=== PATIENT | male | born 1955 | race Caucasian/White ===

== ENCOUNTER 2016-11-17 12:19 | Day surgery (SDC) | payer OTHER ==
[2016-10-27 10:20] LABS: BASO % 0.7 %; BASO ABS # 0.05 K/uL (0-0.2); COMPLETE YES; EOS % 5.4 %; HEMATOCRIT 34.9 % (42-52); IG% 0.1 %; LYMPH % 18.8 %; LYMPH ABS # 1.36 K/uL (1.2-3.4); MEAN CELL VOLUME 84.7 fL (80-100); MEAN CORPUSCULAR HEMOGLOBIN 28.2 pg (25-34); MEAN CORPUSCULAR HGB CONC 33.2 g/dl (32-36); MEAN PLATELET VOLUME 10.8 fL (7.4-10.4); MONO % 8.3 %; NEUT % 66.7 %; PLATELET COUNT 287 K/uL (130-400); RED BLOOD COUNT 4.12 M/uL (4.7-6.1); WHITE BLOOD COUNT 7.22 K/uL (4.8-10.8)
[2016-10-27 10:22] LABS: URINE APPEARANCE CLEAR (CLEAR); URINE BILIRUBIN NEG (NEG); URINE COLOR YELLOW; URINE NITRITE NEG (NEG); URINE SPECIFIC GRAVITY 1.033 (1.000-1.030); UROBILINOGEN NEG (NEG)
[2016-10-27 10:34] LABS: MANUAL MICROSCOPIC REQUIRED? NO; REVIEW REQ? NO
--- NOTE | 2016-11-16 21:17 | HISTORY & PHYSICAL EXAMINATION ---
DATE OF ADMISSION: 11/17/2016 SUBJECTIVE CHIEF COMPLAINT: Left foot osteomyelitis. HISTORY OF PRESENT ILLNESS: This is a patient who had been treated conservatively for a fracture of his left great toe and subsequent ulcer of the left great toe. He has a treatment of the ulceration progressed, the consistency of the toe changed, he started having x-ray changes noted with bony destruction; he is now being set up for a left great toe amputation. PAST MEDICAL HISTORY: History of AL in April of 2016, diabetes treated with insulin. FAMILY HISTORY: Noncontributory. SOCIAL HISTORY: The patient denies alcohol and tobacco. PAST SURGICAL HISTORY: Gastric bypass in 2001 and a right great toe amputation in 2012. ALLERGIES: No known drug allergies. CURRENT MEDICATIONS: Aspirin 81 mg p.o. daily, Coreg 6.25 mg p.o. b.i.d., vitamin D3 supplement 2000 units 1 p.o. daily, NovoLog no dose is given, Keflex 500 mg 1 p.o. q. 6 hours, Bactrim-DS 1 p.o. q. 12 hours. ALLERGIES: No known drug allergies. OBJECTIVE PHYSICAL EXAMINATION: GENERAL: The patient is alert and oriented x3. He is in no acute distress. He is a well-dressed, well-nourished 61-year-old male whose affect is appropriate. CARDIOVASCULAR: Heart has a regular rhythm and rate without murmurs. LUNGS: Clear to auscultation bilateral. EXTREMITIES: Dorsalis pedis, posterior tib pulses are +1/4. Capillary refill is slow. LYMPHATIC: No evidence of any swollen lymph nodes. MUSCULOSKELETAL: The patient has a compensated gait favoring the left lower extremity. On inspection of left lower extremity, he has ulcerations at the medial and lateral aspects of the great toe. With palpation of the great toe, the toe has a spongy feel throughout. He has limited range of motion and strength. NEUROLOGIC: Sensation is decreased in the stocking distribution bilateral lower extremities. X-RAY EXAM: Multiple views of the left foot demonstrate a healing fracture of the left great toe distal phalanx; however, there is bony destruction and erosion noted, compared to previous films consistent with osteomyelitis. ASSESSMENT AND DIAGNOSIS: 1. Left foot great toe osteomyelitis. PLAN: Above assessment was discussed with the patient. At this time, it was recommended the patient undergo a left great toe partial amputation of the proximal phalanx. All potential risks, benefits, complications, alternatives and rehab have been discussed with the patient. At this time, he wishes to proceed with the surgery as indicated and he will be scheduled for the surgery on 11/17/2016.
[~2016-11-17] VITALS: Ht 190.5 cm; Wt 117.0 kg
[~2016-11-17 12:19] MED LIST: ASPI81TA28 PO; CARV6.252 PO; CHOL100010 PO; DALB1SOL IV; INSPMPHMLG; LACTATED RINGER'S 1000ML 1,000 ML IV SCH; METH1CHW PO; NITR0.4S UT; [UNRECOGNIZED DRUG - CODE] PO
[2016-11-17 12:59] VITALS: BP 111/62; PULSE 61; TEMP 36.8; O2SAT 96; Ht 190.5 cm; Wt 117.0 kg
--- NOTE | 2016-11-17 13:14 | History & Physical Bridge Note ---
H&P Re-Evaluation Bridge Note: I have examined the patient, reviewed the History & Physical and in the interval since the performance of the History & Physical I have noted the following changes of clinical significance: No changes noted
[2016-11-17 13:29] LABS: BUN/CREATININE RATIO 11.8 (10-20); CALCIUM 8.7 mg/dl (8.5-10.1); CREATININE 0.99 mg/dl (0.60-1.40); POTASSIUM 4.9 mmol/L (3.5-5.1)
[2016-11-17] MEDS ORDERED: CEFAZOLIN 2000 MG/60 ML D5W IV SCH (13:30)
[2016-11-17] MEDS ORDERED: ONDANSETRON INJ 2 MG/ML 2 ML VIAL IV PRN (16:00)
[2016-11-17] MEDS ORDERED: HYDROmorphone INJ 1 MG/ML SYR IV PRN (16:00)
[2016-11-17] MEDS ORDERED: FENTANYL CITRATE INJ 50 MCG/1 ML 2 ML VIAL IV PRN (16:00)
[2016-11-17] MEDS ORDERED: ATROPINE SULFATE 0.1 MG/ML 5ML SYR IV PRN (16:00)
[2016-11-17] MEDS ORDERED: EpHEDrine SULFATE INJ 50 MG/ML AMP IV PRN (16:00)
[2016-11-17] MEDS ORDERED: MIDAZOLAM HCL 1 MG/ML 2ML VIAL ONE (16:12)
[2016-11-17] MEDS ORDERED: FENTANYL CITRATE INJ 50 MCG/1 ML 2 ML VIAL ONE (16:12)
[2016-11-17] MEDS ORDERED: PROPOFOL IV EMULSION 10 MG/ML 20 ML VIAL IV ONE (16:12)
[2016-11-17] MEDS ORDERED: ASPI81TA28 PO (16:31)
[2016-11-17] MEDS ORDERED: OXYC-57 PO (16:31)
--- NOTE | 2016-11-17 16:33 | Discharge Instructions ---
Discharge Instructions Admission Reason for Admission: Left Great Toe Osteomyelitis Discharge Discharge Diagnosis / Problem: left great toe osteomyelitis distal phalanx Discharge Goals Goal(s): Decrease discomfort Activity Recommendations Activity Limitations: as noted below Lifting Limitations: until after follow-up appointment Exercise/Sports Limitations: until after follow-up appointment May Resume Sexual Activity: when tolerated Shower/Bathe: keep incision dry (Keep dressing in place until follow up in 1 week.) Driving or Machine Use: resume 3 days after discharge Weightbearing Status: Left partial (Heel weightbear only in post op shoe) . Instructions / Follow-Up Instructions / Follow-Up ACTIVITY RECOMMENDATIONS: Limitations: Heel weight bearing only if able to tolerate. SPECIAL CARE INSTRUCTIONS: * Some drainage onto the dressing is normal and is no cause for alarm. * Some swelling is natural especially after walking. * When resting, keep your foot elevated above the level of your heart. * Call [facility] if you notice: -Increased drainage -Fever over 101 degrees F -Severe constant pain BANDAGE: * Leave bandage/cast in place unless otherwise directed. * Keep bandage/cast dry at all times. PIN CARE: * Leave pins alone. * If pins come loose or fall out, notify physician. FOLLOW UP VISIT WITH DR. DE PAZ If appointment is not already scheduled: Please call [facility] after you get home today to schedule a follow-up appointment for [address] De Paz at . Current Hospital Diet Patient's current hospital diet: Discharge Diet Recommended Diet: Diabetes Type 2 Diet Pending Studies Studies pending at discharge: no Laboratory Results Hemoglobin A1c Test 09/03/16 05:58 Range/Units Estimated Average Glucose 226 mg/dl Hemoglobin A1c 9.5 H 4.5-5.6 % Medical Emergencies . Who to Call and When: Medical Emergencies: If at any time you feel your situation is an emergency, please call 911 immediately. . Non-Emergent Contact Non-Emergency issues call your: Surgeon Call Non-Emergent contact if: temperature is above 101, your pain is not controlled, your pain is worsening, wound has increased drainage, wound has increased redness . "Provider Documentation" section prepared by Bassem Ibrahim. VTE Core Measure Inpt VTE Proph given/why not?: Other Anticoagulation (Aspirin 81 mg every 12 hours for 30 days then back to 81 mg daily.)
[2016-11-17 17:15] VITALS: BP 146/74; PULSE 60; TEMP 37; O2SAT 98
[2016-11-17] MEDS ORDERED: LIDOCAINE 2% INJ ONE (17:20)
[2016-11-17] MEDS ORDERED: BACITRACIN 50,000 UNITS IR ONE (17:21)
--- NOTE | 2016-11-17 17:29 | [facility] Post Operative Brief Note ---
Immediate Operative Summary Operative Date Nov 17, 2016. Pre-Operative Diagnosis Left foot osteomyelitis great toe, Diabetic Neuropathy Post-Operative Diagnosis Left foot osteomyelitis great toe, Diabetic Neuropathy Procedure(s) Performed Left Great Toe Partial Amputation to Mid Proximal Phalanx Surgeon Dr. Mata Scalloper Surgeon(s) None Estimated Blood Loss 2ml Findings See dict Specimens a. left great toe b. aerobic/anaerobic/gram stain Drains N Anesthesia Local w/ sedation Complication(s) None Disposition Recovery Room / PACU
[2016-11-17 17:45] VITALS: BP 117/62; PULSE 65; TEMP 36.7; O2SAT 98
--- NOTE | 2016-11-17 19:33 | OPERATIVE REPORT ---
DATE OF OPERATION: 11/17/2016 PREOPERATIVE DIAGNOSES: 1. Left great toe osteomyelitis. 2. Diabetic neuropathy. POSTOPERATIVE DIAGNOSIS: Same. PROCEDURE: 1. Left great toe partial amputation at the level of the proximal phalanx. SURGEON: Dr. Mata. SOCIAL MEDIA DIRECTOR: None. ANESTHESIA: Local with sedation. SPECIMENS: Residual great toe and aerobic, anaerobic, Gram stain. DRAINS: None. COMPLICATIONS: None. BLOOD LOSS: 2 mL. PERTINENT HISTORY: This is a 61-year-old gentleman who has severe diabetic neuropathy who had sustained two prior fractures of his left great toe, mid proximal phalanx. He had extensive soft tissue damage and wound necrosis with a nonunion which had become infected. He attended conservative management over several weeks; however, the necrosis expanded and worsened; therefore scheduled for a partial amputation of left great toe as indicated. All potential risks, benefits, complications, alternatives, rehab, potential for incomplete relief of symptoms, need for further surgery, DVT, PE, , persistent pain, swelling, scarring, weakness, neurovascular injury, wound complications, need for further amputation were discussed with the patient. The patient decided to proceed with the procedure as indicated. PROCEDURE: The patient was taken to the operative suite and placed supine on the operating room table. I reviewed consent and identification of proper operative site, the patient was sedated. Left foot was then sterilely prepped and draped in usual fashion, elevated and the mid foot was partially exsanguinated with an Esmarch bandage and Esmarch tourniquet applied over sterile surgical towel at level of the left ankle. Next, a 15 blade scalpel was used to make an incision dorsally just proximal to the nail fold extending to the mid axial line of the great toe, both medially and laterally. The wound necrosis extended more prominently on the plantar aspect of the great toe, therefore, elongated dorsal flap was then used to plan for the amputation as there is no other alternatives were soft tissue transfer. Next, the flexor tendon was then transected with a #15 blade and the necrotic plantar tissue was then excised. Next, the necrotic bone was removed and disarticulated at the IP joint and then extending more proximal to the mid proximal phalanx was then resected with a rongeur. The great toe specimen was then passed off and the remaining flap was then carefully debrided with a #15 blade scalpel back to healthy tissue. All necrotic debris was then resected from the distal aspect of the left great toe. Next, copious amounts of sterile normal saline with bacitracin was used to irrigate the left great toe. All necrotic debris had been removed, top gloves were removed, top sheet was changed and then the dorsal elongated flap was then closed over the distal aspect of the left great toe with a tension free closure using interrupted 4-0 nylon sutures. A sterile compressive dressing was applied, overwrapped with a Coban. The tourniquet was released. A digital block had been performed with 2% lidocaine, approximately 8 mL in a digital block fashion. The tourniquet was released. The patient was awakened and taken to recovery in stable condition. I attest to the content of the Intraoperative Record and any orders documented therein. Any exceptions are noted below. MT
--- NOTE | 2016-11-18 00:04 | Anesthesiology Progress Note ---
Anesthesia Post Op Note Date & Time Nov 18, 2016 at 00:03 Vital Signs Pain Intensity: 0 Vital Signs Past 12 Hours Date Time Temp Pulse Resp B/P Pulse Ox O2 Delivery O2 Flow Rate FiO2 11/17/16 17:45 36.7 65 18 117/62 98 Room Air 11/17/16 17:15 37 60 18 146/74 98 Room Air 11/17/16 12:59 36.8 61 18 111/62 96 Room Air Notes Mental Status: alert / awake / arousable, participated in evaluation Pt Amnestic to Procedure: Yes Nausea / Vomiting: adequately controlled Pain: adequately controlled Airway Patency, RR, SpO2: stable & adequate BP & HR: stable & adequate Hydration State: stable & adequate Anesthetic Complications: no major complications apparent Patient seen prior to discharge from PACU. Note placed later as could not be placed at time of discharge 2/2 emergency cases starting.
[2017-03-16] MEDS ORDERED: CHOL20009 PO (13:29)
[2017-03-16] MEDS ORDERED: ATOR-26 PO (13:29)
[2017-03-17] MEDS ORDERED: INSDGI SC (09:59)
[2017-03-17] MEDS ORDERED: NVLGI/PEN SC (09:59)
[2017-03-18] MEDS ORDERED: CYAN10005 PO (11:05)
[2017-03-18] MEDS ORDERED: CHOL1CAP13 PO (11:05)
[2017-03-18] MEDS ORDERED: FRRS300 PO (11:05)
[2017-03-29] MEDS ORDERED: INSPMPHMLG (07:49)
[2017-04-02] MEDS ORDERED: SULF800T23 PO (08:23)
[2017-04-25] MEDS ORDERED: SULF800T23 PO (09:16)
[2017-05-21] MEDS ORDERED: CLOP1TAB5 PO (09:14)
[2017-05-31] MEDS ORDERED: ASPI81TA28 PO (14:38)
[2017-05-31] MEDS ORDERED: CLOP1TAB15 PO (14:38)
== END 2016-11-17 18:04 | disposition home or self-care (01) ==
LOC: C.ACU 12:19
PROVIDERS: ATTEND Orthopaedic Surgery Sports Medicine
DX: M86.9 Osteomyelitis, unspecified (principal); E13.40 Other specified diabetes mellitus with diabetic neuropathy, unspecified; I96 Gangrene, not elsewhere classified; I25.2 Old myocardial infarction; Z79.4 Long term (current) use of insulin; Z89.411 Acquired absence of right great toe; Z98.84 Bariatric surgery status; L03.115 Cellulitis of right lower limb

== ENCOUNTER → 2017-03-14 | Outpatient (CLI) | payer OTHER ==
[~2017-03-14] MED LIST changes: +ATOR-26 PO; +CHOL1CAP13 PO; +CHOL20009 PO; +CLOP1TAB15 PO; +CLOP1TAB5 PO; +CYAN10005 PO; -DALB1SOL IV; +FRRS300 PO; +INSDGI SC; +INSDGIPEN SC; +INSU70IN2 SC; -LACTATED RINGER'S 1000ML 1,000 ML IV SCH; +NVLGI/PEN SC; +OXYC-57 PO; +SULF800T23 PO
[2017-03-14 10:36] LABS: HEMATOCRIT 29.2 % (42-52); MEAN CELL VOLUME 84.4 fL (80-100); MEAN CORPUSCULAR HEMOGLOBIN 26.9 pg (25-34); MEAN CORPUSCULAR HGB CONC 31.8 g/dl (32-36); MEAN PLATELET VOLUME 10.1 fL (7.4-10.4); PLATELET COUNT 369 K/uL (130-400); RED BLOOD COUNT 3.46 M/uL (4.7-6.1); WHITE BLOOD COUNT 5.79 K/uL (4.8-10.8)
[2017-03-14 11:08] LABS: ALT/SGPT 9 U/L (12-78); AST/SGOT 8 U/L (15-37); BLOOD UREA NITROGEN 17 mg/dl (7-18); BUN/CREATININE RATIO 19.5 (10-20); CALCIUM 8.6 mg/dl (8.5-10.1); CARBON DIOXIDE 29 mmol/L (21-32); CHLORIDE 104 mmol/L (98-107); CREATININE 0.85 mg/dl (0.60-1.40); GLUCOSE 159 mg/dl (70-99); POTASSIUM 4.4 mmol/L (3.5-5.1); SODIUM 139 mmol/L (136-145)
[2017-03-14 11:19] LABS: CHOLESTEROL 168 mg/dl (0-200); CHOLESTEROL/HDL RATIO 3.1; HDL CHOLESTEROL 55 mg/dl; LDL CHOLESTEROL CALCULATED 94 mg/dl; TRIGLYCERIDES 95 mg/dl (0-150); VERY LOW DENSITY LIPOPROT CALC 19 mg/dl
[2017-03-14 12:23] LABS: ESTIMATED AVERAGE GLUCOSE 197 mg/dl; HA1C FLAG Normal (Normal)
== END | disposition home or self-care (01) ==
LOC: C.LAB1850 09:43
PROVIDERS: ATTEND Internal Medicine Cardiovascular Disease
DX: I10 Essential (primary) hypertension (principal); E78.5 Hyperlipidemia, unspecified; I25.10 Atherosclerotic heart disease of native coronary artery without angina pectoris; E10.40 Type 1 diabetes mellitus with diabetic neuropathy, unspecified; E10.65 Type 1 diabetes mellitus with hyperglycemia; E55.9 Vitamin D deficiency, unspecified; M86.9 Osteomyelitis, unspecified

== ENCOUNTER 2017-03-16 12:20 | Emergency (ER) | payer OTHER ==
[~2017-03-16] VITALS: Ht 188 cm; Wt 117.0 kg
[~2017-03-16 12:20] MED LIST changes: -ATOR-26 PO; -CHOL1CAP13 PO; -CHOL20009 PO; -CLOP1TAB15 PO; -CLOP1TAB5 PO; -CYAN10005 PO; -FRRS300 PO; -INSDGI SC; -INSDGIPEN SC; -INSU70IN2 SC; -NVLGI/PEN SC; -SULF800T23 PO
[2017-03-16 12:37] VITALS: O2SAT 98
[2017-03-16 12:40] VITALS: TEMP 36.6; Ht 188 cm; Wt 117.0 kg
--- NOTE | 2017-03-16 12:42 | EMERGENCY ROOM VISIT NOTE ---
History Report prepared by Sekou: Joe Mcbride Under the Supervision of: Dr. Chava Woodson M.D. First contact with patient: 12:31 Chief Complaint: CHEST PAIN Stated Complaint: CHEST PAIN History of Present Illness The patient is a 61 year old male who presents to the Emergency Room with complaints of an episode of chest pain that occurred earlier this morning. He has a history of a heart attack and gastric bypass. The patient states that this morning, he was eating hot dogs for breakfast, and the food did not want to stay down, and he felt like vomiting. He states that this is not unusual for him. The patient notes that he cannot vomit because of his gastric bypass history, so it put extra pressure on his chest. He states that his chest tightened up on him for around 30 minutes. The patient currently denies any chest pain or abdominal pain. He says that he cannot remember his symptoms during his last heart attack, but he did pass out when he was having it. Dr. Elliott of internal medicine believes the patient should be admitted to see if the patient had a heart attack again. The patient has a right foot amputation , and he says that it has not been healing well. He has not followed up with wound clinic recently, and the last time he saw the wound clinic was a couple months ago. Source of History: patient Onset: Earlier this morning Position: chest Symptom Intensity: lasted 30 minutes Quality: other (tightness) Timing: other (episode) Associated Symptoms: No abdominal pain Note: Associated symptoms: [place] like vomiting after eating breakfast, but could not. Review of Systems See HPI for pertinent positives & negatives. A total of 10 systems reviewed and were otherwise negative. Past Medical & Surgical Medical Problems: (1) Diabetes (2) Diabetic foot ulcer (3) Diabetic foot ulcer associated with type 1 diabetes mellitus (4) Diabetic peripheral neuropathy associated with type 1 diabetes mellitus (5) Diabetic ulcer of left foot (6) Loss of sensation (7) Status post partial amputation of foot Family History No pertinent family history Social History Smoking Status: Former Smoker Drug Use: none Marital Status: single, Occupation Status: employed, disabled Current/Historical Medications Scheduled Aspirin (Aspirin Ec), 81 MG PO Q12 Atorvastatin (Lipitor), 1 TAB PO HS Carvedilol (Coreg), 1 TAB PO BID Cholecalciferol (Vitamin D), 1 TAB PO DAILY Insulin Human Lispro (Insulin Humalog Pump ), 1 EA N/A UD Isosorbide Dinitrate (Isordil Tab), 30 MG PO DAILY Methylcobalamin (M25-Gulyde), 1,000 MG PO DAILY Nitroglycerin (Nitrostat), 0.4 MG UT PRN Scheduled PRN Oxycodone/Acetaminophen 5MG/325MG (Percocet 5MG/325MG), 1-2 TABLETS PO Q4H PRN for Pain Allergies Coded Allergies: No Known Allergies (Unverified , 03/16/17) Physical Exam Vital Signs Date Time Temp Pulse Resp B/P Pulse Ox O2 Delivery O2 Flow Rate FiO2 03/16/17 15:50 76 19 127/69 98 Room Air 03/16/17 14:30 64 20 131/71 98 Room Air 03/16/17 13:30 61 18 112/63 98 Room Air 03/16/17 12:42 98 Room Air 03/16/17 12:40 36.6 66 16 125/64 96 Room Air 03/16/17 12:38 67 03/16/17 12:37 98 Room Air 03/16/17 12:37 36.8 63 26 134/66 98 Room Air 03/16/17 12:37 98 Room Air Physical Exam GENERAL: Patient is a healthy-appearing well-nourished HEAD: Normocephalic atraumatic EYES: Ocular movements intact pupils equal and react to light OROPHARYNX mucous membranes are moist no exudates present no erythema or edema present NECK: Supple no nuchal rigidity CHEST: Good equal expansion LUNGS: Clear and equal to auscultation CARDIAC: Grade 4/6 systolic murmur. ABDOMEN: Soft nontender no guarding BACK: No CVA tenderness EXTREMITIES:Right foot amputation and large drainage from amputation area. NEURO: Patient is following commands is answering questions appropriately. Alert and oriented x3 Cranial Nerves 2-12 grossly intact Medical Decision & Procedures ER Provider Diagnostic Interpretation: X-ray results as stated below per interpretation by me and the radiologist: CHEST ONE VIEW PORTABLE CLINICAL HISTORY: Chest pain. COMPARISON STUDY: Chest radiograph December 31, 2015. FINDINGS: Lung lungs are normal. Lungs are clear. There is no pneumothorax or pleural effusion. Cardiac size is at the upper limits of normal. There is no evidence of pulmonary edema. IMPRESSION: No acute cardiopulmonary findings. Electronically signed by: Dmitry Harper M.D. 03/16/2017 1:09 PM Dictated Date/Time: 03/16/2017 1:09 PM Laboratory Results 03/16/17 13:05 Red Blood Count 3.22, Mean Corpuscular Volume 84.5, Mean Corpuscular Hemoglobin 25.8, Mean Corpuscular Hemoglobin Concent 30.5, Mean Platelet Volume 9.9, Neutrophils (%) (Auto) 77.9, Lymphocytes (%) (Auto) 11.6, Monocytes (%) (Auto) 7.2, Eosinophils (%) (Auto) 2.8, Basophils (%) (Auto) 0.4, Neutrophils # (Auto) 5.77, Lymphocytes # (Auto) 0.86, Monocytes # (Auto) 0.53, Eosinophils # (Auto) 0.21, Basophils # (Auto) 0.03 03/16/17 13:05 Test 03/16/17 13:05 White Blood Count 7.41 K/uL (4.8-10.8) Red Blood Count 3.22 M/uL (4.7-6.1) Hemoglobin 8.3 g/dL (14.0-18.0) Hematocrit 27.2 % (42-52) Mean Corpuscular Volume 84.5 fL (80-100) Mean Corpuscular Hemoglobin 25.8 pg (25-34) Mean Corpuscular Hemoglobin Concent 30.5 g/dl (32-36) Platelet Count 287 K/uL (130-400) Mean Platelet Volume 9.9 fL (7.4-10.4) Neutrophils (%) (Auto) 77.9 % Lymphocytes (%) (Auto) 11.6 % Monocytes (%) (Auto) 7.2 % Eosinophils (%) (Auto) 2.8 % Basophils (%) (Auto) 0.4 % Neutrophils # (Auto) 5.77 K/uL (1.4-6.5) Lymphocytes # (Auto) 0.86 K/uL (1.2-3.4) Monocytes # (Auto) 0.53 K/uL (0.11-0.59) Eosinophils # (Auto) 0.21 K/uL (0-0.5) Basophils # (Auto) 0.03 K/uL (0-0.2) RDW Standard Deviation 43.2 fL (36.4-46.3) RDW Coefficient of Variation 13.9 % (11.5-14.5) Immature Granulocyte % (Auto) 0.1 % Immature Granulocyte # (Auto) 0.01 K/uL (0.00-0.02) Red Blood Cell Morphology Unremarkable Anion Gap 5.0 mmol/L (3-11) Est Creatinine Clear Calc Drug Dose 117.2 ml/min Estimated GFR () 106.5 Estimated GFR (Non- 91.9 BUN/Creatinine Ratio 17.4 (10-20) Calcium Level 8.3 mg/dl (8.5-10.1) Total Bilirubin 0.4 mg/dl (0.2-1) Direct Bilirubin < 0.1 mg/dl (0-0.2) Aspartate Amino Transf (AST/SGOT) 9 U/L (15-37) Alanine Aminotransferase (ALT/SGPT) < 6 U/L (12-78) Alkaline Phosphatase 104 U/L (45-117) Total Creatine Kinase 65 U/L (39-308) Creatine Kinase MB 0.9 ng/ml (0.5-3.6) Creatine Kinase MB Ratio 1.4 (0-3.0) Troponin I < 0.015 ng/ml (0-0.045) Pro-B-Type Natriuretic Peptide 2335 pg/ml (0-900) Total Protein 6.8 gm/dl (6.4-8.2) Albumin 2.7 gm/dl (3.4-5.0) Lipase 78 U/L (73-393) Labs reviewed by ED physician. ECG Indication: chest pain Rate (beats per minute): 66 Rhythm: normal sinus Findings: no acute ischemic change, no ectopy, other (old inferior infarct) ED Course 1233: Past medical records reviewed. The patient was evaluated in room A2. A complete history and physical examination was performed. 1352: I reevaluated the patient and he refused a rectal exam, although it was highly recommended. 1430: Upon reexamination the patient is resting comfortably. I discussed results and treatment plan with the patient. He verbalizes agreement and understanding. The patient is ready for discharge. Medical Decision Prior records/ancillary studies reviewed. Triage Nursing notes reviewed. The patient's history was concerning for chest pain. Differential diagnosis: Etiologies such as cardiac ischemia, aortic dissection, pulmonary embolism, pneumonia, pneumothorax, musculoskeletal, infections, pericarditis, myocarditis , esophageal rupture, gastrointestinal, as well as others were entertained. 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 The patient has known critical aortic stenosis and is awaiting a cardiac surgery to repair both this as well as his coronary artery disease. The patient presents to the emergency department after having chest pain this morning. In addition the patient's hemoglobin is normally 13. It is 8 today. Based on these multiple findings I strongly recommended to the patient that he be admitted to the hospital however he is going to sign out AGAINST MEDICAL ADVICE. The patient wishes to return to the hospital tomorrow and receive blood then. The patient has demonstrated no significant defect in the decision-making capacity to make choices. The encounter had a good level of communication with language the patient can easily understand. I feel trust was present and conveyed that our action/intentions were the best interest of the patient. The patient was given all relevant information and reiterated the explained risks and benefits. The patient explained the reasoning for refusing treatment clearly. The patient possesses and expresses a set of values and goals, the ability to communicate and understand, and an ability to reason and deliberate. Despite acting emphatically, attentively and with the utmost patient's the patient declined further treatment. I offered options, negotiated, and explored every reasonable choice. I must respect the patient's autonomy and that they feel that their choices are best for them despite the associated risks of leaving without completing the evaluation. The patient was informed about the findings as listed above. All questions were answered and he was pleased with the treatment. Return instructions were outlined and the patient was discharged in stable condition. Impression Primary Impression: Anemia Additional Impressions: Substernal precordial chest pain Diabetic foot ulcer Hyperglycemia Aortic stenosis Scribe Attestation The scribe's documentation has been prepared under my direction and personally reviewed by me in its entirety. I confirm that the note above accurately reflects all work, treatment, procedures, and medical decision making performed by me. Departure Information Dispostion Home / Self-Care Referrals No Doctor, Assigned (PCP) Patient Instructions Chest Pain - [facility], ED Anemia Type Not Specified, My [facility] Additional Instructions You have been examined and treated today on an emergency basis only. This is not a substitute for, or an effort to provide, complete comprehensive medical care. It is impossible to recognize and treat all injuries or illnesses in a single emergency department visit. It is therefore important that you follow up closely with Dr Hillman. Call as soon as possible for an appointment. Thank you for your time and consideration. I look forward to speaking with you again soon. Please don't hesitate to call us if you have any questions. Problem Qualifiers Primary Impression: Anemia Anemia type: unspecified type Qualified Codes: D64.9 - Anemia, unspecified Additional Impressions: Diabetic foot ulcer Diabetic foot ulcer location: midfoot Diabetes mellitus type: type 2 Laterality: right Non-pressure ulcer stage: unspecified non-pressure ulcer stage Qualified Codes: E11.621 - Type 2 diabetes mellitus with foot ulcer; L97.419 - Non-pressure chronic ulcer of right heel and midfoot with unspecified severity Aortic stenosis Cardiac valve disease etiology: etiology unspecified Qualified Codes: I35.0 - Nonrheumatic aortic (valve) stenosis
--- NOTE | 2017-03-16 13:10 | DIAGNOSTIC IMAGING REPORT ---
CHEST ONE VIEW PORTABLE CLINICAL HISTORY: Chest pain. COMPARISON STUDY: Chest radiograph December 31, 2015. FINDINGS: Lung lungs are normal. Lungs are clear. There is no pneumothorax or pleural effusion. Cardiac size is at the upper limits of normal. There is no evidence of pulmonary edema. IMPRESSION: No acute cardiopulmonary findings. Electronically signed by: Dmitry Harper M.D. 03/16/2017 1:09 PM Dictated Date/Time: 03/16/2017 1:09 PM
[2017-03-16] MEDS ORDERED: CHOL20009 PO ×2 (13:29)
[2017-03-16] MEDS ORDERED: ATOR-26 PO ×2 (13:29)
[2017-03-16 13:31] LABS: BASO % 0.4 %; BASO ABS # 0.03 K/uL (0-0.2); EOS % 2.8 %; HEMATOCRIT 27.2 % (42-52); IG% 0.1 %; LYMPH % 11.6 %; LYMPH ABS # 0.86 K/uL (1.2-3.4); MEAN CELL VOLUME 84.5 fL (80-100); MEAN CORPUSCULAR HEMOGLOBIN 25.8 pg (25-34); MEAN CORPUSCULAR HGB CONC 30.5 g/dl (32-36); MEAN PLATELET VOLUME 9.9 fL (7.4-10.4); MONO % 7.2 %; NEUT % 77.9 %; PLATELET COUNT 287 K/uL (130-400); RED BLOOD COUNT 3.22 M/uL (4.7-6.1); WHITE BLOOD COUNT 7.41 K/uL (4.8-10.8)
[2017-03-16 13:50] LABS: ALT/SGPT < 6 U/L (12-78); AST/SGOT 9 U/L (15-37); BLOOD UREA NITROGEN 16 mg/dl (7-18); BUN/CREATININE RATIO 17.4 (10-20); CALCIUM 8.3 mg/dl (8.5-10.1); CARBON DIOXIDE 29 mmol/L (21-32); CHLORIDE 108 mmol/L (98-107); GLUCOSE 283 mg/dl (70-99); POTASSIUM 4.4 mmol/L (3.5-5.1); SODIUM 142 mmol/L (136-145)
[2017-03-16 13:56] LABS: ALKALINE PHOSPHATASE 104 U/L (45-117); CKMB/CK RATIO 1.4 (0-3.0)
[2017-03-16 14:07] LABS: COMPLETE YES
[2017-03-16 15:50] VITALS: BP 127/69; PULSE 76; O2SAT 98
[2017-03-17] MEDS ORDERED: NVLGI/PEN SC ×2 (09:59)
[2017-03-17] MEDS ORDERED: INSDGI SC ×2 (09:59)
[2017-03-29] MEDS ORDERED: INSPMPHMLG (07:49)
[2017-04-02] MEDS ORDERED: SULF800T23 PO (08:23)
[2017-04-25] MEDS ORDERED: SULF800T23 PO (09:16)
[2017-05-21] MEDS ORDERED: CLOP1TAB5 PO (09:14)
[2017-05-31] MEDS ORDERED: ASPI81TA28 PO (14:38)
[2017-05-31] MEDS ORDERED: CLOP1TAB15 PO (14:38)
[2017-09-06] MEDS ORDERED: SULF800T23 PO (08:21)
== END 2017-03-16 16:00 | disposition home or self-care (01) ==
LOC: C.EDB 12:21 → C.EDA 16:00
DX: D64.9 Anemia, unspecified (principal); R07.2 Precordial pain; E11.621 Type 2 diabetes mellitus with foot ulcer; L97.419 Non-pressure chronic ulcer of right heel and midfoot with unspecified severity; E11.65 Type 2 diabetes mellitus with hyperglycemia; I35.0 Nonrheumatic aortic (valve) stenosis; Z87.891 Personal history of nicotine dependence; Z79.82 Long term (current) use of aspirin; Z79.4 Long term (current) use of insulin; Z79.899 Other long term (current) drug therapy

== ENCOUNTER 2017-03-17 09:10 | Observation (INO) | payer OTHER ==
[2017-03-17] VITALS (8 sets, daily range): BP systolic 135–154; BP diastolic 70–84; PULSE 60–78; TEMP 36.6–36.9; O2SAT 96–99; Ht 188 cm; Wt 106.0 kg
[~2017-03-17] VITALS: Ht 188 cm; Wt 106.0 kg
[~2017-03-17 09:10] MED LIST changes: +ATOR-26 PO; +CHOL20009 PO
[2017-03-17] MEDS ORDERED: SODIUM CHLORIDE 0.9% 1000ML 1,000 ML IV STA (09:42)
[2017-03-17] MEDS ORDERED: NVLGI/PEN SC ×2 (09:59)
[2017-03-17] MEDS ORDERED: INSDGI SC ×2 (09:59)
[2017-03-17 10:32] LABS: BASO % 0.7 %; BASO ABS # 0.05 K/uL (0-0.2); EOS % 4.3 %; HEMATOCRIT 25.5 % (42-52); LYMPH % 14.6 %; LYMPH ABS # 1.04 K/uL (1.2-3.4); MEAN CELL VOLUME 84.4 fL (80-100); MEAN CORPUSCULAR HEMOGLOBIN 26.5 pg (25-34); MEAN CORPUSCULAR HGB CONC 31.4 g/dl (32-36); MEAN PLATELET VOLUME 10.1 fL (7.4-10.4); MONO % 8.8 %; NEUT % 71.6 %; PLATELET COUNT 263 K/uL (130-400); RED BLOOD COUNT 3.02 M/uL (4.7-6.1); WHITE BLOOD COUNT 7.14 K/uL (4.8-10.8)
[2017-03-17 10:42] LABS: PARTIAL THROMBOPLASTIN RATIO 1.2; PROTHROMBIN TIME (PATIENT) 10.9 SECONDS (9.0-12.0)
[2017-03-17 10:51] LABS: ALT/SGPT < 6 U/L (12-78); AST/SGOT 8 U/L (15-37); BLOOD UREA NITROGEN 16 mg/dl (7-18); BUN/CREATININE RATIO 20.5 (10-20); CALCIUM 8.3 mg/dl (8.5-10.1); CARBON DIOXIDE 30 mmol/L (21-32); CHLORIDE 107 mmol/L (98-107); CREATININE 0.77 mg/dl (0.60-1.40); GLUCOSE 175 mg/dl (70-99); MAGNESIUM 2.1 mg/dl (1.8-2.4); POTASSIUM 4.3 mmol/L (3.5-5.1); SODIUM 142 mmol/L (136-145)
[2017-03-17 10:54] LABS: ALB/GLOB RATIO 0.7 (0.9-2); ALKALINE PHOSPHATASE 102 U/L (45-117)
[2017-03-17 10:56] LABS: COMPLETE YES
[2017-03-17] MEDS ORDERED: ACETAMINOPHEN 325 MG TAB PO PRN (12:00)
[2017-03-17] MEDS ORDERED: ALUMINUM/MAGNESIUM/SIMETH (MAALOX MAX) 30 ML UDC PO PRN (12:00)
[2017-03-17] MEDS ORDERED: POLYETHYLENE (MIRALAX) 17 GM PACK PO PRN (12:00)
[2017-03-17] MEDS ORDERED: ONDANSETRON INJ 2 MG/ML 2 ML VIAL IV PRN (12:00)
[2017-03-17] MEDS ORDERED: NITROGLYCERIN 0.4 MG SL PER TAB CHARGE UT SCH (12:00)
[2017-03-17] MEDS ORDERED: MAGNESIUM HYDROXIDE SUSP 30 ML UDC PO PRN (12:00)
--- NOTE | 2017-03-17 12:28 | History and Physical ---
History & Physical Date & Time of Service: March 17, 2017 at 12:21 Chief Complaint: Low Blood Count Primary Care Physician: Contreras Hillman D.O.Int.Med. Past Medical/Surgical History Medical Problems: (1) Diabetes Status: Chronic Family History No pertinent family history Social History Smoking Status: Former Smoker Drug Use: none Marital Status: single, Occupational Status: employed, disabled Immunizations History of Influenza Vaccine: Unknown History of Tetanus Vaccine?: Unknown History of Pneumococcal: Unknown History of Hepatitis B Vaccine: Unknown Multi-Drug Resistant Organisms History of MDRO: No Allergies Coded Allergies: No Known Allergies (Unverified , 03/17/17) Home Medications Scheduled Aspirin (Aspirin Ec), 81 MG PO Q12 Atorvastatin (Lipitor), 1 TAB PO HS Carvedilol (Coreg), 1 TAB PO BID Cholecalciferol (Vitamin D), 1 TAB PO DAILY Insulin Aspart (Novolog Flexpen), SC WM Insulin Glargine (Lantus), 40 UNITS SC QPM Isosorbide Dinitrate (Isordil Tab), 30 MG PO DAILY Methylcobalamin ([id number]), 1,000 MG PO DAILY Nitroglycerin (Nitrostat), 0.4 MG UT PRN Physical Exam Vital Signs Date Time Temp Pulse Resp B/P Pulse Ox O2 Delivery O2 Flow Rate FiO2 03/17/17 10:40 54 16 128/68 96 Room Air 03/17/17 09:20 36.5 63 19 115/64 97 Room Air Diagnostics Laboratory Results Results Past 24 Hours Test 03/17/17 10:05 03/17/17 11:53 03/17/17 11:57 Range/Units White Blood Count 7.14 4.8-10.8 K/uL Red Blood Count 3.02 4.7-6.1 M/uL Hemoglobin 8.0 14.0-18.0 g/dL Hematocrit 25.5 42-52 % Mean Corpuscular Volume 84.4 80-100 fL Mean Corpuscular Hemoglobin 26.5 25-34 pg Mean Corpuscular Hemoglobin Concent 31.4 32-36 g/dl Platelet Count 263 130-400 K/uL Mean Platelet Volume 10.1 7.4-10.4 fL Neutrophils (%) (Auto) 71.6 % Lymphocytes (%) (Auto) 14.6 % Monocytes (%) (Auto) 8.8 % Eosinophils (%) (Auto) 4.3 % Basophils (%) (Auto) 0.7 % Neutrophils # (Auto) 5.11 1.4-6.5 K/uL Lymphocytes # (Auto) 1.04 1.2-3.4 K/uL Monocytes # (Auto) 0.63 0.11-0.59 K/uL Eosinophils # (Auto) 0.31 0-0.5 K/uL Basophils # (Auto) 0.05 0-0.2 K/uL RDW Standard Deviation 43.6 36.4-46.3 fL RDW Coefficient of Variation 14.0 11.5-14.5 % Immature Granulocyte % (Auto) 0.0 % Immature Granulocyte # (Auto) 0.00 0.00-0.02 K/uL Red Blood Cell Morphology Unremarkable Prothrombin Time 10.9 9.0-12.0 SECONDS Prothromb Time International Ratio 1.0 0.9-1.1 Activated Partial Thromboplast Time 31.2 21.0-31.0 SECONDS Partial Thromboplastin Ratio 1.2 Sodium Level 142 136-145 mmol/L Potassium Level 4.3 3.5-5.1 mmol/L Chloride Level 107 98-107 mmol/L Carbon Dioxide Level 30 21-32 mmol/L Anion Gap 5.0 3-11 mmol/L Blood Urea Nitrogen 16 7-18 mg/dl Creatinine 0.77 0.60-1.40 mg/dl Est Creatinine Clear Calc Drug Dose 130.8 ml/min Estimated GFR () 113.5 Estimated GFR (Non- 97.9 BUN/Creatinine Ratio 20.5 10-20 Random Glucose 175 70-99 mg/dl Calcium Level 8.3 8.5-10.1 mg/dl Magnesium Level 2.1 1.8-2.4 mg/dl Total Bilirubin 0.4 0.2-1 mg/dl Aspartate Amino Transf (AST/SGOT) 8 15-37 U/L Alanine Aminotransferase (ALT/SGPT) < 6 12-78 U/L Alkaline Phosphatase 102 45-117 U/L Total Protein 6.7 6.4-8.2 gm/dl Albumin 2.7 3.4-5.0 gm/dl Globulin 4.0 2.5-4.0 gm/dl Albumin/Globulin Ratio 0.7 0.9-2 Transferrin % Saturation 20-50 % Impression Assessment and Plan obs # [id number] VTE Prophylaxis VTE Risk Assessment Done? Y/N: Yes Risk Level: Moderate
[2017-03-17] MEDS ORDERED: GLUCOSE 40% GEL 15 GM TUBE PO PRN (12:45)
[2017-03-17] MEDS ORDERED: DEXTROSE 50% 50 ML SYR IV PRN (12:45)
[2017-03-17] MEDS ORDERED: GLUCAGON FOR INJ 1 MG VIAL SQ PRN (12:45)
[2017-03-17] MEDS ORDERED: GLUCOSE 10 TABS/TUBE PO PRN (12:45)
[2017-03-17 13:02] LABS: FERRITIN 4.8 ng/ml (8.0-388.0)
--- NOTE | 2017-03-17 13:22 | HISTORY & PHYSICAL EXAMINATION ---
DATE OF ADMISSION: 03/17/2017 CHIEF COMPLAINT: Anemia. HISTORY OF PRESENT ILLNESS: The patient is a very pleasant 61-year-old male who was referred to the ER yesterday by Dr. Elliott for concern about angina. He went to the ER, troponin was negative. He was found to be fairly anemic and there was concern that that may be driving the angina, but he had stuff to take care of and refused to stay. He came back today for further evaluation and treatment. He notes to me that he describes his chest pain as sort of a tightness and feeling like he needed to vomit and nausea after eating hot dogs and noting that because of his gastric bypass, generally he cannot vomit and did not feel like it was anything cardiac, however he also describes about a month of worsening dyspnea on exertion that has been gradual onset. With dyspnea on exertion he has no chest pain or tightness, nothing that feels anginal to him, but does note that it is new and certainly worse than his baseline. He has not had any abdominal pain otherwise. He does not have any chronic nausea, abdominal pain, indigestion. He has had some dark stools off again on again without a whole lot of rhythm or reason. He had a heme test in the ER today that was negative. He notes has been several years since his last scopes. REVIEW OF SYSTEMS: Otherwise negative, except for as above. PAST MEDICAL HISTORY: Includes coronary artery disease and aortic stenosis with angina. He is set for cardiothoracic surgery once his foot wound heals more. He has also got a past medical history of anemia, prior carotid artery dissection, type 1 diabetes with peripheral neuropathy, foot ulcer. He is status post gastric bypass, hypertension, mitral regurge, B12 and D deficiency. HOME MEDICATIONS: Aspirin 81 mg daily, Lipitor 80 mg at bedtime, Coreg 1 tab 6.25 mg b.i.d., vitamin D 2000 international units daily, Apidra at a carb ratio of 1:5, Lantus 40 units subQ at bedtime, Imdur 30 mg daily, vitamin B12 1000 mcg daily, nitroglycerin 0.4 p.r.n. PAST SURGICAL HISTORY: He has had a gastric bypass, foot surgery with prior foot amputation metatarsal and toe and currently he is healing from a foot wound that had osteomyelitis. FAMILY HISTORY: There is no significant family history of note. SOCIAL HISTORY: Social drinker, former smoker, . ALLERGIES: No known drug allergies. PHYSICAL EXAMINATION: VITAL SIGNS: 36.5, pulse 63, respiratory rate 19, blood pressure 115/64, 97% on room air. GENERAL: He is awake, alert, oriented x3, pleasant, in no acute distress. HEAD, EYES, EARS, NOSE, AND THROAT: Normocephalic, atraumatic. Mucous membranes are moist. CARDIOVASCULAR: Regular without rubs or gallops. He does have a rather significant systolic murmur heard all throughout, but is consistent with aortic stenosis as far as the harsh quality. ABDOMEN: He has a midline scar from his gastric bypass, but is nondistended, nontender, no masses or organomegaly. EXTREMITIES: Without cyanosis or clubbing. He has chronic edema type changes, but no calf tenderness. SKIN: Shows no rashes, no pallor or icterus. MUSCULOSKELETAL EXAMINATION: Shows no gross lesions. NEUROLOGIC: Shows cranial nerves II-XII to be grossly intact. He shows no gross motor deficits. MENTAL STATE: Good recent and remote recall. Normal mood and affect. Good judgment and insight. LABS AND DIAGNOSTICS: CBC shows a white count of 7.14, hemoglobin 8 which is down from 9.3 a few days ago and down from 11.6 a few months ago. His MCV is 84.4, platelets are 263. Complete metabolic panel with sodium 142, potassium 4.3, chloride 107, CO2 30, BUN 16, creatinine 0.77, calcium 8.3, glucose 175, mag 2.1, total bilirubin 0.4 with an AST of 8, ALT of less than 6, alkaline phosphatase 102, total protein 6.7, albumin 2.7. PT 10.9, PTT 31.2. Recent outpatient labs of note were A1c of 8.5 on March 14, vitamin D of 16.2 on March 14, cholesterol of 168 with an LDL of 94, HDL of 55 on 03/14/2017, relatively normal iron studies from about 2-1/2 years ago and B12 of 170 from not quite 2 years ago. ASSESSMENT AND PLAN: 1. Dyspnea on exertion. This is probably anemia compounding his cardiac disease. Fortunately nothing appears unstable. Because of cardiology concerns of an unstable angina situation will repeat a troponin. He had a negative troponin yesterday in the ER and certainly now he is more than 24 hours past the onset of his symptoms with no recurrence, so 1 additional negative troponin should effectively rule out acute coronary syndrome. He is set up for her cardiothoracic surgery once his foot heals enough to allow and therefore barring any surprises on his troponin, new symptoms, an echocardiogram does not appear to be necessary at this time and stress testing certainly appears to be superfluous. 2. Anemia. His hemoglobin appears to have been trickling down over the last several months. The fact that it went from mid 9's to mid 8's over about 3 or 4 days is a bit worrisome, but he also shows no signs or symptoms of acute hemorrhage, so it may all be lab variation Certainly given his dyspnea on exertion and his cardiac disease, hemoglobin of 8 appears to warrant at least a unit of transfusion. We discussed this and will give him a unit of blood, follow his symptoms afterwards, have him walk around the halls as vigorously as he can and if he is still having untoward dyspnea on exertion after 1 unit, then he may need a second but probably not. He is heme negative here in the ER and showing no signs or symptoms of active hemorrhage, so therefore there does not appear to be a benefit of trending his hemoglobin or continuing Hemoccult testing at this point in time given the high likelihood of slow ooze GI bleed. We will check iron studies given his prior B12 deficiency. We will check a followup B12 to ensure he has got adequate reserves and then we discussed as an outpatient certainly an endoscopic workup is warranted in the very near future. Certainly if he shows any signs of acute bleeding, we may need to consult GI as an inpatient but at this point that does not appear to be necessary. Follow up hemoglobin in the morning. 3. Uncontrolled type 1 diabetes. He has recently had his insulins changed. We will continue his Lantus 40 and log at 1:5. Follow fingersticks. 4. Vitamin D deficiency. He notes that he has been taking the D3. He was supposed to be getting 50,000 units once a week as well, but has not been able to get this approved. Will continue his D3 at 6000 units a day and given him D2 50,000 units at least today and tomorrow and then hopefully he can get approved as an outpatient for this. 5. B12 deficiency. Continue supplementation, await follow-up level. 6. Coronary artery disease and aortic stenosis, troponin as above. Continue his home medications otherwise. 7. Deep venous thrombosis prophylaxis. Pharmacologic is contraindicated in a strong relative sense given the high suspicion of GI bleeding. Fortunately given that he is not showing any hemorrhage we can continue his aspirin given risk and benefits of his known needing bypass coronary disease. MT
[2017-03-17] MEDS ORDERED: ERGOCALCIFEROL 50,000 INTER.UNIT CAP PO ONE (14:00)
[2017-03-17] MEDS ORDERED: IV FLUIDS COMPLETED PRN (14:15)
[2017-03-17 16:01] LABS: URINE APPEARANCE CLEAR (CLEAR); URINE BILIRUBIN NEG (NEG); URINE COLOR YELLOW; URINE NITRITE NEG (NEG); URINE SPECIFIC GRAVITY 1.023 (1.000-1.030); UROBILINOGEN NEG (NEG); ZZUR CULT IF INDIC CLEAN CATCH NO
[2017-03-17 16:02] LABS: MANUAL MICROSCOPIC REQUIRED? NO; REVIEW REQ? NO
[2017-03-17] MEDS: INSULIN ASPART 100 UNITS/ML 3 ML PEN SC SCH (16:30)
--- NOTE | 2017-03-17 17:01 | EMERGENCY ROOM VISIT NOTE ---
History First contact with patient: 09:35 Chief Complaint: OTHER COMPLAINT Stated Complaint: ANEMIA History of Present Illness The patient is a 61 year old male who presents to the Emergency Room via private vehicle with complaints of "low blood count". The patient states that he was here yesterday, and it was requested he be admitted however he notes that he was not ready for that at that time. He states that he is here today to be admitted. He states that he was here yesterday because Dr. Elliott sent him here as his hemoglobin was low. He states he also felt nauseated. There was potential associated chest pain. Patient states that approximately 2 weeks ago he did have dark stool, of which now is normal. At this time he denies any pain, nausea, vomiting, fevers, chills. He notes that he does take a large amount of Aleve secondary to pain in his legs. He questions today whether or not his anemia could be causing his fatigue and exhaustion. He also feels as though he become short of breath quite easily. Review of Systems A complete 10-point Review of Systems was discussed with the patient, with pertinent positives and negatives listed in the History of Present Illness. All remaining Review of Systems questions can be considered negative unless otherwise specified. Past Medical/Surgical History Medical Problems: (1) Anemia (2) Diabetes (3) Diabetic foot ulcer (4) Diabetic foot ulcer associated with type 1 diabetes mellitus (5) Diabetic peripheral neuropathy associated with type 1 diabetes mellitus (6) Diabetic ulcer of left foot (7) Loss of sensation (8) Status post partial amputation of foot Family History No pertinent family history Social History Smoking Status: Former Smoker Drug Use: none Marital Status: single, Occupation Status: employed, disabled Current/Historical Medications Scheduled Aspirin (Aspirin Ec), 81 MG PO Q12 Atorvastatin (Lipitor), 1 TAB PO HS Carvedilol (Coreg), 1 TAB PO BID Cholecalciferol (Vitamin D), 1 TAB PO DAILY Insulin Aspart (Novolog Flexpen), SC WM Insulin Glargine (Lantus), 40 UNITS SC QPM Isosorbide Dinitrate (Isordil Tab), 30 MG PO DAILY Methylcobalamin ([id number]), 1,000 MG PO DAILY Nitroglycerin (Nitrostat), 0.4 MG UT PRN Allergies Coded Allergies: No Known Allergies (Unverified , 03/17/17) Physical Exam Vital Signs Date Time Temp Pulse Resp B/P Pulse Ox O2 Delivery O2 Flow Rate FiO2 03/17/17 10:40 54 16 128/68 96 Room Air 03/17/17 09:20 36.5 63 19 115/64 97 Room Air Pain Rating (0-10): 0 Physical Exam VITAL SIGNS - Vital signs and nursing notes were reviewed. patient is afebrile, normotensive, non-tachycardic and is saturating well on room air 97% GENERAL -61-year-old male appearing his stated age who is in no acute distress. Communicates well with provider and answers questions appropriately. SKIN -foot Ulcer. Patient is overall pale in appearance. HEAD - NC/AT. EYES - PERRL with EOMI bilaterally. Sclera anicteric. Palpebral conjunctiva pink and moist with no injection noted. EARS - No deformities of external structures noted on gross examination bilaterally. No pain elicited with palpation of the tragus bilaterally. External auditory canals without discharge or otorrhea. Tympanic membranes pearly pepe without retraction or bulging. No fluid or purulent material visualized behind the TM. Handle of malleus, umbo, cone of light, pars tensa/ flaccid all easily visualized. NOSE - Midline and without cyanosis. No epistaxis or purulent drainage noted. Septum midline without deviation or septal hematoma noted. MOUTH/OROPHARYNX - Without perioral cyanosis. Buccal mucosa pink and moist and without leukoplakia. Tongue midline with equal elevation of palate bilaterally. No tonsillar hypertrophy, erythema, or exudates noted. Dentition noted. NECK - Neck with FROM. Supple to palpation. No lymphadenopathy noted. No nuchal rigidity. LUNGS - Chest wall symmetric without accessory muscle use, intercostals retractions, or central cyanosis. Normal vesicular breath sounds CTA B/L. No wheezes, rales, or rhonchi appreciated. CARDIAC - RRR with S1/S2. A very loud systolic murmur radiating to the right neck is appreciated and suspected to be aortic stenosis. Rubs, or gallops appreciated. ABDOMEN - Abdominal contour without pulsations or visible masses. BS normoactive all four quadrants. No tenderness, palpable masses, hepatosplenomegaly, or ascites noted. EXTREMITIES - No clubbing or peripheral cyanosis. No pretibial edema present. + 5/5 strength noted in UE/LE bilaterally. NEUROLOGIC - Cranial nerves II through XII grossly intact. PSYCH - A&Ox3 and cooperates fully with examiner. Pt is very pleasant and interacts well with examiner.. RECTAL: After obtaining patient consent: Unremarkable. Hemoccult negative @ 0945. Medical Decision & Procedures Laboratory Results 03/17/17 10:05 Red Blood Count 3.02, Mean Corpuscular Volume 84.4, Mean Corpuscular Hemoglobin 26.5, Mean Corpuscular Hemoglobin Concent 31.4, Mean Platelet Volume 10.1, Neutrophils (%) (Auto) 71.6, Lymphocytes (%) (Auto) 14.6, Monocytes (%) (Auto) 8.8, Eosinophils (%) (Auto) 4.3, Basophils (%) (Auto) 0.7, Neutrophils # (Auto) 5.11, Lymphocytes # (Auto) 1.04, Monocytes # (Auto) 0.63, Eosinophils # (Auto) 0.31, Basophils # (Auto) 0.05 03/17/17 10:05 Test 03/17/17 10:05 White Blood Count 7.14 K/uL (4.8-10.8) Red Blood Count 3.02 M/uL (4.7-6.1) Hemoglobin 8.0 g/dL (14.0-18.0) Hematocrit 25.5 % (42-52) Mean Corpuscular Volume 84.4 fL (80-100) Mean Corpuscular Hemoglobin 26.5 pg (25-34) Mean Corpuscular Hemoglobin Concent 31.4 g/dl (32-36) Platelet Count 263 K/uL (130-400) Mean Platelet Volume 10.1 fL (7.4-10.4) Neutrophils (%) (Auto) 71.6 % Lymphocytes (%) (Auto) 14.6 % Monocytes (%) (Auto) 8.8 % Eosinophils (%) (Auto) 4.3 % Basophils (%) (Auto) 0.7 % Neutrophils # (Auto) 5.11 K/uL (1.4-6.5) Lymphocytes # (Auto) 1.04 K/uL (1.2-3.4) Monocytes # (Auto) 0.63 K/uL (0.11-0.59) Eosinophils # (Auto) 0.31 K/uL (0-0.5) Basophils # (Auto) 0.05 K/uL (0-0.2) RDW Standard Deviation 43.6 fL (36.4-46.3) RDW Coefficient of Variation 14.0 % (11.5-14.5) Immature Granulocyte % (Auto) 0.0 % Immature Granulocyte # (Auto) 0.00 K/uL (0.00-0.02) Red Blood Cell Morphology Unremarkable Prothrombin Time 10.9 SECONDS (9.0-12.0) Prothromb Time International Ratio 1.0 (0.9-1.1) Activated Partial Thromboplast Time 31.2 SECONDS (21.0-31.0) Partial Thromboplastin Ratio 1.2 Anion Gap 5.0 mmol/L (3-11) Est Creatinine Clear Calc Drug Dose 130.8 ml/min Estimated GFR () 113.5 Estimated GFR (Non- 97.9 BUN/Creatinine Ratio 20.5 (10-20) Calcium Level 8.3 mg/dl (8.5-10.1) Magnesium Level 2.1 mg/dl (1.8-2.4) Total Bilirubin 0.4 mg/dl (0.2-1) Aspartate Amino Transf (AST/SGOT) 8 U/L (15-37) Alanine Aminotransferase (ALT/SGPT) < 6 U/L (12-78) Alkaline Phosphatase 102 U/L (45-117) Total Protein 6.7 gm/dl (6.4-8.2) Albumin 2.7 gm/dl (3.4-5.0) Globulin 4.0 gm/dl (2.5-4.0) Albumin/Globulin Ratio 0.7 (0.9-2) Medications Administered Medications (Trade) Dose Ordered Sig/Avis Route Start Time Stop Time Status Last Admin Dose Admin Sodium Chloride (Nss 1000ml) 1,000 ml @ 999 mls/hr Q1H1M STAT IV 03/17/17 09:42 03/17/17 10:42 DC 03/17/17 10:43 999 MLS/HR Medical Decision Patient was seen and evaluated as above. His visit note from yesterday was thoroughly reviewed. I do believe the patient should be admitted, as he is symptomatically hemoglobin of 8 with an unknown cause. IV access was initiated , type and screen was initiated, and the above workup was performed. He is found to be with a hemoglobin of 8 at this time. No evidence of leukocytosis. Coag studies with INR of 1. Random glucose of 175, calcium low at 8.3, AST low at 8, a LT low at less than 6. Albumin 2.7, urine reveals 2+ ketones. The patient was educated upon today's findings, and agreed to admission for further evaluation and management. Please refer to further documentation regarding his stay. Case was discussed with the [facility] admitting hospitalist. Please refer to further documentation regarding his stay. In evaluation treatment this patient following differential diagnoses were entertained: Anemia, GI bleed, among others. Impression Primary Impression: Anemia Departure Information Dispostion Admitted as an inpatient Condition FAIR Referrals Contreras Hillman, D.O.Int.Med. (PCP) Forms WORK / SCHOOL INSTRUCTIONS, HOME CARE DOCUMENTATION FORM, IMPORTANT VISIT INFORMATION Patient Instructions My [facility]
[2017-03-17] MEDS: CARVEDILOL 6.25 MG TAB PO SCH (20:36)
[2017-03-17] MEDS: ASPIRIN 81 MG ECTAB PO SCH ×2 (20:36→20:43)
[2017-03-17] MEDS ORDERED: ATORVASTATIN 40 MG TAB PO SCH (21:00)
[2017-03-17] MEDS ORDERED: INSULIN GLARGINE SOLOSTAR 100 UNITS/ML 3 ML PEN SC SCH (21:00)
[2017-03-18] MEDS: INSULIN ASPART 100 UNITS/ML 3 ML PEN SC SCH ×3 (02:15→12:34)
[2017-03-18 06:46] VITALS: BP 150/90; PULSE 56; TEMP 36.8; O2SAT 97
[2017-03-18] MEDS ORDERED: CYANOCOBALAMIN 500 MCG TAB (VIT B-12) PO SCH ×2 (08:00)
[2017-03-18] MEDS ORDERED: FERROUS SULFATE 325 MG TAB PO SCH (08:00)
[2017-03-18] MEDS ORDERED: CHOLECALCIFEROL 1000 INTER.UNIT TAB PO SCH (08:00)
[2017-03-18] MEDS ORDERED: ISOSORBIDE DINITRATE 20 MG TAB PO SCH (08:00)
[2017-03-18] MEDS ORDERED: CHOLECALCIFEROL PO SCH (08:00)
[2017-03-18 08:19] LABS: HEMATOCRIT 28.9 % (42-52); MEAN CELL VOLUME 83.8 fL (80-100); MEAN CORPUSCULAR HGB CONC 32.2 g/dl (32-36); MEAN PLATELET VOLUME 10.2 fL (7.4-10.4); PLATELET COUNT 263 K/uL (130-400); RED BLOOD COUNT 3.45 M/uL (4.7-6.1); WHITE BLOOD COUNT 6.21 K/uL (4.8-10.8)
[2017-03-18] MEDS: CARVEDILOL 6.25 MG TAB PO SCH (08:26)
[2017-03-18] MEDS: ASPIRIN 81 MG ECTAB PO SCH (08:26)
[2017-03-18 08:42] LABS: CALCIUM 8.5 mg/dl (8.5-10.1)
[2017-03-18 08:43] LABS: CREATININE 0.81 mg/dl (0.60-1.40)
[2017-03-18 08:44] LABS: BUN/CREATININE RATIO 18.1 (10-20)
[2017-03-18] MEDS ORDERED: ERGOCALCIFEROL 50,000 INTER.UNIT CAP PO SCH (09:00)
[2017-03-18] MEDS ORDERED: FRRS300 PO ×2 (11:05)
[2017-03-18] MEDS ORDERED: CHOL1CAP13 PO ×2 (11:05)
[2017-03-18] MEDS ORDERED: CYAN10005 PO ×2 (11:05)
--- NOTE | 2017-03-18 11:18 | Discharge Instructions ---
Discharge Instructions Date of Service March 18, 2017. Admission Reason for Admission: Anemia Discharge Discharge Diagnosis / Problem: Iron deficiency, vitamin B12 deficiency, anemia Discharge Goals Goal(s): Decrease discomfort, Improve function, Diagnostic testing, Therapeutic intervention Activity Recommendations Activity Limitations: resume your previous activity (as tolerated) . Instructions / Follow-Up Instructions / Follow-Up You were admitted to the hospital for overnight observation after presenting to the ER with chest pain, shortness of breath and anemia. Although your hemoglobin was relatively stable at 8.0 on arrival, you were given 1 unit of blood due to your cardiac history, as it was believed that your anemia may have been contributing to your chest pain and shortness of breath. After receiving 1 unit of blood, your hemoglobin did increase up to 9.3 and your symptoms resolved. While working up your anemia, you were found to have both iron and vitamin B12 deficiencies. You will be discharged on oral supplements. Since you are now asymptomatic and your blood counts have improved without any signs of active bleeding, you are now medically stable for discharge. Medications: *Please take ferrous sulfate 325 mg by mouth four times a day due to your iron deficiency. *Please take cyanocobalamin (vitamin B12) 2000 mcg by mouth daily due to your B12 deficiency. *Your vitamin D supplement has been increased. Please take cholecalciferol ( vitamin D3) 6000 interunits by mouth daily. *Continue your home mediations as prescribed. Follow up: *Follow up with your primary care provider (PCP) in 1 week regarding your hospital stay. Your PCP can follow up on your anemia and ensure that your blood counts remain stable. You will also need to have your vitamin B12 level checked again in 6-8 weeks, which can be done by your PCP as an outpatient. *Please follow up with wound care regarding your right foot wounds. Please seek medical attention if you experience fevers, chills, sweats, chest pain, shortness of breath, nausea, vomiting, lightheadedness, loss of consciousness, or if you experience new/different numbness/tingling. Current Hospital Diet Patient's current hospital diet: AHA Diet (Heart Healthy), Diabetes Type 2 Diet Discharge Diet Recommended Diet: AHA Diet (Heart Healthy), Diabetes Type 1 Diet Pending Studies Studies pending at discharge: no Laboratory Results Hemoglobin A1c Test 03/14/17 09:48 Range/Units Estimated Average Glucose 197 mg/dl Hemoglobin A1c 8.5 H 4.5-5.6 % Lipid Panel Test 03/14/17 09:48 Range/Units Triglycerides Level 95 0-150 mg/dl Cholesterol Level 168 0-200 mg/dl HDL Cholesterol 55 mg/dl Cholesterol/HDL Ratio 3.1 LDL Cholesterol, Calculated 94 mg/dl Medical Emergencies . Who to Call and When: Medical Emergencies: If at any time you feel your situation is an emergency, please call 911 immediately. . Non-Emergent Contact Non-Emergency issues call your: Primary Care Provider, Specialist (Wound care provider) Call Non-Emergent contact if: you have a fever, your pain is not controlled, your pain is worsening, your pain is unusual for you, your pain is concerning you, wound has increased drainage, wound has increased redness, wound has increased pain, you have any medication questions . Past History Medical & Surgical History: (1) Iron deficiency (2) Vitamin B 12 deficiency (3) Anemia . "Provider Documentation" section prepared by Aliya Walters. . VTE Core Measure Inpt VTE Proph given/why not?: Contraindicated (possible GI bleeding)
--- NOTE | 2017-03-18 11:56 | Discharge Summary ---
Discharge Summary Date of Service March 18, 2017. (Aliya Walters PA-C) Discharge Summary Admission Date: March 17, 2017 at 11:57 Discharge Date: March 18, 2017 Discharge Disposition: Home Principal Diagnosis: Anemia, iron deficiency, B12 deficiency Immunizations: Have You Had Influenza Vaccine: Unknown History of Tetanus Vaccine?: Unknown History of Pneumococcal: Unknown History of Hepatitis B Vaccine: Unknown (Aliya Walters PA-C) Medication Reconciliation New Medications: Cholecalciferol (D3) 2,000 Unit Cap 6000 INTERUNIT PO DAILY for 30 Days, #90 CAP Take 3 capsules by mouth daily. Cyanocobalamin (Vitamin B-12) 1,000 Mcg Tab 2000 MCG PO DAILY for 30 Days, #60 TAB Take 2 tablets by mouth daily. Ferrous Sulfate (Ferrous Sulfate) 325 Mg Tab 325 MG PO QID for 30 Days, #120 TAB Take 1 tablet by mouth four times a day. Continued Medications: Aspirin (Aspirin Ec) 81 Mg Tab 81 MG PO Q12 for 30 Days Atorvastatin (Lipitor) 80 Mg Tab 1 TAB PO HS, #90 Carvedilol (Coreg) 6.25 Mg Tab 1 TAB PO BID for 90 Days, #180 TAB 1 Refill Insulin Aspart (Novolog Flexpen) 100 Units/Ml Inj SC WM correction 1unit/5gm carbs Correction factor 1 unit for every dl >130 Insulin Glargine (Lantus) 100 Unit/Ml Inj 40 UNITS SC QPM, VIAL Isosorbide Dinitrate (Isordil Tab) 30 Mg Tab 30 MG PO DAILY, TAB Nitroglycerin (Nitrostat) 0.4 Mg Sub 0.4 MG UT PRN, BTL NEEDED FOR CHEST PAIN: ONE TABLET UNDER THE TONGUE EVERY 5 MINUTES UP TO 3 DOSES. Discontinued Medications: Cholecalciferol (Vitamin D) 2,000 Unit Tab 1 TAB PO DAILY Methylcobalamin ([id number]) 1 Mg Chw 1000 MG PO DAILY Referrals At Discharge Follow up Referrals: Family Practice Referral - Within 1 Week with Contreras Hillman D.O.Int.Med. Physician Referral - Within 1-2 Weeks with Yonny Morales, DO Discharge Exam Patient reports feeling well. He denies any complaints and is eager for discharge. His right foot was re-dressed this morning. The patient denies fevers, chills, sweats, chest pain, palpitations, claudication, cough, wheezing , shortness of breath, nausea, vomiting, abdominal pain, dysuria, hematuria, urinary retention, paralysis, weakness, numbness and tingling. Review of Systems: Constitutional: No chills, No fever, No sweats Eyes: No diplopia, No eye pain, No worsening of vision ENT: No hearing loss, No sore throat, No trouble swallowing Respiratory: No cough, No shortness of breath, No wheezing Cardiovascular: No chest pain, No claudication, No palpitations Abdomen: No nausea, No pain, No vomiting Musculoskeletal: No calf pain, No joint pain, No muscle pain Genitourinary - Male: No dysuria, No hematuria, No urinary retention Neurologic: + numbness/tingling (chronic), No paralysis, No weakness Integumentary: No color change, No itch, No rash Physical Exam: General Appearance: WD/WN, no apparent distress, + obese Eyes: normal inspection, PERRL, EOMI ENT: normal ENT inspection, hearing grossly normal, pharynx normal Neck: supple, no JVD, trachea midline Respiratory/Chest: normal breath sounds, no respiratory distress, + crackles (left base) Cardiovascular: regular rate, rhythm, no gallop, + systolic murmur Abdomen / GI: normal bowel sounds, non tender, soft Extremities: no calf tenderness, no pedal edema, + pertinent finding (R foot transmetatarsal amp covered in dressings, c/d/i. L great toe amp) Neurologic/Psychiatric: alert, normal mood/affect, oriented x 3 Skin: normal color, warm/dry, no rash (Aliya Walters, PA-C) Hospital Course 61 y/o male with a history of anemia, vitamin B12 deficiency, vitamin D deficiency, CAD, h/o carotid artery dissection, DM I, HTN, HLD, and s/p gastric bypass who presented to the ED with angina and anemia. The patient's Hgb was 8.0 on arrival, but due to cardiac history and worsening JUÁREZ lately, the pt was transfused with 1 unit PRBC on 03/17. Anemia, JUÁREZ--pt with both iron and B12 deficiencies. Anemia is normocytic -Admit to med/surg for observation -Repeat Hgb 9.3 after receiving blood -Repeat troponin negative -Angina, SOB resolved -No s/s acute bleeding, stool negative for blood -Iron low at 16, ferritin low at 4.8. TIBC and transferrin WNL -D/C with ferrous sulfate 325 mg PO QID -Vitamin B12 low at 94 -D/C with B12 2000 mcg PO qd. Recheck B12 level in 6-8 weeks outpt with PCP -Repeat H&H just prior to discharge, stable Vitamin D deficiency--last level checked 03/14/17 was low at 16 -Increase home supplement to cholecalciferol 6000 IU PO qd -Pt was supposed to get ergocalciferol 50,000 IU weekly as well but has not been taking as not approved by insurance -Received ergocalciferol 50,000 IU x 2 days while inpatient Diabetes mellitus type 1--last HgbA1c checked on 03/14/17 was 8.5 -Lantus 40 units SC qpm -Insulin sliding scale -Check BSGs q ac and qhs CAD, h/o carotid artery dissection -Continue carvedilol 6.25 mg PO BID, isosorbide dinitrate 30 mg PO qam, and ASA 81 mg PO qd HTN--stable -Carvedilol as above HLD -Continue atorvastatin 80 mg PO qd DVT prophylaxis -Chemical prophylaxis held due to suspicion of possible slow GI bleed Total Time Spent: Greater than 30 minutes This includes examination of the patient, discharge planning, medication reconciliation, and communication with other providers. (Aliya Walters ., PA-C) I agree with PA assessment and plan and have seen and examined pt myself Resting comfortably in bed No angina reported S/P 1 unit PRBC transfusion No SOB noted Recheck HH drop <1 gram HH Significant iron def and B12 def, rec compliance with iron meds and inc B12 oral meds Stable for discharge home (Vipul Velazquez D.OVentura) Discharge Instructions Please refer to the electronic Patient Visit Report (Discharge Instructions) for additional information. (Aliya Walters ., YAMEL-C) Additional Copies To Contreras Hillman D.O.Int.Med.
[2017-03-18 12:05] LABS: HEMATOCRIT 27.2 % (42-52)
[2017-03-18 12:45] VITALS: BP 150/90; PULSE 56; TEMP 36.8; O2SAT 97
[2017-03-29] MEDS ORDERED: INSPMPHMLG (07:49)
[2017-04-02] MEDS ORDERED: SULF800T23 PO (08:23)
[2017-04-25] MEDS ORDERED: SULF800T23 PO (09:16)
[2017-05-21] MEDS ORDERED: CLOP1TAB5 PO (09:14)
[2017-05-31] MEDS ORDERED: ASPI81TA28 PO (14:38)
[2017-05-31] MEDS ORDERED: CLOP1TAB15 PO (14:38)
[2017-09-06] MEDS ORDERED: SULF800T23 PO (08:21)
== END 2017-03-18 13:54 | disposition home or self-care (01) ==
LOC: ENRESERVTM → ENRESERVDT → C.EDB 09:12 → C.MS4W 11:57
PROVIDERS: ADMIT Family Medicine; ATTEND Hospitalist
DX: D64.9 Anemia, unspecified (principal); E61.1 Iron deficiency; E53.8 Deficiency of other specified B group vitamins; E55.9 Vitamin D deficiency, unspecified; I25.10 Atherosclerotic heart disease of native coronary artery without angina pectoris; E11.9 Type 2 diabetes mellitus without complications; I10 Essential (primary) hypertension; Z98.84 Bariatric surgery status; Z79.4 Long term (current) use of insulin; Z87.891 Personal history of nicotine dependence; Z79.82 Long term (current) use of aspirin; Z79.899 Other long term (current) drug therapy

== ENCOUNTER → 2017-04-02 | Outpatient (CLI) | payer OTHER ==
[~2017-04-02] MED LIST changes: -CHOL100010 PO; +CHOL1CAP13 PO; -CHOL20009 PO; +CLOP1TAB15 PO; +CLOP1TAB5 PO; +CYAN10005 PO; +FRRS300 PO; +INSDGIPEN SC; +INSU70IN2 SC; -METH1CHW PO; -OXYC-57 PO; +SULF800T23 PO
[2017-04-02 17:01] LABS: BASO % 0.5 %; BASO ABS # 0.04 K/uL (0-0.2); COMPLETE YES; EOS % 3.3 %; HEMATOCRIT 34.9 % (42-52); IG% 0.1 %; LYMPH % 20.3 %; LYMPH ABS # 1.49 K/uL (1.2-3.4); MEAN CELL VOLUME 84.1 fL (80-100); MEAN CORPUSCULAR HGB CONC 30.9 g/dl (32-36); MEAN PLATELET VOLUME 10.8 fL (7.4-10.4); MONO % 9.1 %; NEUT % 66.7 %; PLATELET COUNT 406 K/uL (130-400); RED BLOOD COUNT 4.15 M/uL (4.7-6.1); WHITE BLOOD COUNT 7.34 K/uL (4.8-10.8)
== END | disposition home or self-care (01) ==
LOC: C.LABBC 13:27
PROVIDERS: ATTEND Family Medicine
DX: D50.9 Iron deficiency anemia, unspecified (principal)

== ENCOUNTER → 2017-04-02 | Outpatient (CLI) | payer OTHER ==
[~2017-04-02] MED LIST changes: +GADAVIST IV PRN
--- NOTE | 2017-04-02 13:28 | DIAGNOSTIC IMAGING REPORT ---
MRI OF THE RIGHT HINDFOOT COMBO CLINICAL HISTORY: Nonhealing wounds. COMPARISON STUDY: MRI of the right hindfoot dated 08/01/2016. Radiographs of the right foot dated 07/10/2014. TECHNIQUE: MRI of the right hindfoot is performed utilizing various T1 and T2-weighted sequences in the axial, sagittal, and coronal planes. Contrast-enhanced images were acquired following the IV administration of 11.5 cc of Gadavist. The examination is degraded by motion artifact. Note that interpretation is suboptimal without plain film correlate. FINDINGS: Again seen are postoperative changes from amputation of the first through fifth toes at the level of the proximal metatarsal shaft. There is significant marrow signal abnormalities identified within the base of the first metatarsal as well as within the medial cuneiform. There is significant drop in signal on the T1-weighted sequences within the bones with increased signal on the STIR sequences. Nonspecific abnormal enhancement is identified in the appearance is highly concerning for osteomyelitis. There is also mild marrow edema present within the proximal shaft and base of the second metatarsal. Foci of marrow edema are also identified within the medial aspect of the cuboid, the lateral aspect of the navicular, and medial aspect of the middle cuneiform. There is a cutaneous defect suggested along the plantar surface of the medial midfoot at the level of the first tarsometatarsal joints. There is soft tissue edema with surrounding abnormal enhancement, likely representing an ulcer and cellulitis. No organized fluid collection is seen to suggest abscess. No ankle joint effusion is identified. The ankle mortise appears intact. There is no evidence of osteochondral defect of the talar dome. The partially imaged Achilles tendon as well as the visualized flexor, extensor, and peroneal tendons appear intact. There is nonspecific myositis present throughout the regional musculature, greatest within the extensors. IMPRESSION: 1. Suspect a large cutaneous ulceration with surrounding cellulitis along the plantar aspect of the medial midfoot. No organized fluid collection is seen to suggest abscess. 2. There is significant marrow abnormality involving the medial cuneiform and the base of the first metatarsal. This is highly concerning for osteomyelitis. Clinical correlation will be required. 3. Additional foci of marrow edema as detailed above are indeterminant and likely represent degenerative change. Additional foci of osteomyelitis are considered less likely clinical correlation will be required. 4. There is diffuse myositis of the regional musculature. Dictated: 04/02/2017 1:03 PM Transcribed: 04/02/2017 1:27 PM [email or web address] Electronically signed by: Octaviano Ortega M.D. 04/02/2017 1:37 PM Dictated Date/Time: 04/02/2017 1:03 PM
--- NOTE | 2017-04-02 13:30 | DIAGNOSTIC IMAGING REPORT ---
BILATERAL LOWER ARTERIAL DOPPLER STUDY CLINICAL HISTORY: VIVIAN LEGS PHIL .57/right foot NON HEALING WOUND R/O OSTEO COMPARISON STUDY: Lower extremity arterial Doppler 08/25/2013. FINDINGS: The ankle brachial indices were unable to be performed due to noncompressible vessels. There is diffuse atherosclerotic plaque seen throughout the lower extremity arterial systems. Triphasic to biphasic normal velocity waveforms seen in the right common femoral and proximal to mid superficial femoral arteries. Monophasic waveform seen within the right superficial femoral artery distally and the right popliteal artery. No evidence of stenosis or occlusion within these vessels. The proximal right peroneal and posterior tibial arteries are not identified. Monophasic waveforms seen within the mid to distal posterior tibial and peroneal arteries. Monophasic waveforms seen within the right anterior tibial artery. Elevated systolic velocity within the right dorsalis pedis artery of 169 cm/s consistent with an area of stenosis. Biphasic normal velocity waveforms seen within the left common femoral, superficial femoral, and popliteal arteries. Left posterior tibial artery is not identified and may be occluded. The proximal left peroneal artery is not visualized. There is monophasic flow within the mid to distal left peroneal artery. Normal velocity biphasic waveforms seen within the left anterior tibial and dorsalis pedis arteries. IMPRESSION: 1. Diffuse atherosclerotic disease seen throughout the bilateral lower extremity arterial systems as described above. 2. The left posterior tibial artery is not identified and may be occluded. 3. Focal area of stenosis within the right dorsalis pedis artery. 4. Monophasic flow within the majority of the calf vessels consistent with diffuse atherosclerotic disease. Electronically signed by: Gianluca Lopez M.D. 04/02/2017 1:29 PM Dictated Date/Time: 04/02/2017 1:22 PM
== END | disposition home or self-care (01) ==
LOC: C.ULTR 09:43
PROVIDERS: ATTEND Physician Assistant
DX: S91.301A Unspecified open wound, right foot, initial encounter (principal); X58.XXXA Exposure to other specified factors, initial encounter; M89.9 Disorder of bone, unspecified; M60.871 Other myositis, right ankle and foot; I70.293 Other atherosclerosis of native arteries of extremities, bilateral legs; I77.1 Stricture of artery; D50.9 Iron deficiency anemia, unspecified

== ENCOUNTER → 2017-05-16 | Outpatient (CLI) | payer OTHER ==
[~2017-05-16] MED LIST changes: -CYAN10005 PO; -GADAVIST IV PRN
[2017-05-16 13:26] LABS: BASO % 0.8 %; BASO ABS # 0.06 K/uL (0-0.2); COMPLETE YES; EOS % 2.8 %; HEMATOCRIT 34.7 % (42-52); IG% 0.1 %; LYMPH % 16.2 %; LYMPH ABS # 1.23 K/uL (1.2-3.4); MEAN CELL VOLUME 81.8 fL (80-100); MEAN CORPUSCULAR HEMOGLOBIN 26.2 pg (25-34); MEAN PLATELET VOLUME 10.8 fL (7.4-10.4); MONO % 8.7 %; NEUT % 71.4 %; PLATELET COUNT 285 K/uL (130-400); RED BLOOD COUNT 4.24 M/uL (4.7-6.1); WHITE BLOOD COUNT 7.59 K/uL (4.8-10.8)
[2017-05-16 14:32] LABS: FERRITIN 13.2 ng/ml (8.0-388.0)
== END | disposition home or self-care (01) ==
LOC: C.LABBC 10:56
PROVIDERS: ATTEND Physician Assistant
DX: E53.8 Deficiency of other specified B group vitamins (principal); E55.9 Vitamin D deficiency, unspecified; D50.9 Iron deficiency anemia, unspecified

== ENCOUNTER 2017-05-21 05:05 | Day surgery (SDC) | payer OTHER ==
[~2017-05-21] VITALS: Ht 188 cm; Wt 116.7 kg
[2017-05-21] VITALS (9 sets, daily range): BP systolic 93–119; BP diastolic 51–65; PULSE 58–66; TEMP 36.5–37.2; O2SAT 94–98; Ht 188 cm; Wt 116.7 kg
[~2017-05-21 05:05] MED LIST changes: -CLOP1TAB15 PO; -CLOP1TAB5 PO; -INSDGIPEN SC; -INSU70IN2 SC
[2017-05-21] MEDS ORDERED: INSDGIPEN SC (05:30)
[2017-05-21] MEDS ORDERED: INSU70IN2 SC (05:30)
[2017-05-21] MEDS ORDERED: SODIUM CHLORIDE 0.9% 1000ML IV SCH (06:00)
[2017-05-21] MEDS ORDERED: CEFAZOLIN 1000MG/55 ML D5W IV SCH (06:00)
--- NOTE | 2017-05-21 06:07 | History and Physical ---
History & Physical Date of Service May 21, 2017. History & Physical Chief Complaint: RLE infected ulceration, PAD History of Present Illness History of Present Illness: The patient is a 57 year old male with IDDM, seen in consultation for PAD noted on US in the past for RLE cellulitis/infected ulceration that he states has been present for past 3 weeks. He was treated endovascularly with healing of the ulcer. It now reurs in the right foot. Admits hx of amputation of R 5th toe d/t infection a few yrs ago. Pt denies THOMPSON, fever, chills, chest pain, SOB, abd pain, N/V, rest pain, other complaints. Allergies Allergies: Coded Allergies: No Known Allergies (Unverified , 08/25/13) Surgical / Medical History Hx Cardiac Surgery: No Hx Abdominal Surgery: No Hx Cancer Surgery: No Hx Thoracic Surgery: No Hx Orthopedic: No Hx Urinary Tract Surgery: No HX Other Surgery: Yes ("laser surgery to stop bleeding 4 years ago") Past Medical/Surgical History: Diabetes Family History Family History: Noncontributory Social History Smoking Status: Never smoker Hx Tobacco Use In Past Year?: No Hx Alcohol Use - Type & Amnt: Yes (beer occasionally) Hx Substance Use -Type & Amnt: No Review of Systems Constitutional: No chills, No fever, No malaise Skin: + change in color (RLE reythema) Eyes: No photophobia, No visual changes ENMT: No rhinorrhea, No sore throat Respiratory: No cough, No JUÁREZ, No hemoptysis, No short of breath Cardiovascular: + edema (RLE), No chest pain, No palpitations, No syncope, No intermittent claudication Gastrointestinal: No abdominal pain, No nausea, No vomiting Neurologic: + numbness (neuropathy), No weakness, No headache, No lethargy Physical Exam: Constitutional: General Apperance: well-nourished, well-developed, obese Level of Distress: NAD, chronically ill (mildly) Psychiatric: Mental Status: active & alert, normal mood, normal affect Orientation: oriented except where noted, to time, to place, to person Memory: recent memory normal, remote memory normal Head: normocephalic, atraumatic Eyes: EOM: EOMI ENMT: normal ENT inspection Neck: supple, trachea midline, no masses Lungs: Respiratory effort: no dyspnea Auscultation: breath sounds normal, no wheezing, no rales/crackles, no rhonchi, decreased breath sounds Cardiovascular: Heart Auscultation: RRR, no rubs, no gallops, II/ VU Peripheral Pulses: Pulses: full and equal, in all extremities except if noted Bruits: carotid bruit on the left Carotid Pulse: normal on the left, normal on the right Brachial Pulses: normal on the left, normal on the right Radial Pulse: normal on the left, normal on the right Femoral Pulse: normal on the left, normal on the right Posterior Tibialis Pulse: absent on the left (doppler +), absent on the right (doppler +) Dorsalis Pedis Pulse: decreased on the left, decreased on the right Abdomen: Bowel Sounds: normal Inspection & Palpation: soft, non-distended, no tenderness, guarding & rebound Musculoskeletal: normal strength (5/5 throughout), normal tone Extremities: Upper Right: no cyanosis, no edema, no varicosities Upper Left: no cyanosis, no edema, no varicosities Lower Right: edema, ulcers (plantar great toe crease, wet, with bloody/ purulent discharge. + malodorous. + erythema of toe and foot, with purplpish discoloration noted between toes.) Lower Left: no cyanosis, no edema, no varicosities, no palpable cord Neurologic: Cranial Nerves: grossly intact Sensation: grossly intact ASSESSMENT and PLAN: PAD with RLE ulceration Plan: Patient is admitted for arteriography with possible intervention. I have discussed the risks options and benefits of the procedure with the patient. The patient understands the risks options and benefits and agrees to the procedure.
[2017-05-21 06:17] LABS: CREATININE 0.98 mg/dl (0.60-1.40)
[2017-05-21] MEDS ORDERED: FENTANYL CITRATE INJ 50 MCG/1 ML 2 ML VIAL ONE (07:29)
[2017-05-21] MEDS ORDERED: HEPARIN SOD (PORCINE) 1000 UNIT/ML 10 ML VIAL ONE (07:29)
[2017-05-21] MEDS ORDERED: MIDAZOLAM HCL 1 MG/ML 2ML VIAL ONE (07:30)
--- NOTE | 2017-05-21 07:55 | Procedure Note ---
Pre-Mod Sedation Assessment General Date of Moderate Sedation: May 21, 2017. Vital Signs: Vital Signs Past 12 Hours Date Time Temp Pulse Resp B/P (MAP) Pulse Ox O2 Delivery O2 Flow Rate FiO2 05/21/17 07:47 36.6 63 18 117/65 98 Room Air 05/21/17 05:48 36.6 63 18 117/65 (82) 98 Room Air Pre-Sedation Airway Assessment Oral Cavity: Dental Abnormalities Short Thick Neck: No Hx of Sleep Apnea: No Smoking Status: Former Smoker Mallampati Classification: Class I ASA Classification: Class II Notes The planned sedation has been discussed with the patient and consent obtained. I have identified the patient, determined the appropriateness of sedation and have assessed the patient immediately prior to the procedure. All medicine(s) and interventions are by my order.
[2017-05-21] MEDS ORDERED: CEFAZOLIN 2000 MG/60 ML D5W IV SCH (08:00)
[2017-05-21] MEDS ORDERED: FENTANYL CITRATE INJ 50 MCG/1 ML 2 ML VIAL IV ONE (08:31)
[2017-05-21] MEDS ORDERED: MIDAZOLAM HCL 1 MG/ML 2ML VIAL IV ONE (08:31)
[2017-05-21] MEDS ORDERED: LIDOCAINE HCL 1% 20 ML VIAL INJ ONE (08:32)
[2017-05-21] MEDS ORDERED: IODIXANOL (VISIPAQUE) 270 MG/ML 150ML FLUSH ONE (09:08)
[2017-05-21] MEDS ORDERED: CLOPIDOGREL BISULFATE 300 MG TAB PO STA (09:10)
--- NOTE | 2017-05-21 09:13 | Procedure Note ---
Post-Moderate Sedation Plan General Date of Moderate Sedation May 21, 2017. Vital Signs: Vital Signs Past 12 Hours Date Time Temp Pulse Resp B/P (MAP) Pulse Ox O2 Delivery O2 Flow Rate FiO2 05/21/17 09:09 57 20 104/60 99 Nasal Cannula 4 05/21/17 07:47 36.6 63 18 117/65 98 Room Air 05/21/17 05:48 36.6 63 18 117/65 (82) 98 Room Air Review - Discharge Plan Post Moderate Sedation Plan: On clinical assessment, the patient appears to have tolerated the conscious sedation without complications. Patient is recovering as anticipated. Patient will continue to be monitored by nursing and may be discharged when conscious sedation discharge criteria are met.
--- NOTE | 2017-05-21 09:13 | [facility] Post Operative Brief Note ---
Immediate Operative Summary Operative Date May 21, 2017. Pre-Operative Diagnosis peripheral artery disease, right lower extremity non healing ulcer Post-Operative Diagnosis same Procedure(s) Performed Right Lower Extremity Angiogram, Percutaneous Transluminal Angioplasty Anterior Tibial, Mechanical Closure Left Femoral Artery, Moderate Concious Sedation [address] 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
[2017-05-21] MEDS ORDERED: CLOP1TAB5 PO (09:14)
--- NOTE | 2017-05-21 09:16 | Discharge Instructions ---
Discharge Instructions Date of Service May 21, 2017. Visit Reason for Visit: Rle Peripheral Artery Disease W/Ulcer Discharge Discharge Diagnosis / Problem: Peripheral vascular occlusive disease with non healing ulcer right foot Discharge Goals Goal(s): Therapeutic intervention Activity Recommendations Activity Limitations: per Instructions/Follow-up section Anesthesia . Post Anesthesia Instructions: If you have had General Anesthesia or IV Sedation: * Do not drive today. * Resume driving when surgeon permits. * Do not make important decisions or sign legal documents today. * Call surgeon for: 1. Temperature elevations greater than 101 degrees F. 2. Uncontrollable pain. 3. Excessive bleeding. 4. Persistent nausea and vomiting. 5. Medication intolerance (nausea, vomiting or rash). * For nausea and vomiting use only clear liquids such as: tea, soda, bouillon until nausea subsides, then gradually increase diet as tolerated. * If you have any concerns or questions, call your surgeon's office. If physician is unavailable and it is an emergency, call 911 or go to the nearest emergency room. . Instructions / Follow-Up Instructions / Follow-Up Call [phone] to schedule a follow up appointment if one not already scheduled. SPECIAL CARE INSTRUCTIONS: Medications: * Continue to take your medications as directed. If you have been given a prescription for Plavix, please fill it immediately and take as directed. Incision Care: * Your puncture site may have some bruising and minor swelling for about one week. * You will have a small dressing covering your puncture site. You may remove the dressing after 24 hours and shower. You may let the warm soapy water run over it, but be sure to dry the puncture site well and keep it dry. * DO NOT IMMERSE THE INCISION IN A TUB/POOL/etc. UNTIL HEALED. * Puncture sites should be kept covered with a band-aid until it begins to heal. Restrictions: * Depending on whether you leg or arm was punctured to access the arteries, you will be required to lay flat, hold your arm still, or both, for about 4 hours after the procedure to prevent bleeding. * Limit your activity for the first 48 hours. You may walk and go up and down steps. Avoid excessive bending or movement at the puncture site. Possible Complications: * Excessive Swelling - after blood flow is improved you may notice increased swelling in the lower legs. This is a normal response. This usually depends on the amount of blockages in the leg, how long they have been there prior to your procedure and how much blood flow was restored. Elevating your legs will help to improve this. Please notify our office ([phone] ) if the swelling does not go away after lying in bed overnight. * Infection/Drainage/Bleeding - Drainage or bleeding from the puncture site should be minimal. If you have excessive bleeding or drainage, call our office ([phone]) right away. * Pain - You may experience some mild pain or soreness at your puncture site. If your pain does not improve, please contact our office ([phone]). Call your doctor and seek emergent treatment if you develop: * Temperature above 101 degrees * Any fever or chills * Any redness or purulent drainage from the puncture site * Any new dusky/blue colored toes or feet with coolness or sharp or aching pain. SKIN IRRITATION: * You may experience some redness and/or swelling in the area where radiation was administered. If any skin irritation occurs, please contact your family physician. FOLLOW UP VISIT: Keep any scheduled doctor appointments. Diet Recommendations Recommended Home Diet: resume previous diet Procedures Procedures Performed: Right Lower Extremity Angiogram, Percutaneous Transluminal Angioplasty Anterior Tibial, Mechanical Closure Left Femoral Artery, Moderate Concious Sedation 0831 to 0908 Pending Studies Studies pending at discharge: no Medical Emergencies . Who to Call and When: Medical Emergencies: If at any time you feel your situation is an emergency, please call 911 immediately. . Non-Emergent Contact Non-Emergency issues call your: Surgeon . . "Provider Documentation" section prepared by Sherif Guerrero. .
--- NOTE | 2017-05-21 09:31 | [facility] Operative Report ---
Operative Report Operative Date May 21, 2017. Pre-Operative Diagnosis peripheral artery disease, right lower extremity non healing ulcer Post-Operative Diagnosis same Procedure(s) Performed Right Lower Extremity Angiogram, Percutaneous Transluminal Angioplasty Anterior Tibial, Mechanical Closure Left Femoral Artery, Moderate Concious Sedation [address] Guerrero Clinical Research Director Surgeon(s) none Estimated Blood Loss 5 ml Findings short occlusion ant tib artery Specimens none Anesthesia Local with conscious sedation Complication(s) None Disposition Indications This is a 61-year-old white male who has a nonhealing ulcer of the right foot and known peripheral vascular occlusive disease. Arteriography possible intervention is recommended. He understood the risks options benefits and agreed benefits procedure. Description of Procedure Patient's was taken angiogram suite and placed supine position. After both groins were prepped and draped in a sterile manner local anesthetic was administered to the left groin. A puncture was then made in the left common femoral artery using a introduction needle. A wire was passed centrally. A 5 [place] sheath was inserted over the wire. Using a 035 Glidewire and a rim catheter the right iliac system was cannulated from left side. The catheter was advanced to the external iliac artery and arteriography was performed of the right lower extremity. The external iliac on the right side, common femoral , profunda femoral, and superficial femoral arteries were widely patent with no evidence of stenosis. The popliteal was then visualized and no stenosis was noted. It was then decided to pass the catheter further down. An 035 wire was reinserted through the rim catheter and the catheter advanced in the superficial femoral artery. Arteriography was then performed of the distal right lower extremity. This showed a short occlusion of the anterior tibial artery right at the interosseous membrane. The peroneal was patent down to the ankle and posterior tibial is totally occluded at it's origin. It did not reconstitute distally. Flow on the foot was noted from the anterior tibial and peroneal arteries. At this point it was decided to dilate the anterior tibial artery. 035 stiffened guidewire was then inserted. The 5 [place] sheath was exchange for a 6 [place] destination sheath. An 035 quick cross was then inserted over the wire. Using a quick cross and an angeld 035 wire, the anterior tibial artery was cannulated. The quick cross passed down to the upper third of the anterior tibial artery. Arteriography done at that point showed excellent flow down to the distl anterior tibial artery and the catheter to be true lumen. An 014 command wire was inserted through the quick cross Catheter. The quick cross was removed. At that point a 3 x 6 balloon was inserted and the proximal portion of the anterior tibial artery at the interosseous membrane was dilated to 10 dana. There was a waist seen right at the interosseous membrane. It responded nicely. No residual stenosis was noted. Completion arteriography showed both the anterior tibial and peroneal arteries to be widely patent down to the foot. No distal stenosis was seen in either artery. An attempt was then made to cannulate the posterior tibial artery at its origin but due to the chronicity of the occlusion there is no success at this. The destination sheath was then pulled over to the left iliac system. Arteriography showed the puncture site to be anterior in the common femoral artery on the left side. The puncture site was then closed using the Star closure device. Adequate hemostasis was noted at that time. Sterile dressings were applied to the wound and the patient left the angio suite in good condition and tolerated the procedure well. I attest to the content of the Intraoperative Record and any orders documented therein. Any exceptions are noted below.
[2017-05-31] MEDS ORDERED: ASPI81TA28 PO (14:38)
[2017-05-31] MEDS ORDERED: CLOP1TAB15 PO (14:38)
== END 2017-05-21 12:06 | disposition home or self-care (01) ==
LOC: C.ACU 05:05
PROVIDERS: ATTEND Surgery Vascular Surgery
DX: I73.9 Peripheral vascular disease, unspecified (principal); L97.929 Non-pressure chronic ulcer of unspecified part of left lower leg with unspecified severity; E11.9 Type 2 diabetes mellitus without complications; Z79.4 Long term (current) use of insulin

== ENCOUNTER → 2017-06-21 | Outpatient (CLI) | payer OTHER ==
[~2017-06-21] MED LIST changes: +CLOP1TAB15 PO; +CLOP1TAB5 PO; +INSDGIPEN SC; -INSPMPHMLG; +INSU70IN2 SC
[2017-06-21 17:08] LABS: BASO % 0.4 %; BASO ABS # 0.03 K/uL (0-0.2); COMPLETE YES; EOS % 3.2 %; HEMATOCRIT 36.3 % (42-52); IG% 0.1 %; LYMPH % 19.5 %; LYMPH ABS # 1.51 K/uL (1.2-3.4); MEAN CELL VOLUME 81.6 fL (80-100); MEAN CORPUSCULAR HEMOGLOBIN 25.8 pg (25-34); MEAN CORPUSCULAR HGB CONC 31.7 g/dl (32-36); MEAN PLATELET VOLUME 10.6 fL (7.4-10.4); MONO % 7.6 %; NEUT % 69.2 %; PLATELET COUNT 256 K/uL (130-400); RED BLOOD COUNT 4.45 M/uL (4.7-6.1); WHITE BLOOD COUNT 7.74 K/uL (4.8-10.8)
[2017-06-21 17:16] LABS: THYROID STIMULATING HORMONE 0.694 uIu/ml (0.300-4.500)
[2017-06-22 07:41] LABS: ESTIMATED AVERAGE GLUCOSE 235 mg/dl; HA1C FLAG Normal (Normal)
== END | disposition home or self-care (01) ==
LOC: C.LABBC 12:57
PROVIDERS: ATTEND Nurse Practitioner Adult Health
DX: Z87.19 Personal history of other diseases of the digestive system (principal); E10.40 Type 1 diabetes mellitus with diabetic neuropathy, unspecified; E10.65 Type 1 diabetes mellitus with hyperglycemia

== ENCOUNTER → 2017-08-20 | Outpatient (CLI) | payer OTHER ==
[2017-08-20 17:39] LABS: BASO ABS # 0.06 K/uL (0-0.2); COMPLETE YES; EOS % 6.9 %; HEMATOCRIT 39.5 % (42-52); IG% 0.2 %; LYMPH % 31.2 %; LYMPH ABS # 1.91 K/uL (1.2-3.4); MEAN CELL VOLUME 85.7 fL (80-100); MEAN CORPUSCULAR HEMOGLOBIN 28.4 pg (25-34); MEAN CORPUSCULAR HGB CONC 33.2 g/dl (32-36); MEAN PLATELET VOLUME 11.3 fL (7.4-10.4); MONO % 10.6 %; NEUT % 50.1 %; PLATELET COUNT 265 K/uL (130-400); RED BLOOD COUNT 4.61 M/uL (4.7-6.1); WHITE BLOOD COUNT 6.13 K/uL (4.8-10.8)
== END | disposition home or self-care (01) ==
LOC: C.LABBC 14:28
PROVIDERS: ATTEND Physician Assistant
DX: D64.9 Anemia, unspecified (principal)

== ENCOUNTER → 2017-10-23 | Outpatient (CLI) | payer OTHER ==
[~2017-10-23] MED LIST changes: -CLOP1TAB15 PO; -CLOP1TAB5 PO
[2017-10-23 13:24] LABS: HEMATOCRIT 39.9 % (42-52); MEAN CELL VOLUME 87.7 fL (80-100); MEAN CORPUSCULAR HEMOGLOBIN 29.2 pg (25-34); MEAN CORPUSCULAR HGB CONC 33.3 g/dl (32-36); MEAN PLATELET VOLUME 12.1 fL (7.4-10.4); PLATELET COUNT 218 K/uL (130-400); RED BLOOD COUNT 4.55 M/uL (4.7-6.1); WHITE BLOOD COUNT 4.86 K/uL (4.8-10.8)
[2017-10-23 13:59] LABS: BLOOD UREA NITROGEN 14 mg/dl (7-18); BUN/CREATININE RATIO 14.4 (10-20); CALCIUM 8.6 mg/dl (8.5-10.1); CARBON DIOXIDE 27 mmol/L (21-32); CHLORIDE 103 mmol/L (98-107); CREATININE 0.95 mg/dl (0.60-1.40); GLUCOSE 207 mg/dl (70-99); POTASSIUM 4.2 mmol/L (3.5-5.1); SODIUM 136 mmol/L (136-145)
[2017-10-23 14:02] LABS: ALT/SGPT < 6 U/L (12-78); AST/SGOT 25 U/L (15-37)
== END | disposition home or self-care (01) ==
LOC: C.LABBC 09:47
PROVIDERS: ATTEND Internal Medicine Cardiovascular Disease
DX: I10 Essential (primary) hypertension (principal); E78.5 Hyperlipidemia, unspecified; I25.10 Atherosclerotic heart disease of native coronary artery without angina pectoris; I42.9 Cardiomyopathy, unspecified

== ENCOUNTER → 2018-06-04 | Outpatient (CLI) | payer OTHER ==
[~2018-06-04] MED LIST changes: -CARV6.252 PO; -CHOL1CAP13 PO; -FRRS300 PO; -SULF800T23 PO
[2018-06-04 12:44] LABS: HEMATOCRIT 43.7 % (42-52); HEMOGLOBIN 13.8 g/dL (14.0-18.0); MEAN CELL VOLUME 88.6 fL (80-100); MEAN CORPUSCULAR HGB CONC 31.6 g/dl (32-36); MEAN PLATELET VOLUME 12.2 fL (7.4-10.4); PLATELET COUNT 250 K/uL (130-400); RED CELL DISTRIBUTION WIDTH CV 14.3 % (11.5-14.5); RED CELL DISTRIBUTION WIDTH SD 46.5 fL (36.4-46.3); WHITE BLOOD COUNT 5.66 K/uL (4.8-10.8)
[2018-06-04 12:56] LABS: BLOOD UREA NITROGEN 11 mg/dl (7-18); CARBON DIOXIDE 28 mmol/L (21-32); CREATININE 1.04 mg/dl (0.60-1.40); GLUCOSE 197 mg/dl (70-99); POTASSIUM 4.4 mmol/L (3.5-5.1); SODIUM 138 mmol/L (136-145)
[2018-06-04 12:59] LABS: PTT PATIENT 28.7 SECONDS (21.0-31.0)
== END | disposition home or self-care (01) ==
LOC: C.LABBC 09:55
PROVIDERS: ATTEND Internal Medicine Cardiovascular Disease
DX: Z01.818 Encounter for other preprocedural examination (principal)

== ENCOUNTER 2018-06-17 02:22 | Emergency (ER) | payer OTHER ==
[~2018-06-17] VITALS: Ht 188 cm; Wt 118.8 kg
[2018-06-17] MEDS ORDERED: VECURONIUM BROMIDE 10 MG VIAL IV ONE (02:25)
[2018-06-17] MEDS ORDERED: MIDAZOLAM HCL 5 MG/ML 2ML VIAL IV ONE (02:25)
[2018-06-17] MEDS ORDERED: ETOMIDATE 2 MG/ML 20 ML VIAL IV ONE (02:25)
[2018-06-17] MEDS ORDERED: SUCCINYLCHOLINE CHLORIDE 20 MG/ML 10 ML VIAL IV ONE (02:25)
[2018-06-17] MEDS ORDERED: ASPIRIN 324 MG CHEW ONE (02:47)
[2018-06-17] MEDS ORDERED: ONDANSETRON INJ 2 MG/ML 2 ML VIAL ONE (02:47)
[2018-06-17] MEDS ORDERED: SODIUM CHLORIDE 0.9% 1000ML 1,000 ML IV STA ×4 (02:48→05:39)
--- NOTE | 2018-06-17 02:49 | EMERGENCY ROOM VISIT NOTE ---
History Report prepared by Sekou: Edmundo Patterson Under the Supervision of: Dr. Rafael Goodman M.D. First contact with patient: 02:42 Chief Complaint: CARDIAC ASSESSMENT Stated Complaint: SIGNS OF HEART ATTACK - SUGAR OUT OF WACK History of Present Illness The patient is a 62 year old male who presents to the Emergency Room with complaints of elevated blood sugar, chest pain, shortness of breath, and dizziness. He states he has had the complaints since lunch, but states it all got worse over the last x4 hours. He states his sugar was around 400 this afternoon. He states he feels nauseated, but states he isn't able to vomit. He does state the chest pain does not radiate, and denies taking any medications for it. The patient denies a fever/chills. The patient states he is scheduled for a heart-cath in x2 days. The patient denies syncope. The patient denies recent leg swelling, rashes, dark colored stool, or any other complaints. The patient states he takes 81mg ASA daily and last took it yesterday. The patient does note over the last few weeks he discontinued many of his home medications due to ez problems. Review of Systems See HPI for pertinent positives & negatives. A total of 10 systems reviewed and were otherwise negative. Constitutional: No fever, No chills Respiratory: + shortness of breath Cardiovascular: + chest pain Abdomen: + nausea, No pain, No vomiting, No diarrhea, No GI bleeding Genitourinary - Male: No hematuria Neurologic: + vertigo, + problem reported Endocrine: + problem reported (elevated blood sugar) Integumentary: No rash Past Medical & Surgical Medical Problems: (1) Anemia (2) Diabetes (3) Diabetic foot ulcer (4) Diabetic foot ulcer associated with type 1 diabetes mellitus (5) Diabetic peripheral neuropathy associated with type 1 diabetes mellitus (6) Diabetic ulcer of left foot (7) Iron deficiency (8) Loss of sensation (9) Status post partial amputation of foot (10) Vitamin B 12 deficiency Past Medical History: Severe CAD, Aortic Stenosis (wants to fix but concern of cardiac disease may prevent that), Hyperlipidemia, Known ischemic cardiomyopathy, Carotid Artery Stenosis Cardiac Cath December 2015: Confirmed diffuse coronary artery disease with 95% occlusion of the RCA Echo April 2018: EF 40%, agenesis of septum and inferior wall, . Surgeries: Gastric Bypass Foot Surgery Due To Infection Family History No pertinent family history Social History Smoking Status: Former Smoker Drug Use: none Marital Status: single, Occupation Status: employed, disabled Current/Historical Medications Scheduled Aspirin (Cvs Aspirin Adult Low Dos), 81 MG PO DAILY Atorvastatin (Lipitor), 80 MG PO HS Carvedilol (Carvedilol), 6.25 MG PO BID Cholecalciferol (Vitamin D), 3 TABS PO DAILY Cyanocobalamin (Cyanocobalamin), 1 ML INJ MONTHLY Ferrous Sulfate (Ferrous Sulfate), 325 MG PO UD Insulin Human Lispro (Insulin Humalog Pump ), 100-130 UNITS N/A DAILY Isosorbide Mononitrate Ext Rel (Imdur Ext Rel), 30 MG PO QAM Multivitamin (Multivitamin), 1 TAB PO DAILY Scheduled PRN Nitroglycerin (Nitrostat), 0.4 MG UT UD PRN for Chest Pain Allergies Coded Allergies: No Known Allergies (Unverified , 05/21/17) Physical Exam Vital Signs Date Time Temp Pulse Resp B/P (MAP) Pulse Ox O2 Delivery O2 Flow Rate FiO2 06/17/18 08:26 36.3 82 22 126/78 98 06/17/18 08:26 36.3 82 22 126/78 98 06/17/18 07:57 82 98 06/17/18 07:52 85 97 06/17/18 07:47 40 06/17/18 07:47 88 22 98 06/17/18 07:46 126/78 06/17/18 07:42 91 22 98 06/17/18 07:41 123/74 06/17/18 07:37 99 25 98 06/17/18 07:36 140/79 06/17/18 07:32 101 23 98 06/17/18 07:31 140/93 06/17/18 07:27 100 23 97 06/17/18 07:26 141/88 06/17/18 07:22 100 23 98 06/17/18 07:17 102 24 97 06/17/18 07:16 137/97 06/17/18 07:12 100 22 97 06/17/18 07:11 134/88 06/17/18 07:07 102 22 97 06/17/18 07:06 137/86 06/17/18 07:02 102 22 97 8/6/18 07:01 136/88 8/6/18 06:57 102 22 97 8/6/18 06:52 104 22 96 8/6/18 06:47 100 23 97 8/6/18 06:46 132/84 8/6/18 06:42 98 22 95 8/6/18 06:41 128/82 8/6/18 06:37 96 8/6/18 06:37 98 22 96 8/6/18 06:36 122/76 8/6/18 06:32 95 22 96 8/6/18 06:31 122/78 8/6/18 06:27 96 22 97 8/6/18 06:26 121/78 8/6/18 06:22 97 22 96 8/6/18 06:21 134/81 8/6/18 06:17 100 22 96 8/6/18 06:16 132/80 8/6/18 06:12 102 96 8/6/18 06:11 129/81 8/6/18 06:07 101 95 8/6/18 06:06 125/74 8/6/18 06:02 103 12 96 8/6/18 06:01 121/79 8/6/18 05:57 106 12 128/74 95 8/6/18 05:52 96 20 95 8/6/18 05:51 101/69 8/6/18 05:47 96 13 95 8/6/18 05:46 97/67 8/6/18 05:42 97 18 94 8/6/18 05:41 95/62 8/6/18 05:40 40 8/6/18 05:37 98 14 94 8/6/18 05:36 98/58 8/6/18 05:32 98 18 100 8/6/18 05:31 109/62 8/6/18 05:27 96 95 8/6/18 05:26 99/61 8/6/18 04:52 96 18 100 8/6/18 04:51 112/54 8/6/18 04:47 101 16 100 8/6/18 04:46 99/62 8/6/18 04:42 104 19 100 8/6/18 04:41 95/68 8/6/18 04:37 116 19 99 8/6/18 04:37 40 8/6/18 04:36 114 8/6/18 04:36 112/55 8/6/18 04:32 132 8/6/18 04:32 134 22 98 8/6/18 04:31 150/111 8/6/18 04:29 152/103 8/6/18 04:27 132 153/103 97 8/6/18 04:24 132 8/6/18 04:22 135 99 8/6/18 04:21 118/75 8/6/18 04:19 100 8/6/18 04:17 140 100 Mechanical Ventilator 40 8/6/18 04:16 141 8/6/18 04:16 98/68 8/6/18 04:12 120 22 92/63 8/6/18 04:10 117 8/6/18 04:08 53 8/6/18 04:07 90 21 98 8/6/18 04:06 69/52 8/6/18 04:02 86 25 95 8/6/18 04:01 77/47 8/6/18 04:01 74 8/6/18 03:59 63/44 8/6/18 03:58 83 8/6/18 03:57 76 20 8/6/18 03:53 91 8/6/18 03:53 77/46 8/6/18 03:52 88 8/6/18 03:52 98 18 100 8/6/18 03:48 102 8/6/18 03:44 31 8/6/18 03:44 39 8/6/18 03:44 63/36 8/6/18 03:42 72 23 100 8/6/18 03:41 67/40 8/6/18 03:37 76 19 99 8/6/18 03:36 61/44 8/6/18 03:32 71 21 97 8/6/18 03:31 71/46 8/6/18 03:27 77 18 98 8/6/18 03:26 75 8/6/18 03:25 40 8/6/18 03:25 37 8/6/18 03:22 70 17 74/42 98 8/6/18 03:17 61 15 96 8/6/18 03:12 52 19 99 8/6/18 03:07 70 16 99 8/6/18 03:02 80 15 81/50 100 8/6/18 03:00 99 Nasal Cannula 3.0 06/17/18 02:57 86 18 100 06/17/18 02:56 84 06/17/18 02:52 100 20 100 06/17/18 02:47 94 18 100 Nasal Cannula 3.0 06/17/18 02:43 105/62 06/17/18 02:42 110 20 06/17/18 02:33 36.3 96 26 74/50 99 Room Air Physical Exam GENERAL: Ill and Pale appearing. Mild distress EYES: No scleral icterus, unremarkable pupils. ENT: Mucous membranes moist, no nasal congestion. NECK: No masses appreciated, no meningismus, trachea is midline. RESPIRATORY: No dyspnea. Clear to auscultation and equal bilaterally. No wheeze , no rhonchi. CARDIOVASCULAR: Regular rate and rhythm. No murmurs, rubs, gallops appreciated. GASTROINTESTINAL: Abdomen soft, nontender, no peritonitis. Bowel sounds positive. No masses appreciated. BACK: No midline tenderness, no CVA tenderness EXTREMITIES: Normal motion all extremities, no cyanosis, no edema. Right foot partial amputation, left toes some missing. Chronically healing ulcer under left right foot. NEUROLOGIC: Alert and oriented, no acute motor or sensory deficits, no focal weakness, cranial nerves grossly intact. SKIN: No rash, no jaundice, no diaphoresis. Medical Decision & Procedures ER Provider Diagnostic Interpretation: X ray results are stated below per my interpretation: Chest: 1 view: No infiltrate, no effusion, normal cardiac border. Similar to previous. Chest: 1 View: post intubation: developing pulm edema. ET Tube shallow. No pneumothorax. Stat Rad Radiology results and stated below per my review and radiologist interpretation: CT HEAD: FINDINGS: No intracranial hemorrhage, abnormal intra- or extra-axial collections or parenchymal lesions are seen. The shape and configuration of the cortical sulci, basal cisterns and ventricles are within normal limits. The cantor -white differentiation is preserved. No evidence of mass effect, midline shift, or edema. The osseous structures are unremarkable. Mucosal thickening is noted in the ethmoid air cells and maxillary sinuses bilaterally. Mastoid air cells are well pneumatized. IMPRESSION: Normal non-contrast CT scan of the head. Radiologist: Kirby Robles MD CT CHEST With Contrast: FINDINGS: Endotracheal tube is in good position. No mass lesion are seen. No adenopathy or effusions. No PE The aorta is within normal limits, no aneurysm or dissection. The cardiomediastinal structures are normal. Bilateral dependent atelectasis. The osseous structures are unremarkable. IMPRESSION: Bilateral dependent atelectasis. No evidence for PE. No evidence for abnormality aorta. Radiologist: Kirby Robles MD CT ABDOMEN & PELVIS With Contrast: FINDINGS: Bilateral dependent atelectasis in the lung bases. Periportal edema. This nonspecific finding. Gallbladder appears unremarkable. Pancreas within normal limits. The adrenal gland are unremarkable. The kidneys are normal in size and contour. No lesion or hydronephrosis. The appendix not adequately identified. No inflammatory changes are noted around the cecum. Moderate amount of stool retained in the rectum and sigmoid colon. Aorta is normal caliber. No adenopathy or extraluminal air. The osseous structures are normal IMPRESSION: There is mild periportal edema. There is dependent bilateral basilar atelectasis in the lung bases. Otherwise unremarkable CT abdomen and pelvis Radiologist: Kirby Robles MD Laboratory Results 06/17/18 02:48 Red Blood Count 4.42, Mean Corpuscular Volume 89.1, Mean Corpuscular Hemoglobin 28.7, Mean Corpuscular Hemoglobin Concent 32.2, Neutrophils (%) (Auto) 86.8, Lymphocytes (%) (Auto) 8.1, Monocytes (%) (Auto) 4.2, Eosinophils (%) (Auto) 0.2 , Basophils (%) (Auto) 0.3, Neutrophils # (Auto) 14.49, Lymphocytes # (Auto) 1.35, Monocytes # (Auto) 0.70, Eosinophils # (Auto) 0.04, Basophils # (Auto) 0.05 06/17/18 02:48 Test 06/17/18 02:48 06/17/18 03:41 06/17/18 04:13 06/17/18 05:36 White Blood Count 16.70 K/uL (4.8-10.8) Red Blood Count 4.42 M/uL (4.7-6.1) Hemoglobin 12.7 g/dL (14.0-18.0) Hematocrit 39.4 % (42-52) Mean Corpuscular Volume 89.1 fL (80-100) Mean Corpuscular Hemoglobin 28.7 pg (25-34) Mean Corpuscular Hemoglobin Concent 32.2 g/dl (32-36) Platelet Count 228 K/uL (130-400) Neutrophils (%) (Auto) 86.8 % Lymphocytes (%) (Auto) 8.1 % Monocytes (%) (Auto) 4.2 % Eosinophils (%) (Auto) 0.2 % Basophils (%) (Auto) 0.3 % Neutrophils # (Auto) 14.49 K/uL (1.4-6.5) Lymphocytes # (Auto) 1.35 K/uL (1.2-3.4) Monocytes # (Auto) 0.70 K/uL (0.11-0.59) Eosinophils # (Auto) 0.04 K/uL (0-0.5) Basophils # (Auto) 0.05 K/uL (0-0.2) Immature Granulocyte % (Auto) 0.4 % Immature Granulocyte # (Auto) 0.07 K/uL (0.00-0.02) Echinocytes 1+ Prothrombin Time 10.4 SECONDS (9.0-12.0) Prothromb Time International Ratio 1.0 (0.9-1.1) Est Creatinine Clear Calc Drug Dose 56.7 ml/min Estimated GFR () 44.2 Estimated GFR (Non- 38.2 BUN/Creatinine Ratio 16.4 (10-20) Calcium Level 9.0 mg/dl (8.5-10.1) Magnesium Level 2.3 mg/dl (1.8-2.4) Total Bilirubin 1.0 mg/dl (0.2-1) Direct Bilirubin 0.3 mg/dl (0-0.2) Aspartate Amino Transf (AST/SGOT) 18 U/L (15-37) Alanine Aminotransferase (ALT/SGPT) < 6 U/L (12-78) Alkaline Phosphatase 109 U/L (45-117) Total Creatine Kinase 102 U/L (39-308) Creatine Kinase MB 2.8 ng/ml (0.5-3.6) Creatine Kinase MB Ratio 2.7 (0-3.0) Troponin I 0.041 ng/ml (0-0.045) Total Protein 7.7 gm/dl (6.4-8.2) Albumin 3.9 gm/dl (3.4-5.0) Beta-Hydroxybutyric Acid 88.77 mg/dL (0.2-2.81) Urine Color YELLOW Urine Appearance CLOUDY (CLEAR) Urine pH 5.0 (4.5-7.5) Urine Specific [place] 1.026 (1.000-1.030) Urine Protein NEG (NEG) Urine Glucose (UA) 3+ (NEG) Urine Ketones 1+ (NEG) Urine Occult Blood NEG (NEG) Urine Nitrite NEG (NEG) Urine Bilirubin NEG (NEG) Urine Urobilinogen NEG (NEG) Urine Leukocyte Esterase NEG (NEG) Urine WBC (Auto) 1-5 /hpf (0-5) Urine RBC (Auto) 0-4 /hpf (0-4) Urine Hyaline Casts (Auto) 10-30 /lpf (0-5) Urine Epithelial Cells (Auto) 20-30 /lpf (0-5) Urine Bacteria (Auto) NEG (NEG) Venous Blood pH 7.04 (7.36-7.41) Phosphorus Level 6.1 mg/dl (2.5-4.9) Bedside Hemoglobin 13.9 g/dl (14.0-18.0) Bedside Hematocrit 41 % (42-52) Bedside Blood Gas pH (LAB) 6.98 (7.35-7.45) Bedside Blood Gas pCO2 (LAB) 45 mmHg (35-46) Bedside Blood Gas pO2 (LAB) 82 mmHg (80-95) Bedside Blood Gas HCO3 (LAB) 11 meq/L (19-24) Bedside Blood Gas Total CO2 12 mEq/l (24-31) Bedside Blood Gas Base Excess (LAB) -21.0 meq/L (-9-1.8) Bedside Blood Gas O2 Saturation 88.0 % (90-95) Bedside Sodium 130 mEq/L (135-144) Bedside Potassium 4.9 mEq/L (3.3-5.0) Bedside Chloride 97 mEq/L (101-112) Bedside Total CO2 13 mEq/l (24-31) Anion Gap 26.0 mmol/L (16-25) Bedside Blood Urea Nitrogen 28 mg/dl (7-18) Bedside Creatinine 1.4 mg/dl (0.6-1.3) Bedside Glucose (other) 606 mg/dl (70-99) Bedside Ionized Calcium (Luis Fernando) 1.11 mmol/l (1.12-1.32) Test 06/17/18 05:41 06/17/18 06:52 06/17/18 06:53 Bedside Lactic Acid Venous 4.24 mmol/L (0.90-1.70) Bedside Glucose 522 mg/dl (70-99) Arterial Blood pH 7.20 (7.35-7.45) Arterial Blood Partial Pressure CO2 41 mmHg (35-46) Arterial Blood Partial Pressure O2 80 mm/Hg (80-95) Arterial Blood HCO3 16 mmol/L (19-24) Arterial Blood Oxygen Saturation 94.2 % (90-95) Arterial Blood Base Excess -11.7 mEq/L (-9-1.8) Arterial Blood Gas Delivery 40% Jorge Test POS (POS) Medications Administered Medications (Trade) Dose Ordered Sig/Avis Route Start Time Stop Time Status Last Admin Dose Admin Aspirin (Aspirin Chew) 324 mg STK-MED ONCE .ROUTE 06/17/18 02:47 06/17/18 02:48 DC 06/17/18 02:51 324 MG Ondansetron HCl (Zofran Inj) 4 mg STK-MED ONCE .ROUTE 06/17/18 02:47 06/17/18 02:48 DC 06/17/18 02:51 4 MG Sodium Chloride 1,000 ml @ 999 mls/hr Q1H1M STAT IV 06/17/18 02:48 06/17/18 03:48 DC 06/17/18 02:54 999 MLS/HR Sodium Chloride 1,000 ml @ 999 mls/hr Q1H1M STAT IV 06/17/18 02:58 06/17/18 03:58 DC 06/17/18 03:03 999 MLS/HR Fentanyl Citrate (Fentanyl Inj) 50 mcg NOW STAT IV 06/17/18 03:01 06/17/18 03:02 DC 06/17/18 03:05 50 MCG Insulin Human Regular (NovoLIN R BOLUS FROM BAG) 4.5 unit ONE ONCE IV 06/17/18 03:30 06/17/18 03:31 DC 06/17/18 03:37 4.5 UNIT Insulin Human Regular 250 units/ Sodium Chloride 252.5 ml @ 0 mls/hr Q24H IV 06/17/18 03:30 06/17/18 09:55 DC 06/17/18 07:19 6.4 MLS/HR Sodium Chloride 1,000 ml @ 999 mls/hr Q1H1M STAT IV 06/17/18 03:16 06/17/18 04:16 DC 06/17/18 03:16 999 MLS/HR Dopamine HCl/ Dextrose 0 ml @ 0 mls/hr Q0M STAT IV 06/17/18 03:28 06/17/18 03:30 DC 06/17/18 03:40 44.3 MLS/HR Piperacillin Sod/ Tazobactam Sod (Zosyn Iv) 4.5 gm NOW STAT IV 06/17/18 03:29 06/17/18 03:31 DC 06/17/18 04:21 4.5 GM Vancomycin HCl 2000 mg/Sodium Chloride 540 ml @ 200 mls/hr ONE STAT IV 06/17/18 03:29 06/17/18 06:10 DC 06/17/18 04:26 200 MLS/HR Norepinephrine Bitartrate 4 mg/ Dextrose 254 ml @ 0 mls/hr Q0M PRN IV 06/17/18 04:15 06/17/18 09:55 DC 06/17/18 04:14 44.3 MLS/HR Miscellaneous (Rapid Sequence Induction Bag) 1 ea STK-MED ONCE N/A 06/17/18 04:06 06/17/18 04:07 DC 06/17/18 04:06 1 EA Fentanyl Citrate (Fentanyl Inj) 75 mcg NOW ONCE IV 06/17/18 04:30 06/17/18 04:31 DC 06/17/18 04:31 75 MCG Midazolam HCl (Versed Inj) 5 mg NOW STAT IV 06/17/18 04:26 06/17/18 04:27 DC 06/17/18 04:30 5 MG Vecuronium [place] (Vecuronium [place] Inj) 10 mg NOW STAT IV 06/17/18 04:34 06/17/18 04:35 DC 06/17/18 05:07 10 MG Sodium Bicarbonate (Sodium Bicarbonate 8.4% Inj) 100 ml NOW STAT IV 06/17/18 05:37 06/17/18 05:38 DC 06/17/18 05:50 100 ML Sodium Chloride 1,000 ml @ 100 mls/hr Q10H STAT IV 06/17/18 05:39 06/17/18 09:55 DC 06/17/18 06:09 100 MLS/HR Sodium Bicarbonate 150 meq/Sodium Chloride 1,150 ml @ 150 mls/hr Q7H40M STAT IV 06/17/18 05:42 06/17/18 09:55 DC 06/17/18 06:03 150 MLS/HR Propofol (Diprivan Iv Emulsion 100ml Vial) 1 dose UD PRN IV 06/17/18 06:30 06/17/18 09:55 DC 06/17/18 06:55 1 DOSE Fentanyl Citrate (Fentanyl Inj) 100 mcg NOW STAT IV 06/17/18 07:16 06/17/18 07:17 DC 06/17/18 07:36 100 MCG Procedure Femoral Central Venous Catheter Indication: Access, Multiple Pressors Catheter Type: 3 Lumen Location: Right Groin Verbal consent was obtained after the risks and benefits were explained, including but not limited to intra-abdominal injury, vessel injury, bleeding, scarring, infection, pain, and bone/joint/nerve damage. At this time, the risks of the procedure are less than the risks of NOT performing the procedure. A time out was taken (3:50am) and the correct patient and site identified. The patient was in the supine position and the skin was prepped in the standard fashion with chlorhexidine. Patient began decompensating with very faint pulses , altered mental status and minimal response. Line placed emergently in sterile fashion as best ability in conditions though not completely sterile. The proper landmarks were identified with ultrasound and the needle was inserted through the skin in the standard fashion. The needle was carefully advanced into blood vessel lumen with ultrasound guidance. The guidewire was placed uneventfully. The vessel is dilated and the catheter was placed. There was no pulsatile blood but difficulty in seeing wire/catheter in lumen of vein ( nor in artery) due to pannus. A pelvic/kub xray done which appears the line follows iliac veins. Line it was sutured into position. There was good blood return from all ports. The patient tolerated the procedure well and there were no complications. Endotracheal Intubation Indication: Impending Respiratory Failure, Protection of Airway Patient on 4L NC with O2 sats 98%. Suction, airway equipment, RSI drugs, respiratory equipment, and appropriate personnel were prepared prior to the initiation of the procedure. A time out was taken (4:15am). Induction was performed with Etomidate 20mg IV and Succinylcholine 150mg IV. After observing the clinical benefit of the medications, the airway was easily visualized utilizing a #4 Glidescope blade. A 7.5 size ETT tube was placed atraumatically to 23 cm using standard technique. The cuff inflated without signs of malfunction. There were bilateral breath sounds, positive colormetric change, no gastric sounds, a good capnography waveform, and post procedure pulse oximetry was 98%. Post intubation sedation and paralysis was administered using Fent, Versed, Propofol. There were no complications. CXR revealed ET tube 5 cm above tawnya and thus tube advanced 2 cm. ECG Per My Interpretation Rate (beats per minute): 94 Findings: other (lateral ST depressions, new from EKG of february 2017, intraventricular block which is stable) Medical Decision Mr. Rodriguez is a pleasant 62 year old male who reports with chest pain, elevated blood sugar, and dizziness. He is pale and ill appearing on his exam. He reportedly stopped taking certain of his medications over the last few months due to financial reasons. Differential Diagnosis: Sepsis, Infectious (UTI/Pneumonia/Meningitis/etc), Metabolic/Electrolyte Abnormality, Cardiac, Dehydration, Anemia, Hepatic, Endocrine, Toxicologic, Neurologic, amongst other pathologies entertained. Rechecks: 0301: Patient is feeling a little better. His lactate is elevated. Second liter of IV Fluids started. 0317: Patient is doing much better 0328: Patient became nauseated and started to dry-heave. He then went unresponsive with no pulse. His pulse quickly returned prior to any intervention. He is bradycardic, so Dopamine is being started. 0425: Patient's blood pressure is 118 systolic. Dopamine was turned off, and Levophed is currently running. He is intubated and appears in no distress. 0433: Patient's ex- updated on patient status and plan. 0438: Patient's blood pressure 106 systolically. Patient started on Propofol. 0443: Patient has a MAP of 70 and systolic BP of 96. Patient will be sent to CT scan. 0450: Went to CT and personally gave 100mg propofol then gave 10mg vecuronium 0525: Patient is stable. We placed a call to [facility] for transfer, and are awaiting return call. 0551: Pressure is stable. Heart-rate in the 90s. Discussed current findings with ex-. BiCarb bolus started. 0603: Patient's blood pressure is 120/70 with a heart-rate of 100. Saturations 100%. Decreased Levophed. BiCarb drip started. MDM: 62 yr old arrives in critical condition. Ill appearing, nauseous complaining of fatigue, chest pains, and elevated blood sugar who is periodically dry heaving. He is hypotensive and periodically going bradycardic. He had 2 IV's obtained and fluid resus begun. EKG with lateral ST depressions which are new but no stemi. Persistent hypotension despite IV bolus (3L) and dopamine and he started having episodes of seizures without post ictal period. This occurred after he would complain of nausea. Seizure only a few seconds with flexion of upper extremities and head to left. Given need for further access a central line was placed emergently in right groin with verbal consent. Difficulty placing due to hypotension, difficulty visualizing vessels, very poor pulse and patient's pannus. Non pulsatile dark blood obtained and pH lower than abg thus likely venous. Patient then had another seizure and thus went ahead and started using line. Suspect seizure is hypotensive related and not requiring anti-epileptics at this tiem. Intubated with succ/etomidate without difficulty. Fent/Versed followed by Propofol and after he started becoming more agitated I felt that going ahead with propofol bolus and vecuronium necessary. CT head, Chest, Abdo/pelv obtained showing no acute findings. Becoming quite tachy so dopamine titrated off and Levophed up. No clear evidence of source of infection but with leukocytosis, acidosis and hypotension felt that empiric abx reasonable. On insulin gtt for his DKA. Of note this is gradually improving over next few hours while on low dose gtt insulin. Electrolytes OK on repeat bmp with K 4.8. LA improving but PH worsening, thus reviewed with CCM at [facility] who note start bicarb, increased ventilation. I further discussed transfer with them and plan to get pH up and transfer to [facility]. With his multiple cardiac issues, and possible need for valve replacement and already following at [facility] for this, let along the inability to do continuous EEG here, he will need to be transferred to their facility. He was given bicarb and gtt and did start improving his BP significantly. Levaphod slowly being titrated down and patient tolerating this well. Some fentanyl added to propofol gtt for further agitation. While clearly this man is very ill, I did not feel that having DNR discussion reasonable with him in his acute state on arrival, furthermore he was agreeable to need for central line and intubation (to best of his ill ability to make this decision). Head Trauma GCS Score: 15 Medication Reconcilliation Current Medication List: was personally reviewed by me Blood Pressure Screening Patient's blood pressure: Low blood pressure Consults Time Called: [phone] Consulting Physician: Dr. Waller Agrees to come and consult on patient. Additional Consults: Consulted Physician: Dr. Waller Returned Call: [phone] Additional Comments: Due to patient multiple seizures in the ED, and other medical concerns, patient should be transferred to a tertiary care center. Time Called: [phone] Consulted Physician: Dr. Lancaster Additional Comments: Start a BiCarb drip to stabilize pH. Once pH is stable, patient can be transferred to [facility] as long as weather is clear. Impression Primary Impression: DKA (diabetic ketoacidoses) Additional Impressions: Septic shock Respiratory failure Hypotension Acidosis Critical Care I have personally spent greater than 130 minutes of critical care time in the direct management of this patient. This was a life/limb threatening event. This includes time spent evaluating patient, direct bedside care, chart review, placing orders, interpretation of diagnostic studies, discussion with consultants, patient, and family members, as well as other required patient management activities. This 130 minutes is in excess of all separately billable procedures. Scribe Attestation The scribe's documentation has been prepared under my direction and personally reviewed by me in its entirety. I confirm that the note above accurately reflects all work, treatment, procedures, and medical decision making performed by me. Departure Information Dispostion Transfer Acute Care Facility Referrals Diana Roland M.D. (PCP) Patient Instructions My [facility] Problem Qualifiers Primary Impression: DKA (diabetic ketoacidoses)
[2018-06-17 03:00] VITALS: O2SAT 99
[2018-06-17] MEDS ORDERED: INSULIN IV INFUSION PROTOCOL STA ×2 (03:01→03:44)
[2018-06-17] MEDS ORDERED: FENTANYL CITRATE INJ 50 MCG/1 ML 2 ML VIAL IV STA ×2 (03:01→07:16)
[2018-06-17 03:08] VITALS: Ht 188 cm; Wt 118.8 kg
[2018-06-17] MEDS ORDERED: HHS GOAL RANGE 250-350 mg/dl ONE (03:15)
[2018-06-17] MEDS ORDERED: SEVERE STRESS LEVEL ONE ×2 (03:15→03:45)
[2018-06-17 03:16] LABS: ISTAT CREATININE 1.4 mg/dl (0.6-1.3); ISTAT IONIZED CALCIUM 1.11 mmol/l (1.12-1.32); ISTAT POTASSIUM 4.9 mEq/L (3.3-5.0); ISTAT SODIUM 127 mEq/L (135-144)
[2018-06-17 03:17] LABS: HEMATOCRIT 39.4 % (42-52); HEMOGLOBIN 12.7 g/dL (14.0-18.0); MEAN CELL VOLUME 89.1 fL (80-100); MEAN CORPUSCULAR HEMOGLOBIN 28.7 pg (25-34); MEAN CORPUSCULAR HGB CONC 32.2 g/dl (32-36); PLATELET COUNT 228 K/uL (130-400)
[2018-06-17] MEDS ORDERED: DOPamine 400MG / D5W 400 MG IV STA (03:28)
[2018-06-17] MEDS ORDERED: PIPERACILLIN/TAZOBACTAM 4.5 GM/100ML D5W IV STA (03:29)
[2018-06-17] MEDS ORDERED: VANCOMYCIN IV 2,000 MG in SODIUM CHLORIDE 0.9% 500ML 500 ML IV STA (03:29)
[2018-06-17] MEDS ORDERED: NovoLIN R BOLUS FROM BAG IV ONE (03:30)
[2018-06-17] MEDS ORDERED: VANCOMYCIN CONSULT ACTIVE PRN (03:30)
[2018-06-17 03:32] LABS: BASO % 0.3 %; BASO ABS # 0.05 K/uL (0-0.2); EOS % 0.2 %; EOS ABS # 0.04 K/uL (0-0.5); IG# 0.07 K/uL (0.00-0.02); LYMPH % 8.1 %; LYMPH ABS # 1.35 K/uL (1.2-3.4); MONO % 4.2 %; NEUT % 86.8 %; NEUT ABS # 14.49 K/uL (1.4-6.5)
[2018-06-17] MEDS: INSULIN REGULAR 250 UNITS in SODIUM CHLORIDE 0.9% 250ML 250 ML IV SCH ×2 (03:35→07:19)
[2018-06-17] MEDS ORDERED: SODIUM CHLORIDE 0.9% 1000ML 1,000 ML IV SCH (03:44)
[2018-06-17] MEDS ORDERED: DKA GOAL RANGE 150-250 mg/dl 1 EA ONE (03:45)
[2018-06-17] MEDS ORDERED: INSULIN PROTOCOL GOAL RANGE ONE (03:45)
[2018-06-17 03:51] LABS: ALBUMIN 3.9 gm/dl (3.4-5.0); ALKALINE PHOSPHATASE 109 U/L (45-117); ALT/SGPT < 6 U/L (12-78); AST/SGOT 18 U/L (15-37); BLOOD UREA NITROGEN 30 mg/dl (7-18); CARBON DIOXIDE 10 mmol/L (21-32); CKMB 2.8 ng/ml (0.5-3.6); CREATININE 1.85 mg/dl (0.60-1.40); GLUCOSE 720 mg/dl (70-99); POTASSIUM 4.8 mmol/L (3.5-5.1); SODIUM 125 mmol/L (136-145); TOTAL PROTEIN 7.7 gm/dl (6.4-8.2)
[2018-06-17] MEDS ORDERED: RAPID SEQUENCE INDUCTION BAG ONE (04:06)
[2018-06-17] MEDS ORDERED: DEXTROSE 50% 50 ML SYR IV PRN (04:15)
[2018-06-17] MEDS ORDERED: GLUCAGON FOR INJ 1 MG VIAL IM PRN (04:15)
[2018-06-17] MEDS ORDERED: CARBOHYDRATES FOR HYPOGLYCEMIA PO PRN (04:15)
[2018-06-17] MEDS ORDERED: NOREPINEPHRINE BIT INJ 4 MG in DEXTROSE 5% 250ML 250 ML IV PRN (04:15)
[2018-06-17] MEDS ORDERED: GLUCOSE 40% GEL 15 GM TUBE PO PRN (04:15)
[2018-06-17] MEDS ORDERED: GLUCOSE 10 TABS/TUBE PO PRN (04:15)
[2018-06-17] MEDS ORDERED: MIDAZOLAM HCL 5 MG/ML 1 ML VIAL IV STA (04:26)
[2018-06-17] MEDS ORDERED: CRG625 PO (04:26)
[2018-06-17] MEDS ORDERED: FRRS300 PO (04:29)
[2018-06-17] MEDS ORDERED: CYNI1000 INJ (04:29)
[2018-06-17] MEDS ORDERED: OPTIRAY 320 IV PRN (04:30)
[2018-06-17] MEDS ORDERED: FENTANYL CITRATE INJ 50 MCG/1 ML 2 ML VIAL IV ONE (04:30)
[2018-06-17] MEDS ORDERED: ASPI81CH PO (04:32)
[2018-06-17] MEDS ORDERED: ISOS30TA35 PO (04:33)
[2018-06-17] MEDS ORDERED: VECURONIUM BROMIDE 10 MG VIAL IV STA (04:34)
[2018-06-17] MEDS ORDERED: CHOL20009 PO (04:34)
[2018-06-17] MEDS ORDERED: MULT-506 PO (04:34)
[2018-06-17] MEDS ORDERED: INSPMPHMLG (04:36)
[2018-06-17] MEDS ORDERED: PROPOFOL IV EMULSION 10 MG/ML 100 ML VIAL IV PRN ×2 (04:45→06:30)
[2018-06-17] MEDS ORDERED: SODIUM BICARB 8.4% INJ 50 MEQ/50 ML SYR IV STA (05:37)
[2018-06-17] MEDS ORDERED: SODIUM BICARBONATE 8.4% INJ 150 MEQ in SODIUM CHLORIDE 0.45% 1000ML 1,000 ML IV STA (05:42)
[2018-06-17 05:51] LABS: ISTAT CREATININE 1.4 mg/dl (0.6-1.3); ISTAT IONIZED CALCIUM 1.11 mmol/l (1.12-1.32); ISTAT POTASSIUM 4.9 mEq/L (3.3-5.0)
--- NOTE | 2018-06-17 06:55 | DIAGNOSTIC IMAGING REPORT ---
CT ANGIOGRAPHY OF THE CHEST, PULMONARY EMBOLUS PROTOCOL CLINICAL HISTORY: Seizure. Hypotensive shock. Emesis. COMPARISON STUDY: Chest radiograph June 17, 2018. TECHNIQUE: Following IV administration of 110 mL of Optiray-320, helical axial images of the chest were obtained utilizing the pulmonary embolus protocol. Maximal intensity projections and sagittal and coronal reformats were viewed on an independent 3D workstation. IV contrast was administered without complication. A dose lowering technique was utilized adhering to the principles of ALARA. CT DOSE: 2828.36 mGy.cm FINDINGS: No pulmonary emboli are identified although this exam is mildly compromised by motion artifact. There is no thoracic aortic dissection. The heart is mildly enlarged. No pericardial effusion is noted. There is extensive coronary artery calcification. Central airways are patent. No pneumothorax or pleural effusion is noted. There is moderate bilateral lower lobe subpleural opacity as well as minimal subpleural upper lobe opacity. There is no cavitation. The abdomen and pelvis will be reported separately. The patient is status post gastric bypass. IMPRESSION: 1. No pulmonary emboli identified although exam mildly compromised by respiratory motion artifact. 2. Bilateral lower lobe dependent airspace opacities which favor atelectasis. However, pneumonia, potentially on the basis of aspiration, could appear similar. 3. Mild cardiomegaly. Extensive coronary artery calcification. Electronically signed by: Dmitry Harper M.D. 06/17/2018 6:54 AM Dictated Date/Time: 06/17/2018 6:45 AM
--- NOTE | 2018-06-17 07:14 | DIAGNOSTIC IMAGING REPORT ---
CT SCAN OF THE BRAIN WITHOUT IV CONTRAST CLINICAL HISTORY: Seizure. COMPARISON STUDY: No priors. TECHNIQUE: Unenhanced axial CT scan of the brain is performed from the vertex to the skull base. A dose lowering technique was utilized adhering to the principles of ALARA. FINDINGS: An endotracheal tube is noted on the reptile keeper tomogram. Brain parenchyma: There are age-related involutional changes noting mild subcortical and periventricular microangiopathic change. There is no hemorrhage, mass effect, or evidence of acute territorial ischemia by CT criteria. Hamilton-white matter is preserved. No extra-axial fluid collection is seen. Ventricles, sulci, cisterns: Prominent secondary to involutional change. Intracranial vasculature: There is atherosclerotic calcification of the cavernous carotid arteries. Calvarium: Unremarkable. Soft tissues: There is a small lipoma in the left frontal scalp. Sinuses and mastoids: Moderate mucosal thickening is seen in the ethmoid sinuses. Mild mucosal thickening is seen within the frontal, sphenoid, and maxillary sinuses. The mastoid air cells are well pneumatized. Orbits: The bony orbits are grossly intact. Bilateral ocular lens implants are noted. IMPRESSION: There is no hemorrhage, mass effect, or evidence of acute territorial ischemia by CT criteria. Electronically signed by: Octaviano Ortega M.D. 06/17/2018 7:12 AM Dictated Date/Time: 06/17/2018 7:10 AM
--- NOTE | 2018-06-17 07:24 | DIAGNOSTIC IMAGING REPORT ---
ABDOMEN AND PELVIS CT WITH IV CONTRAST CT DOSE: HISTORY: hypotensive shock, persistent emesis TECHNIQUE: Multiaxial CT images of the abdomen and pelvis were performed following the use of intravenous contrast. A dose lowering technique was utilized adhering to the principles of ALARA. COMPARISON STUDY: None. FINDINGS: Consolidation within the bilateral lower lobes posteriorly. No pneumoperitoneum. No pneumatosis. No fractures within the visualized osseous structures. Prior gastric bypass. Mild periportal edema. The spleen, adrenal glands, pancreas, and gallbladder are unremarkable. No hydronephrosis. Mild perinephric edema. 1.9 cm hypodense lesion within the left kidney. This likely represents a cyst. No retroperitoneal lymphadenopathy. Normal bladder. Right common femoral venous catheter terminates at the right common iliac vein. No bowel wall thickening or obstruction. Normal appendix. IMPRESSION: 1. Bilateral lower lobe consolidation. This could represent atelectasis or pneumonia. 2. No bowel wall thickening or obstruction. 3. Prior gastric bypass. 4. Mild periportal edema and mild perinephric edema. Electronically signed by: Gianluca Lopez M.D. 06/17/2018 7:22 AM Dictated Date/Time: 06/17/2018 7:14 AM
--- NOTE | 2018-06-17 07:31 | DIAGNOSTIC IMAGING REPORT ---
CHEST ONE VIEW PORTABLE HISTORY: fever COMPARISON: Chest 03/16/2017. FINDINGS: The lungs are clear. Cardiac silhouette is normal in size. No pleural effusions. No pneumothorax. IMPRESSION: No acute process. Electronically signed by: Gianluca Lopez M.D. 06/17/2018 7:30 AM Dictated Date/Time: 06/17/2018 7:29 AM
--- NOTE | 2018-06-17 07:32 | DIAGNOSTIC IMAGING REPORT ---
KUB HISTORY: VERBAL ORDER CHECK CENTRAL LINE PLACEMENT COMPARISON: None. FINDINGS: The bowel gas pattern is unremarkable. There are no dilated loops of small bowel to suggest an obstruction. No renal calculi. No ureteral calculi. No pneumoperitoneum or pneumatosis. Right common femoral venous catheter terminates in the expected location of the right common iliac vein. Vascular calcifications are noted. IMPRESSION: The right common femoral venous catheter terminates in the expected location of the right common iliac vein. Electronically signed by: Gianluca Lopez M.D. 06/17/2018 7:31 AM Dictated Date/Time: 06/17/2018 7:30 AM
--- NOTE | 2018-06-17 07:36 | DIAGNOSTIC IMAGING REPORT ---
CHEST ONE VIEW PORTABLE HISTORY: post intubation COMPARISON: Chest 06/17/2018. FINDINGS: No pneumothorax. No pleural effusions. Prominence of interstitial markings with could be due to the poor expiratory effort. There are low lung volumes. The heart is mildly enlarged. Endotracheal tube terminates 5.5 cm from the tawnya. IMPRESSION: 1. The endotracheal tube terminates 5.5 cm from the tawnya. 2. Low lung volumes. 3. Mild cardiomegaly. 4. Prominence of interstitial markings which could represent mild congestive change or due to the poor inspiratory effort. Electronically signed by: Gianluca Lopez M.D. 06/17/2018 7:34 AM Dictated Date/Time: 06/17/2018 7:33 AM
[2018-06-17 08:26] VITALS: BP 126/78; PULSE 82; TEMP 36.3; O2SAT 98
[2018-06-17] MEDS ORDERED: INSULIN ASPART 100 UNITS/ML 3 ML PEN SC SCH ×2 (09:00)
[2018-07-11] MEDS ORDERED: SULF800T23 PO (09:14)
[2018-07-11] MEDS ORDERED: LVMI SQ (09:14)
[2018-07-11] MEDS ORDERED: AMOX875T PO (09:14)
[2018-07-11] MEDS ORDERED: INSU100I32 (09:14)
== END 2018-06-17 08:25 | disposition short-term general hospital (02) ==
LOC: C.EDB 02:24
DX: E10.10 Type 1 diabetes mellitus with ketoacidosis without coma (principal); R65.21 Severe sepsis with septic shock; J96.90 Respiratory failure, unspecified, unspecified whether with hypoxia or hypercapnia; I95.9 Hypotension, unspecified; E87.2 Acidosis; E10.621 Type 1 diabetes mellitus with foot ulcer; D50.9 Iron deficiency anemia, unspecified; I25.10 Atherosclerotic heart disease of native coronary artery without angina pectoris; I35.0 Nonrheumatic aortic (valve) stenosis; E78.5 Hyperlipidemia, unspecified; I25.5 Ischemic cardiomyopathy; Z87.891 Personal history of nicotine dependence; Z79.82 Long term (current) use of aspirin; Z79.4 Long term (current) use of insulin; Z79.899 Other long term (current) drug therapy

== ENCOUNTER → 2018-07-01 | Outpatient (CLI) | payer OTHER ==
[~2018-07-01] MED LIST changes: +ASPI81CH PO; -ASPI81TA28 PO; +CHOL20009 PO; +CRG625 PO; +CYNI1000 INJ; +FRRS300 PO; -INSDGIPEN SC; +INSPMPHMLG; -INSU70IN2 SC; +ISOS30TA35 PO; +MULT-506 PO; -[UNRECOGNIZED DRUG - CODE] PO
[2018-07-01 17:39] LABS: BASO % 0.5 %; BASO ABS # 0.04 K/uL (0-0.2); EOS % 2.4 %; EOS ABS # 0.19 K/uL (0-0.5); HEMATOCRIT 34.4 % (42-52); HEMOGLOBIN 10.9 g/dL (14.0-18.0); IG# 0.01 K/uL (0.00-0.02); LYMPH % 14.2 %; MEAN CELL VOLUME 89.1 fL (80-100); MEAN CORPUSCULAR HEMOGLOBIN 28.2 pg (25-34); MEAN CORPUSCULAR HGB CONC 31.7 g/dl (32-36); MEAN PLATELET VOLUME 11.9 fL (7.4-10.4); MONO % 11.1 %; MONO ABS # 0.86 K/uL (0.11-0.59); NEUT % 71.7 %; NEUT ABS # 5.56 K/uL (1.4-6.5); PLATELET COUNT 271 K/uL (130-400); RED CELL DISTRIBUTION WIDTH CV 14.6 % (11.5-14.5); RED CELL DISTRIBUTION WIDTH SD 47.5 fL (36.4-46.3); WHITE BLOOD COUNT 7.76 K/uL (4.8-10.8)
[2018-07-01 17:50] LABS: BLOOD UREA NITROGEN 23 mg/dl (7-18); CALCIUM 8.7 mg/dl (8.5-10.1); CARBON DIOXIDE 23 mmol/L (21-32); CREATININE 1.16 mg/dl (0.60-1.40); GLUCOSE 168 mg/dl (70-99); POTASSIUM 4.7 mmol/L (3.5-5.1); SODIUM 138 mmol/L (136-145)
[2018-07-02 06:08] LABS: HEMOGLOBIN A1C 9.3 % (4.5-5.6)
== END | disposition home or self-care (01) ==
LOC: C.LABBC 13:22
PROVIDERS: ATTEND Internal Medicine Infectious Disease
DX: M86.9 Osteomyelitis, unspecified (principal); E10.40 Type 1 diabetes mellitus with diabetic neuropathy, unspecified; E10.621 Type 1 diabetes mellitus with foot ulcer; I10 Essential (primary) hypertension; Z79.4 Long term (current) use of insulin

== ENCOUNTER 2019-08-28 12:43 | Inpatient (IN) ==
[2019-08-28 14:44] LABS: Basophils # (auto) 0.03 K/uL (0-0.2); Basophils % (auto) 0.3 %; Eosinophils # (auto) 0.24 K/uL (0-0.5); Eosinophils % (auto) 2.5 %; Hematocrit (blood only) 33.1 % (42-52); Hemoglobin 11.1 g/dL (14.0-18.0); Immature Granulocytes # (auto) 0.02 K/uL (0.00-0.02); Immature Granulocytes % (auto) 0.2 %; Lymphocytes # (auto) 0.81 K/uL (1.2-3.4); Lymphocytes % (auto) 8.5 %; Mean Corpuscular Hemoglobin 26.2 pg (25-34); Mean Corpuscular Hgb Conc 33.5 g/dL (32-36); Mean Corpuscular Volume 78.1 fL (80-100); Mean Platelet Volume 10.2 fL (7.4-10.4); Monocytes # (auto) 0.86 K/uL (0.11-0.59); Neutrophils # (auto) 7.62 K/uL (1.4-6.5); Neutrophils % (auto) 79.5 %; Platelet Count 281 K/uL (130-400); RDW Coefficient of Variation 15.2 % (11.5-14.5); Red Blood Count 4.24 M/uL (4.7-6.1); White Blood Count 9.58 K/uL (4.8-10.8)
--- NOTE | 2019-08-28 15:23 | XRay Report ---
XR foot RT min 3V routine CLINICAL HISTORY: Right foot wound. Possible osteomyelitis. COMPARISON: May 28, 2019 DISCUSSION: 3 views are provided for interpretation. There are postsurgical changes of a transmetatar stephania amputation. There is gas present within the soft tissues. This is indicative of a soft tissue inf ection. Clinical correlation is recommended as necrotizing fasciitis cannot be excluded area There ar e no cortical destructive lesions to indicate osteomyelitis. Small soft tissue calcifications are vis ualized at the level of the wound. IMPRESSION: 1. Postsurgical changes of a transmetatarsal amputation 2. Soft tissue ulceration overlying the stump 3. No conventional radiographic evidence of acute osteomyelitis 4. Soft tissue gas, consistent with a soft tissue infection. Gas extends proximally within the soft t issues to the level of the talo calcaneal joint Electronically signed by: Kendrick Worthy M.D. 08/28/2019 3:22 PM
[2019-08-28 15:25] LABS: BUN Creatinine Ratio 12.6 (10-20); Calcium 8.8 mg/dl (8.5-10.1); Creatinine Clr Calc Pharmacy 65.5 ml/min; Est GFR (African American) 56.6; Est GFR (Non-African American) 48.8; Potassium 3.3 mmol/L (3.5-5.1)
[2019-08-28] MEDS ORDERED: PIPERACILLIN/TAZOBACTAM 4.5 GM/120 ML BAG IV ONE (15:27)
[2019-08-28] MEDS ORDERED: VANCOMYCIN HCL 2,250 MG in SODIUM CHLORIDE 0.9% 500 ML IV STA (15:29)
[2019-08-28] MEDS ORDERED: CLINDAMYCIN 900 MG in DEXTROSE 5% 50 ML IV ONE (15:30)
[2019-08-28 15:43] LABS: Beta-Hydroxybutyrate 2.26 mg/dl (0.2-2.81)
--- NOTE | 2019-08-28 17:47 | Emergency Department Note ---
Entered by Leeann Vora acting as a scribe for History of Present Illness General Chief complaint: Infection, Wound Stated complaint: RIGHT FOOT PAIN - ULCER & BLEEDING Time Seen by Provider: 08/28/19 13:41 Source: patient Mode of arrival: ambulatory Limitations: no limitations History of Present Illness Onset (ago): year(s) 6 Location: foot (right foot) Radiation: non-radiation Pain Consistency: + constant Maximum Pain Intensity: 6 Current Pain Intensity: 6 Relieved By: + none Exacerbated By: + movement Associated symptoms: + denies other symptoms Treatments prior to arrival: none The patient is a 63 year old female who presents to the ED with complaints of a right foot wound. He has an ulcer on the right foot and states he saw the [facility] clinic earlier today and was referred here to the ED for IV antibiotics and admission. For he rates his pain as a 6/10 in severity. Movement worsens his pain. The patient has had the wound for at least 6 years. He denies any other symptoms at today's visit. Home Medications Home Medications Medication Instructions Recorded Confirmed Type nitroglycerin 0.4 mg SUBLINGUAL UD PRN #0 08/14/16 08/28/19 History atorvastatin 80 mg PO HS #0 03/16/17 08/28/19 History cholecalciferol (vitamin D3) 6,000 unit PO DAILY #0 06/17/18 08/28/19 History cyanocobalamin (vitamin B-12) 1 ml INJ MONTHLY #0 06/17/18 08/28/19 History multivitamin 1 tab PO DAILY #0 tab 06/17/18 08/28/19 History Levemir U-100 Insulin 35 units SUBCUT DAILY #0 07/11/18 08/28/19 History blood sugar diagnostic strips #10 ea 05/07/19 08/28/19 History insulin lispro (U- 100) 100 0 unit SUBCUT UD 05/07/19 08/28/19 History unit/mL subcutaneous solution carvedilol 6.25 mg tablet 6.25 mg PO BID #180 tab 06/18/19 08/28/19 Rx amiodarone 200 mg tablet See Rx Instructions .ROUTE 08/20/19 08/28/19 Rx .COMPLEX #30 tablet bumetanide 1 mg tablet 1 mg PO BID #180 tab 08/20/19 08/28/19 Rx Allergies Allergy/AdvReac Type Severity Reaction Status Date / Time No Known Allergies Allergy Verified 08/28/19 14:41 Past Med/Surg History Medical History CAD (coronary artery disease) (Acute) Cardiomyopathy (Acute) Carotid artery dissection (Acute) Chronic systolic congestive heart failure (Acute) Diabetic macular edema (Acute) Dyslipidemia (Acute) Hypertension (Acute) Mitral regurgitation (Acute) Positive occult stool blood test (Acute) Proliferative diabetic retinopathy (Acute) Subsequent non-ST elevation (NSTEMI) myocardial infarction within 4 weeks of initial infarction (Acute) Uncontrolled type 1 diabetes mellitus with diabetic neuropathy, with long-term current use of insulin (Acute) Vitamin B12 deficiency (Acute) Vitamin D deficiency (Acute) 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 (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) Left carotid stenosis (Chronic) PAD (peripheral artery disease) (Chronic) Callus (Acute) Diabetes mellitus with diabetic polyneuropathy (Acute) History of amputation of left great toe (Acute) History of amputation of right great toe (Acute) Type 2 diabetes mellitus with diabetic peripheral angiopathy without gangrene (Acute) Ulcer of right midfoot (Acute) CAD (coronary artery disease), [place] coronary artery (Resolved) Diabetes mellitus type 1 (Resolved) Diabetic foot ulcer (Resolved) Diabetic peripheral neuropathy (Resolved) Diabetic peripheral neuropathy associated with type 1 diabetes mellitus (Resolved) Poor dentition (Resolved) Severe aortic valve stenosis (Resolved) Surgical History History of amputation of lesser toe of right foot (Acute) H/O aortic valve replacement (Resolved) Status post transmetatarsal amputation of right foot (Resolved) Status post vascular surgery (Resolved) H/O gastric bypass Family History Other No significant family history Social History Preferred Language: Hungarian Communication Ability: Effective Visual Impairment: Limited Hearing Ability: Use of Hearing Aid In Shop 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 and A total of 10 systems reviewed and were otherwise negative Physical Exam Vital Signs Vital Signs - 24 hr 08/28/19 12:49 08/28/19 15:00 08/28/19 15:30 Temperature 36.6 C 36.6 C Temperature Source Oral Oral Sepsis Recent Fever Within 48 Hours No Sepsis New/Unexplained Change in Mental Status No Sepsis Action Taken by Nursing No Action Required Pulse Rate 67 Pulse Rate [Apical] 58 L 58 L Pulse Rate from SpO2 Sensor Pulse Rhythm [Apical] Regular Regular Pulse Strength [Apical] Normal Normal Respiratory Rate 18 18 18 Respiratory Effort / Characteristics Non-Labored Spontaneous Non-Labored Spontaneous Non-Labored Spontaneous Respiratory Depth Normal Normal Normal Respiratory Pattern Regular Regular Blood Pressure 98/44 L Blood Pressure [Left Arm] 120/62 140/50 L Blood Pressure Mean 62 Blood Pressure Mean [Left Arm] 81 80 Blood Pressure Position [Left Arm] Lying Lying Pulse Oximetry 93 98 98 Oxygen Delivery Method Room Air Room Air Room Air 08/28/19 16:12 08/28/19 16:13 08/28/19 16:15 Temperature Temperature Source Sepsis Recent Fever Within 48 Hours Sepsis New/Unexplained Change in Mental Status Sepsis Action Taken by Nursing Pulse Rate 58 L 58 L Pulse Rate [Apical] 58 L Pulse Rate from SpO2 Sensor 58 L 58 L Pulse Rhythm [Apical] Regular Pulse Strength [Apical] Normal Respiratory Rate 16 18 13 Respiratory Effort / Characteristics Non-Labored Spontaneous Respiratory Depth Normal Respiratory Pattern Regular Blood Pressure 140/50 L Blood Pressure [Left Arm] 140/50 L Blood Pressure Mean 80 Blood Pressure Mean [Left Arm] 80 Blood Pressure Position [Left Arm] Lying Pulse Oximetry 99 98 98 Oxygen Delivery Method Room Air 08/28/19 16:30 08/28/19 16:31 08/28/19 16:45 Temperature Temperature Source Sepsis Recent Fever Within 48 Hours Sepsis New/Unexplained Change in Mental Status Sepsis Action Taken by Nursing Pulse Rate 57 L 56 L 56 L Pulse Rate [Apical] Pulse Rate from SpO2 Sensor 57 L 56 L Pulse Rhythm [Apical] Pulse Strength [Apical] Respiratory Rate 14 18 14 Respiratory Effort / Characteristics Respiratory Depth Respiratory Pattern Blood Pressure 119/38 L Blood Pressure [Left Arm] Blood Pressure Mean 65 Blood Pressure Mean [Left Arm] Blood Pressure Position [Left Arm] Pulse Oximetry 97 98 Oxygen Delivery Method 08/28/19 17:00 08/28/19 17:08/28/19 17:15 Temperature Temperature Source Sepsis Recent Fever Within 48 Hours Sepsis New/Unexplained Change in Mental Status Sepsis Action Taken by Nursing Pulse Rate 56 L 56 L 56 L Pulse Rate [Apical] Pulse Rate from SpO2 Sensor 56 L 54 L 56 L Pulse Rhythm [Apical] Pulse Strength [Apical] Respiratory Rate 15 15 21 Respiratory Effort / Characteristics Respiratory Depth Respiratory Pattern Blood Pressure 143/72 H Blood Pressure [Left Arm] Blood Pressure Mean 95 Blood Pressure Mean [Left Arm] Blood Pressure Position [Left Arm] Pulse Oximetry 98 97 96 Oxygen Delivery Method GENERAL: He is oriented to person, place, and time. He appears well-developed and well-nourished. He does not appear distressed. HENT: Exam performed. - Head: Normocephalic and atraumatic. - Right Ear: External ear normal. No mastoid tenderness. - Left Ear: External ear normal. No mastoid tenderness. - Mouth/Throat: The oropharynx is clear and moist. No trismus in the jaw. No dental abscesses or uvula swelling. No oropharyngeal exudate or tonsillar abscesses. EYES: Conjunctivae and EOM are normal. Pupils are equal, round, and reactive to light. Right eye exhibits no discharge. Left eye exhibits no discharge. No scleral icterus. NECK: Normal range of motion. Neck supple. No JVD present. No spinous process tenderness present. No carotid bruit present. No rigidity. No tracheal deviation and normal range of motion present. No Brudzinski's sign and no Kernig's sign noted. CV: Normal rate, regular rhythm, normal heart sounds and intact distal pulses. There is no peripheral edema. Palpable radial pulses bue. PULM/CHEST: Effort normal and breath sounds normal. No respiratory distress. No stridor. He has no wheezes. He has no rales. - Chest Wall: He exhibits no tenderness. ABD: The abdomen is soft. Bowel sounds are normal. He has no distension. No mass is present. There is no tenderness. There is no rebound, no guarding, no Medrano's sign and no tenderness at McBurney's point. Rovsig negative. MUSC/SKEL: Normal range of motion. There is no peripheral edema or tenderness. Right foot shows ulcer on the plantar surface with erythema, multiple missing toes. LYMPH: No cervical adenopathy. NEURO: He is alert and oriented to person, place, and time. He has normal strength. No cranial nerve deficit or sensory deficit. Coordination and gait normal. GCS eye subscore is 4. GCS verbal subscore is 5. GCS motor subscore is 6. Cerebellar tests wnl. SKIN: Skin is warm and dry. He is not diaphoretic. PSYCH: He has a normal mood and affect. Behavior is normal. Judgment and thought content normal. Course 1359: The patient was evaluated in room C1 and a complete history and physical were performed. EMR reviewed. The patient was sent here [facility] the [facility] for [facility] evaluation and IV antibiotics. 1530: VS stable. Imaging shows soft tissue gas where the ulcer is, concerning for gangrenous infection. The patient will be treated with broad spectrum antibiotics and evaluated by the [facility] Hospitalist, Dr. Dietz. Consultations Consultation #1: I [facility] the [facility] The patient will be further evaluated. Time: 15:25 Administered Medications Vancomycin HCl 2,250 mg/ (Sodium Chloride) 545 mls @ 200 mls/hr IV NOW STA Stop: 08/28/19 18:12 Last Admin: 08/28/19 16:08 Dose: 200 mls/hr Documented by: [id number] Discontinued Medications Clindamycin Phosphate 900 mg/ (Dextrose) 56 mls @ 112 mls/hr IV NOW ONE Stop: 08/28/19 15:59 Last Infusion: 08/28/19 16:28 Dose: 0 mls/hr Documented by: [id number] Admin: 08/28/19 15:58 Dose: 112 mls/hr Documented by: [id number] Piperacillin Sod/Tazobactam Sod (Zosyn) 4.5 gm in 120 mls @ 240 mls/hr IV NOW ONE Stop: 08/28/19 15:56 Last Infusion: 08/28/19 16:27 Dose: 0 mls/hr Documented by: [id number] Admin: 08/28/19 15:57 Dose: 240 mls/hr Documented by: [id number] Medical Decision Making Medical Records Attestation: I reviewed the patient's medical records. Home Medications Current Medication List: was personally reviewed by me Laboratory Data Attestation: I reviewed the patient's lab results. Result diagrams: 08/28/19 14:35 08/28/19 14:35 Lab Results 08/28/19 08/28/19 08/28/19 Range/Units 14:35 14:35 14:35 WBC 9.58 (4.8-10.8) K/uL RBC 4.24 L (4.7-6.1) M/uL Hgb 11.1 L (14.0-18.0) g/dL Hct 33.1 L (42-52) % MCV 78.1 L (80-100) fL MCH 26.2 (25-34) pg MCHC 33.5 (32-36) g/dL RDW Std Deviation 44.0 (36.4-46.3) fL RDW Coeff of Vargas 15.2 H (11.5-14.5) % Plt Count 281 (130-400) K/uL MPV 10.2 (7.4-10.4) fL Immature Gran % (Auto) 0.2 % Neut % (Auto) 79.5 % Lymph % (Auto) 8.5 % [place] % (Auto) 9.0 % Eos % (Auto) 2.5 % Baso % (Auto) 0.3 % Immature Gran # (Auto) 0.02 (0.00-0.02) K/uL Neut # (Auto) 7.62 H (1.4-6.5) K/uL Lymph # (Auto) 0.81 L (1.2-3.4) K/uL [place] # (Auto) 0.86 H (0.11-0.59) K/uL Eos # (Auto) 0.24 (0-0.5) K/uL Baso # (Auto) 0.03 (0-0.2) K/uL Sodium 132 L (136-145) mmol/L Potassium 3.3 L (3.5-5.1) mmol/L Chloride 96 L (98-107) mmol/L Carbon Dioxide 30 (21-32) mmol/L Anion Gap 6.0 (3-11) BUN 19 H (7-18) mg/dl Creatinine 1.50 H (0.6-1.4) mg/dl Est Cr Clr Drug Dosing 65.5 ml/min Est GFR ( Amer) 56.6 Est GFR (Non-Af Amer) 48.8 BUN/Creatinine Ratio 12.6 (10-20) Glucose 360 H* (70-99) mg/dl Lactate 1.4 (0.4-2.0) mmol/L Calcium 8.8 (8.5-10.1) mg/dl Beta-Hydroxybutyric Acd 2.26 (0.2-2.81) mg/dl Imaging Data Radiologist's Impression: Radiology results as stated below per my review and the radiologist's interpretation: XR foot RT min 3V routine CLINICAL HISTORY: Right foot wound. Possible osteomyelitis. COMPARISON: May 28, 2019 DISCUSSION: 3 views are provided for interpretation. There are postsurgical changes of a transmetatarsal amputation. There is gas present within the soft tissues. This is indicative of a soft tissue infection. Clinical correlation is recommended as necrotizing fasciitis cannot be excluded area There are no cortical destructive lesions to indicate osteomyelitis. Small soft tissue calcifications are visualized at the level of the wound. IMPRESSION: 1. Postsurgical changes of a transmetatarsal amputation 2. Soft tissue ulceration overlying the stump 3. No conventional radiographic evidence of acute osteomyelitis 4. Soft tissue gas, consistent with a soft tissue infection. Gas extends proximally within the soft tissues to the level of the talo calcaneal joint Electronically signed by: Kendrick Worthy M.D. 08/28/2019 3:22 PM Blood Pressure Blood Pressure Findings: Low blood pressure MDM Narrative VS stable. Imaging shows soft tissue gas where the ulcer is, concerning for gangrenous infection. The patient will be treated with broad spectrum antibiotics and evaluated by the [facility] Hospitalist, Dr. Dietz. Impression & Plan Gangrene of foot, Diabetic foot ulcer Discharge Plan Visit Data Chief Complaint: Infection, Wound Stated Complaint: RIGHT FOOT PAIN - ULCER & BLEEDING ED Provider: Victor M Spence Discharge Problem: Gangrene of foot, Diabetic foot ulcer Patient Disposition: Being Evaluated by Hospitalist Forms Stand Alone Forms: [facility] Prescriptions Prescriptions: No Action nitroglycerin 0.4 mg Tablet, Sublingual 0.4 mg Sublingual UD PRN (Reason: Chest Pain) Qty: 0 RF: 0 atorvastatin 80 mg Tablet 80 mg PO HS Qty: 0 RF: 0 cyanocobalamin (vitamin B-12) 1,000 mcg/mL Solution 1 ml INJ MONTHLY Qty: 0 RF: 0 multivitamin Tablet 1 tab PO DAILY Qty: 0 RF: 0 cholecalciferol (vitamin D3) 2,000 unit Tablet 6,000 unit PO DAILY Qty: 0 RF: 0 Levemir U-100 Insulin 100 unit/mL Solution 35 units subcut DAILY Qty: 0 RF: 0 insulin lispro [Humalog U-100 Insulin] 100 unit/mL solution subcut UD RF: 0 carvedilol 6.25 mg tablet 6.25 mg PO BID Qty: 180 RF: 3 amiodarone 200 mg tablet See Rx Instructions .ROUTE .COMPLEX Qty: 30 RF: 1 bumetanide 1 mg tablet 1 mg PO BID Qty: 180 RF: 3 OneTouch Verio strip .ROUTE .MEDSUPPLY Qty: 10 RF: 0 Referrals Referrals: Diana Roland MD [Primary Care Provider] - The scribe's documentation has been prepared under my direction and personally reviewed by me in its entirety. I confirm that the note above accurately reflects all work, treatment, procedures, and medical decision making performed by me.
--- NOTE | 2019-08-28 17:48 | History & Physical Report ---
Date of Service August 28, 2019 Assessment & Plan (1) Diabetic foot ulcer: Admit to [facility] on telemetry INR/PT pending, BNP pending. Replenish potassium with gentle IV fluid hydration 80 cc of normal saline with potassium per hour total 1 L Follow closely CBC CMP CRP and INR Patient took himself off warfarin due to bleeding from his foot which he is supposed to be on for A. fib's Patient would need to continue on anticoagulation for A. fib's unless he refuses it, and will will restart anticoagulation as soon as INR is available. In the ER was given vancomycin and Zosyn for foot infection, which is switched to daptomycin due to positive MRSA culture of the wound in May 2019 and oct lining kidney function, and ceftriaxone 2 g IV every 24 hours since patient also grew Enterobacter sensitive to ceftriaxone. Since Dr. Mckeon infectious diseases follows patient in the clinic placed consult for him. Consulted wound provider Dr. Doyle and wound nurse to assist with wound management. Pain management with Percocet Patient is full code Present on Admission?: Yes (2) CAD (coronary artery disease): Patient has decreased LV function but he is stable at this time. He appears to be in his normal euvolemic state. TTE and EKG pending Continue home dose of amiodarone 200 mg daily, continue bumetanide 1 mg p.o. twice daily. Continue carvedilol 6.25 mg tablet p.o. twice daily. Present on Admission?: Yes (3) Dyslipidemia: Lipid panel pending, continue atorvastatin p.o. nightly. Present on Admission?: Yes (4) Hypertension: Continue home medicine as above Present on Admission?: Yes (5) Cardiomyopathy: Continue home medicine as above. Present on Admission?: Yes (6) Uncontrolled type 1 diabetes mellitus with diabetic neuropathy, with long- term current use of insulin: A1c pending, patient's blood sugar elevated in the emergency room to 360. Continue insulin lispro 3 times daily, Levemir 35 units daily. Accu-Cheks before meals and at bedtime. Glycemic control to be managed by pharmacy. Since Present on Admission?: Yes (7) Paroxysmal atrial fibrillation: Patient would need to continue on anticoagulation with warfarin. And if INR is low then he should be bridged with heparin. She was stopped on his own warfarin at home 11 days ago reporting severe bleeding from his foot. 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 The wound clinic notes that that debridement was not required today and that they used a silver nitrate on the wound and place Surgicel into the wound to stop the bleeding. Patient was then sent to the emergency room to for further evaluation and admission for IV antibiotics. Wound culture that was done in the clinic grew out Enterobacter a nd patient was started on cefdinir by Dr. Mckeon. Patient did not olive picker his cefdinir as of today stated that he does not have money to buy it. Patient reports that he started to take Bactrim which he had leftovers at home. Patient reports that wound has been bleeding since last visit and he stopped taking Coumadin (which he takes for A. fib's) approximately 11 days ago. Patient was advised to follow-up in the Coumadin clinic and his last INR was on August 18 and it was 3. Reports the [facility] improves his pain in the right foot. Patient also mentioned that he had right transmit tarsal amputation in 2012. Labs are reviewed which shows WBC 9.58, hemoglobin 11.1, hematocrit 30 a day 3.1 platelets 281, PT/INR pending, sodium 132, potassium 3.3, BUN 19, creatinine 1.5, GFR 48.8, glucose 360, hemoglobin A1c as of May 16, 2000 19, 10.8. Trace of the right foot shows postsurgical changes of the transmetatarsal amputation. Soft tissue ulceration overlying the stump. No conventional radiographic evidence of acute osteomyelitis. Soft tissue gas, consistent with soft tissue infection. Gas extends proximally within the soft tissue to the level of the talo calcaneal joint. Patient denies fever chills chest pain shortness of breath abdominal pain frequency urgency hemoptysis hematemesis hematuria dysuria. Decision was made to admit patient for wound infection in the setting of poorly controlled diabetes mellitus and coronary artery disease with decreased LV function on telemetry. Allergies Allergy/AdvReac Type Severity Reaction Status Date / Time No Known Allergies Allergy Verified 08/28/19 14:41 Home Medications Home Medications Medication Instructions Recorded Confirmed Type nitroglycerin 0.4 mg SUBLINGUAL UD PRN #0 08/14/16 08/28/19 History atorvastatin 80 mg PO HS #0 03/16/17 08/28/19 History cholecalciferol (vitamin D3) 6,000 unit PO DAILY #0 06/17/18 08/28/19 History cyanocobalamin (vitamin B-12) 1 ml INJ MONTHLY #0 06/17/18 08/28/19 History multivitamin 1 tab PO DAILY #0 tab 06/17/18 08/28/19 History Levemir U-100 Insulin 35 units SUBCUT DAILY #0 07/11/18 08/28/19 History blood sugar diagnostic strips #10 ea 05/07/19 08/28/19 History insulin lispro (U- 100) 100 0 unit SUBCUT UD 05/07/19 08/28/19 History unit/mL subcutaneous solution carvedilol 6.25 mg tablet 6.25 mg PO BID #180 tab 06/18/19 08/28/19 Rx amiodarone 200 mg tablet See Rx Instructions .ROUTE 08/20/19 08/28/19 Rx .COMPLEX #30 tablet bumetanide 1 mg tablet 1 mg PO BID #180 tab 08/20/19 08/28/19 Rx Past Med/Surg History Medical History CAD (coronary artery disease) (Acute) Cardiomyopathy (Acute) Carotid artery dissection (Acute) Chronic systolic congestive heart failure (Acute) Diabetic macular edema (Acute) Dyslipidemia (Acute) Hypertension (Acute) Mitral regurgitation (Acute) Positive occult stool blood test (Acute) Proliferative diabetic retinopathy (Acute) Subsequent non-ST elevation (NSTEMI) myocardial infarction within 4 weeks of initial infarction (Acute) Uncontrolled type 1 diabetes mellitus with diabetic neuropathy, with long-term current use of insulin (Acute) Vitamin B12 deficiency (Acute) Vitamin D deficiency (Acute) superintendent terminal (current) use of anticoagulants (Chronic) Left carotid stenosis (Chronic) PAD (peripheral artery disease) (Chronic) Callus (Acute) Diabetes mellitus with diabetic polyneuropathy (Acute) History of amputation of left great toe (Acute) History of amputation of right great toe (Acute) Type 2 diabetes mellitus with diabetic peripheral angiopathy without gangrene (Acute) Ulcer of right midfoot (Acute) CAD (coronary artery disease), [place] coronary artery (Resolved) Diabetes mellitus type 1 (Resolved) Diabetic foot ulcer (Resolved) Diabetic peripheral neuropathy (Resolved) Diabetic peripheral neuropathy associated with type 1 diabetes mellitus (Resolved) Poor dentition (Resolved) Severe aortic valve stenosis (Resolved) Surgical History History of amputation of lesser toe of right foot (Acute) H/O aortic valve replacement (Resolved) Status post transmetatarsal amputation of right foot (Resolved) Status post vascular surgery (Resolved) H/O gastric bypass Family History Other No significant family history Social History Preferred Language: [place] Communication Ability: Effective Visual Impairment: Limited Hearing Ability: Use of Hearing Aid Battery Repairer Required: No Beliefs That Will Affect Care: None marital status: Current Living Situation: Alone current occupational status: disabled Feels Safe at Home: Yes Safety Concerns: Feels Safe At This Time Smoking Status: Never smoker Second Hand Exposure: No ; Hx Alcohol Use: No Hx Substance Use: No Review of Systems Review of Systems: All systems reviewed & are unremarkable except as noted in HPI & below Physical Exam Constitutional: WD/WN, vitals as above well developed Eyes: PERRL, conjunctivae normal, anicteric sclerae ENMT: external ear and nose normal, oropharynx normal Neck: trachea midline, no thyromegaly Respiratory: normal respiratory effort, lungs clear to auscultation Cardiovascular: Rate/Rhythm: + irregularly irregular Heart Sounds: normal S1 and normal S2 Palpation: + palpable S3 Gastrointestinal (Abdomen): normal bowel sounds, soft, nontender, no hepatosplenomegaly Musculoskeletal: no cyanosis or clubbing, extremities motor strength 5/5 Right foot ulcer:Wound is measuring larger today 1.9 x 1.8 x 1 cm in size. Bone remains exposed in the wound base. Area of undermining from 12:00 to 4 o'clock position has increased. No odor present. Moderate amount of bloody drainage is noted with old clot coming from the wound. Foot is hot and erythematous. Periwound intact. Skin: no rashes, warm and dry Psychiatric: A+Ox3, euthymic affect Genitourinary: no testicular masses, no penis abnormality Lymphatic: no cervical or axillary lymphadenopathy Results & Data Vital Signs (Past 12 Hours) Vital Signs Temp Pulse Pulse Resp BP BP Pulse Ox 08/28/19 17:15 56 L 21 96 08/28/19 17:01 56 L 15 143/72 H 97 08/28/19 17:00 56 L 15 98 08/28/19 16:45 56 L 14 98 08/28/19 16:31 56 L 18 119/38 L 97 08/28/19 16:30 57 L 14 08/28/19 16:15 58 L 13 98 08/28/19 16:13 58 L 18 140/50 L 98 08/28/19 16:12 58 L 16 140/50 L 99 08/28/19 15:30 58 L 18 140/50 L 98 08/28/19 15:00 36.6 C 58 L 18 120/62 98 08/28/19 12:49 36.6 C 67 18 98/44 L 93 Code Status & VTE Plan Code Status Full code VTE Prophylaxis Plan VTE Prophylaxis will be ordered: Yes PG Care Time/CCT Total # of Minutes Spent Total Time Spent with Patient: Total time spent is greater than 50% in coordination of care (as documented) at patient's floor/unit and/or counseling patient: (1) CAD (coronary artery disease) [place] vs. transplanted heart: [place] heart Associated angina: without angina (2) Hypertension Hypertension type: essential hypertension Qualified Code(s): I10 - Essential (primary) hypertension
[2019-08-28] MEDS ORDERED: POLYETHYLENE (MIRALAX) 17 GM PACK PO PRN (19:42)
[2019-08-28] MEDS ORDERED: DAPTOmycin 500 MG VIAL IV SCH (19:42)
[2019-08-28] MEDS ORDERED: GLUCOSE 40% GEL 15 GM TUBE PO PRN (19:42)
[2019-08-28] MEDS ORDERED: ONDANSETRON INJ 2 MG/ML 2 ML VIAL IV PRN (19:42)
[2019-08-28] MEDS ORDERED: MAGNESIUM HYDROXIDE SUSP 30 ML UDC PO PRN (19:42)
[2019-08-28] MEDS ORDERED: GLUCOSE 10 TABS/TUBE PO PRN (19:42)
[2019-08-28] MEDS ORDERED: ZOLPIDEM TARTRATE 5 MG TAB PO PRN (19:42)
[2019-08-28] MEDS ORDERED: GLUCAGON FOR INJ 1 MG VIAL SQ PRN (19:42)
[2019-08-28] MEDS ORDERED: DEXTROSE 50% 50 ML SYRINGE IV PRN (19:42)
[2019-08-28] MEDS ORDERED: CYANOCOBALAMIN 1000 MCG/ML VIAL INJ SCH (19:42)
[2019-08-28] MEDS ORDERED: NITROGLYCERIN SL 0.4 MG/TAB TAB SL PRN (19:42)
[2019-08-28] MEDS ORDERED: NSS + 20MEQ KCL 20 MEQ/1,000 ML BAG IV SCH (19:42)
[2019-08-28] MEDS ORDERED: ACETAMINOPHEN 325 MG TAB PO PRN (19:42)
[2019-08-28] MEDS ORDERED: ALUMINUM/MAGNESIUM SUSP 30 ML UDC PO PRN (19:42)
[2019-08-28] MEDS ORDERED: PHARMACY GLYCEMIC MGMT CONSULT PRN (19:50)
[2019-08-28 20:15] LABS: INR 1.2 (0.9-1.1); Prothrombin Time 11.7 Seconds (9.0-12.0)
[2019-08-28] MEDS: DAPTOmycin 500 MG in SYRINGE 0 ML IV SCH (20:50)
[2019-08-28] MEDS: carvediloL 6.25 MG TAB PO SCH (20:50)
[2019-08-28] MEDS: cefTRIAXone SODIUM 2,000 MG in DEXTROSE 5% 50 ML IV SCH (20:50)
[2019-08-28] MEDS: ATORVASTATIN 40 MG TAB PO SCH (20:52)
[2019-08-28] MEDS ORDERED: HEPARIN SOD 5,000 UNIT/0.5 ML VIAL SQ SCH (21:00)
[2019-08-28] MEDS: INSULIN ASPART 100 UNITS/ML 3 ML PEN SC SCH ×2 (21:43→23:53)
[2019-08-28] MEDS ORDERED: INSULIN HUMAN REGULAR PER UNIT 5 UNITS in SYRINGE 4.95 ML IV ONE (23:45)
[2019-08-29] MEDS: INSULIN ASPART 100 UNITS/ML 3 ML PEN SC SCH ×5 (03:37→20:45)
[2019-08-29 05:52] LABS: Basophils # (auto) 0.04 K/uL (0-0.2); Basophils % (auto) 0.7 %; Eosinophils # (auto) 0.37 K/uL (0-0.5); Eosinophils % (auto) 6.1 %; Hematocrit (blood only) 31.7 % (42-52); Immature Granulocytes # (auto) 0.01 K/uL (0.00-0.02); Immature Granulocytes % (auto) 0.2 %; Lymphocytes % (auto) 21.4 %; Mean Corpuscular Hemoglobin 25.2 pg (25-34); Mean Corpuscular Hgb Conc 31.5 g/dL (32-36); Mean Corpuscular Volume 79.8 fL (80-100); Mean Platelet Volume 10.3 fL (7.4-10.4); Monocytes # (auto) 0.57 K/uL (0.11-0.59); Monocytes % (auto) 9.4 %; Neutrophils # (auto) 3.79 K/uL (1.4-6.5); Neutrophils % (auto) 62.2 %; Platelet Count 266 K/uL (130-400); RDW Coefficient of Variation 15.1 % (11.5-14.5); RDW Standard Deviation 44.6 fL (36.4-46.3); Red Blood Count 3.97 M/uL (4.7-6.1); White Blood Count 6.08 K/uL (4.8-10.8)
[2019-08-29 06:19] LABS: Estimated Average Glucose 278 mg/dl; Hemoglobin A1C 11.3 % (4.5-5.6)
[2019-08-29 06:43] LABS: Alanine Aminotransferase < 6 U/L (12-78); Albumin Globulin Ratio 0.5 (0.9-2); Albumin Level 2.2 gm/dl (3.4-5.0); Alkaline Phosphatase 81 U/L (45-117); Aspartate Aminotransferase 12 U/L (15-37); Bilirubin,Total 0.5 mg/dl (0.2-1); Blood Urea Nitrogen 16 mg/dl (7-18); Calcium 8.3 mg/dl (8.5-10.1); Carbon Dioxide 30 mmol/L (21-32); Chloride 101 mmol/L (98-107); Creatinine Clr Calc Pharmacy 98.2 ml/min; Est GFR (African American) 92.4; Est GFR (Non-African American) 79.7; Globulin 4.6 gm/dl (2.5-4.0); Glucose 195 mg/dl (70-99); Potassium 3.3 mmol/L (3.5-5.1); Sodium 136 mmol/L (136-145); Total Protein 6.8 gm/dl (6.4-8.2)
[2019-08-29] MEDS: CHOLECALCIFEROL 1,000 UNITS TAB PO SCH (08:23)
[2019-08-29] MEDS: BUMETANIDE 1 MG TAB PO SCH ×2 (08:24→17:12)
[2019-08-29] MEDS: carvediloL 6.25 MG TAB PO SCH ×2 (08:24→20:47)
[2019-08-29] MEDS: AMIODARONE 200 MG TAB PO SCH (08:24)
[2019-08-29] MEDS: MULTIVITAMIN TAB PO SCH (08:24)
--- NOTE | 2019-08-29 08:48 | Pharmacy Report ---
Glycemic Control Consultation - Date of Service August 29, 2019 - Scope Scope: Glycemic Pharmacist consulted by Dr Horton on 08/29 for glycemic control and to write orders per [facility] inpatient glycemic control protocol - Objective Weight: 106.5 kg Accuchecks BSG (last 24hrs): 08/28/19 08/28/19 08/28/19 14:35 20:07 20:08 Glucose 360 H* POC Glucose 314 H* 337 H* 08/28/19 08/29/19 08/29/19 23:23 03:34 05:21 Glucose 195 H POC Glucose 394 H* 186 H 08/29/19 05:44 Glucose POC Glucose 226 H Laboratory Data (last 24hrs): 08/28/19 08/29/19 14:35 05:21 Potassium 3.3 L 3.3 L Carbon Dioxide 30 30 Anion Gap 6.0 5.0 Creatinine 1.50 H 1.00 D Est Cr Clr Drug Dosing 65.5 98.2 Beta-Hydroxybutyric Acd 2.26 HbA1c: Hemoglobin A1c 11.3 % (4.5-5.6) H 08/29/19 05:21 - Recent Pertinent Medications Outpatient Anti-diabetic Regimen: updated med rec that was incorrect * NPH 30 units qAM, 10-15 units w/ dinner * Regular 15-20 units w/ breakfast, 15-25 units w/ dinner * A1c = 11.3 % 08/29/19 The patient is currently receiving: * Basal insulin: NPH 30 units 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 He is known to the pharmacy glycemic service from previous admissions and is a type 1 diabetic. A1c shows poor outpatient control. BSGs were significantly elevated on admission but have improved as of this AM, although fasting remains elevated. * Fasting BSG = 226 mg/dL; will increase basal to similar dosing that worked in the past, providing additional tonight if he's still high. It's likely that he missed 10-15 units of basal yesterday. * Will also adjust Novolog parameters to what worked well on previous admission * Est TDD ~80-90 units PLAN FOR INPATIENT GLYCEMIC CONTROL: * Basal insulin - increase and change to NPH since this is what patient takes at home * Levemir 40 units qAM + 5 units additional now * NPH 10 units tonight if BSGs remain > 180 mg/dL * Starting 08/30: * NPH 30 units qAM * NPH 10-15 units qPM * Bolus insulin - tighten and add overnight check * NovoLog per scale ACHS or Q6hrs while NPO * Goal Range: Low 120 mg/dL - High 150 mg/dL * Correction Factor: 18 mg/dL/unit * Nutritional / Prandial insulin per carb ratio of 1 unit per 4 grams CHO consumed Discharge Recommendations: * A1c = 11.3 % on 08/29/19 Goal A1c = < 7 % based on age and comorbidities * NPH 30 units qAM, 10-15 units qPM * Regular 15-20 units w/ breakfast, 15-25 units w/ dinner * ADD Regular insulin per sliding scale: * Blood Sugar 70-150 administer 0 units * Blood Sugar 151-200 administer 3 units * Blood Sugar 201-250 administer 5 units * Blood Sugar 251-300 administer 7 units * Blood Sugar 301-350 administer 9 units * Blood Sugar 351-400 administer 11 units * Blood Sugar >400 administer 13 units and call MD Thank you.
[2019-08-29] MEDS ORDERED: INSULIN DETEMIR SQ SCH (09:00)
[2019-08-29] MEDS ORDERED: INSULIN DETEMIR FLEXPEN/FLEX TOUCH 100 UNITS/ML 3ML SC SCH (09:00)
[2019-08-29] MEDS: ENOXAPARIN INJ 120 MG/0.8 ML SYR SC SCH ×2 (09:17→20:45)
--- NOTE | 2019-08-29 11:07 | Infectious Disease Consult ---
Date of Consultation August 29, 2019 Assessment & Plan (1) Gangrene of foot: pt will continue on current abx. suspect worsening due to lack of abx therapy prior to admission. will need new wound culture, debridement. will follow. History of Present Illness Attending Physician: Morgan Horton MD pt admitted from wound center due to progression of right foot wound. follows with Dr. Mckeon at wound center - h/o MRSA s/p TMA, tolerated well. Most recent culture grew Enterobacter - pansensitive. was given cefdinir but did not fill rx. went to wound center yesterday and was sent to ER. wcb 6, creat 1. Placed on rocephin and dapto, tolerating well. x ray negative for osteo. wound center eval pending. pt denies pain in foot. no cp, sob, cough, no n/v/d/abd pain. no gu symptoms. Allergies Allergy/AdvReac Type Severity Reaction Status Date / Time No Known Allergies Allergy Verified 08/28/19 14:41 Home Medications Home Medications Medication Instructions Recorded Confirmed Type nitroglycerin 0.4 mg SUBLINGUAL UD PRN #0 08/14/16 08/28/19 History atorvastatin 80 mg PO HS #0 03/16/17 08/28/19 History cholecalciferol (vitamin D3) 6,000 unit PO DAILY #0 06/17/18 08/28/19 History cyanocobalamin (vitamin B-12) 1 ml INJ MONTHLY #0 06/17/18 08/28/19 History multivitamin 1 tab PO DAILY #0 tab 06/17/18 08/28/19 History Levemir U-100 Insulin 35 units SUBCUT DAILY #0 07/11/18 08/28/19 History blood sugar diagnostic strips #10 ea 05/07/19 08/28/19 History insulin lispro (U- 100) 100 0 unit SUBCUT UD 05/07/19 08/28/19 History unit/mL subcutaneous solution carvedilol 6.25 mg tablet 6.25 mg PO BID #180 tab 06/18/19 08/28/19 Rx amiodarone 200 mg tablet See Rx Instructions .ROUTE 08/20/19 08/28/19 Rx .COMPLEX #30 tablet bumetanide 1 mg tablet 1 mg PO BID #180 tab 08/20/19 08/28/19 Rx Patient History Medical History CAD (coronary artery disease) (Acute) Cardiomyopathy (Acute) Carotid artery dissection (Acute) Chronic systolic congestive heart failure (Acute) Diabetic macular edema (Acute) Dyslipidemia (Acute) Hypertension (Acute) Mitral regurgitation (Acute) Positive occult stool blood test (Acute) Proliferative diabetic retinopathy (Acute) Subsequent non-ST elevation (NSTEMI) myocardial infarction within 4 weeks of initial infarction (Acute) Uncontrolled type 1 diabetes mellitus with diabetic neuropathy, with long-term current use of insulin (Acute) Vitamin B12 deficiency (Acute) Vitamin D deficiency (Acute) long term care social worker (current) use of anticoagulants (Chronic) Left carotid stenosis (Chronic) PAD (peripheral artery disease) (Chronic) Callus (Acute) Diabetes mellitus with diabetic polyneuropathy (Acute) History of amputation of left great toe (Acute) History of amputation of right great toe (Acute) Type 2 diabetes mellitus with diabetic peripheral angiopathy without gangrene (Acute) Ulcer of right midfoot (Acute) CAD (coronary artery disease), [place] coronary artery (Resolved) Diabetes mellitus type 1 (Resolved) Diabetic foot ulcer (Resolved) Diabetic peripheral neuropathy (Resolved) Diabetic peripheral neuropathy associated with type 1 diabetes mellitus (Resolved) Poor dentition (Resolved) Severe aortic valve stenosis (Resolved) Surgical History History of amputation of lesser toe of right foot (Acute) H/O aortic valve replacement (Resolved) Status post transmetatarsal amputation of right foot (Resolved) Status post vascular surgery (Resolved) H/O gastric bypass Family History Other No significant family history Social History Preferred Language: Citizen Of [place] Communication Ability: Effective Visual Impairment: Limited Hearing Ability: Use of Hearing Aid Staff Cytotechnologist Required: No Beliefs That Will Affect Care: None marital status: Current Living Situation: Alone current occupational status: disabled Feels Safe at Home: Yes Smoking Status: Never smoker Second Hand Exposure: No ; Hx Alcohol Use: No Hx Substance Use: No Review of Systems Review of Systems: All systems reviewed & are unremarkable except as noted in HPI & below Physical Exam Constitutional: WD/WN, vitals as above Eyes: PERRL, conjunctivae normal, anicteric sclerae ENMT: external ear and nose normal, oropharynx normal Neck: normal visual inspection Respiratory: normal respiratory effort, lungs clear to auscultation Cardiovascular: RRR, no murmur, no edema Gastrointestinal (Abdomen): normal bowel sounds, soft, nontender, no hepatosplenomegaly Musculoskeletal: no cyanosis or clubbing, extremities motor strength 5/5 Skin: no rashes, warm and dry right foot dressing with dried drainage, rle warm to touch, no erythema non tender Psychiatric: A+Ox3, euthymic affect Results & Data Vital Signs (Past 12 Hours) Vital Signs Temp Pulse Pulse Pulse Resp BP Pulse Ox 08/29/19 07:37 36.7 C 58 L 16 137/74 97 08/29/19 07:30 58 L 08/29/19 03:34 36.7 C 76 18 117/52 L 98 08/28/19 23:40 56 L 08/28/19 23:13 36.8 C 57 L 18 119/51 L 98 PG Care Time/CCT Total # of Minutes Spent Total Time Spent with Patient: Total time spent is greater than 50% in coordination of care (as documented) at patient's floor/unit and/or counseling patient:
[2019-08-29] MEDS ORDERED: GADOBUTROL 65ML VIAL IV PRN (13:26)
[2019-08-29] MEDS ORDERED: INSULIN DETEMIR FLEXPEN/FLEX TOUCH 100 UNITS/ML 3ML SC ONE (13:45)
--- NOTE | 2019-08-29 13:51 | Hospitalist Progress Note ---
Date of Service August 29, 2019 Assessment & Plan (1) Diabetic foot ulcer: Continue admit to [facility] on telemetry INR/PT 11.7/1.2 BNP pending Replenish potassium 40 M EQ p.o. now Follow closely CBC CMP CRP and INR Patient took himself off warfarin due to bleeding from his foot which he is s upposed to be on for A. fib's and biological mitral valve prosthesis. Patient accepted to be on therapeutic Lovenox 1 mg/kg subcu every 12 hours. Patient would need to continue on anticoagulation for A. fib's unless he refuses it, and will will restart anticoagulation as soon as INR is available. In the ER was given vancomycin and Zosyn for foot infection, which is switched to daptomycin due to positive MRSA culture of the wound in May 2019 and declining kidney function, and ceftriaxone 2 g IV every 24 hours since patient also grew Enterobacter sensitive to ceftriaxone. Since Dr. Mckeon infectious diseases follows patient in the clinic placed consult for him. Consulted wound provider Dr. Doyle and wound nurse to assist with wound management. MRI of the right ankle with and without contrast contrast pending. Pain management with Percocet Patient is full code (2) CAD (coronary artery disease): Patient has decreased LV function but he is stable at this time. He appears to be in his normal euvolemic state. TTE and EKG pending Continue home dose of amiodarone 200 mg daily, continue bumetanide 1 mg p.o. twice daily. Continue carvedilol 6.25 mg tablet p.o. twice daily. (3) Dyslipidemia: Lipid panel pending, continue atorvastatin p.o. nightly. (4) Hypertension: Continue home medicine as above (5) Cardiomyopathy: Continue home medicine as above. (6) Uncontrolled type 1 diabetes mellitus with diabetic neuropathy, with long- term current use of insulin: A1c pending, patient's blood sugar elevated in the emergency room to 360. Continue insulin lispro 3 times daily, Levemir 35 units daily. Accu-Cheks before meals and at bedtime. Glycemic control to be managed by pharmacy. Since (7) Paroxysmal atrial fibrillation: Patient would need to continue on anticoagulation with warfarin. And if INR is low then he should be bridged with heparin. She was stopped on his own warfarin at home 11 days ago reporting severe bleeding from his foot. Subjective Seen and examined at the bedside. Patient understands that he needs to be on anticoagulation due to placement of the biological mitral valve 6 months ago. P.o. intake is slowly improving. Patient is afebrile. No new bleeding was noted from his right foot ulcer. Patient denies fever chills, chest pain, shortness of breath, frequency, urgency, hematemesis hematuria dysuria. Review of Systems Review of Systems: All systems reviewed & are unremarkable except as noted in HPI & below Physical Exam Constitutional: WD/WN, vitals as above well developed Eyes: PERRL, conjunctivae normal, anicteric sclerae ENMT: external ear and nose normal, oropharynx normal Neck: trachea midline, no thyromegaly Respiratory: normal respiratory effort, lungs clear to auscultation Cardiovascular: Rate/Rhythm: + irregularly irregular Heart Sounds: normal S1 and normal S2 Palpation: + palpable S3 Gastrointestinal (Abdomen): normal bowel sounds, soft, nontender, no hepatosplenomegaly Musculoskeletal: no cyanosis or clubbing, extremities motor strength 5/5 Skin: no rashes, warm and dry Psychiatric: A+Ox3, euthymic affect Genitourinary: no testicular masses, no penis abnormality Lymphatic: no cervical or axillary lymphadenopathy Results & Data Vital Signs (Past 12 Hours) Vital Signs Temp Pulse Pulse Pulse Resp BP Pulse Ox 08/29/19 07:37 36.7 C 58 L 16 137/74 97 08/29/19 07:30 58 L 08/29/19 03:34 36.7 C 76 18 117/52 L 98 PG Care Time/CCT Total # of Minutes Spent Total Time Spent with Patient: Total time spent is greater than 50% in coordination of care (as documented) at patient's floor/unit and/or counseling patient: (1) CAD (coronary artery disease) [place] vs. transplanted heart: [place] heart Associated angina: without angina (2) Hypertension Hypertension type: essential hypertension Qualified Code(s): I10 - Essential (primary) hypertension
--- NOTE | 2019-08-29 13:54 | Wound Consultation ---
Date of Consultation August 29, 2019 Assessment & Plan (1) Diabetic foot ulcer: X-ray inconclusive for possible necrotizing fasciitis. Awaiting results of MRI to rule out osteomyelitis and necrotizing fasciitis. No debridement was required today. Wound be dressed with Aquacel. Continue antibiotics per infectious disease. Thank you for allowing me to participate in the care of this patient. Please not hesitate to call with any questions. History of Present Illness Reason for Consultation: Diabetic foot ulcer Attending Physician: Morgan Horton MD History of Present Illness This is a 63-year-old male with a history of diabetic foot ulcer, CAD, cardiomyopathy, CHF, hypertension, dyslipidemia and atrial fibrillation who is well-known to the wound clinic. Patient was sent to the hospital yesterday for evaluation of his wound and potential further IV antibiotics. X-ray was reviewed and showed gas in the wound. They are unable to rule out any necrotizing fasciitis. Allergies Allergy/AdvReac Type Severity Reaction Status Date / Time No Known Allergies Allergy Verified 08/28/19 14:41 Home Medications Home Medications Medication Instructions Recorded Confirmed Type nitroglycerin 0.4 mg SUBLINGUAL UD PRN #0 08/14/16 08/28/19 History atorvastatin 80 mg PO HS #0 03/16/17 08/28/19 History cholecalciferol (vitamin D3) 6,000 unit PO DAILY #0 06/17/18 08/28/19 History cyanocobalamin (vitamin B-12) 1 ml INJ MONTHLY #0 06/17/18 08/28/19 History multivitamin 1 tab PO DAILY #0 tab 06/17/18 08/28/19 History blood sugar diagnostic strips #10 ea 05/07/19 08/28/19 History carvedilol 6.25 mg tablet 6.25 mg PO BID #180 tab 06/18/19 08/28/19 Rx amiodarone 200 mg tablet See Rx Instructions .ROUTE 08/20/19 08/28/19 Rx .COMPLEX #30 tablet bumetanide 1 mg tablet 1 mg PO BID #180 tab 08/20/19 08/28/19 Rx insulin NPH isoph U-100 human 10 - 15 unit SUBCUT PM 08/29/19 08/29/19 History [Novolin N NPH U-100 Insulin] insulin NPH isoph U-100 human 30 unit SUBCUT QDB 08/29/19 08/29/19 History [Novolin N NPH U-100 Insulin] insulin regular human [Novolin R 0 unit SUBCUT BID 08/29/19 08/29/19 History Regular U-100 Insuln] Patient History Medical History CAD (coronary artery disease) (Acute) Cardiomyopathy (Acute) Carotid artery dissection (Acute) Chronic systolic congestive heart failure (Acute) Diabetic macular edema (Acute) Dyslipidemia (Acute) Hypertension (Acute) Mitral regurgitation (Acute) Positive occult stool blood test (Acute) Proliferative diabetic retinopathy (Acute) Subsequent non-ST elevation (NSTEMI) myocardial infarction within 4 weeks of initial infarction (Acute) Uncontrolled type 1 diabetes mellitus with diabetic neuropathy, with long-term current use of insulin (Acute) Vitamin B12 deficiency (Acute) Vitamin D deficiency (Acute) prison (current) use of anticoagulants (Chronic) Left carotid stenosis (Chronic) PAD (peripheral artery disease) (Chronic) Callus (Acute) Diabetes mellitus with diabetic polyneuropathy (Acute) History of amputation of left great toe (Acute) History of amputation of right great toe (Acute) Type 2 diabetes mellitus with diabetic peripheral angiopathy without gangrene (Acute) Ulcer of right midfoot (Acute) CAD (coronary artery disease), [place] coronary artery (Resolved) Diabetes mellitus type 1 (Resolved) Diabetic foot ulcer (Resolved) Diabetic peripheral neuropathy (Resolved) Diabetic peripheral neuropathy associated with type 1 diabetes mellitus (Resolv ed) Poor dentition (Resolved) Severe aortic valve stenosis (Resolved) Surgical History History of amputation of lesser toe of right foot (Acute) H/O aortic valve replacement (Resolved) Status post transmetatarsal amputation of right foot (Resolved) Status post vascular surgery (Resolved) H/O gastric bypass Family History Other No significant family history Social History Preferred Language: Lao Communication Ability: Effective Visual Impairment: Limited Hearing Ability: Use of Hearing Aid Pattern Drafter Required: No Beliefs That Will Affect Care: None marital status: Single Current Living Situation: Alone current occupational status: disabled Feels Safe at Home: Yes Smoking Status: Never smoker Second Hand Exposure: No ; Hx Alcohol Use: No Hx Substance Use: No Review of Systems Review of Systems: All systems reviewed & are unremarkable except as noted in HPI & below Physical Exam Constitutional: WD/WN, vitals as above Eyes: PERRL, conjunctivae normal, anicteric sclerae ENMT: Ears: no hearing impairment Respiratory: normal respiratory effort, lungs clear to auscultation Cardiovascular: RRR, no murmur, no edema Skin: Wound measuring 1.4 x 1.7 x 2.2 cm. Wound does probe down to bone. Wound is covered with fibrin and slough. Periwound is intact and mildly macerated. There is moderate drainage and foul odor. Neurologic: awake; not confused Psychiatric: A+Ox3, euthymic affect Results & Data Vital Signs (Past 12 Hours) Vital Signs Temp Pulse Pulse Pulse Resp BP Pulse Ox 08/29/19 07:37 36.7 C 58 L 16 137/74 97 08/29/19 07:30 58 L 08/29/19 03:34 36.7 C 76 18 117/52 L 98 PG Care Time/CCT Total # of Minutes Spent Total Time Spent with Patient: Total time spent is greater than 50% in coordination of care (as documented) at patient's floor/unit and/or counseling patient: (1) Diabetic foot ulcer Diabetes mellitus type: type 1 Diabetic foot ulcer location: midfoot Laterality: right Non-pressure ulcer stage: with necrosis of bone Qualified Code(s): E10.621 - Type 1 diabetes mellitus with foot ulcer; L97.414 - Non- pressure chronic ulcer of right heel and midfoot with necrosis of bone
--- NOTE | 2019-08-29 13:56 | Magnetic Resonance Report ---
MRI OF THE RIGHT ANKLE WITH WITHOUT CONTRAST CLINICAL HISTORY: Right foot ulcer. Evaluate for necrotizing fasciitis. COMPARISON STUDY: MRI of the right hindfoot April 02, 2017. Right foot radiographs August 28, 2019. TECHNIQUE: Utilizing a 1.5 Joann magnet, multiplanar, multiecho imaging of the right ankle was perfor med pre and postcontrast administration. Intravenous injection of Gadavist was uneventful. FINDINGS: There are postoperative findings consistent with amputation of the right foot at the level of the proximal metatarsals. There is a large wound of the plantar medial aspect of the operative sit e with a subjacent 2.7 x 2 cm rim-enhancing fluid collection. There may be associated packing materia l. There are multiple locules of gas within the dorsal soft tissues of the right hindfoot and ankle. There is also gas within the extensor tendon sheaths which are fluid-filled. Fluid fluid levels are n oted within the tendon sheaths with peripheral enhancement. There is marked marrow edema with diminis hed T1 signal within the medial cuneiform as well as the middle cuneiform and the distal navicular. T his suggest osteomyelitis. Edema within the talus is unlikely to be infectious. Edema within the calc aneus is also unlikely to be infectious. The distal Achilles is intact. No additional fluid collectio ns are noted. Significant progression since MRI of April 02, 2017 is noted. IMPRESSION: 1. Status post right foot amputation at the level of the metatarsals. Large plantar wound with subjac ent 2.7 x 2 cm collection which may reflect phlegmon or abscess. Extensive marrow signal abnormality within the medial cuneiform, middle cuneiform and navicular highly suggestive of osteomyelitis. Progr ession since MRI of April 02, 2017. These findings will be called/faxed to the ordering provider at andrés e of dictation 2. Fluid-filled extensor tendon sheaths which contain gas. These findings favor infectious tenosynovi tis. Gas within the tendon sheaths and dorsal soft tissues of the right foot could reflect a gas-form ing infectious process or be due to the open wound. Electronically signed by: Dmitry Harper M.D. 08/29/2019 1:55 PM
[2019-08-29] MEDS ORDERED: POTASSIUM CHLORIDE 20 MEQ TABCR PO STA (14:52)
--- NOTE | 2019-08-29 16:35 | Ultrasound Report ---
US arterial duplex LE RT CLINICAL HISTORY: Peripheral vascular disease. COMPARISON STUDY: No previous studies for comparison. FINDINGS: The vessels were noncompressible, and ankle brachial indices could not BE obtained. There is moderate diffuse plaque. There are monophasic waveforms throughout the right lower extremity. This raises the possibility of a more proximal iliac stenosis. Note is made of a focal elevation in velocity involving the distal ant erior tibial artery suggesting a focal stenosis. IMPRESSION: 1. Moderate diffuse plaque 2. Monophasic waveforms throughout raising the possibility more proximal iliac stenosis 3. Focal stenosis involving the distal anterior tibial artery. Electronically signed by: Kendrick Worthy M.D. 08/29/2019 4:34 PM
[2019-08-29] MEDS: cefTRIAXone SODIUM 2,000 MG in DEXTROSE 5% 50 ML IV SCH (19:46)
[2019-08-29] MEDS: DAPTOmycin 500 MG in SYRINGE 0 ML IV SCH (19:46)
[2019-08-29] MEDS: ATORVASTATIN 40 MG TAB PO SCH (20:46)
[2019-08-29] MEDS ORDERED: INSULIN HUMAN NPH SC ONE (21:00)
[2019-08-30] MEDS ORDERED: INSULIN ASPART 100 UNITS/ML 3 ML PEN SC ONE (02:00)
--- NOTE | 2019-08-30 04:14 | Consultation Report ---
DATE OF OPERATION: 08/29/2019 PERTINENT HISTORY: This is a 63-year-old gentleman known to the orthopedic service, seen at the request of Dr. Morgan Horton for right foot ulceration. The patient had a prior transmetatarsal amputation in 2012 that I had performed. He has had waxing and waning symptoms over the last several years. He has been using CACHIL DEHE walker boot and a high tide walking boot intermittently. His CACHIL DEHE walker boot was being revised. He noted that he had bleeding in his right foot and he had been seen at the wound clinic. Noted continued bleeding despite conservative care. He was referred to the hospital for IV antibiotic treatment. The patient had prior irrigation and debridement of his right foot performed at another center either [facility] or [place]. The patient changed location twice during his retelling of the story. Apparently, he had debridement, which did fairly well for him; however, he presents with re-ulceration in the first residual metatarsal head and now with further studies. Apparently, he has gas in the tissues and per MRI, there appears to have phlegmon and possible infectious tenosynovitis dorsally and what appears to be marrow changes within the first, second and third cuneiforms consistent with possible osteomyelitis. The patient states that his symptoms have not changed significantly and his ulceration has been waxing and waning in fact 2 weeks prior. He noted that the wound was almost closed in the wound care center and eventually got worse fairly quickly and then for the last 2-3 weeks, he has been managing ulceration to the wound care clinic. 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 He has amputation of right great toe, history of right transmetatarsal amputation, type 2 diabetes mellitus with diabetic peripheral angiopathy with gangrene, ulcer of right mid foot, coronary artery disease, diabetes mellitus type 1, diabetic foot ulcer, diabetic peripheral neuropathy, diabetic peripheral neuropathy associated with type 1 diabetes, poor dentition, severe aortic valve stenosis. PAST SURGICAL HISTORY: History of amputation of lesser toe of the right foot, aortic valve replacement, status post transmetatarsal amputation of right foot, status post vascular surgery, history of gastric bypass, history of left great toe amputation. ALLERGIES: No known drug allergies. MEDICATIONS: Please note the list in the medical record. SOCIAL HISTORY: Uses hearing aids. He is , lives alone, is disabled. He denies tobacco use, alcohol use or drug use. 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 PHYSICAL EXAMINATION: This is a 63-year-old gentleman who is lying supine in his hospital room bed. Alert and oriented x3. Speech clear and fluent. Affect is appropriate. Examination of the right foot demonstrates ulceration measuring approximately 1.9 x 1.8 x 1 cm under the first metatarsal head. There is an undermining noted from 12 o'clock to 4 o'clock position. Ulcer appears to be initially pressure ulcer. There is some mild warmth, no significant erythema, no streaking. Dorsalis pedis pulses palpable. Posterior tibial pulses is palpable. The foot is essentially insensate with dense neuropathy. Limited range of motion of the right lower extremity, dorsiflexion, plantarflexion, inversion and eversion. Strength is limited. No obvious areas of fluctuance are palpated. No palpable crepitation is noted in the skin. Laboratories and radiographs of the foot and ankle, MRI were reviewed, both report and the images. IMPRESSION: 1. Right foot diabetic ulcer under the first metatarsal residual ray. 2. Increased marrow edema suggesting osteomyelitis of the first, second and third cuneiforms without appreciable destructive changes. 3. Possible new abscess/phlegmon as noted per MRI, peripheral vascular disease and extensor tenosynovitis. RECOMMENDATION: At this time, the patient appears to be improving with IV antibiotics. Despite the fact that he may have colonization in the mid foot, particularly the first, second and third cuneiform and infectious tenosynovitis, appears to be improving clinically. The patient should continue IV antibiotics for a period of 24-48 hours and monitor progress. He will need to maintain limited to no weightbearing to heal his ulceration. I explained to him that he may still require further debridement and possibly even below knee amputation if continues to manifest symptoms of osteomyelitis. We will follow with you. Thank you for the opportunity to consult and care of this patient. Also, recommend evaluation by vascular surgery to help determine possible need or level for further debridement or amputation. MTDD
[2019-08-30 06:50] LABS: Basophils # (auto) 0.05 K/uL (0-0.2); Basophils % (auto) 0.9 %; Eosinophils # (auto) 0.36 K/uL (0-0.5); Eosinophils % (auto) 6.8 %; Hematocrit (blood only) 33.6 % (42-52); Hemoglobin 10.7 g/dL (14.0-18.0); Immature Granulocytes # (auto) 0.01 K/uL (0.00-0.02); Immature Granulocytes % (auto) 0.2 %; Lymphocytes # (auto) 1.53 K/uL (1.2-3.4); Lymphocytes % (auto) 28.8 %; Mean Corpuscular Hemoglobin 25.7 pg (25-34); Mean Corpuscular Hgb Conc 31.8 g/dL (32-36); Mean Corpuscular Volume 80.6 fL (80-100); Mean Platelet Volume 10.6 fL (7.4-10.4); Monocytes # (auto) 0.49 K/uL (0.11-0.59); Monocytes % (auto) 9.2 %; Neutrophils # (auto) 2.87 K/uL (1.4-6.5); Neutrophils % (auto) 54.1 %; Platelet Count 304 K/uL (130-400); RDW Coefficient of Variation 15.6 % (11.5-14.5); RDW Standard Deviation 45.5 fL (36.4-46.3); Red Blood Count 4.17 M/uL (4.7-6.1); White Blood Count 5.31 K/uL (4.8-10.8)
[2019-08-30 07:28] LABS: Alanine Aminotransferase < 6 U/L (12-78); Albumin Level 2.3 gm/dl (3.4-5.0); Aspartate Aminotransferase 14 U/L (15-37); BUN Creatinine Ratio 12.9 (10-20); Blood Urea Nitrogen 14 mg/dl (7-18); C Reactive Protein 6.27 mg/dl (0-0.29); Calcium 8.3 mg/dl (8.5-10.1); Carbon Dioxide 29 mmol/L (21-32); Chloride 101 mmol/L (98-107); Cholesterol 129 mg/dl (0-200); Creatinine Clr Calc Pharmacy 91.2 ml/min; Est GFR (African American) 85.2; Est GFR (Non-African American) 73.5; Glucose 144 mg/dl (70-99); Potassium 3.6 mmol/L (3.5-5.1); Sodium 137 mmol/L (136-145); Triglycerides 88 mg/dl (0-150); VLDL Cholesterol 18 mg/dl
[2019-08-30 07:30] LABS: Albumin Globulin Ratio 0.5 (0.9-2); Alkaline Phosphatase 82 U/L (45-117); Bilirubin,Total 0.4 mg/dl (0.2-1); Chol HDL Ratio 3; Globulin 4.7 gm/dl (2.5-4.0); HDL Cholesterol 44 mg/dl; LDL Cholesterol Calculated 67 mg/dl; NT Pro B Type Natriuretic Pept 1660 pg/ml (0-900)
[2019-08-30 07:43] LABS: Estimated Average Glucose 275 mg/dl; Hemoglobin A1C 11.2 % (4.5-5.6)
[2019-08-30] MEDS: MULTIVITAMIN TAB PO SCH (07:55)
[2019-08-30] MEDS: carvediloL 6.25 MG TAB PO SCH ×2 (07:55→20:15)
[2019-08-30] MEDS: CHOLECALCIFEROL 1,000 UNITS TAB PO SCH (07:56)
[2019-08-30] MEDS: ENOXAPARIN INJ 120 MG/0.8 ML SYR SC SCH ×2 (07:56→20:16)
[2019-08-30] MEDS: BUMETANIDE 1 MG TAB PO SCH ×2 (07:57→17:37)
[2019-08-30] MEDS: AMIODARONE 200 MG TAB PO SCH (07:58)
[2019-08-30] MEDS: INSULIN HUMAN NPH SC SCH (08:22)
[2019-08-30] MEDS: INSULIN ASPART 100 UNITS/ML 3 ML PEN SC SCH ×4 (08:24→20:24)
[2019-08-30] MEDS ORDERED: INSULIN HUMAN NPH SC SCH ×2 (16:30→21:00)
--- NOTE | 2019-08-30 16:57 | Hospitalist Progress Note ---
Date of Service August 30, 2019 Assessment & Plan (1) Diabetic foot ulcer: Continue admits to [facility] on telemetry. Replenish potassium as needed Follow-up CBC CMP CRP Appreciate Dr. Mata orthopedic recommendations to continue conservative treatment for now with possibility of having debridement in near future. Continue antibiotics daptomycin due to positive MRSA culture of the wound in May 2019 and declining kidney function and ceftriaxone 2 g IV every 24 hours since patient also grew Enterobacter sensitive to ceftriaxone. Appreciate Dr. Diana Pisano recommendations. Please consult for vascular surgery. DVT prophylaxis with Lovenox 1 mg/kg therapeutic dose every 12 hours since patient also have A. fib's and biological mitral valve prosthesis. Patient is a full code Present on Admission?: Yes (2) CAD (coronary artery disease): Patient has decreased LV function but he is stable at this time. He appears to be in normal euvolemic state. Continue home dose of amiodarone 200 mg daily, continue bumetanide 1 mg p.o. twice a day. Continue carvedilol 6.25 mg tablet p.o. twice a day. Present on Admission?: Yes (3) Hypertension: As above Present on Admission?: Yes (4) Dyslipidemia: Lipid panel normal. Continue home dose of atorvastatin 80 mg p.o. nightly Present on Admission?: Yes (5) Chronic systolic congestive heart failure: Stable at this time continue management as above. Present on Admission?: Yes (6) Uncontrolled type 1 diabetes mellitus with diabetic neuropathy, with long- term current use of insulin: A1c 11.2. Poorly controlled diabetes mellitus. Needs tighter control. Glycemic control per pharmacy. Present on Admission?: Yes (7) Diabetic foot ulcer associated with type 1 diabetes mellitus: As above Present on Admission?: Yes Subjective Seen and examined at the bedside. Patient understands that he needs to be on anticoagulation due to placement of the biological mitral valve 6 months ago. P.o. intake is slowly improving. Patient is afebrile. No new bleeding was noted from his right foot ulcer. Patient denies fever chills, chest pain, shortness of breath, frequency, urgency, hematemesis hematuria dysuria. Review of Systems Review of Systems: All systems reviewed & are unremarkable except as noted in HPI & below Physical Exam Constitutional: WD/WN, vitals as above well developed Eyes: PERRL, conjunctivae normal, anicteric sclerae ENMT: external ear and nose normal, oropharynx normal Neck: trachea midline, no thyromegaly Respiratory: normal respiratory effort, lungs clear to auscultation Cardiovascular: Rate/Rhythm: + irregularly irregular Heart Sounds: normal S1 and normal S2 Palpation: + palpable S3 Gastrointestinal (Abdomen): normal bowel sounds, soft, nontender, no hepatosplenomegaly Musculoskeletal: no cyanosis or clubbing, extremities motor strength 5/5 Skin: Right foot diabetic ulcer under the first metatarsal. Examination of the right foot demonstrate ulceration measuring 1.9 x 1.8 x 1 cm under the first metatarsal head. There is undermining 12:00 and 4 o'clock position. Ulcer appears to be initially pressure ulcer. There is some mild warmth and no significant erythema no striking. Dorsalis pedis pulses palpable. Posterior tibial pulses is palpable. The foot is essentially insensate with dense neuropathy. Limited range of motion of the right lower extremity, dorsiflexion plantar flexion, inversion and eversion. Strength is limited. No obvious areas of fluctuance are palpated. No palpable crepitation is noted in the skin. Neurologic: patellar DTR's 2+ bilat, sensation intact Psychiatric: A+Ox3, euthymic affect Genitourinary: no testicular masses, no penis abnormality Lymphatic: no cervical or axillary lymphadenopathy Results & Data Vital Signs (Past 12 Hours) Vital Signs Temp Pulse Resp BP BP Pulse Ox 08/30/19 16:00 36.6 C 60 16 123/68 93 08/30/19 11:43 36.4 C L 58 L 16 127/79 98 08/30/19 07:46 36.6 C 54 L 16 125/70 97 08/30/19 06:00 36.6 C 57 L 18 133/75 96 PG Care Time/CCT Total # of Minutes Spent Total Time Spent with Patient: Total time spent is greater than 50% in coordination of care (as documented) at patient's floor/unit and/or counseling patient: (1) CAD (coronary artery disease) [place] vs. transplanted heart: [place] heart Associated angina: without angina (2) Hypertension Hypertension type: essential hypertension Qualified Code(s): I10 - Essential (primary) hypertension (3) Diabetic foot ulcer associated with type 1 diabetes mellitus Diabetic foot ulcer location: midfoot Laterality: right Non-pressure ulcer stage: with fat layer exposed Qualified Code(s): E10.621 - Type 1 diabetes mellitus with foot ulcer; L97.412 - Non-pressure chronic ulcer of right heel and midfoot with fat layer exposed (4) Diabetic foot ulcer Diabetes mellitus type: type 1 Diabetic foot ulcer location: midfoot L aterality: right Non-pressure ulcer stage: with necrosis of bone Qualified Code(s): E10.621 - Type 1 diabetes mellitus with foot ulcer; L97.414 - Non- pressure chronic ulcer of right heel and midfoot with necrosis of bone
[2019-08-30] MEDS: DAPTOmycin 500 MG in SYRINGE 0 ML IV SCH (20:14)
[2019-08-30] MEDS: cefTRIAXone SODIUM 2,000 MG in DEXTROSE 5% 50 ML IV SCH (20:14)
[2019-08-30] MEDS: ATORVASTATIN 40 MG TAB PO SCH (20:15)
[2019-08-31 06:11] LABS: Basophils # (auto) 0.06 K/uL (0-0.2); Hematocrit (blood only) 30.9 % (42-52); Immature Granulocytes # (auto) 0.01 K/uL (0.00-0.02); Immature Granulocytes % (auto) 0.2 %; Lymphocytes # (auto) 1.96 K/uL (1.2-3.4); Lymphocytes % (auto) 34.1 %; Mean Corpuscular Hemoglobin 25.7 pg (25-34); Mean Corpuscular Hgb Conc 32.4 g/dL (32-36); Mean Corpuscular Volume 79.4 fL (80-100); Mean Platelet Volume 9.7 fL (7.4-10.4); Monocytes % (auto) 8.7 %; Neutrophils # (auto) 2.81 K/uL (1.4-6.5); Platelet Count 287 K/uL (130-400); RDW Coefficient of Variation 15.4 % (11.5-14.5); RDW Standard Deviation 44.9 fL (36.4-46.3); Red Blood Count 3.89 M/uL (4.7-6.1); White Blood Count 5.74 K/uL (4.8-10.8)
[2019-08-31 06:53] LABS: Alanine Aminotransferase < 6 U/L (12-78); Albumin Level 2.2 gm/dl (3.4-5.0); Aspartate Aminotransferase 13 U/L (15-37); BUN Creatinine Ratio 12.7 (10-20); Blood Urea Nitrogen 14 mg/dl (7-18); Calcium 8.1 mg/dl (8.5-10.1); Carbon Dioxide 31 mmol/L (21-32); Chloride 102 mmol/L (98-107); Creatinine Clr Calc Pharmacy 90.3 ml/min; Est GFR (African American) 84.2; Est GFR (Non-African American) 72.7; Glucose 175 mg/dl (70-99); Potassium 3.3 mmol/L (3.5-5.1); Sodium 137 mmol/L (136-145)
[2019-08-31 06:58] LABS: Albumin Globulin Ratio 0.5 (0.9-2); Alkaline Phosphatase 75 U/L (45-117); Bilirubin,Total 0.3 mg/dl (0.2-1); C Reactive Protein 2.92 mg/dl (0-0.29); Globulin 4.3 gm/dl (2.5-4.0); Total Protein 6.5 gm/dl (6.4-8.2)
[2019-08-31] MEDS: AMIODARONE 200 MG TAB PO SCH (07:53)
[2019-08-31] MEDS: carvediloL 6.25 MG TAB PO SCH ×2 (07:53→20:32)
[2019-08-31] MEDS: CHOLECALCIFEROL 1,000 UNITS TAB PO SCH (07:55)
[2019-08-31] MEDS: BUMETANIDE 1 MG TAB PO SCH ×2 (07:55→17:49)
[2019-08-31] MEDS: MULTIVITAMIN TAB PO SCH (07:55)
[2019-08-31] MEDS: INSULIN ASPART 100 UNITS/ML 3 ML PEN SC SCH ×4 (08:05→20:30)
[2019-08-31] MEDS: INSULIN HUMAN NPH SC SCH (08:06)
[2019-08-31] MEDS: ENOXAPARIN INJ 120 MG/0.8 ML SYR SC SCH ×2 (08:08→20:31)
--- NOTE | 2019-08-31 10:03 | Orthopedic Progress Note ---
Date of Service August 31, 2019 Assessment & Plan (1) Diabetic foot ulcer: Continue daily dressing changes. Continue daily wound care per wound care nursing staff. No surgery needed at this time. Continue IV antibiotics as per medicine service/ID team Dr. Packer present during exam. Subjective Patient ambulating in room with his boot on the right lower extremity. No overt complaints today. Physical Exam Physical Exam: Dressing removed from the right foot. Dressing with mild drainage noted. Ulcer noted on the bottom of the foot. No overt purulence or drainage. Erythema resolving quite well. New Aquacel dressing placed on the ulcer and 4 x 4's and Kerlix wrap applied. Results & Data Vital Signs (Past 12 Hours) Vital Signs Temp Pulse Pulse Resp BP Pulse Ox 08/31/19 04:01 36.5 C 62 18 131/73 97 08/31/19 02:36 59 L 08/31/19 00:43 36.7 C 59 L 18 115/71 98 (1) Diabetic foot ulcer Diabetes mellitus type: type 1 Diabetic foot ulcer location: midfoot Laterality: right Non-pressure ulcer stage: with necrosis of bone Qualified Code(s): E10.621 - Type 1 diabetes mellitus with foot ulcer; L97.414 - Non- pressure chronic ulcer of right heel and midfoot with necrosis of bone
[2019-08-31] MEDS ORDERED: POTASSIUM CHLORIDE 20 MEQ TABCR PO STA (13:46)
--- NOTE | 2019-08-31 16:41 | Pharmacy Report ---
Pharmacy Glycemic Short Note 2 - Date of Service August 31, 2019 - Glycemic Short BSG Results (Last 24 hours): 08/30/19 08/30/19 08/31/19 16:58 20:19 06:00 Glucose 175 H POC Glucose 172 H 159 H 08/31/19 08/31/19 08/31/19 07:51 11:42 16:25 Glucose POC Glucose 222 H 160 H 93 OUTPATIENT ANTIDIABETIC REGIMEN: updated med rec that was incorrect * NPH 30 units qAM, 10-15 units w/ dinner * Regular 15-20 units w/ breakfast, 15-25 units w/ dinner * A1c = 11.3 % 08/29/19 ASSESSMENT: 08/31 * Agustín's BSGs continued to fluctuate yesterday. He was given a total of 93 units of insulin (45 of basal/48 units of bolus). * Post prandial BSGs have improved after tightening carb coverage with breakfast only (since lunch tended to be the highest BSG of the day). Fasting BSG remains elevated. Will continue to titrate evening dose of NPH. 08/29 * 63 y/o male admitted yesterday for diabetic foot ulcer infection. He is known to the pharmacy glycemic service from previous admissions and is a type 1 diabetic. A1c shows poor outpatient control. BSGs were significantly elevated on admission but have improved as of this AM, although fasting remains elevated. * Fasting BSG = 226 mg/dL; will increase basal to similar dosing that worked in the past, providing additional tonight if he's still high. It's likely that he missed 10-15 units of basal yesterday. * Will also adjust Novolog parameters to what worked well on previous admission * Est TDD ~80-90 units PLAN FOR INPATIENT GLYCEMIC CONTROL: * Basal insulin - increase * NPH 30 units SQ qAM * NPH 15-20 units SQ with dinner (20 units for BSG > 160) * Bolus insulin * NovoLog per scale ACHS or Q6hrs while NPO * Goal Range: Low 120 mg/dL - High 150 mg/dL Breakfast * Correction Factor: 15 mg/dL/unit * Nutritional / Prandial insulin per carb ratio of 1 unit per 3 grams CHO consumed Lunch/dinner/HS * Correction Factor: 18 mg/dL/unit * Nutritional / Prandial insulin per carb ratio of 1 unit per 4 grams CHO consumed Discharge Recommendations: * A1c = 11.3 % on 08/29/19 Goal A1c = < 7 % based on age and comorbidities * NPH 30 units qAM, 10-15 units qPM * Regular 15-20 units w/ breakfast, 15-25 units w/ dinner * ADD Regular insulin per sliding scale: * Blood Sugar 70-150 administer 0 units * Blood Sugar 151-200 administer 3 units * Blood Sugar 201-250 administer 5 units * Blood Sugar 251-300 administer 7 units * Blood Sugar 301-350 administer 9 units * Blood Sugar 351-400 administer 11 units * Blood Sugar >400 administer 13 units and call Thank you.
--- NOTE | 2019-08-31 16:52 | Hospitalist Progress Note ---
Date of Service August 31, 2019 Assessment & Plan (1) Diabetic foot ulcer: Continue admits to [facility] on telemetry. Replenish potassium as needed Follow-up CBC CMP CRP Appreciate Dr. Mata orthopedic recommendations to continue conservative treatment for now with possibility of having debridement in near future. Continue daily dressing changes. Continue daily wound care bed nursing staff. Continue antibiotics daptomycin due to positive MRSA culture of the wound in May 2019 and declining kidney function and ceftriaxone 2 g IV every 24 hours since patient also grew Enterobacter sensitive to ceftriaxone. Appreciate Dr. Diana Pisano recommendations. Please consult for vascular surgery. DVT prophylaxis with Lovenox 1 mg/kg therapeutic dose every 12 hours since patient also have A. fib's and biological mitral valve prosthesis. Patient is a full code (2) CAD (coronary artery disease): Patient has decreased LV function but he is stable at this time. He appears to be in normal euvolemic state. Continue home dose of amiodarone 200 mg daily, continue bumetanide 1 mg p.o. twice a day. Continue carvedilol 6.25 mg tablet p.o. twice a day. (3) Hypertension: As above (4) Dyslipidemia: Lipid panel normal. Continue home dose of atorvastatin 80 mg p.o. nightly (5) Chronic systolic congestive heart failure: Stable at this time continue management as above. (6) Uncontrolled type 1 diabetes mellitus with diabetic neuropathy, with long- term current use of insulin: A1c 11.2. Poorly controlled diabetes mellitus. Needs tighter control. Glycemic control per pharmacy. (7) Diabetic foot ulcer associated with type 1 diabetes mellitus: As above Subjective Seen and examined at the bedside. Patient does not have any significant complaint today. Sitting up in the chair. Continued IV antibiotics. As recommended per infectious diseases. Patient is on full anticoagulation with Lovenox 1 mg/kg twice a day. No plan for surgeries at this time per orthopedic notes. Patient reports no new bleeding from the right foot ulcer. Patient denies fever, chills, chest pain, shortness of breath, frequency, urgency, hematemesis, hematuria, dysuria. Good p.o. intake. Review of Systems Review of Systems: All systems reviewed & are unremarkable except as noted in HPI & below Physical Exam Constitutional: WD/WN, vitals as above well developed Eyes: PERRL, conjunctivae normal, anicteric sclerae ENMT: external ear and nose normal, oropharynx normal Neck: trachea midline, no thyromegaly Respiratory: normal respiratory effort, lungs clear to auscultation Cardiovascular: Rate/Rhythm: + irregularly irregular Heart Sounds: normal S1 and normal S2 Palpation: + palpable S3 Gastrointestinal (Abdomen): normal bowel sounds, soft, nontender, no hepatosplenomegaly Musculoskeletal: no cyanosis or clubbing, extremities motor strength 5/5 Skin: no rashes, warm and dry Neurologic: patellar DTR's 2+ bilat, sensation intact Psychiatric: A+Ox3, euthymic affect Genitourinary: no testicular masses, no penis abnormality Lymphatic: no cervical or axillary lymphadenopathy Results & Data Vital Signs (Past 12 Hours) Vital Signs Temp Pulse Resp BP Pulse Ox 08/31/19 15:45 36.7 C 52 L 19 152/72 H 96 08/31/19 12:17 36.6 C 59 L 16 133/68 99 PG Care Time/CCT Total # of Minutes Spent Total Time Spent with Patient: Total time spent is greater than 50% in coordination of care (as documented) at patient's floor/unit and/or counseling patient: (1) Diabetic foot ulcer Diabetes mellitus type: type 1 Diabetic foot ulcer location: midfoot Laterality: right Non-pressure ulcer stage: with necrosis of bone Qualified Code(s): E10.621 - Type 1 diabetes mellitus with foot ulcer; L97.414 - Non- pressure chronic ulcer of right heel and midfoot with necrosis of bone (2) CAD (coronary artery disease) [place] vs. transplanted heart: [place] heart Associated angina: without angina (3) Hypertension Hypertension type: essential hypertension Qualified Code(s): I10 - Essential (primary) hypertension (4) Diabetic foot ulcer associated with type 1 diabetes mellitus Diabetic foot ulcer location: midfoot Laterality: right Non-pressure ulcer stage: with fat layer exposed Qualified Code(s): E10.621 - Type 1 diabetes mellitus with foot ulcer; L97.412 - Non-pressure chronic ulcer of right heel and midfoot with fat layer exposed
[2019-08-31] MEDS: DAPTOmycin 500 MG in SYRINGE 0 ML IV SCH (19:15)
[2019-08-31] MEDS: cefTRIAXone SODIUM 2,000 MG in DEXTROSE 5% 50 ML IV SCH (19:23)
[2019-08-31] MEDS: ATORVASTATIN 40 MG TAB PO SCH (20:31)
[2019-09-01 07:56] LABS: Basophils # (auto) 0.08 K/uL (0-0.2); Basophils % (auto) 1.4 %; Eosinophils # (auto) 0.22 K/uL (0-0.5); Eosinophils % (auto) 3.9 %; Hematocrit (blood only) 35.3 % (42-52); Immature Granulocytes # (auto) 0.01 K/uL (0.00-0.02); Immature Granulocytes % (auto) 0.2 %; Lymphocytes # (auto) 1.67 K/uL (1.2-3.4); Mean Corpuscular Hemoglobin 25.3 pg (25-34); Mean Corpuscular Hgb Conc 31.2 g/dL (32-36); Mean Corpuscular Volume 81.1 fL (80-100); Mean Platelet Volume 10.4 fL (7.4-10.4); Monocytes # (auto) 0.36 K/uL (0.11-0.59); Monocytes % (auto) 6.5 %; Neutrophils # (auto) 3.23 K/uL (1.4-6.5); Platelet Count 325 K/uL (130-400); RDW Coefficient of Variation 15.5 % (11.5-14.5); RDW Standard Deviation 45.7 fL (36.4-46.3); Red Blood Count 4.35 M/uL (4.7-6.1); White Blood Count 5.57 K/uL (4.8-10.8)
[2019-09-01] MEDS: ENOXAPARIN INJ 120 MG/0.8 ML SYR SC SCH ×2 (07:58→21:04)
[2019-09-01] MEDS: AMIODARONE 200 MG TAB PO SCH (07:58)
[2019-09-01] MEDS: carvediloL 6.25 MG TAB PO SCH ×2 (07:59→21:03)
[2019-09-01] MEDS: MULTIVITAMIN TAB PO SCH (07:59)
[2019-09-01] MEDS: BUMETANIDE 1 MG TAB PO SCH ×2 (07:59→17:42)
[2019-09-01] MEDS: CHOLECALCIFEROL 1,000 UNITS TAB PO SCH (07:59)
[2019-09-01] MEDS: POTASSIUM CHLORIDE 20 MEQ TABCR PO SCH (08:00)
[2019-09-01 08:07] LABS: INR 1.1 (0.9-1.1); Partial Thromboplastin Ratio 1.3; Partial Thromboplastin Time 34.5 Seconds (21.0-31.0); Prothrombin Time 11.2 Seconds (9.0-12.0)
[2019-09-01] MEDS ORDERED: INSULIN HUMAN NPH SC STA (08:07)
[2019-09-01] MEDS: INSULIN ASPART 100 UNITS/ML 3 ML PEN SC SCH ×4 (08:18→20:43)
[2019-09-01 08:42] LABS: Alanine Aminotransferase < 6 U/L (12-78); Albumin Globulin Ratio 0.6 (0.9-2); Albumin Level 2.6 gm/dl (3.4-5.0); Alkaline Phosphatase 87 U/L (45-117); Aspartate Aminotransferase 23 U/L (15-37); BUN Creatinine Ratio 14.4 (10-20); Bilirubin,Total 0.4 mg/dl (0.2-1); Blood Urea Nitrogen 17 mg/dl (7-18); Calcium 8.8 mg/dl (8.5-10.1); Carbon Dioxide 25 mmol/L (21-32); Chloride 100 mmol/L (98-107); Creatinine Clr Calc Pharmacy 80.4 ml/min; Est GFR (African American) 73.4; Est GFR (Non-African American) 63.3; Globulin 4.7 gm/dl (2.5-4.0); Glucose 310 mg/dl (70-99); Potassium 4.5 mmol/L (3.5-5.1); Sodium 134 mmol/L (136-145); Total Protein 7.3 gm/dl (6.4-8.2)
[2019-09-01 08:55] LABS: Beta-Hydroxybutyrate 37.53 mg/dl (0.2-2.81)
--- NOTE | 2019-09-01 10:24 | Infectious Disease Progress Nt ---
Date of Service September 01, 2019 Assessment & Plan (1) Gangrene of foot: can continue with IV abx while hospitalized. upon d/c would suggest doxy 100mg po bid and omnicef 300mg po bid, min 14 days with continued followup at wound center. He was rx omnicef earlier but did not fill and I suspect this led to worsening appearance and breakdown. ok for d/c from ID standpoint when otherwise stable. Subjective pt remains on IV abx, tolerating well. afebrile. no new micro to review. s/p wound and ortho eval, no plans for surgery at this time. wbc 5.5, creat 1.2 Results & Data Vital Signs (Past 12 Hours) Vital Signs Temp Pulse Pulse Resp BP BP Pulse Ox 09/01/19 09:03 68 09/01/19 07:30 36.4 C L 70 18 122/74 97 09/01/19 04:10 36.7 C 69 20 127/56 L 97 08/31/19 23:56 36.7 C 69 18 114/65 96 08/31/19 23:00 61 PG Care Time/CCT Total # of Minutes Spent Total Time Spent with Patient: Total time spent is greater than 50% in coordination of care (as documented) at patient's floor/unit and/or counseling patient:
[2019-09-01] MEDS ORDERED: INSULIN HUMAN REGULAR PER UNIT 5 UNITS in SYRINGE 4.95 ML IV ONE (12:30)
[2019-09-01 13:14] LABS: C-Reactive Protein High Sens. >10.0 MG/L (0.0-3.0)
--- NOTE | 2019-09-01 15:42 | Pharmacy Report ---
Pharmacy Glycemic Short Note 2 - Date of Service September 01, 2019 - Glycemic Short BSG Results (Last 24 hours): 08/31/19 08/31/19 09/01/19 16:25 20:25 07:39 Glucose 310 H* POC Glucose 93 129 H 09/01/19 09/01/19 09/01/19 07:52 07:52 11:42 Glucose POC Glucose 327 H* 341 H* 279 H OUTPATIENT ANTIDIABETIC REGIMEN: updated med rec that was incorrect * NPH 30 units qAM, 10-15 units w/ dinner * Regular 15-20 units w/ breakfast, 15-25 units w/ dinner * A1c = 11.3 % 08/29/19 ASSESSMENT: * Mr Rodriguez's BSGs have been elevated this morning d/t an accidental omission of his evening NPH last night. * Additional NPH provided this morning, as well as an IV bolus at lunch time. * Will provide additional NPH per scale this evening and continue to monitor. * Patient has required ~90 units of insulin per day for the past several days. PLAN FOR INPATIENT GLYCEMIC CONTROL: * Basal insulin - increase * NPH 45 units SQ this AM, then 30 units SQ daily with breakfast * NPH 15-20 units SQ with dinner (20 units for BSG > 160) * Bolus insulin * NovoLog per scale ACHS or Q6hrs while NPO * Goal Range: Low 120 mg/dL - High 150 mg/dL Breakfast * Correction Factor: 15 mg/dL/unit * Nutritional / Prandial insulin per carb ratio of 1 unit per 3 grams CHO consumed Lunch/dinner/HS * Correction Factor: 18 mg/dL/unit * Nutritional / Prandial insulin per carb ratio of 1 unit per 4 grams CHO consumed Discharge Recommendations: * A1c = 11.3 % on 08/29/19 * Goal A1c = < 7 % based on age and comorbidities * NPH 30 units qAM, 10-15 units qPM * Regular 15-20 units w/ breakfast, 15-25 units w/ dinner * ADD Regular insulin per sliding scale: * Blood Sugar 70-150 administer 0 units * Blood Sugar 151-200 administer 3 units * Blood Sugar 201-250 administer 5 units * Blood Sugar 251-300 administer 7 units * Blood Sugar 301-350 administer 9 units * Blood Sugar 351-400 administer 11 units * Blood Sugar >400 administer 13 units and call Thank you.
--- NOTE | 2019-09-01 16:36 | Hospitalist Progress Note ---
Date of Service September 01, 2019 Assessment & Plan (1) Diabetic foot ulcer: Continue admits to [facility] on telemetry. Replenish potassium as needed Follow-up CBC CMP CRP Appreciate Dr. Mata orthopedic recommendations to continue conservative treatment for now with possibility of having debridement in near future. Continue daily dressing changes. Continue daily wound care bed nursing staff. Case discussed with Dr. Guerrero vascular surgery and he said he is going to evaluate the patient for peripheral vascular stenosis: Right lower extremity - moderate diffuse plaque, monophasic waveforms throughout the rising the possibility of more proximal iliac stenosis. Focal stenosis involving the distal anterior tibial artery. Dr. Guerrero said that he is okay to start warfarin but at the time of his surgery should be not more than 2. Continue antibiotics daptomycin due to positive MRSA culture of the wound in May 2019 and declining kidney function and ceftriaxone 2 g IV every 24 hours since patient also grew Enterobacter sensitive to ceftriaxone. On the discharge patient showed be started on doxycycline 100 mg p.o. twice daily Omnicef 300 mg p.o. twice daily minimum 14 days with continued follow-up at wound care. Appreciate Dr. Diana Pisano recommendations. DVT prophylaxis with Lovenox 1 mg/kg therapeutic dose every 12 hours since patient also have A. fib's and biological mitral valve prosthesis. Will start warfarin 5 mg tonight and closely follow INR. Patient is a full code (2) CAD (coronary artery disease): Patient has decreased LV function but he is stable at this time. He appears to be in normal euvolemic state. Continue home dose of amiodarone 200 mg daily, continue bumetanide 1 mg p.o. twice a day. Continue carvedilol 6.25 mg tablet p.o. twice a day. (3) Hypertension: As above (4) Dyslipidemia: Lipid panel normal. Continue home dose of atorvastatin 80 mg p.o. nightly (5) Chronic systolic congestive heart failure: Stable at this time continue management as above. (6) Uncontrolled type 1 diabetes mellitus with diabetic neuropathy, with long- term current use of insulin: A1c 11.2. Poorly controlled diabetes mellitus. Needs tighter control. Glycemic control per pharmacy. (7) Diabetic foot ulcer associated with type 1 diabetes mellitus: As above Subjective Pt seen and examined at the bedside. Patient does not have any significant c omplaint today. Sitting up in the chair. Continued IV antibiotics as recommended per infectious diseases. Patient is on full anticoagulation with Lovenox 1 mg/kg twice a day. No plan for surgeries at this time per orthopedic notes. Patient reports no new bleeding from the right foot ulcer. Patient denies fever, chills, chest pain, shortness of breath, frequency, urgency, hematemesis, hematuria, dysuria. Good p.o. intake.pt remains on IV abx, tolerating well. afebrile. no new micro to review. S/p wound and ortho eval, no plans for surgery at this time. wbc 5.5, creat 1.2 Review of Systems Review of Systems: All systems reviewed & are unremarkable except as noted in HPI & below Physical Exam Constitutional: WD/WN, vitals as above well developed Eyes: PERRL, conjunctivae normal, anicteric sclerae ENMT: external ear and nose normal, oropharynx normal Neck: trachea midline, no thyromegaly Respiratory: normal respiratory effort, lungs clear to auscultation Cardiovascular: Rate/Rhythm: + irregularly irregular Heart Sounds: normal S1 and normal S2 Palpation: + palpable S3 Gastrointestinal (Abdomen): normal bowel sounds, soft, nontender, no hepatosplenomegaly Musculoskeletal: no cyanosis or clubbing, extremities motor strength 5/5 Skin: no rashes, warm and dry Neurologic: patellar DTR's 2+ bilat, sensation intact Psychiatric: A+Ox3, euthymic affect Genitourinary: no testicular masses, no penis abnormality Lymphatic: no cervical or axillary lymphadenopathy Results & Data Vital Signs (Past 12 Hours) Vital Signs Temp Pulse Pulse Resp BP BP Pulse Ox 09/01/19 16:26 57 L 09/01/19 15:49 36.6 C 60 16 118/73 96 09/01/19 11:45 36.6 C 58 L 18 115/72 97 09/01/19 09:03 68 09/01/19 07:30 36.4 C L 70 18 122/74 97 PG Care Time/CCT Total # of Minutes Spent Total Time Spent with Patient: Total time spent is greater than 50% in coordination of care (as documented) at patient's floor/unit and/or counseling patient: (1) Diabetic foot ulcer Diabetes mellitus type: type 1 Diabetic foot ulcer location: midfoot Laterality: right Non-pressure ulcer stage: with necrosis of bone Qualified Code(s): E10.621 - Type 1 diabetes mellitus with foot ulcer; L97.414 - Non- pressure chronic ulcer of right heel and midfoot with necrosis of bone (2) CAD (coronary artery disease) [place] vs. transplanted heart: [place] heart Associated angina: without angina (3) Hypertension Hypertension type: essential hypertension Qualified Code(s): I10 - Essential (primary) hypertension (4) Diabetic foot ulcer associated with type 1 diabetes mellitus Diabetic foot ulcer location: midfoot Laterality: right Non-pressure ulcer stage: with fat layer exposed Qualified Code(s): E10.621 - Type 1 diabetes mellitus with foot ulcer; L97.412 - Non-pressure chronic ulcer of right heel and midfoot with fat layer exposed
[2019-09-01] MEDS: WARFARIN SOD 5 MG TAB PO SCH (17:35)
[2019-09-01] MEDS: INSULIN HUMAN NPH SC SCH (17:37)
[2019-09-01] MEDS: cefTRIAXone SODIUM 2,000 MG in DEXTROSE 5% 50 ML IV SCH (21:03)
[2019-09-01] MEDS: DAPTOmycin 325 MG in SYRINGE 0 ML IV SCH (21:03)
[2019-09-01] MEDS: ATORVASTATIN 40 MG TAB PO SCH (21:04)
[2019-09-01] MEDS: CARBOHYDRATES FOR HYPOGLYCEMIA PO PRN (23:30)
[2019-09-02] MEDS ORDERED: INSULIN HUMAN NPH SC SCH ×2 (07:30→08:15)
[2019-09-02 07:55] LABS: Basophils # (auto) 0.09 K/uL (0-0.2); Basophils % (auto) 1.6 %; Eosinophils # (auto) 0.31 K/uL (0-0.5); Eosinophils % (auto) 5.5 %; Hematocrit (blood only) 31.3 % (42-52); Hemoglobin 9.9 g/dL (14.0-18.0); Immature Granulocytes # (auto) 0.01 K/uL (0.00-0.02); Immature Granulocytes % (auto) 0.2 %; Lymphocytes # (auto) 1.33 K/uL (1.2-3.4); Lymphocytes % (auto) 23.7 %; Mean Corpuscular Hemoglobin 25.3 pg (25-34); Mean Corpuscular Hgb Conc 31.6 g/dL (32-36); Mean Corpuscular Volume 80.1 fL (80-100); Mean Platelet Volume 10.4 fL (7.4-10.4); Monocytes # (auto) 0.44 K/uL (0.11-0.59); Monocytes % (auto) 7.8 %; Neutrophils # (auto) 3.43 K/uL (1.4-6.5); Neutrophils % (auto) 61.2 %; Platelet Count 309 K/uL (130-400); RDW Coefficient of Variation 15.5 % (11.5-14.5); RDW Standard Deviation 45.5 fL (36.4-46.3); Red Blood Count 3.91 M/uL (4.7-6.1); White Blood Count 5.61 K/uL (4.8-10.8)
[2019-09-02 08:05] LABS: INR 1.1 (0.9-1.1); Partial Thromboplastin Ratio 1.3; Partial Thromboplastin Time 35.5 Seconds (21.0-31.0); Prothrombin Time 11.1 Seconds (9.0-12.0)
[2019-09-02] MEDS: MULTIVITAMIN TAB PO SCH (08:15)
[2019-09-02] MEDS: CHOLECALCIFEROL 1,000 UNITS TAB PO SCH (08:15)
[2019-09-02] MEDS: BUMETANIDE 1 MG TAB PO SCH ×2 (08:16→15:59)
[2019-09-02] MEDS: carvediloL 6.25 MG TAB PO SCH ×2 (08:16→20:46)
[2019-09-02] MEDS: AMIODARONE 200 MG TAB PO SCH (08:17)
[2019-09-02] MEDS: ENOXAPARIN INJ 120 MG/0.8 ML SYR SC SCH ×2 (08:17→20:44)
[2019-09-02] MEDS: POTASSIUM CHLORIDE 20 MEQ TABCR PO SCH (08:18)
[2019-09-02 08:26] LABS: Alanine Aminotransferase < 6 U/L (12-78); Albumin Level 2.6 gm/dl (3.4-5.0); Aspartate Aminotransferase 30 U/L (15-37); BUN Creatinine Ratio 16.3 (10-20); Blood Urea Nitrogen 20 mg/dl (7-18); Calcium 8.4 mg/dl (8.5-10.1); Carbon Dioxide 29 mmol/L (21-32); Chloride 100 mmol/L (98-107); Creatinine Clr Calc Pharmacy 80.5 ml/min; Est GFR (African American) 73.4; Est GFR (Non-African American) 63.3; Glucose 260 mg/dl (70-99); Potassium 4.1 mmol/L (3.5-5.1); Sodium 134 mmol/L (136-145)
[2019-09-02 08:28] LABS: Albumin Globulin Ratio 0.6 (0.9-2); Alkaline Phosphatase 81 U/L (45-117); Bilirubin,Total 0.2 mg/dl (0.2-1); Globulin 4.2 gm/dl (2.5-4.0); Total Protein 6.8 gm/dl (6.4-8.2)
[2019-09-02] MEDS: INSULIN ASPART 100 UNITS/ML 3 ML PEN SC SCH ×4 (08:29→20:45)
--- NOTE | 2019-09-02 11:01 | Consultation ---
Date of Consultation September 02, 2019 Assessment & Plan (1) PAD (peripheral artery disease): Pt with hx of PAD and indications on US of proximal arterial disease affecting inflow of RLE. However, R femoral pulse is +3 and R foot DP pulse is palpable, and RLE appears well perfused. Will have pt examined by Dr Mccollum prior to scheduling for aortogram/RLE angio. If needed, can consider aortogram/RLE angio later this week. Further recs after eval by Dr Mccollum. History of Present Illness Reason for Consultation: RLE osteomyelitis, PAD Attending Physician: Morgan Horton MD History of Present Illness 63 yo m with multiple medical problems, including PAD, DMII with ulcerations, CAD, cardiomyopathy, HTN, [place], Carotid stenosis, a fib, Hx aortic stenosis and s/p TAVR, seen in consultation today for PAD and RLE plantar ulceration with infection/osteomyelitis. Pt known to Dr Mccollum for prior RLE TMA, leg debridem ent and fasciotomies with subsequent STSG back in 2012. 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 According to pt, he has intermittently had RLE foot ulceration for long time, but it had nearly healed until a few weeks ago. He started seeing the [facility] for wound care, and d/t concerns for infection last week, pt was sent to [facility]. Pt admits some mild pain, but states is tolerable. Denies THOMPSON, fever, chills, chest pain, SOB, abd pain, N/V, rest pain, claudication, other complaints. Arterial US of RLE indicates possible proximal disease, with abnormal waveforms in common fem art. Allergies Allergy/AdvReac Type Severity Reaction Status Date / Time No Known Allergies Allergy Verified 08/28/19 14:41 Home Medications Home Medications Medication Instructions Recorded Confirmed Type nitroglycerin 0.4 mg SUBLINGUAL UD PRN #0 08/14/16 08/28/19 History atorvastatin 80 mg PO HS #0 03/16/17 08/28/19 History cholecalciferol (vitamin D3) 6,000 unit PO DAILY #0 06/17/18 08/28/19 History cyanocobalamin (vitamin B-12) 1 ml INJ MONTHLY #0 06/17/18 08/28/19 History multivitamin 1 tab PO DAILY #0 tab 06/17/18 08/28/19 History blood sugar diagnostic strips #10 ea 05/07/19 08/28/19 History carvedilol 6.25 mg tablet 6.25 mg PO BID #180 tab 06/18/19 08/28/19 Rx amiodarone 200 mg tablet See Rx Instructions .ROUTE 08/20/19 08/28/19 Rx .COMPLEX #30 tablet bumetanide 1 mg tablet 1 mg PO BID #180 tab 08/20/19 08/28/19 Rx insulin NPH isoph U-100 human 10 - 15 unit SUBCUT PM 08/29/19 08/29/19 History [Novolin N NPH U-100 Insulin] insulin NPH isoph U-100 human 30 unit SUBCUT QDB 08/29/19 08/29/19 History [Novolin N NPH U-100 Insulin] insulin regular human [Novolin R 0 unit SUBCUT BID 08/29/19 08/29/19 History Regular U-100 Insuln] Patient History Medical History CAD (coronary artery disease) (Acute) Cardiomyopathy (Acute) Carotid artery dissection (Acute) Chronic systolic congestive heart failure (Acute) Diabetic macular edema (Acute) Dyslipidemia (Acute) Hypertension (Acute) Mitral regurgitation (Acute) Positive occult stool blood test (Acute) Proliferative diabetic retinopathy (Acute) Subsequent non-ST elevation (NSTEMI) myocardial infarction within 4 weeks of initial infarction (Acute) Uncontrolled type 1 diabetes mellitus with diabetic neuropathy, with long-term current use of insulin (Acute) Vitamin B12 deficiency (Acute) Vitamin D deficiency (Acute) long-term (current) use of anticoagulants (Chronic) Left carotid stenosis (Chronic) PAD (peripheral artery disease) (Chronic) Callus (Acute) Diabetes mellitus with diabetic polyneuropathy (Acute) History of amputation of left great toe (Acute) History of amputation of right great toe (Acute) Type 2 diabetes mellitus with diabetic peripheral angiopathy without gangrene (Acute) Ulcer of right midfoot (Acute) CAD (coronary artery disease), [place] coronary artery (Resolved) Diabetes mellitus type 1 (Resolved) Diabetic foot ulcer (Resolved) Diabetic peripheral neuropathy (Resolved) Diabetic peripheral neuropathy associated with type 1 diabetes mellitus (Resolved) Poor dentition (Resolved) Severe aortic valve stenosis (Resolved) Surgical History History of amputation of lesser toe of right foot (Acute) H/O aortic valve replacement (Resolved) Status post transmetatarsal amputation of right foot (Resolved) Status post vascular surgery (Resolved) H/O gastric bypass Family History Other No significant family history Social History Preferred Language: [place] Communication Ability: Effective Visual Impairment: Limited Hearing Ability: Use of Hearing Aid Differential Repairer Required: No Beliefs That Will Affect Care: None marital status: Current Living Situation: Alone current occupational status: disabled Feels Safe at Home: Yes Smoking Status: Never smoker Second Hand Exposure: No ; Hx Alcohol Use: No Hx Substance Use: No Review of Systems Review of Systems: All systems reviewed & are unremarkable except as noted in HPI & below Physical Exam Constitutional: WD/WN, vitals as above well developed, well nourished and healthy appearing; not in distress Eyes: PERRL, conjunctivae normal, anicteric sclerae ENMT: external ear and nose normal, oropharynx normal Neck: normal visual inspection and trachea midline Respiratory: normal respiratory effort, lungs clear to auscultation Cardiovascular: Rate/Rhythm: + irregularly irregular Vessels: + carotid bruit, femoral pulses present (+3), posterior tibial pulses present (with doppler), dorsalis pedis pulses present (RLE palpable), brachial pulses present and radial pulses present; + abnormal peripheral pulses Extremities: normal capillary refill Gastrointestinal (Abdomen): normal bowel sounds, soft, nontender, no hepatosplenomegaly Musculoskeletal: no cyanosis or clubbing, extremities motor strength 5/5 (OLD RLE TMA noted) Skin: normal turgor and + wound (RLE plantar deep ulcer, with periwound erythema, small amt draiange.) Neurologic: moves all extremities and awake; no focal motor deficits, not confused and not obtunded Psychiatric: A+Ox3, euthymic affect Apperance: appropriately dressed Eye Contact: good eye contact Results & Data Vital Signs (Past 12 Hours) Vital Signs Temp Pulse Pulse Resp BP BP Pulse Ox 09/02/19 08:32 66 141/77 H 09/01/19 23:24 36.8 C 56 L 20 114/69 99 09/01/19 22:51 57 L
--- NOTE | 2019-09-02 13:19 | Pharmacy Report ---
Pharmacy Glycemic Short Note 2 - Date of Service September 02, 2019 - Glycemic Short BSG Results (Last 24 hours): 09/01/19 09/01/19 09/01/19 16:20 20:08 23:24 Glucose POC Glucose 169 H 147 H 68 L* 09/01/19 09/01/19 09/02/19 23:27 23:46 07:31 Glucose POC Glucose 69 L* 117 H 275 H 09/02/19 09/02/19 07:34 11:39 Glucose 260 H POC Glucose 264 H OUTPATIENT ANTIDIABETIC REGIMEN: updated med rec that was incorrect * NPH 30 units qAM, 10-15 units w/ dinner * Regular 15-20 units w/ breakfast, 15-25 units w/ dinner * A1c = 11.3 % 08/29/19 ASSESSMENT: 09/02 * Patient's BSGs elevated again this morning, plan was to go back to 30 units with breakfast, will increase to 35 units * BSGs continue to be elevated at lunch, will decrease correction factor throughout day * NPH per scale with dinner 09/01 * Mr Rodriguez's BSGs have been elevated this morning d/t an accidental omission of his evening NPH last night. * Additional NPH provided this morning, as well as an IV bolus at lunch time. * Will provide additional NPH per scale this evening and continue to monitor. * Patient has required ~90 units of insulin per day for the past several days. PLAN FOR INPATIENT GLYCEMIC CONTROL: * Basal insulin - increase * NPH 35 units sq with breakfast * NPH 15-20 units SQ with dinner (20 units for BSG > 160) * Bolus insulin * NovoLog per scale ACHS or Q6hrs while NPO * Goal Range: Low 120 mg/dL - High 150 mg/dL Breakfast * Correction Factor: 15 mg/dL/unit * Nutritional / Prandial insulin per carb ratio of 1 unit per 3 grams CHO consumed Lunch/dinner/HS * Correction Factor: 15 mg/dL/unit * Nutritional / Prandial insulin per carb ratio of 1 unit per 4 grams CHO consumed Discharge Recommendations: * A1c = 11.3 % on 08/29/19 * Goal A1c = < 7 % based on age and comorbidities * NPH 30 units qAM, 10-15 units qPM * Regular 15-20 units w/ breakfast, 15-25 units w/ dinner * ADD Regular insulin per sliding scale: * Blood Sugar 70-150 administer 0 units * Blood Sugar 151-200 administer 3 units * Blood Sugar 201-250 administer 5 units * Blood Sugar 251-300 administer 7 units * Blood Sugar 301-350 administer 9 units * Blood Sugar 351-400 administer 11 units * Blood Sugar >400 administer 13 units and call Thank you.
--- NOTE | 2019-09-02 15:48 | Wound Progress Note ---
Date of Service September 02, 2019 Assessment & Plan (1) Diabetic foot ulcer: MRI suggestive suggestive of osteomyelitis of the medial cuneiform, middle cuneiform and navicular bone as well as infectious tenosynovitis. Patient seen by Dr. Mata who is recommending conservative treatment as wound is improving with antibiotics. Awaiting vascular surgery input. Continue just wound with Aquacel Ag. Continue IV antibiotics per infectious disease. Subjective Patient seen resting in bed. He is in no acute distress. Wound is improving with IV antibiotics. Review of Systems Review of Systems: All systems reviewed & are unremarkable except as noted in HPI & below Physical Exam Skin: Wound measuring as recorded in nursing documentation. Wound is improved. There is still bone protruding. There is no bleeding at this time. Periwound erythema has improved. Neurologic: awake; not confused Psychiatric: A+Ox3, euthymic affect Results & Data Vital Signs (Past 12 Hours) Vital Signs Temp Pulse Pulse Resp BP BP Pulse Ox 09/02/19 15:00 59 L 18 152/55 H 96 09/02/19 11:45 36.7 C 57 L 18 163/81 H 97 09/02/19 08:32 66 141/77 H 09/02/19 07:00 51 L PG Care Time/CCT Total # of Minutes Spent Total Time Spent with Patient: Total time spent is greater than 50% in coordination of care (as documented) at patient's floor/unit and/or counseling patient: (1) Diabetic foot ulcer Diabetes mellitus type: type 1 Diabetic foot ulcer location: midfoot Laterality: right Non-pressure ulcer stage: with necrosis of bone Qualified Code(s): E10.621 - Type 1 diabetes mellitus with foot ulcer; L97.414 - Non- pressure chronic ulcer of right heel and midfoot with necrosis of bone
[2019-09-02] MEDS: WARFARIN SOD 5 MG TAB PO SCH (15:59)
[2019-09-02] MEDS: INSULIN HUMAN NPH SC SCH (18:11)
--- NOTE | 2019-09-02 18:14 | Hospitalist Progress Note ---
Date of Service September 02, 2019 Assessment & Plan (1) Diabetic foot ulcer: Continue admit to [facility] on telemetry. Replenish potassium as needed. Appreciate vascular surgery recommendations. Patient is going to be evaluated by Dr. Guerrero for right lower extremity moderate diffuse plaque, monophasic waveform throughout the rising the possibility of more proximal iliac stenosis. Focal stenosis involving the distal anterior tibial artery. Dr Guerrero will examined the patient prior to scheduling for aortogram/RLE angio. Continue IV antibiotics daptomycin due to positive MRSA culture of the wound in May 2019 and due to declining kidney function and ceftriaxone 2 g IV every 24 hours since patient also grew Enterobacter says it sensitive to ceftriaxone. On the discharge patient should be started on doxycycline 100 mg p.o. twice a day and Omnicef 300 mg p.o. twice daily for minimum 14 days to be to continue to follow-up with wound care. These recommendations of Dr. Diana Pisano infectious diseases specialist. DVT prophylaxis for now with Lovenox 1 mg/kg therapeutic since patient also has A. fib's. Continue warfarin 1.1. Warfarin is subtherapeutic at this time and patient would need time to become therapeutic. Dr. Guerrero recommended that for any procedure that he possibly would plan patient INR should not be higher than 2. Patient is full code. Present on Admission?: Yes (2) CAD (coronary artery disease): Patient has decreased LV function but he is stable at this time. He appears to be in normal euvolemic state. Continue home dose of amiodarone 200 mg daily, continue bumetanide 1 mg p.o. twice a day. Continue carvedilol 6.25 mg tablet twice a day. Present on Admission?: Yes (3) Chronic systolic congestive heart failure: Stable at this time continue home management as the above. Present on Admission?: Yes (4) Hypertension: As above. Monitor blood pressure every 4 hours. Present on Admission?: Yes (5) Dyslipidemia: Lipid panel normal. Continue home dose of atorvastatin 80 mg p.o. nightly. Present on Admission?: Yes (6) Uncontrolled type 1 diabetes mellitus with diabetic neuropathy, with long- term current use of insulin: Uncontrolled type 1 diabetes mellitus with diabetic neuropathy with long- term current use of insulin. A1c 11.2. Poorly controlled diabetes mellitus. Needs tighter control. Glycemic control per pharmacy. Present on Admission?: Yes Subjective Patient seen and examined at the bedside. Evaluated by vascular surgery. Dr. Guerrero will see patient tomorrow for further evaluation peripheral artery disease and possibly have a aortogram of the right lower extremity and angio done. She denies fever chills chest pain shortness of breath abdominal pain frequency urgency. Right lower extremity wound is bright slightly oozing. But there is no overt bleeding. Good p.o. intake. Review of Systems Review of Systems: All systems reviewed & are unremarkable except as noted in HPI & below Physical Exam Constitutional: WD/WN, vitals as above well developed Eyes: PERRL, conjunctivae normal, anicteric sclerae ENMT: external ear and nose normal, oropharynx normal Neck: trachea midline, no thyromegaly Respiratory: normal respiratory effort, lungs clear to auscultation Cardiovascular: Rate/Rhythm: + irregularly irregular Heart Sounds: normal S1 and normal S2 Palpation: + palpable S3 Gastrointestinal (Abdomen): normal bowel sounds, soft, nontender, no hepatosplenomegaly Musculoskeletal: no cyanosis or clubbing, extremities motor strength 5/5 Skin: no rashes, warm and dry Neurologic: patellar DTR's 2+ bilat, sensation intact Psychiatric: A+Ox3, euthymic affect Genitourinary: no testicular masses, no penis abnormality Lymphatic: no cervical or axillary lymphadenopathy Results & Data Vital Signs (Past 12 Hours) Vital Signs Temp Pulse Pulse Resp BP BP Pulse Ox 09/02/19 15:00 59 L 18 152/55 H 96 09/02/19 11:45 36.7 C 57 L 18 163/81 H 97 09/02/19 08:32 66 141/77 H 09/02/19 07:00 51 L PG Care Time/CCT Total # of Minutes Spent Total Time Spent with Patient: Total time spent is greater than 50% in coordination of care (as documented) at patient's floor/unit and/or counseling patient: (1) CAD (coronary artery disease) [place] vs. 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
[2019-09-02] MEDS: DAPTOmycin 325 MG in SYRINGE 0 ML IV SCH (20:43)
[2019-09-02] MEDS: cefTRIAXone SODIUM 2,000 MG in DEXTROSE 5% 50 ML IV SCH (20:43)
[2019-09-02] MEDS: ATORVASTATIN 40 MG TAB PO SCH (20:46)
[2019-09-03] MEDS: CARBOHYDRATES FOR HYPOGLYCEMIA PO PRN ×2 (00:21→20:25)
[2019-09-03] MEDS: INSULIN ASPART 100 UNITS/ML 3 ML PEN SC SCH ×6 (00:21→20:24)
[2019-09-03 07:18] LABS: Basophils # (auto) 0.08 K/uL (0-0.2); Basophils % (auto) 1.5 %; Eosinophils # (auto) 0.32 K/uL (0-0.5); Eosinophils % (auto) 6.1 %; Hematocrit (blood only) 33.9 % (42-52); Hemoglobin 10.7 g/dL (14.0-18.0); Immature Granulocytes # (auto) 0.02 K/uL (0.00-0.02); Immature Granulocytes % (auto) 0.4 %; Lymphocytes # (auto) 1.55 K/uL (1.2-3.4); Lymphocytes % (auto) 29.6 %; Mean Corpuscular Hemoglobin 25.5 pg (25-34); Mean Corpuscular Hgb Conc 31.6 g/dL (32-36); Mean Corpuscular Volume 80.7 fL (80-100); Mean Platelet Volume 10.3 fL (7.4-10.4); Monocytes # (auto) 0.54 K/uL (0.11-0.59); Monocytes % (auto) 10.3 %; Neutrophils # (auto) 2.72 K/uL (1.4-6.5); Neutrophils % (auto) 52.1 %; Platelet Count 336 K/uL (130-400); RDW Coefficient of Variation 15.8 % (11.5-14.5); RDW Standard Deviation 46.1 fL (36.4-46.3); White Blood Count 5.23 K/uL (4.8-10.8)
[2019-09-03 07:26] LABS: INR 1.1 (0.9-1.1); Prothrombin Time 11.4 Seconds (9.0-12.0)
[2019-09-03] MEDS ORDERED: INSULIN HUMAN NPH SC SCH ×2 (07:30)
[2019-09-03 07:50] LABS: Alanine Aminotransferase < 6 U/L (12-78); Albumin Level 2.8 gm/dl (3.4-5.0); Aspartate Aminotransferase 42 U/L (15-37); BUN Creatinine Ratio 16.5 (10-20); Blood Urea Nitrogen 20 mg/dl (7-18); Calcium 8.9 mg/dl (8.5-10.1); Carbon Dioxide 30 mmol/L (21-32); Chloride 102 mmol/L (98-107); Creatinine Clr Calc Pharmacy 79.6 ml/min; Est GFR (African American) 72.7; Est GFR (Non-African American) 62.7; Glucose 141 mg/dl (70-99); Potassium 3.8 mmol/L (3.5-5.1); Sodium 138 mmol/L (136-145)
[2019-09-03 07:52] LABS: Albumin Globulin Ratio 0.6 (0.9-2); Alkaline Phosphatase 85 U/L (45-117); Bilirubin,Total 0.3 mg/dl (0.2-1); Globulin 4.5 gm/dl (2.5-4.0); Total Protein 7.3 gm/dl (6.4-8.2)
[2019-09-03] MEDS: carvediloL 6.25 MG TAB PO SCH ×2 (08:26→20:23)
[2019-09-03] MEDS: CHOLECALCIFEROL 1,000 UNITS TAB PO SCH (08:26)
[2019-09-03] MEDS: MULTIVITAMIN TAB PO SCH (08:26)
[2019-09-03] MEDS: POTASSIUM CHLORIDE 20 MEQ TABCR PO SCH (08:27)
[2019-09-03] MEDS: ENOXAPARIN INJ 120 MG/0.8 ML SYR SC SCH ×2 (08:27→20:24)
[2019-09-03] MEDS: BUMETANIDE 1 MG TAB PO SCH ×2 (08:28→16:28)
[2019-09-03] MEDS: AMIODARONE 200 MG TAB PO SCH (08:28)
--- NOTE | 2019-09-03 13:46 | Pharmacy Report ---
Pharmacy Glycemic Short Note 2 - Date of Service September 03, 2019 - Glycemic Short BSG Results (Last 24 hours): 09/02/19 09/02/19 09/03/19 16:57 20:22 00:16 Glucose POC Glucose 212 H 302 H* 68 L* 09/03/19 09/03/19 09/03/19 00:49 03:57 06:39 Glucose 141 H POC Glucose 99 92 09/03/19 09/03/19 07:45 11:32 Glucose POC Glucose 162 H 238 H OUTPATIENT ANTIDIABETIC REGIMEN: updated med rec that was incorrect * NPH 30 units qAM, 10-15 units w/ dinner * Regular 15-20 units w/ breakfast, 15-25 units w/ dinner * A1c = 11.3 % 08/29/19 ASSESSMENT: 09/03 * Patient's BSGs remained elevated yesterday- working on titrating up morning NPH * Tightened correction/carb ratio to 12/3 for all meals/HS * Patient's BSGs improve overnight, fasting this morning 162 09/02 * Patient's BSGs elevated again this morning, plan was to go back to 30 units with breakfast, will increase to 35 units * BSGs continue to be elevated at lunch, will decrease correction factor throughout day * NPH per scale with dinner 09/01 * Mr Rodriguez's BSGs have been elevated this morning d/t an accidental omission of his evening NPH last night. * Additional NPH provided this morning, as well as an IV bolus at lunch time. * Will provide additional NPH per scale this evening and continue to monitor. * Patient has required ~90 units of insulin per day for the past several days. PLAN FOR INPATIENT GLYCEMIC CONTROL: * Basal insulin - increase * NPH 40 units sq with breakfast * NPH 15-20 units SQ with dinner (20 units for BSG > 160) * Bolus insulin * NovoLog per scale ACHS or Q6hrs while NPO * Goal Range: Low 120 mg/dL - High 150 mg/dL Breakfast/Lunch/dinner/HS * Correction Factor: 12 mg/dL/unit * Nutritional / Prandial insulin per carb ratio of 1 unit per 3 grams CHO consumed Discharge Recommendations: * A1c = 11.3 % on 08/29/19 * Goal A1c = < 7 % based on age and comorbidities * NPH 30 units qAM, 10-15 units qPM * Regular 15-20 units w/ breakfast, 15-25 units w/ dinner * ADD Regular insulin per sliding scale: * Blood Sugar 70-150 administer 0 units * Blood Sugar 151-200 administer 3 units * Blood Sugar 201-250 administer 5 units * Blood Sugar 251-300 administer 7 units * Blood Sugar 301-350 administer 9 units * Blood Sugar 351-400 administer 11 units * Blood Sugar >400 administer 13 units and call Thank you.
--- NOTE | 2019-09-03 14:56 | Hospitalist Progress Note ---
Date of Service September 03, 2019 Assessment & Plan (1) Diabetic foot ulcer: Patient continues on daptomycin and ceftriaxone for ongoing diabetic foot wound with osteomyelitis. Vascular input appreciated, no plans for further evaluation of peripheral arterial disease. I do see the recommendations from infectious disease from earlier in the course for 2 weeks oral antibiotics, however I am concerned as the patient has osteomyelitis, confirmed on MRI. Will reconsult infectious disease for further recommendations. I did also discuss with case management the patient extensively. Patient tells me he cannot afford any oral medications but tells me that Dr. Mckeon has arranged daily infusions in the past for his infections. We will need infectious disease to further clarify outpatient antibiotics prior to discharge. If daily out patient infusions is indeed the plan, patient will require a central line or similar. (2) CAD (coronary artery disease): Patient has decreased LV function but he is stable at this time. He appears to be in normal euvolemic state. Continue home dose of amiodarone 200 mg daily, continue bumetanide 1 mg p.o. twice a day. Continue carvedilol 6.25 mg tablet twice a day. Patient is on Coumadin for paroxysmal atrial fibrillation. INR is only 1.1. Coumadin was recently held but he is now back on 5 mg. We will continue and follow INR. (3) Uncontrolled type 1 diabetes mellitus with diabetic neuropathy, with long- term current use of insulin: Uncontrolled type 1 diabetes mellitus with diabetic neuropathy with long- term current use of insulin. A1c 11.2. Poorly controlled diabetes mellitus. Needs tighter control. Glycemic control per pharmacy. Patient will require close outpatient follow-up in the future. He will likely need drug abuse social worker to see if they can help a pain for his medication. Subjective Patient seen and examined. No complaints. Has been afebrile. He denies any pain in his foot. Remains on IV antibiotics. Review of Systems Review of Systems: All systems reviewed & are unremarkable except as noted in HPI & below Physical Exam Physical Exam: GENERAL: Non-toxic in appearance. INTEGUMENTARY: Warm, dry, and [place]. HEAD: Normocephalic. EYES: without scleral icterus or trauma. ENT/OROPHARYNX: clear and moist. LYMPHADENOPATHY/NECK: Is supple without lymphadenopathy or meningismus. RESPIRATORY: Lungs clear and equal. CARDIOVASCULAR: Regular rate and rhythm. GI/ABDOMEN: Soft and nontender. No organomegaly or pulsatile mass. No rebound or guarding. Normal bowel sounds. EXTREMITIES: Right lower extremity status post TMA. Wound is dressed, did not disturb. BACK: No CVA tenderness. NEUROLOGICAL: Intact without focal deficits. PSYCHIATRIC: normal affect. MUSCULOSKELETAL: Normally developed with good muscle tone. Results & Data Vital Signs (Past 12 Hours) Vital Signs Temp Pulse Pulse Resp BP BP Pulse Ox 09/03/19 11:10 36.6 C 54 L 14 154/79 H 98 09/03/19 08:00 50 L 09/03/19 07:11 36.7 C 55 L 14 145/79 H 99 09/03/19 03:55 36.6 C 64 19 133/64 96 PG Care Time/CCT Total # of Minutes Spent Total Time Spent with Patient: Total time spent is greater than 50% in coordination of care (as documented) at patient's floor/unit and/or counseling patient: (1) Diabetic foot ulcer Diabetes mellitus type: type 1 Diabetic foot ulcer location: midfoot Laterality: right Non-pressure ulcer stage: with necrosis of bone Qualified Code(s): E10.621 - Type 1 diabetes mellitus with foot ulcer; L97.414 - Non-pressure chronic ulcer of right heel and midfoot with necrosis of bone (2) CAD (coronary artery disease) [place] vs. transplanted heart: [place] heart Associated angina: without angina
[2019-09-03] MEDS: cefTRIAXone SODIUM 2,000 MG in DEXTROSE 5% 50 ML IV SCH (16:27)
[2019-09-03] MEDS: WARFARIN SOD 5 MG TAB PO SCH (16:28)
[2019-09-03] MEDS: INSULIN HUMAN NPH SC SCH (17:12)
[2019-09-03] MEDS: DAPTOmycin 325 MG in SYRINGE 0 ML IV SCH (19:11)
[2019-09-03] MEDS: ATORVASTATIN 40 MG TAB PO SCH (20:24)
[2019-09-04 06:27] LABS: Basophils # (auto) 0.04 K/uL (0-0.2); Basophils % (auto) 0.7 %; Eosinophils % (auto) 5.1 %; Hematocrit (blood only) 34.1 % (42-52); Immature Granulocytes # (auto) 0.01 K/uL (0.00-0.02); Immature Granulocytes % (auto) 0.2 %; Lymphocytes # (auto) 1.21 K/uL (1.2-3.4); Lymphocytes % (auto) 20.5 %; Mean Corpuscular Hemoglobin 25.9 pg (25-34); Mean Corpuscular Hgb Conc 32.3 g/dL (32-36); Mean Corpuscular Volume 80.2 fL (80-100); Mean Platelet Volume 10.6 fL (7.4-10.4); Monocytes # (auto) 0.55 K/uL (0.11-0.59); Monocytes % (auto) 9.3 %; Neutrophils % (auto) 64.2 %; Platelet Count 324 K/uL (130-400); RDW Standard Deviation 46.5 fL (36.4-46.3); Red Blood Count 4.25 M/uL (4.7-6.1); White Blood Count 5.91 K/uL (4.8-10.8)
[2019-09-04 06:36] LABS: INR 1.1 (0.9-1.1); Prothrombin Time 11.6 Seconds (9.0-12.0)
[2019-09-04 07:03] LABS: BUN Creatinine Ratio 15.8 (10-20); Calcium 8.6 mg/dl (8.5-10.1); Creatinine Clr Calc Pharmacy 82.3 ml/min; Est GFR (African American) 75.7; Est GFR (Non-African American) 65.3; Potassium 4.3 mmol/L (3.5-5.1)
[2019-09-04 07:14] VITALS: O2SAT 98
[2019-09-04] MEDS ORDERED: INSULIN ASPART 100 UNITS/ML 3 ML PEN SC SCH ×4 (07:30→16:30)
[2019-09-04] MEDS ORDERED: INSULIN HUMAN NPH SC SCH (07:30)
--- NOTE | 2019-09-04 07:34 | Discharge Summary ---
Date of Service September 04, 2019 Admission HPI Per Admitting Provider Patient is a 63 years old male with past medical history of of combined systolic (congestive) and diastolic (congestive approximately 10 heart failure, coronary artery disease, paroxysmal atrial fibrillation, status post cardiac catheterization in 2018, diabetes mellitus type 1, gastric bypass was sent from the wound clinic to the emergency room with a concern that wound is deteriorating with worsening cellulitis. The wound clinic notes that that debridement was not required today and that they used a silver nitrate on the wound and place Surgicel into the wound to stop the bleeding. Patient was then sent to the emergency room to for further evaluation and admission for IV antibiotics. Wound culture that was done in the clinic grew out Enterobacter and patient was started on cefdinir by Dr. Mckeon. Patient did not scrap picker his cefdinir as of today stated that he does not have money to buy it. Patient reports that he started to take Bactrim which he had leftovers at home. Patient reports that wound has been bleeding since last visit and he stopped taking Coumadin (which he takes for A. fib's) approximately 11 days ago. Patient was advised to follow-up in the Coumadin clinic and his last INR was on August 18 and it was 3. Reports the [facility] improves his pain in the right foot. Patient also mentioned that he had right transmit tarsal amputation in 2012. Labs are reviewed which shows WBC 9.58, hemoglobin 11.1, hematocrit 30 a day 3.1 platelets 281, PT/INR pending, sodium 132, potassium 3.3, BUN 19, creatinine 1.5, GFR 48.8, glucose 360, hemoglobin A1c as of May 16, 2000 19, 10.8. Trace of the right foot shows postsurgical changes of the transmetatarsal amputation. Soft tissue ulceration overlying the stump. No conventional radiographic evidence of acute osteomyelitis. Soft tissue gas, consistent with soft tissue infection. Gas extends proximally within the soft tissue to the level of the talo calcaneal joint. Patient denies fever chills chest pain shortness of breath abdominal pain frequency urgency hemoptysis hematemesis hematuria dysuria. Decision was made to admit patient for wound infection in the setting of poorly controlled diabetes mellitus and coronary artery disease with decreased LV function on telemetry. Admission Exam Per Admitting Provider Constitutional: WD/WN, vitals as above well developed Eyes: PERRL, conjunctivae normal, anicteric sclerae ENMT: external ear and nose normal, oropharynx normal Neck: trachea midline, no thyromegaly Respiratory: normal respiratory effort, lungs clear to auscultation Cardiovascular: Rate/Rhythm: + irregularly irregular Heart Sounds: normal S1 and normal S2 Palpation: + palpable S3 Gastrointestinal (Abdomen): normal bowel sounds, soft, nontender, no hepatosplenomegaly Musculoskeletal: no cyanosis or clubbing, extremities motor strength 5/5 Right foot ulcer:Wound is measuring larger today 1.9 x 1.8 x 1 cm in size. Bone remains exposed in the wound base. Area of undermining from 12:00 to 4 o'clock position has increased. No odor present. Moderate amount of bloody drainage is noted with old clot coming from the wound. Foot is hot and erythematous. Periwound intact. Skin: no rashes, warm and dry Psychiatric: A+Ox3, euthymic affect Genitourinary: no testicular masses, no penis abnormality Lymphatic: no cervical or axillary lymphadenopathy Principal Diagnosis 1. Diabetic foot ulceration with osteomyelitis, wound growing MRSA and Enterobacter 2. Poorly controlled diabetes mellitus, hemoglobin A1c 11.2 3. Coronary artery disease 4. Paroxysmal atrial fibrillation on Coumadin Discharge Exam GENERAL: Non-toxic in appearance. INTEGUMENTARY: Warm, dry, and [place]. HEAD: Normocephalic. EYES: without scleral icterus or trauma. ENT/OROPHARYNX: clear and moist. LYMPHADENOPATHY/NECK: Is supple without lymphadenopathy or meningismus. RESPIRATORY: Lungs clear and equal. CARDIOVASCULAR: Regular rate and rhythm. GI/ABDOMEN: Soft and nontender. No organomegaly or pulsatile mass. No rebound or guarding. Normal bowel sounds. EXTREMITIES: Warm and well perfused. BACK: No CVA tenderness. NEUROLOGICAL: Intact without focal deficits. PSYCHIATRIC: normal affect. MUSCULOSKELETAL: Normally developed with good muscle tone. Discharge Data Allergies Allergy/AdvReac Type Severity Reaction Status Date / Time No Known Allergies Allergy Verified 08/28/19 14:41 Consultations 08/28/19 15:28 ED Decision to Admit Stat 08/28/19 19:42 Consult Infectious Diseases Routine Consult Wound Care Provider Stat 08/29/19 14:54 Consult Orthopedic Surgery Routine 09/01/19 15:08 Consult Vascular Surgery Routine 09/03/19 14:47 Consult Infectious Diseases Routine Ordered Studies 08/29/19 07:59 MR ankle RT wo/w con Urgent 08/29/19 14:53 US arterial duplex LE RT Stat Hospital Course (1) Diabetic foot ulcer: Patient was initially started on daptomycin and ceftriaxone. Cultures are as noted, showed MRSA as well as Enterobacter. Infectious disease consultation was obtained with recommendations for oral antibiotics and discharge. Patient was also seen by vascular surgery with consideration to peripheral arterial disease, but they felt as the patient had good pulses on examination and no further investigation was necessary. An MRI was performed which showed extensive osteomyelitis. Patient was also seen by wound care. I did discuss with Dr. Pisano who is recommended Rocephin 2 g daily x14 days total to be given at the [facility] on a daily basis. Plans discussed with correctional case manager will make arrangements for this. Patient will be responsible for getting self to the facility which he says he is able to do. (2) CAD (coronary artery disease): Patient has decreased LV function but he is stable at this time. He appears to be in normal euvolemic state. Continue home dose of amiodarone 200 mg daily, continue bumetanide 1 mg p.o. twice a day. Continue carvedilol 6.25 mg tablet twice a day. Patient is on Coumadin for paroxysmal atrial fibrillation. This was initially held for possible surgical intervention but was restarted. Patient's INR is only 1.1 on day of discharge. Since the patient's INR has been 1.1 while he has remained on Coumadin 5 mg, will increase to 6 mg at time of discharge. This may need to be adjusted further depending on INR which should be rechecked within 48 hours. There could be consideration to changing to a novel anticoagulant the future but the patient has difficulties obtaining even generic medications. (3) Uncontrolled type 1 diabetes mellitus with diabetic neuropathy, with long- term current use of insulin: Uncontrolled type 1 diabetes mellitus with diabetic neuropathy with long- term current use of insulin. A1c 11.2. Poorly controlled diabetes mellitus. Needs tighter control. Glycemic control per pharmacy. Patient will require close outpatient follow-up in the future. Patient is on NPH insulin 45 units every morning along with NovoLog scale. This will need to be monitored closely as his diabetes is in poor control. Total Time Total Time Spent Total Time Spent (In Minutes): in excess of 30 minutes Total Time Includes: Examination of the Patient, Discharge Planning and Medication Reconciliation Discharge Plan Discharge Items Patient Disposition: Home - Self-Care Reason For Visit: RIGHT FOOT INFECTION Discharge Diagnosis: 1. Diabetic foot ulcer 2. Uncontrolled diabetes with neuropathy 3. Paroxysmal atrial fibrillation, rate controlled on Coumadin 4. Coronary artery disease Activity: Per Instructions section Non-emergency contact: Primary Care Provider and Specialist Call non-emergency contact if: your symptoms worsen and you have a fever Follow-up/Referrals: [facility] [Provider Group] - 09/10/19 11:10 am (Please, follow up at [facility] on SundaySeptember 10 at 11:10 am. *You will be seeing Dr. Pisano at this time, too. The clinic is located at [address] in [place]. If you need to change this appointment, call the office at [phone].) Diana Roland MD [Primary Care Provider] - 09/08/19 3:00 pm (Please, follow up with Dr. Roland on SundaySeptember 08 at 3:00 pm. *If you need to change this appointment, call the office at [phone].) Diet: Carb Consistent or DM2 Addtl Attending Provider Instructions: You will need your PT/INR rechecked in the next 48 hours to ensure that your Coumadin level is adequate. Pending Studies at Discharge: No Stand-Alone Forms: [facility], Smoking Cessation Medications and DC Order Prescriptions: New warfarin [Coumadin] 7.5 mg tablet 7.5 mg PO DAILY Qty: 30 RF: 0 Continued nitroglycerin 0.4 mg Tablet, Sublingual 0.4 mg Sublingual UD PRN (Reason: Chest Pain) Qty: 0 RF: 0 atorvastatin 80 mg Tablet 80 mg PO HS Qty: 0 RF: 0 cyanocobalamin (vitamin B-12) 1,000 mcg/mL Solution 1 ml INJ MONTHLY Qty: 0 RF: 0 multivitamin Tablet 1 tab PO DAILY Qty: 0 RF: 0 cholecalciferol (vitamin D3) 2,000 unit Tablet 6,000 unit PO DAILY Qty: 0 RF: 0 carvedilol 6.25 mg tablet 6.25 mg PO BID Qty: 180 RF: 3 amiodarone 200 mg tablet See Rx Instructions .ROUTE .COMPLEX Qty: 30 RF: 1 bumetanide 1 mg tablet 1 mg PO BID Qty: 180 RF: 3 OneTouch Verio strip .ROUTE .MEDSUPPLY Qty: 10 RF: 0 Novolin N NPH U-100 Insulin 100 unit/mL Suspension 30 unit SUBCUT QDB RF: 0 Novolin R Regular U-100 Insuln 100 unit/mL Solution SUBCUT BID RF: 0 Novolin N NPH U-100 Insulin 100 unit/mL Suspension 10 - 15 unit SUBCUT PM RF: 0 Discharge Orders: Discharge Order (Routine); Ordered 09/04/19 Ordered By: Jerrod Munoz Admission Data Admit Date/Time: 08/28/19 17:43 Attending Provider: Jerrod Munoz Admit Provider: Morgan Horton Primary Care Provider: Diana Roland Other Providers: Gianfranco Dietz ; Mateo Doyle ; Reynaldo Mckeon ; Salvador Mata Eugene J ; Diana Pisano Other Interventions: Discharge Summary Assessment (RN) Last Done: 09/04/19 14:21
[2019-09-04] MEDS: BUMETANIDE 1 MG TAB PO SCH (07:54)
[2019-09-04] MEDS: carvediloL 6.25 MG TAB PO SCH (07:55)
[2019-09-04] MEDS: AMIODARONE 200 MG TAB PO SCH (07:55)
[2019-09-04] MEDS: CHOLECALCIFEROL 1,000 UNITS TAB PO SCH (07:55)
[2019-09-04] MEDS: ENOXAPARIN INJ 120 MG/0.8 ML SYR SC SCH (07:56)
[2019-09-04] MEDS: MULTIVITAMIN TAB PO SCH (07:56)
[2019-09-04 11:19] VITALS: BP 164/80; PULSE 61; TEMP 97.9
--- NOTE | 2019-09-04 14:04 | Pharmacy Report ---
Pharmacy Glycemic Short Note 2 - Date of Service September 04, 2019 - Glycemic Short BSG Results (Last 24 hours): 09/03/19 09/03/19 09/03/19 16:20 20:18 21:00 Glucose POC Glucose 163 H 53 L* 105 H 09/04/19 09/04/19 09/04/19 06:09 07:34 11:07 Glucose 187 H POC Glucose 245 H 131 H OUTPATIENT ANTIDIABETIC REGIMEN: updated med rec that was incorrect * NPH 30 units qAM, 10-15 units w/ dinner * Regular 15-20 units w/ breakfast, 15-25 units w/ dinner * A1c = 11.3 % 08/29/19 ASSESSMENT: 09/04 * Patient's BSGs improving, basal in AM titrated up to 45 units in the AM * Patient did have hypoglycemic event at bedtime, expect carb ratio too tight with dinner + higher NPH dose, loosened carb ratio with lunch, dinner today * Expect patient to be discharged today but will loosen scale with dinner closer to home dosing. 09/03 * Patient's BSGs remained elevated yesterday- working on titrating up morning NPH * Tightened correction/carb ratio to 12/3 for all meals/HS * Patient's BSGs improve overnight, fasting this morning 162 09/02 * Patient's BSGs elevated again this morning, plan was to go back to 30 units with breakfast, will increase to 35 units * BSGs continue to be elevated at lunch, will decrease correction factor throughout day * NPH per scale with dinner 09/01 * Mr Rodriguez's BSGs have been elevated this morning d/t an accidental omission of his evening NPH last night. * Additional NPH provided this morning, as well as an IV bolus at lunch time. * Will provide additional NPH per scale this evening and continue to monitor. * Patient has required ~90 units of insulin per day for the past several days. PLAN FOR INPATIENT GLYCEMIC CONTROL: * Basal insulin - increase * NPH 45 units sq with breakfast * NPH 12-16 units SQ with dinner (16 units for BSG > 160) * Bolus insulin * NovoLog per scale ACHS or Q6hrs while NPO * Goal Range: Low 120 mg/dL - High 150 mg/dL Breakfast * Correction Factor: 12 mg/dL/unit * Nutritional / Prandial insulin per carb ratio of 1 unit per 3 grams CHO consumed Lunch/Dinner/HS * Correction Factor: 12 mg/dL/unit * Nutritional / Prandial insulin per carb ratio of 1 unit per 4 grams CHO consumed Discharge Recommendations: * A1c = 11.3 % on 08/29/19 * Goal A1c = < 7 % based on age and comorbidities * NPH 30 units qAM (this dose may need titrated up if continued to be elevated at lunch after additional of sliding scale), 10-15 units qPM * Regular 15-20 units w/ breakfast, 15-25 units w/ dinner * ADD Regular insulin per sliding scale: * Blood Sugar 70-150 administer 0 units * Blood Sugar 151-200 administer 3 units * Blood Sugar 201-250 administer 5 units * Blood Sugar 251-300 administer 7 units * Blood Sugar 301-350 administer 9 units * Blood Sugar 351-400 administer 11 units * Blood Sugar >400 administer 13 units and call Thank you.
[2019-09-04] MEDS ORDERED: Nursing to Pharmacy Communication ONE (14:12)
[2019-09-04] MEDS: CARBOHYDRATES FOR HYPOGLYCEMIA PO PRN ×2 (14:31→14:50)
[2019-09-04] MEDS: cefTRIAXone SODIUM 2,000 MG in DEXTROSE 5% 50 ML IV SCH (14:34)
[2019-09-04] MEDS: WARFARIN SOD 5 MG TAB PO SCH (15:52)
== END 2019-09-04 16:04 | disposition home or self-care (01) | DRG 300 ==
LOC: ED 12:43 → SUATTDRO 17:43 → 2N 17:43 → 2W 09-01 22:40

== ENCOUNTER 2023-02-07 10:55 | Inpatient (IN) ==
[2023-02-07] MEDS ORDERED: PIPERACILLIN/TAZOBACTAM 4.5 GM/120 ML BAG IV ONE (11:53)
[2023-02-07 12:21] LABS: Basophils # (auto) 0.06 K/uL (0-0.2); Basophils % (auto) 0.5 %; Eosinophils # (auto) 0.08 K/uL (0-0.50); Eosinophils % (auto) 0.6 %; Hemoglobin 12.9 g/dl (14.0-18.0); Immature Granulocytes # (auto) 0.08 K/uL (0.01-0.20); Immature Granulocytes % (auto) 0.6 %; Lymphocytes # (auto) 1.18 K/uL (1.2-3.4); Mean Corpuscular Hemoglobin 27.6 pg (25.0-34.0); Mean Corpuscular Hgb Conc 33.1 g/dL (32.0-36.0); Mean Corpuscular Volume 83.5 fL (80.0-100.0); Mean Platelet Volume 11.1 fL (9.4-12.4); Monocytes # (auto) 1.05 K/uL (0.11-0.59); Neutrophils # (auto) 10.69 K/uL (1.40-6.50); Neutrophils % (auto) 81.3 %; Platelet Count 375 K/uL (130-400); RDW Coefficient of Variation 13.3 % (11.5-14.5); RDW Standard Deviation 40.9 fL (36.4-46.3); Red Blood Count 4.67 M/uL (4.70-6.10); White Blood Count 13.14 K/ul (4.8-10.8)
--- NOTE | 2023-02-07 12:29 | XRay Report ---
XR chest 1V portable HISTORY: 67 years-old Male ?sepsis acute sepsis COMPARISON: 12/19/2022 TECHNIQUE: AP view of the chest FINDINGS: Cardiomediastinal silhouettes are within normal limits. Aortic valvular endograft. There is no pneumo thorax, pleural effusion, airspace consolidation or pulmonary edema. Degenerative changes of the shou lders and spine. IMPRESSION: No acute process. ACT 112: Negative or not required by law. The above report was generated using voice recognition software. It may contain grammatical, syntax o r spelling errors. Electronically signed by: Gabino Singh M.D. 02/07/2023 12:27 PM
--- NOTE | 2023-02-07 12:39 | CT Scan Report ---
LEFT FOOT CT CT DOSE: HISTORY: Left foot ulceration. eval osteo TECHNIQUE: Multiaxial CT images of the left foot were performed and reformatted in the sagittal and c oronal plane without the use of contrast. A dose lowering technique was utilized adhering to the [facility] ren[facility] vick E[facility]. COMPARISON: Left foot radiograph 09/24/2019. FINDINGS: Interval partial amputation of the left fifth toe. There is extensive erosive/destructive c hange at the residual base of the fifth toe and head of the fifth metatarsal consistent with an osteo myelitis. There is also gas within the medullary cavity of the mid to distal shaft of the fifth metat arsal consistent with an additional site of infectious change. There is soft tissue gas surrounding t he fifth MTP joint with an associated skin ulceration and soft tissue swelling at this location. Ther e is extensive edema within the lateral aspect of the forefoot surrounding the fifth MTP joint. Nondi splaced subacute fracture at the lateral base of the fifth metatarsal. Prior partial amputation of th e first toe, unchanged. 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 IMPRESSION: 1. Interval partial amputation of the left fifth toe. There is extensive erosive/destructive change a t the residual base of the left fifth toe and head of the fifth metatarsal consistent with an osteomy elitis. There is also gas within the medullary cavity of the mid to distal shaft of the left fifth me tatarsal consistent with an additional site of infectious change. 2. Nondisplaced subacute fracture at the lateral base of the fifth metatarsal. 3. 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 ACT 112: Negative or not required by law. Electronically signed by: Gianluca Lopez M.D. 02/07/2023 12:38 PM
[2023-02-07 12:51] LABS: Partial Thromboplastin Ratio 3.4; Prothrombin Time > 90.0 Seconds (9.0-12.0)
[2023-02-07 12:58] LABS: Albumin Level 3.3 gm/dl (3.4-5.0); Anion Gap 11 (3-11); Bilirubin,Total 0.6 mg/dl (0.2-1.0); Calcium 8.6 mg/dl (8.6-10.3); Carbon Dioxide 28 mmol/L (21-32); Chloride 94 mmol/L (98-107); Potassium 3.3 mmol/L (3.5-5.1); Sodium 133 mmol/L (136-145)
--- NOTE | 2023-02-07 13:03 | Emergency Department Note ---
Impression & Plan Foot osteomyelitis, left, Supratherapeutic INR, Type 2 diabetes mellitus with diabetic neuropathy, MEGAN (acute kidney injury) ED Provider Note NAME: KIRK EPPS AGE: 67 SEX: M ARRIVES VIA: Walk-In INFORMANT: Patient ED PROVIDER(S): Roge Trinidad MD CHIEF COMPLAINT: Infection, referred. PLAN: Disposition: Admit MEDICAL DECISION MAKING: The patient is a pleasant 67-year-old gentleman with a past medical history of uncontrolled diabetes, paroxysmal atrial fibrillation on warfarin, PAD, diabetic foot ulcer with history of fifth toe amputation, MRSA who presents to the emergency department referred from his coagulation clinic where there was concern for systemic infection/sepsis in the setting of his chronic diabetic foot infection for which he is scheduled for metatarsal amputation this Sunday with his surgeon, Dr. Guerrero, after being seen on 02/01 in the clinic and started on clindamycin. Case discussed with Dr. Hidalgo who evaluated and referred patient. Patient denies fevers but reports generalized malaise and weakness over the past week where he has been not getting up and moving around much due to this. He admits that he cannot feel his foot and so cannot definitively say if it is gotten worse. He also acknowledges that he has not changed the dressing since he was seen on the and notes that it has become mildly saturated. He reports he was planning to change it this afternoon when he got home but since he was referred in the emergency department he did not do this. At his coagulation clinic visit his INR was > 8. The patient's blood sugars also have been elevated in the 300s over the past week. On arrival the patient is in no acute distress, afebrile with stable vital signs. The patient's left foot dressing is foul-smelling and saturated with serous sanguinous discharge along the lateral aspect of the forefoot and midfoot. Upon removal of the dressing there is a small tunneling ulceration on the dorsal aspect of the left fifth toe amputation stump with scant purulence and eschar extending from the lateral aspect of the forefoot to the midfoot. There is no overt crepitus. EKG without overt acute ischemia. CXR negative for acute cardiopulmonary process. WBC 13.1K with neutrophil predominance. H/H approximate department values. Platelets within normal limits. INR > 9.6, having received 10mg PO vitamin K VINYL TOP INSTALLER at coagulation clinic. ESR and CRP are elevated at 61 and 9.88, respectively. Cr. 1.4 increased from baseline. Chemistry without metabolic acidosis. Potassium 3.3 and electrolytes without significant abnormality. Lactate 1.4 wnl. LFTs unremarkable. Procalcitonin elevated at 0.53. Covid-19 RNA, NAAT negative. CT of the left foot was obtained and demonstrates interval partial amputation of the left fifth toe describes extensive erosive destructive changes at the residual base of the left fifth toe and head of the fifth metatarsal consistent with osteomyelitis. Additional note is made of gas within the medullary cavity of the mid to distal shaft of the left fifth metatarsal consistent with additional infectious change. Nondisplaced subacute fracture of the lateral base of the fifth metatarsal is seen. Chronic neuropathic changes of the midfoot are noted in the setting of the patient's uncontrolled diabetes. Treatment initiated with IV Zosyn and daptomycin. Case discussed with Isabel Cope Vascular surgery PAC with Dr. Guerrero, Vascular surgery. Agrees with medicine admission for further management/optimization and likely plan for surgery on Sunday as scheduled. Case was discussed with Dr. Devika DELGADILLO hospitalist, who will evaluate the patient for admission. Triage Nursing notes reviewed and agree them. Prior/outside medical records reviewed Vital Signs: reviewed Differential diagnosis: Cellulitis, abscess, MRSA infection, DVT, necrotizing fasciitis, dermatitis, drug eruption, allergic reaction, as well as other pathologies. ER treatment provided: See below. Diagnostics interpreted by me: ECG: Sinus bradycardia, 56 bpm, no ectopy, LVH, no overt ST elevation or depression. Cardiac Monitoring: An order for continuous cardiac monitoring was placed and demonstrated siinus bradycardia, 56 bpm, no ectopy. Laboratory studies: See below Imaging studies: See below Consultation(s): Isabel Cope Vascular surgery PAC with Dr. Guerrero, Vascular surgery. Dr. Devika DELGADILLO hospitalist, HPI: The patient is a pleasant 67-year-old gentleman with a past medical history of uncontrolled diabetes, paroxysmal atrial fibrillation on warfarin, PAD, diabetic foot ulcer with history of fifth toe amputation, MRSA who presents to the emergency department referred from his coagulation clinic where there was concern for systemic infection/sepsis in the setting of his chronic diabetic foot infection for which he is scheduled for metatarsal amputation this Sunday with his surgeon, Dr. Guerrero, after being seen on 3/23 in the clinic and started on clindamycin. Case discussed with Dr. Hidalgo who evaluated and referred patient. Patient denies fevers but reports generalized malaise and weakness over the past week where he has been not getting up and moving around much due to this. He admits that he cannot feel his foot and so cannot definitively say if it is gotten worse. He also acknowledges that he has not changed the dressing since he was seen on the and notes that it has become mildly saturated. He reports he was planning to change it this afternoon when he got home but since he was referred in the emergency department he did not do this. At his coagulation clinic visit his INR was > 8. The patient's blood sugars also have been elevated in the 300s over the past week. ROS: See above HPI for pertinent positives & negatives. A total of 10 systems reviewed and were otherwise negative. VITALS:See Below PHYSICAL EXAMINATION: GENERAL: Awake, alert, fatigued-appearing, in no distress HENT: Normocephalic, atraumatic. Oropharynx with dry mucous membranes and otherwise unremarkable. EYES: Normal conjunctiva. Sclera non-icteric. NECK: Supple. No nuchal rigidity. FROM. No JVD. RESPIRATORY: Clear to auscultation. CARDIAC: Regular rate, normal rhythm. Extremities warm and well perfused. Pulses equal. ABDOMEN: Soft, non-distended. No tenderness to palpation. No rebound or guarding. No masses. RECTAL: Deferred. MUSCULOSKELETAL: Chest examination reveals no tenderness. The back is symm etrical on inspection without obvious abnormality. There is no CVA tenderness to palpation. No joint edema. LOWER EXTREMITIES: Left foot dressing is foul-smelling and saturated with serous sanguinous discharge along the lateral aspect of the forefoot and midfoot. Upon removal of the dressing there is a small tunneling ulceration on the dorsal aspect of the left fifth toe amputation stump with scant purulence and eschar extending from the lateral aspect of the forefoot to the midfoot. There is no overt crepitus. NEURO: Normal sensorium. No sensory or motor deficits noted. SKIN: No rash or jaundice noted. ED COURSE: Critical Care: I have personally spent greater than 35 minutes of critical care time in the direct management of this patient. This includes bedside care, interpretation of diagnostic studies, and testing, discussion with consultants, patient, and family members, and other required patient management activities. This 35 minutes is in excess of all separately billable procedures. Roge Trinidad MD Past Med/Surg History Medical History Aortic valve disease s/p TAVR (2018) CAD (coronary artery disease) follows with Dr. Elliott Carotid artery stenosis Under surveillance by vascular (Dr. Guerrero) Cerebrovascular duplex with 60-69% LICA stenosis (stable from 2019 study per report) Chronic systolic congestive heart failure Dyslipidemia Hypertension Ischemic cardiomyopathy MRSA (methicillin resistant Staphylococcus aureus) left fifth toe- current Myocardial Infarction 2014 Obesity (BMI 30.0-34.9) Osteomyelitis Hx PAD (peripheral artery disease) Paroxysmal atrial fibrillation Proliferative diabetic retinopathy Sleep apnea "Not bad enough for device" per pt Type 1 diabetes mellitus Ulcer of toe of left foot Surgical History H/O gastric bypass History of adenoidectomy History of amputation of lesser toe of right foot History of amputation of toe History of cardiac cath 2017 [place] History of cataract surgery bilat History of tonsillectomy History of tooth extraction S/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 angioplasty (VINYL TOP INSTALLER) VINYL TOP INSTALLER of anterior tibial artery April 2017 S/P TAVR (transcatheter aortic valve replacement) [facility] [place] > Oct 2019 Status post below knee amputation of right lower extremity 2019 Status post transmetatarsal amputation of right foot Family History Sister Myocardial infarction Denies family history of Ovarian cancer Prostate cancer Breast cancer Lung cancer Colorectal cancer Stroke Social History Smoking Status: Former smoker Second Hand Exposure: No; Hx Alcohol Use: No Hx Substance Use: No Preferred Language: Indonesian Communication Ability: Effective Visual Impairment: Limited Hearing Ability: Use of Hearing Aid Caregivers Non Medical Required: No Beliefs That Will Affect Care: None marital status: Current Living Situation: Alone current occupational status: disabled How many Children do You have: 0 Other Information That Helps Us Care for You: No Feels Safe at Home: Yes Safety Concerns: Feels Safe At This Time Childhood Exposure to Second-Hand Smoke: No caffeine: Yes Dental Care, Regularly: No Physical Activity Frequency: 1-2 Times per Week Seatbelt Use: never Sunscreen Use: Yes Assistive Devices: Cane, Glasses, Hearing Aid - Bilateral and Prosthesis Allergies Allergies Allergy/AdvReac Type Severity Reaction Status Date / Time ketoconazole [From Nizoral] AdvReac Unknown see comment Verified 02/07/23 11:52 Home Meds Home Medications Medication Instructions Recorded Confirmed cholecalciferol (vitamin D3) 50 6,000 unit PO QAM ##0 06/17/18 02/07/23 mcg (2,000 unit) tablet aspirin 81 mg chewable tablet 81 mg PO QAM 07/20/22 02/07/23 rosuvastatin 5 mg tablet 5 mg PO QAM 12/18/22 02/07/23 amiodarone 200 mg tablet 200 mg PO QAM 01/11/23 02/07/23 clindamycin HCl 300 mg capsule 300 mg PO Q6H 02/02/23 02/07/23 warfarin 5 mg tablet See Rx Instructions .Route .COMPLEX 02/05/23 02/07/23 Previous Rx's Medication Instructions Recorded insulin syringe-needle U-100 0.5 #400 ea 01/15/20 mL 29 gauge x 1/2" (BD Insulin Syringe) carvedilol 6.25 mg tablet 6.25 mg PO BID #180 tabs 07/10/22 insulin detemir U-100 100 unit/mL 28 unit (0.28 mL) subcut QPM #1 box 07/14/22 (3 mL) subcutaneous pen (Levemir FlexTouch U-100 Insulin) OneTouch Verio test strips (blood #300 ea 08/31/22 sugar diagnostic) nitroglycerin 0.4 mg sublingual 0.4 mg sublingual UD PRN Chest 08/31/22 tablet Pain #25 tabs insulin aspart U-100 100 unit/mL See Rx Instructions .Route 12/08/22 (3 mL) subcutaneous pen (Novolog .COMPLEX #30 mL FlexPen U-100 Insulin aspart) bumetanide 1 mg tablet 1 mg PO BID #180 tabs 01/12/23 Results & Data (ED) Vital Signs Vital Signs - 24 hr 02/07/23 11:06 02/07/23 12:06 02/07/23 12:34 Temperature 36.8 C Temperature Source Temporal Artery Scan Pulse Rate 73 Pulse Rate [Apical] 58 L Respiratory Rate 18 18 Respiratory Effort / Characteristics Non-Labored Respiratory Depth Normal Normal Respiratory Pattern Regular Blood Pressure 114/74 Blood Pressure [Right Arm] 147/55 H Blood Pressure Mean 87 Blood Pressure Mean [Right Arm] 85 Blood Pressure Position Sitting Pulse Oximetry 94 98 98 Oxygen Delivery Method Room Air Room Air Room Air Sepsis Recent Fever Within 48 Hours No Sepsis New/Unexplained Change in Mental Status No Sepsis Action Taken by Nursing No Action Required 02/07/23 12:45 02/07/23 14:21 Temperature Temperature Source Pulse Rate 60 Pulse Rate [Apical] 60 Respiratory Rate 18 Respiratory Effort / Characteristics Respiratory Depth Respiratory Pattern Blood Pressure Blood Pressure [Right Arm] 128/41 L Blood Pressure Mean Blood Pressure Mean [Right Arm] 70 Blood Pressure Position Pulse Oximetry 97 Oxygen Delivery Method Room Air Sepsis Recent Fever Within 48 Hours Sepsis New/Unexplained Change in Mental Status Sepsis Action Taken by Nursing Laboratory Data 02/07/23 11:59 02/07/23 11:59 Lab Results 02/07/23 02/07/23 02/07/23 Range/Units 11:59 11:59 11:59 WBC 13.14 H (4.8-10.8) K/ul RBC 4.67 L (4.70-6.10) M/uL Hgb 12.9 L (14.0-18.0) g/dl Hct 39.0 L (42.0-52.0) % MCV 83.5 (80.0-100.0) fL MCH 27.6 (25.0-34.0) pg MCHC 33.1 (32.0-36.0) g/dL RDW Std Deviation 40.9 (36.4-46.3) fL RDW Coeff of Vargas 13.3 (11.5-14.5) % Plt Count 375 (130-400) K/uL MPV 11.1 (9.4-12.4) fL Immature Gran % (Auto) 0.6 % Neut % (Auto) 81.3 % Lymph % (Auto) 9.0 % [place] % (Auto) 8.0 % Eos % (Auto) 0.6 % Baso % (Auto) 0.5 % Neut # (Auto) 10.69 H (1.40-6.50) K/uL Lymph # (Auto) 1.18 L (1.2-3.4) K/uL [place] # (Auto) 1.05 H (0.11-0.59) K/uL Eos # (Auto) 0.08 (0-0.50) K/uL Baso # (Auto) 0.06 (0-0.2) K/uL Immature Gran # (Auto) 0.08 (0.01-0.20) K/uL ESR (0-20) mm/hr PT > 90.0 H (9.0-12.0) Seconds INR > 9.6 H* (0.9-1.1) APTT 94.4 H* (21.0-31.0) Seconds PTT Ratio 3.4 Sodium 133 L (136-145) mmol/L Potassium 3.3 L (3.5-5.1) mmol/L Chloride 94 L (98-107) mmol/L Carbon Dioxide 28 (21-32) mmol/L Anion Gap 11 (3-11) BUN 22 (6-23) mg/dl Creatinine 1.41 H (0.6-1.4) mg/dl Est Cr Clr Drug Dosing 68.5 ml/min Est GFR ( Amer) 59.3 ml/min Est GFR (Non-Af Amer) 51.2 ml/min BUN/Creatinine Ratio 15.6 (10-20) Glucose 217 H (70-99(Fasting)) mg/dl POC Glucose (70-99) mg/dl Osmolality (280-300) mOsm/kg Calcium 8.6 (8.6-10.3) mg/dl Total Bilirubin 0.6 (0.2-1.0) mg/dl AST 12 L (13-39) U/L ALT < 3 L (7-52) U/L Alkaline Phosphatase 87 (34-104) U/L C-Reactive Protein 9.88 H (0-0.5) mg/dl Total Protein 7.2 (6.0-8.3) gm/dl Albumin 3.3 L (3.4-5.0) gm/dl Globulin 3.9 (2.5-4.0) gm/dl Albumin/Globulin Ratio 0.8 L (0.9-2) Procalcitonin (0-0.5) ng/ml SARS-CoV-2, RNA, NAAT (NEGATIVE) 02/07/23 02/07/23 02/07/23 Range/Units 11:59 11:59 11:59 WBC (4.8-10.8) K/ul RBC (4.70-6.10) M/uL Hgb (14.0-18.0) g/dl Hct (42.0-52.0) % MCV (80.0-100.0) fL MCH (25.0-34.0) pg MCHC (32.0-36.0) g/dL RDW Std Deviation (36.4-46.3) fL RDW Coeff of Vargas (11.5-14.5) % Plt Count (130-400) K/uL MPV (9.4-12.4) fL Immature Gran % (Auto) % Neut % (Auto) % Lymph % (Auto) % [place] % (Auto) % Eos % (Auto) % Baso % (Auto) % Neut # (Auto) (1.40-6.50) K/uL Lymph # (Auto) (1.2-3.4) K/uL [place] # (Auto) (0.11-0.59) K/uL Eos # (Auto) (0-0.50) K/uL Baso # (Auto) (0-0.2) K/uL Immature Gran # (Auto) (0.01-0.20) K/uL ESR 61 H (0-20) mm/hr PT (9.0-12.0) Seconds INR (0.9-1.1) APTT (21.0-31.0) Seconds PTT Ratio Sodium (136-145) mmol/L Potassium (3.5-5.1) mmol/L Chloride (98-107) mmol/L Carbon Dioxide (21-32) mmol/L Anion Gap (3-11) BUN (6-23) mg/dl Creatinine (0.6-1.4) mg/dl Est Cr Clr Drug Dosing ml/min Est GFR ( Amer) ml/min Est GFR (Non-Af Amer) ml/min BUN/Creatinine Ratio (10-20) Glucose (70-99(Fasting)) mg/dl POC Glucose (70-99) mg/dl Osmolality 292 (280-300) mOsm/kg Calcium (8.6-10.3) mg/dl Total Bilirubin (0.2-1.0) mg/dl AST (13-39) U/L ALT (7-52) U/L Alkaline Phosphatase (34-104) U/L C-Reactive Protein (0-0.5) mg/dl Total Protein (6.0-8.3) gm/dl Albumin (3.4-5.0) gm/dl Globulin (2.5-4.0) gm/dl Albumin/Globulin Ratio (0.9-2) Procalcitonin 0.53 H (0-0.5) ng/ml SARS-CoV-2, RNA, NAAT (NEGATIVE) 02/07/23 02/07/23 Range/Units 12:03 14:28 WBC (4.8-10.8) K/ul RBC (4.70-6.10) M/uL Hgb (14.0-18.0) g/dl Hct (42.0-52.0) % MCV (80.0-100.0) fL MCH (25.0-34.0) pg MCHC (32.0-36.0) g/dL RDW Std Deviation (36.4-46.3) fL RDW Coeff of Vargas (11.5-14.5) % Plt Count (130-400) K/uL MPV (9.4-12.4) fL Immature Gran % (Auto) % Neut % (Auto) % Lymph % (Auto) % [place] % (Auto) % Eos % (Auto) % Baso % (Auto) % Neut # (Auto) (1.40-6.50) K/uL Lymph # (Auto) (1.2-3.4) K/uL [place] # (Auto) (0.11-0.59) K/uL Eos # (Auto) (0-0.50) K/uL Baso # (Auto) (0-0.2) K/uL Immature Gran # (Auto) (0.01-0.20) K/uL ESR (0-20) mm/hr PT (9.0-12.0) Seconds INR (0.9-1.1) APTT (21.0-31.0) Seconds PTT Ratio Sodium (136-145) mmol/L Potassium (3.5-5.1) mmol/L Chloride (98-107) mmol/L Carbon Dioxide (21-32) mmol/L Anion Gap (3-11) BUN (6-23) mg/dl Creatinine (0.6-1.4) mg/dl Est Cr Clr Drug Dosing ml/min Est GFR ( Amer) ml/min Est GFR (Non-Af Amer) ml/min BUN/Creatinine Ratio (10-20) Glucose (70-99(Fasting)) mg/dl POC Glucose 243 H (70-99) mg/dl Osmolality (280-300) mOsm/kg Calcium (8.6-10.3) mg/dl Total Bilirubin (0.2-1.0) mg/dl AST (13-39) U/L ALT (7-52) U/L Alkaline Phosphatase (34-104) U/L C-Reactive Protein (0-0.5) mg/dl Total Protein (6.0-8.3) gm/dl Albumin (3.4-5.0) gm/dl Globulin (2.5-4.0) gm/dl Albumin/Globulin Ratio (0.9-2) Procalcitonin (0-0.5) ng/ml SARS-CoV-2, RNA, NAAT NEGATIVE (NEGATIVE) Administered Medications Amiodarone HCl (Amiodarone 200 Mg Tab) 200 mg PO QAM PHUONG Stop: 03/09/23 08:59 Last Admin: 02/07/23 21:02 Dose: Not Given Documented By: Carvedilol (Carvedilol 6.25 Mg Tab) 6.25 mg PO BID PHUONG Stop: 03/09/23 20:59 Last Admin: 02/07/23 20:55 Dose: 6.25 mg Documented By: Sodium Chloride (Nss 1000ml) 1,000 mls @ 125 mls/hr IV .Q8H PHUONG Stop: 03/09/23 13:29 Last Admin: 02/07/23 23:32 Dose: 125 mls/hr Documented By: Infusion: 02/07/23 23:15 Dose: 125 mls/hr Documented By: Admin: 02/07/23 15:15 Dose: 125 mls/hr Documented By: DAVID Piperacillin Sod/Tazobactam (Sod 4.5 gm/ Dextrose) 120 mls @ 30 mls/hr IV Q8H PHUONG; Protocol Stop: 02/14/23 19:29 Last Admin: 02/07/23 20:51 Dose: 30 mls/hr Documented By: Insulin Aspart (Insulin Aspart Per Unit Charge) 0 units SC ACHS PHUONG Stop: 03/09/23 19:18 Last Admin: 02/07/23 21:03 Dose: Not Given Documented By: Co-signed By: RANDI Admin: 02/07/23 20:41 Dose: 9 units Documented By: Co-signed By: RANDI Insulin Glargine (Lantus Per Unit Charge) 28 units SQ HS PHUONG Stop: 03/09/23 20:59 Last Admin: 02/07/23 22:26 Dose: 28 units Documented By: Co-signed By: RANDI Discontinued Medications Amiodarone HCl (Amiodarone 200 Mg Tab) 200 mg PO NOW STA Stop: 02/07/23 15:13 Last Admin: 02/07/23 15:23 Dose: 200 mg Documented By: DAVID Carvedilol (Carvedilol 3.125 Mg Tab) 3.125 mg PO NOW STA Stop: 02/07/23 15:13 Last Admin: 02/07/23 15:23 Dose: 3.125 mg Documented By: DAVID Piperacillin Sod/Tazobactam Sod (Zosyn) 4.5 gm in 120 mls @ 240 mls/hr IV NOW ONE Stop: 02/07/23 12:22 Last Infusion: 02/07/23 13:30 Dose: 0 mls/hr Documented By: Admin: 02/07/23 12:36 Dose: 240 mls/hr Documented By: PARVIN Daptomycin 575 mg/ Syringe 11.5 mls @ 5.75 mls/min IV Q24H [facility]; Protocol Stop: 03/21/23 13:29 Last Admin: 02/07/23 13:52 Dose: 5.75 mls/min Documented By: PARVIN Sodium Chloride (Nss 1000ml) 1,000 mls @ 999 mls/hr IV .Q1H1M ONE Stop: 02/07/23 14:29 Last Infusion: 02/07/23 15:20 Dose: 0 mls/hr Documented By: Admin: 02/07/23 13:52 Dose: 999 mls/hr Documented By: PARVIN Imaging Data Radiologist's Impression: Chest X-Ray 02/07/23 11:47 XR chest 1V portable HISTORY: 67 years-old Male ?sepsis acute sepsis COMPARISON: 12/19/2022 TECHNIQUE: AP view of the chest FINDINGS: Cardiomediastinal silhouettes are within normal limits. Aortic valvular endograft. There is no pneumothorax, pleural effusion, airspace consolidation or pulmonary edema. Degenerative changes of the shoulders and spine. IMPRESSION: No acute process. ACT 112: Negative or not required by law. The above report was generated using voice recognition software. It may contain grammatical, syntax or spelling errors. Electronically signed by: Gabino Singh M.D. 02/07/2023 12:[address] 02/07/23 11:[address] DOSE: HISTORY: Left foot ulceration. eval osteo TECHNIQUE: Multiaxial CT images of the left foot were performed and reformatted in the sagittal and coronal plane without the use of contrast. A dose lowering technique was utilized adhering to the principles of ALARA. COMPARISON: Left foot radiograph 09/24/2019. FINDINGS: Interval partial amputation of the left fifth toe. There is extensive erosive/destructive change at the residual base of the fifth toe and head of the fifth metatarsal consistent with an osteomyelitis. There is also gas within the medullary cavity of the mid to distal shaft of the fifth metatarsal consistent with an additional site of infectious change. There is soft tissue gas surrounding the fifth MTP joint with an associated skin ulceration and soft tissue swelling at this location. There is extensive edema within the lateral aspect of the forefoot surrounding the fifth MTP joint. Nondisplaced subacute fracture at the lateral base of the fifth metatarsal. Prior partial amputation of the first toe, unchanged. Chronic neuropathic changes at the midfoot with evidence for mid foot collapse and chronic talonavicular dislocation. IMPRESSION: 1. Interval partial amputation of the left fifth toe. There is extensive erosive/destructive change at the residual base of the left fifth toe and head of the fifth metatarsal consistent with an osteomyelitis. There is also gas within the medullary cavity of the mid to distal shaft of the left fifth metatarsal consistent with an additional site of infectious change. 2. Nondisplaced subacute fracture at the lateral base of the fifth metatarsal. 3. 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 ACT 112: Negative or not required by law. Electronically signed by: Gianluca Lopez M.D. 02/07/2023 12:38 PM Discharge Plan Visit Data Chief Complaint: Abnormal Labs/Diagnostic Testing Stated Complaint: LEFT PINK TOE INFECTED, DR REF OVER ED Provider: Roge Trinidad Discharge Problem: Foot osteomyelitis, left, Supratherapeutic INR, Type 2 diabetes mellitus with diabetic neuropathy, MEGAN (acute kidney injury) Patient Disposition: Admitted As Inpatient Discharge Instructions Interventions: ED Discharge Assessment Last Done: 02/07/23 19:19
[2023-02-07 13:04] LABS: BUN Creatinine Ratio 15.6 (10-20); Blood Urea Nitrogen 22 mg/dl (6-23); C Reactive Protein 9.88 mg/dl (0-0.5); Creatinine Clr Calc Pharmacy 68.5 ml/min; Est GFR (African American) 59.3 ml/min; Est GFR (Non-African American) 51.2 ml/min; Glucose 217 mg/dl (70-99(Fasting))
[2023-02-07 13:14] LABS: INR > 9.6 (0.9-1.1); Partial Thromboplastin Time 94.4 Seconds (21.0-31.0)
[2023-02-07 13:18] LABS: Alanine Aminotransferase < 3 U/L (7-52); Albumin Globulin Ratio 0.8 (0.9-2); Alkaline Phosphatase 87 U/L (34-104); Aspartate Aminotransferase 12 U/L (13-39); Globulin 3.9 gm/dl (2.5-4.0); Total Protein 7.2 gm/dl (6.0-8.3)
[2023-02-07] MEDS ORDERED: SODIUM CHLORIDE 0.9% 1000ML 1,000 ML IV ONE (13:29)
[2023-02-07] MEDS ORDERED: DAPTOmycin 575 MG in SYRINGE 0 ML IV SCH (13:30)
--- NOTE | 2023-02-07 13:53 | Electrocardiogram Report ---
Test Reason : Blood Pressure : / mmHG Vent. Rate : 056 BPM Atrial Rate : 056 BPM P-R Int : 176 ms QRS Dur : 112 ms QT Int : 458 ms P-R-T Axes : 054 -08 092 degrees QTc Int : 441 ms Sinus bradycardia Inferior infarct (cited on or before 24-SEP-2018) Poor R wave progression, consider anterior AK vs. lead placement vs. LVH Abnormal ECG When compared with ECG of 24-SEP-2018 12:16, Premature atrial complexes are no longer Present Confirmed by Cliff Durbin ([id number]) on 02/07/2023 1:53:03 PM Referred By: Clarissa Hidalgo Confirmed By:Cliff Durbin
--- NOTE | 2023-02-07 14:37 | History & Physical Report ---
Date of Service February 07, 2023 Assessment & Plan (1) Foot osteomyelitis, left: Plan: Diabetic L Foot osteomyelitis, PVD -Patient was previously scheduled for surgical revision 02/09/2023 -Case was discussed with vascular while patient in ER. Admit to medicine, continue antibiotics, anticipate surgical revision on Sunday Continue Zosyn/Dapto. If clinically doing well can reduce dose to SSTI dosing Clindamycin held Sensation diminished, wound is bleeding - CT-F: 1. Interval partial amputation of the left fifth toe. There is extensive erosive/destructive change at the residual base of the left fifth toe and head of the fifth metatarsal consistent with an osteomyelitis. There is also gas within the medullary cavity of the mid to distal shaft of the left fifth metatarsal consistent with an additional site of infectious change. 2. Nondisplaced subacute fracture at the lateral base of the fifth metatarsal. 3. 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 - WBC mildly elevated - CRP 9.8, trended -Procal 0.53 Type II DM, with neuropathy Did not take insulin this morning Continue long-acting insulin 28 units nightly SSI based on long-acting Pharmacy consulted Goal BSG [id number] A1c pending Ischemic cardiomyopathy, history of TAVR, A-fib No history of stents. Continue amnio, aspirin, carvedilol. Rosuvastatin held while on daptomycin. Bumex held for MEGAN Does not appear acutely decompensated at admission Is not on MAMIE inhibitor/Arni due to history of symptomatic hypotension. Multivessel CAD, no history of stents. Aspirin temporarily held preoperatively and in the setting of supratherapeutic MEGAN - Cr 1.41, baselione ~1.3 In the setting of admission for cellulitis Caution aggressive fluids due to reduced EF Hold nephrotoxins, renally dose medications, trend BMP daily Bumex temporarily held A-fib Rate controlled, continue carvedilol Warfarin held for supratherapeutic INR Trend INR daily S/p 10 mg vitamin K prior to admission DVT prophylaxis: SCDs, heparin deferred in the setting of supratherapeutic INR CODE STATUS: Full code Disposition: Medical telemetry Diet: DM 2 (2) Diabetic foot ulcer: (3) S/P TAVR (transcatheter aortic valve replacement): (4) Carotid artery stenosis: (5) CAD (coronary artery disease): (6) Chronic systolic congestive heart failure: (7) Uncontrolled type 1 diabetes mellitus with diabetic neuropathy, with long- term current use of insulin: (8) Paroxysmal atrial fibrillation: History of Present Illness Primary Care Provider: MD Agustín Torres reports he came for an INR check prior to surgery this Sunday. INR was 'completely off the scale' so Dr. Hidalgo gave him 10mg of Vitamin K and sent him to the ER. Case was discussed with Vascular who recommended medical admission for osteomyelitis and pending surgical intervention on Sunday. Reports he has a history of carotid stenosis following vascular surgery, aortic stenosis s/p TAVR, CAD, A-fib, right BKA, and left toe amputations. He has had worsening ulceration of his left foot for "a long time ". [facility] with his last INR 3.6, was greater than 8 at point -of-care. He denies any bleeding, was given 10 mg of p.o. vitamin K and referred to the ER. Patient has been on clindamycin, low impact on INR level. No black or bloody bowel movements.No reflux or stomach pain. No vomiting, nausea. no chest pain or chest pressure. no shortness of breath. no fever or chills Blood sugars were high at 240 today but didn't take his insulin today. Blood sugars this morning and this past week have been low 100s, 133 this AM before coming in. No history of blood clots or PE Takes warfarin for Afib Had a valve in his heart replaced, pt is not sure what kind. Reprots had a heart attack due to his aortic valve, 'no heart problems since valve was replaced.' No history of stents. Garber snot know if he had a cath. pt does not think he has any heart fialure, takes bumex for past leg swelling. No orthopnea Did not take amio or cavedilol this morning Per cardiology note review: [place]R [place] [facility] 29 mm Watson ALLYSON 3 bovine basedValve. Per their note review echo 05/2022 with EF 35-40%, akinesis of inferolateral, basal to mid inferior, basal inferior septal segments with hypokinesis of mid inferior septum. Cardiac cath performed 07/2018 Mid to distal LM CA 30%. Proximal LAD 40-50%. Mid LAD 40-50%. Large D1 mid 40%. Proximal circumflex 70-80%. Large OM2 ostial 40-50%. Dominant RCA. Proximal RCA 90%. Mid RCA 30-40% followed by 50%. Distal RCA 30-40%. Mid PDA 30%.. Discussed with patient that this was consistent with heart failure as initially during HPI reported he did not have a history of heart failure. He has had dyspnea on exertion going up stairs, when discussed with patient reason he says he endorses this but has not had dyspnea at rest or chest pain feels his symptoms has not changed in the last several weeks. Medical History: Reviewed Medications: Reviewed Surgical History: Reviewed Family history: Reviewed Allergies: Reviewed Social History: Former smoker 25 years ago, rare social alcohol use, no recreational drug use Code Status: Full code Allergies Allergy/AdvReac Type Severity Reaction Status Date / Time ketoconazole [From Nizoral] AdvReac Unknown see comment Verified 02/07/23 11:52 Home Medications Medication Instructions Recorded Confirmed Type cholecalciferol (vitamin D3) 50 6,000 unit PO QAM ##0 06/17/18 02/07/23 History mcg (2,000 unit) tablet insulin syringe-needle U-100 0.5 #400 ea 01/15/20 02/07/23 Rx mL 29 gauge x 1/2" (BD Insulin Syringe) carvedilol 6.25 mg tablet 6.25 mg PO BID #180 tabs 07/10/22 02/07/23 Rx insulin detemir U-100 100 unit/mL 28 unit (0.28 mL) subcut QPM #1 box 07/14/22 02/07/23 Rx (3 mL) subcutaneous pen (Levemir FlexTouch U-100 Insulin) aspirin 81 mg chewable tablet 81 mg PO QAM 07/20/22 02/07/23 History OneTouch Verio test strips (blood #300 ea 08/31/22 02/07/23 Rx sugar diagnostic) nitroglycerin 0.4 mg sublingual 0.4 mg sublingual UD PRN Chest 08/31/22 02/07/23 Rx tablet Pain #25 tabs insulin aspart U-100 100 unit/mL See Rx Instructions .Route 12/08/22 02/07/23 Rx (3 mL) subcutaneous pen (Novolog .COMPLEX #30 mL FlexPen U-100 Insulin aspart) rosuvastatin 5 mg tablet 5 mg PO QAM 12/18/22 02/07/23 History amiodarone 200 mg tablet 200 mg PO QAM 01/11/23 02/07/23 History bumetanide 1 mg tablet 1 mg PO BID #180 tabs 01/12/23 02/07/23 Rx clindamycin HCl 300 mg capsule 300 mg PO Q6H 02/02/23 02/07/23 History warfarin 5 mg tablet See Rx Instructions .Route .COMPLEX 02/05/23 02/07/23 History Past Med/Surg History Medical History Aortic valve disease s/p TAVR (2019) CAD (coronary artery disease) follows with Dr. Elliott Carotid artery stenosis Under surveillance by vascular (Dr. Guerrero) Cerebrovascular duplex with 60-69% LICA stenosis (stable from 2019 study per report) Chronic systolic congestive heart failure Dyslipidemia Hypertension Ischemic cardiomyopathy MRSA (methicillin resistant Staphylococcus aureus) left fifth toe- current Myocardial Infarction 2014 Obesity (BMI 30.0-34.9) Osteomyelitis Hx PAD (peripheral artery disease) Paroxysmal atrial fibrillation Proliferative diabetic retinopathy Sleep apnea "Not bad enough for device" per pt Type 1 diabetes mellitus Ulcer of toe of left foot Surgical History H/O gastric bypass History of adenoidectomy History of amputation of lesser toe of right foot History of amputation of toe History of cardiac cath 2017 [place] History of cataract surgery bilat History of tonsillectomy History of tooth extraction S/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 angioplasty (REHAB TECH) REHAB TECH of anterior tibial artery April 2017 S/P TAVR (transcatheter aortic valve replacement) [facility] > Oct [place] Status post below knee amputation of right lower extremity 2019 Status post transmetatarsal amputation of right foot Family History Sister Myocardial infarction Denies family history of Ovarian cancer Prostate cancer Breast cancer Lung cancer Colorectal cancer Stroke Social History Smoking Status: Former smoker Second Hand Exposure: No; Hx Alcohol Use: Yes Alcohol type: beer Alcohol Intake Frequency: Monthly or Less Hx Substance Use: No Preferred Language: Andorran Communication Ability: Effective Visual Impairment: Limited Hearing Ability: Use of Hearing Aid Sack Sewer Required: No Beliefs That Will Affect Care: None marital status: Current Living Situation: Alone current occupational status: disabled How many Children do You have: 0 Feels Safe at Home: Yes Childhood Exposure to Second-Hand Smoke: No caffeine: Yes Dental Care, Regularly: No Physical Activity Frequency: 1-2 Times per Week Seatbelt Use: never Sunscreen Use: Yes Assistive Devices: Cane, Glasses and Wheelchair Review of Systems Review of Systems: All systems reviewed & are unremarkable except as noted in HPI & below Physical Exam Physical Exam: General: A&Ox3. NAD. Cooperative. HEENT: Atraumatic, normocephalic. Vision/hearing grossly intact Pulm: CTAB A&P. -wheezes, -rales, -rhonchi. Symmetrical chest rise. No increased work of breathing. No respiratory distress. Cardiac: irir, SM present. Radial pulses intact and symmetrical. Abdominal: Nontender, nondistended, soft. BS present. Extremities: Right lower extremity s/p BKA Left lower extremity: Left foot s/p first and fifth revisions, lateral aspect of the foot with drainage, ulceration, eschar, and foul smell. Photo attached as below. Results & Data Results & Data Vital Signs (Past 12 Hours) Vital Signs Temp Pulse Pulse Resp BP BP Pulse Ox 02/07/23 14:21 60 18 128/41 L 97 02/07/23 12:45 60 02/07/23 12:34 58 L 18 147/55 H 98 02/07/23 12:06 98 02/07/23 11:06 36.8 C 73 18 114/74 94 O2 Del Method 02/07/23 14:21 Room Air 02/07/23 12:45 02/07/23 12:34 Room Air 02/07/23 12:06 Room Air 02/07/23 11:06 Room Air PG Care Time/CCT Total # of Minutes Spent Total Time Spent with Patient: Total time spent is greater than 50% in coordination of care (as documented) at patient's floor/unit and/or counseling patient: Coding Level of Care Code 48828 INT INP/OBS CARE 3/75MIN Diagnoses Foot osteomyelitis, left M86.9 Diabetic foot ulcer E11.621; L97.509 S/P TAVR (transcatheter aortic valve replacement) Z95.2 Carotid artery stenosis I65.29 CAD (coronary artery disease) I25.10 [place] vs. transplanted heart: [place] heart Associated angina: without angina Chronic systolic congestive heart failure I50.22 Uncontrolled type 1 diabetes mellitus with diabetic neuropathy, with long-term current use of insulin E10.40; E10.65 Paroxysmal atrial fibrillation I48.0 (5) CAD (coronary artery disease) [place] vs. transplanted heart: [place] heart Associated angina: without angina
[2023-02-07] MEDS ORDERED: AMIODARONE 200 MG TAB PO STA (15:12)
[2023-02-07] MEDS ORDERED: carvediloL 3.125 MG TAB PO STA (15:12)
[2023-02-07] MEDS: SODIUM CHLORIDE 0.9% 1000ML 1,000 ML IV SCH ×2 (15:15→23:32)
[2023-02-07] MEDS ORDERED: GLUCOSE 40% GEL 15 GM TUBE PO PRN (19:19)
[2023-02-07] MEDS ORDERED: GLUCAGON FOR INJ 1 MG VIAL SQ PRN (19:19)
[2023-02-07] MEDS ORDERED: CARBOHYDRATES FOR HYPOGLYCEMIA PO PRN (19:19)
[2023-02-07] MEDS ORDERED: ACETAMINOPHEN 325 MG TAB PO PRN (19:19)
[2023-02-07] MEDS ORDERED: GLUCOSE 10 TAB/TUBE PO PRN (19:19)
[2023-02-07] MEDS ORDERED: DEXTROSE 50% 50 ML SYRINGE IV PRN (19:19)
[2023-02-07] MEDS ORDERED: PHARMACY GLYCEMIC MGMT CONSULT PRN (20:15)
[2023-02-07] MEDS: INSULIN ASPART PER UNIT CHARGE SC SCH ×2 (20:41→21:03)
[2023-02-07] MEDS: PIPERACILLIN/TAZOBACTAM 4.5 GM in DEXTROSE 5% 100 ML IV SCH (20:51)
[2023-02-07] MEDS: carvediloL 6.25 MG TAB PO SCH (20:55)
[2023-02-07] MEDS: AMIODARONE 200 MG TAB PO SCH (21:02)
[2023-02-07] MEDS: LANTUS PER UNIT CHARGE SQ SCH (22:26)
[2023-02-08] MEDS: INSULIN ASPART PER UNIT CHARGE SC SCH ×6 (01:35→22:25)
[2023-02-08] MEDS: PIPERACILLIN/TAZOBACTAM 4.5 GM in DEXTROSE 5% 100 ML IV SCH ×3 (04:35→22:30)
[2023-02-08 05:15] LABS: Prothrombin Time 49.2 Seconds (9.0-12.0)
[2023-02-08 06:04] LABS: A calco-baum cmplx NotReported Not Detected (NotDetected); Bact fragilis Not Reported Not Detected (NotDetected); C auris Not Reported Not Detected (NotDetected); Calbicans Not Reported Not Detected (NotDetected); Candida glabrata Not Reported Not Detected (NotDetected); Candida krusei Not Reported Not Detected (NotDetected); Cneoformans/gatti Not Reported Not Detected (NotDetected); Cparapsilosis Not Reported Not Detected (NotDetected); Ctropicalis Not Reported Not Detected (NotDetected); E cloacae compx Not Reported Not Detected (NotDetected); Efaecalis Not Reported DETECTED (NotDetected); Efaecium Not Reported Not Detected (NotDetected); Enterobacterales Not Reported Not Detected (NotDetected); Escherichia coli Not Reported Not Detected (NotDetected); H influenzae Not Reported Not Detected (NotDetected); K aerogenes Not Reported Not Detected (NotDetected); Koxytoca Not Reported Not Detected (NotDetected); Kpneumoniae grp Not Reported Not Detected (NotDetected); Lmonocyt Not Reported Not Detected (NotDetected); N meningitidis Not Reported Not Detected (NotDetected); P aeruginosa Not Reported Not Detected (NotDetected); Proteus spp Not Reported Not Detected (NotDetected); Salmonella spp Not Reported Not Detected (NotDetected); Smarcescens Not Reported Not Detected (NotDetected); Staph lugdunensis Not Reported Not Detected (NotDetected); Staph spp. Not Reported Not Detected (NotDetected); Staphaureus Not Reported Not Detected (NotDetected); Staphepi Not Reported Not Detected (NotDetected); Stenmaltophilia Not Reported Not Detected (NotDetected); Strep agal(GrpB) Not Reported Not Detected (NotDetected); Strep pneum Not Reported Not Detected (NotDetected); Strep pyog (GrpA) Not Reported Not Detected (NotDetected); Strep spp Not Reported Not Detected (NotDetected); VanAB Resistant Gene VRE Not Detected (NotDetected)
[2023-02-08 06:57] LABS: Enterococcus faecalis DETECTED (NotDetected)
[2023-02-08] MEDS: SODIUM CHLORIDE 0.9% 1000ML 1,000 ML IV SCH ×2 (07:33→14:32)
[2023-02-08 09:25] LABS: Estimated Average Glucose 235 mg/dl; Hemoglobin A1C 9.8 % (4.5-5.6)
--- NOTE | 2023-02-08 10:37 | Pharmacy Report ---
Pharmacy Glycemic Short Note 2 - Date of Service February 08, 2023 - Glycemic Short BSG Results (Last 24 hours): 02/07/23 02/07/23 02/07/23 11:59 14:28 19:44 Glucose 217 H POC Glucose 243 H 245 H 02/08/23 02/08/23 02/08/23 01:07 04:22 07:44 Glucose POC Glucose 341 H* 214 H 149 H OUTPATIENT ANTIDIABETIC REGIMEN: * Detemir 28 units QPM * SSI (Insulin Aspart Carb ratio 1:4 and up to 60 units) A1c 9.8% (02/08/23) ASSESSMENT: * FABIAN is a 67 yr old male with PMH of Diabetes and Diabetic left foot osteomyelitis (with amputation of the left foot toe) who was admitted for supratherapeutic INR. Historically, pt has been managed on NPH per glycemic consult record * BSG yesterday ranged from 217 to 341 mg/dL. Received a total of 46 units of Insulin (of which 28 units was basal) * Anticipating NPO status tomorrow (possible Left metatarsal amputation). Will continue on Lantus PLAN FOR INPATIENT GLYCEMIC CONTROL: * Hold outpatient oral diabetes medications * Basal insulin * Lantus 28 units SQ HS * Bolus insulin * NovoLog per scale ACHS or Q6hrs while NPO * Goal Range: Low 110 mg/dL - High 140 mg/dL * Correction Factor: 25 mg/dL/unit * Nutritional / Prandial insulin per carb ratio of 1 unit per 7 grams CHO consumed
[2023-02-08] MEDS ORDERED: MAGNESIUM SULFATE / D5W 1 GM/100 ML BAG IV ONE (10:54)
[2023-02-08] MEDS: POTASSIUM CHLORIDE CRTAB 20 MEQ TABCR PO SCH ×3 (11:20→22:26)
[2023-02-08] MEDS: carvediloL 6.25 MG TAB PO SCH ×2 (11:20→22:25)
[2023-02-08] MEDS: AMIODARONE 200 MG TAB PO SCH (11:21)
[2023-02-08] MEDS ORDERED: PHYTONADIONE 5 MG TAB PO STA (11:32)
[2023-02-08] MEDS ORDERED: PHYTONADIONE 5 MG in DEXTROSE 5% 50 ML IV ONE (13:00)
[2023-02-08] MEDS: DAPTOmycin 575 MG in SYRINGE 0 ML IV SCH (13:15)
--- NOTE | 2023-02-08 13:32 | Consultation ---
Date of Consultation February 08, 2023 Assessment & Plan (1) Foot osteomyelitis, left: Patient for debridement of left foot with further amputation tomorrow if INR has come down to less than 2. I have discussed the risks options and benefits of the procedure with the patient. The patient understands the risks options and benefits and agrees to the procedure. History of Present Illness Reason for Consultation: Gangrenous left 5th toe amp site Attending Physician: Manuel Patrick MD History of Present Illness Patient is a 67yo male with a right BKA who in early december had a left 5th toe amputation. It has become necrotic with underlying osteo of the 5th metatarsal bone. He was scheduled for surgery tomorrow when pre op he was feeling ill and found to have elevated BS and markedly elevated INR. He was admitted for these problems. INR is coming down. Allergies Allergy/AdvReac Type Severity Reaction Status Date / Time ketoconazole [From Nizoral] AdvReac Unknown see comment Verified 02/07/23 11:52 Home Medications Medication Instructions Recorded Confirmed Type cholecalciferol (vitamin D3) 50 6,000 unit PO QAM ##0 06/17/18 02/07/23 History mcg (2,000 unit) tablet insulin syringe-needle U-100 0.5 #400 ea 01/15/20 02/07/23 Rx mL 29 gauge x 1/2" (BD Insulin Syringe) carvedilol 6.25 mg tablet 6.25 mg PO BID #180 tabs 07/10/22 02/07/23 Rx insulin detemir U-100 100 unit/mL 28 unit (0.28 mL) subcut QPM #1 box 07/14/22 02/07/23 Rx (3 mL) subcutaneous pen (Levemir FlexTouch U-100 Insulin) aspirin 81 mg chewable tablet 81 mg PO QAM 07/20/22 02/07/23 History OneTouch Verio test strips (blood #300 ea 08/31/22 02/07/23 Rx sugar diagnostic) nitroglycerin 0.4 mg sublingual 0.4 mg sublingual UD PRN Chest 08/31/22 02/07/23 Rx tablet Pain #25 tabs insulin aspart U-100 100 unit/mL See Rx Instructions .Route 12/08/22 02/07/23 Rx (3 mL) subcutaneous pen (Novolog .COMPLEX #30 mL FlexPen U-100 Insulin aspart) rosuvastatin 5 mg tablet 5 mg PO QAM 12/18/22 02/07/23 History amiodarone 200 mg tablet 200 mg PO QAM 01/11/23 02/07/23 History bumetanide 1 mg tablet 1 mg PO BID #180 tabs 01/12/23 02/07/23 Rx clindamycin HCl 300 mg capsule 300 mg PO Q6H 02/02/23 02/07/23 History warfarin 5 mg tablet See Rx Instructions .Route .COMPLEX 02/05/23 02/07/23 History Patient History Medical History Aortic valve disease s/p TAVR (2019) CAD (coronary artery disease) follows with Dr. Elliott Carotid artery stenosis Under surveillance by vascular (Dr. Guerrero) Cerebrovascular duplex with 60-69% LICA stenosis (stable from 2019 study per report) Chronic systolic congestive heart failure Dyslipidemia Hypertension Ischemic cardiomyopathy MRSA (methicillin resistant Staphylococcus aureus) left fifth toe- current Myocardial Infarction 2014 Obesity (BMI 30.0-34.9) Osteomyelitis Hx PAD (peripheral artery disease) Paroxysmal atrial fibrillation Proliferative diabetic retinopathy Sleep apnea "Not bad enough for device" per pt Type 1 diabetes mellitus Ulcer of toe of left foot Surgical History H/O gastric bypass History of adenoidectomy History of amputation of lesser toe of right foot History of amputation of toe History of cardiac cath 2017 [place] History of cataract surgery bilat History of tonsillectomy History of tooth extraction S/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 angioplasty (FURNITURE REPAIRER) FURNITURE REPAIRER of anterior tibial artery April 2017 S/P TAVR (transcatheter aortic valve replacement) [facility] [place] > Oct 2019 Status post below knee amputation of right lower extremity 2019 Status post transmetatarsal amputation of right foot Family History Sister Myocardial infarction Denies family history of Ovarian cancer Prostate cancer Breast cancer Lung cancer Colorectal cancer Stroke Social History Smoking Status: Former smoker Smoking End Date: 20 YEARS AGO; Second Hand Exposure: No; Do You Dip or Chew Tobacco: No; Tobacco Cessation Education Requested by Patient: No Hx Alcohol Use: No Hx Substance Use: No Preferred Language: Korean Communication Ability: Effective Visual Impairment: Limited Hearing Ability: Use of Hearing Aid Senior Analyst Developer Required: No Beliefs That Will Affect Care: None marital status: Current Living Situation: Alone current occupational status: disabled How many Children do You have: 0 Other Information That Helps Us Care for You: No Feels Safe at Home: Yes Safety Concerns: Feels Safe At This Time Childhood Exposure to Second-Hand Smoke: No caffeine: Yes Dental Care, Regularly: No Physical Activity Frequency: 1-2 Times per Week Seatbelt Use: never Sunscreen Use: Yes Assistive Devices: Cane, Prosthesis, Wheelchair and Other Review of Systems Review of Systems: All systems reviewed & are unremarkable except as noted in HPI & below Physical Exam Constitutional: WD/WN, vitals as above Respiratory: normal respiratory effort, lungs clear to auscultation Cardiovascular: RRR, no murmur, no edema Gastrointestinal (Abdomen): normal bowel sounds, soft, nontender, no hepatosplenomegaly Skin: necrotic lateral aspect of left foot Neurologic: CN's II-XI intact bilaterally and moves all extremities Psychiatric: Orientation: alert and oriented x 3 Results & Data Vital Signs (Past 12 Hours) Vital Signs Pulse Pulse Resp BP O2 Del Method 02/08/23 10:27 Room Air 02/08/23 10:00 56 L 14 Room Air 02/08/23 09:30 61 15 Room Air 02/08/23 08:30 65 17 Room Air 02/08/23 08:00 57 L 13 Room Air 02/08/23 07:30 55 L 15 02/08/23 07:00 56 L 14 02/08/23 06:30 54 L 16 Room Air 02/08/23 06:00 55 L 15 02/08/23 05:30 55 L 12 02/08/23 05:00 55 L 13 02/08/23 04:00 58 L 14 141/64 H 02/08/23 04:30 56 L 17 02/08/23 04:00 57 L 17 02/08/23 03:30 66 17 02/08/23 03:00 61 15 02/08/23 02:30 59 L 15 02/08/23 02:03 60 14 02/08/23 01:30 64 16
--- NOTE | 2023-02-08 16:59 | Hospitalist Progress Note ---
Date of Service February 08, 2023 Assessment & Plan (1) Foot osteomyelitis, left: Plan: Acute on chronic high risk diabetic L Foot osteomyelitis, complicated by PVD - scheduled for surgical revision 02/09/2023 Dr. Guerrero Continue Zosyn/Dapto. - CT-Foot: 1. Interval partial amputation of the left fifth toe. There is extensive erosive/destructive change at the residual base of the left fifth toe and head of the fifth metatarsal consistent with an osteomyelitis. There is also gas within the medullary cavity of the mid to distal shaft of the left fifth metatarsal consistent with an additional site of infectious change. 2. Nondisplaced subacute fracture at the lateral base of the fifth metatarsal. 3. 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 Type II DM, with neuropathy, chronic and uncontrolled high risk basal bolus insulin, hgb a1c elevated Coagulopathy secondary to coumadin, markedly elevated on presentation, additional vitamin K given 02/08/23 chronic and stable Ischemic cardiomyopathy, history of TAVR, A-fib No history of stents. Continue amnio, aspirin, carvedilol. Rosuvastatin held while on daptomycin. Bumex held for MEGAN Does not appear acutely decompensated at admission Is not on MAMIE inhibitor/Arni due to history of symptomatic hypotension. Multivessel CAD, no history of stents. Aspirin temporarily held preoperatively and in the setting of supratherapeutic MEGAN with ckd 3 Bumex temporarily held A-fib, chronic and stable Rate controlled, continue carvedilol Warfarin coagulopathy, treating to reduce for operative suite DVT prophylaxis: SCDs, heparin deferred in the setting of supratherapeutic INR CODE STATUS: Full code (2) Diabetic foot ulcer: (3) S/P TAVR (transcatheter aortic valve replacement): (4) Carotid artery stenosis: (5) CAD (coronary artery disease): (6) Chronic systolic congestive heart failure: (7) Uncontrolled type 1 diabetes mellitus with diabetic neuropathy, with long- term current use of insulin: (8) Paroxysmal atrial fibrillation: Admission and Anticipated Discharge Date Admission Date: February 07, 2023 Subjective Pt was seen in the ER, large wound to lateral left foot and has right BKA, no other immediate distress Physical Exam Physical Exam: pt is without distress , large wound to lateral left foot Results & Data Results & Data Vital Signs (Past 12 Hours) Vital Signs Temp Pulse Pulse Pulse Resp BP BP 02/08/23 16:05 97.9 F 54 L 18 142/56 H 02/08/23 15:13 97.3 F L 54 L 20 126/75 02/08/23 13:40 55 L 18 138/44 L 02/08/23 10:27 02/08/23 10:00 56 L 14 02/08/23 09:30 61 15 02/08/23 08:30 65 17 02/08/23 08:00 57 L 13 02/08/23 07:30 55 L 15 02/08/23 07:00 56 L 14 02/08/23 06:30 54 L 16 02/08/23 06:00 55 L 15 02/08/23 05:30 55 L 12 02/08/23 05:00 55 L 13 Pulse Ox O2 Del Method 02/08/23 16:05 99 Room Air 02/08/23 15:13 97 Room Air 02/08/23 13:40 96 Room Air 02/08/23 10:27 Room Air 02/08/23 10:00 Room Air 02/08/23 09:30 Room Air 02/08/23 08:30 Room Air 02/08/23 08:00 Room Air 02/08/23 07:30 02/08/23 07:00 02/08/23 06:30 Room Air 02/08/23 06:00 02/08/23 05:30 02/08/23 05:00 Laboratory Results Reviewed INR Reviewed hemoglobin A1c Reviewed C-reactive protein Reviewed lactic acid Reviewed [id number] glucoses PG Care Time/CCT Total # of Minutes Spent Total Time Spent with Patient: Total time spent is greater than 50% in coordination of care (as documented) at patient's floor/unit and/or counseling patient: Coding Level of Care Code 54264 SUB INP/OBS CARE 3/50MIN Diagnoses Foot osteomyelitis, left M86.9 Diabetic foot ulcer E11.621; L97.509 S/P TAVR (transcatheter aortic valve replacement) Z95.2 Carotid artery stenosis I65.29 CAD (coronary artery disease) I25.10 [place] vs. transplanted heart: [place] heart Associated angina: without angina Chronic systolic congestive heart failure I50.22 Uncontrolled type 1 diabetes mellitus with diabetic neuropathy, with long-term current use of insulin E10.40; E10.65 Paroxysmal atrial fibrillation I48.0 (5) CAD (coronary artery disease) [place] vs. transplanted heart: [place] heart Associated angina: without angina
[2023-02-08 17:35] LABS: INR 1.9 (0.9-1.1); Prothrombin Time 19.8 Seconds (9.0-12.0)
[2023-02-08] MEDS ORDERED: Nursing to Pharmacy Communication SCH (18:00)
[2023-02-08] MEDS: LANTUS PER UNIT CHARGE SQ SCH (22:28)
[2023-02-09] MEDS: INSULIN ASPART PER UNIT CHARGE SC SCH ×5 (01:51→20:48)
[2023-02-09] MEDS: SODIUM CHLORIDE 0.9% 1000ML 1,000 ML IV SCH ×3 (01:51→18:29)
[2023-02-09] MEDS ORDERED: INSULIN ASPART PER UNIT CHARGE SC SCH ×3 (03:00→04:00)
[2023-02-09] MEDS: PIPERACILLIN/TAZOBACTAM 4.5 GM in DEXTROSE 5% 100 ML IV SCH ×3 (05:54→20:46)
[2023-02-09 06:36] LABS: Hematocrit (blood only) 34.7 % (42.0-52.0); Hemoglobin 11.4 g/dl (14.0-18.0); Mean Corpuscular Hemoglobin 28.1 pg (25.0-34.0); Mean Corpuscular Hgb Conc 32.9 g/dL (32.0-36.0); Mean Corpuscular Volume 85.5 fL (80.0-100.0); Mean Platelet Volume 11.3 fL (9.4-12.4); Platelet Count 283 K/uL (130-400); RDW Coefficient of Variation 13.4 % (11.5-14.5); RDW Standard Deviation 41.9 fL (36.4-46.3); Red Blood Count 4.06 M/uL (4.70-6.10); White Blood Count 8.32 K/ul (4.8-10.8)
[2023-02-09 07:01] LABS: BUN Creatinine Ratio 12.4 (10-20); Creatinine Clr Calc Pharmacy 99.5 ml/min; Est GFR (African American) 93.2 ml/min; Est GFR (Non-African American) 80.5 ml/min; Magnesium 2.1 mg/dl (1.7-2.4); Potassium 3.6 mmol/L (3.5-5.1)
[2023-02-09 07:18] LABS: INR 1.3 (0.9-1.1); Partial Thromboplastin Ratio 1.6; Partial Thromboplastin Time 43.7 Seconds (21.0-31.0); Prothrombin Time 13.9 Seconds (9.0-12.0)
[2023-02-09] MEDS ORDERED: ONDANSETRON INJ 2 MG/ML 2 ML VIAL IV PRN (07:24)
[2023-02-09] MEDS ORDERED: ePHEDrine sulfate 50 MG/ML AMP IV PRN (07:24)
[2023-02-09] MEDS ORDERED: fentaNYL citrate PF 100 MCG/2 ML VIAL IV PRN (07:24)
[2023-02-09] MEDS ORDERED: ATROPINE SULFATE 0.1 MG/ML 10ML SYR IV PRN (07:24)
--- NOTE | 2023-02-09 07:25 | Anesthesiology Consultation ---
Date of Service February 09, 2023 Assessment & Plan Chart Review Chart Review: Acceptable Risk for Surgery and Patient NOT seen in Pre Admission Testing Consults Requested none ASA ASA4 Proposed Anesthesia Anesthesia Type: General Risk / Benefits Reviewed With: PT / POA / Parent / Guardian, Accepts Plan and Informed Consent Obtained History Surgery Operation Date: 02/09/23 07:30 Proposed Procedures p Left Fifth Metatarsal Amputation and Application of Wound Vac - Sherif Guerrero MD Height/Weight Height: 6 ft 2 in Weight: 114.8 kg Allergies Allergy/AdvReac Type Severity Reaction Status Date / Time ketoconazole [From Nizoral] AdvReac Unknown see comment Verified 02/07/23 11:52 Medications Home Medications Medication Instructions Recorded Confirmed Last Taken cholecalciferol (vitamin D3) 50 6,000 unit PO QAM ##0 06/17/18 02/07/23 02/06/23 mcg (2,000 unit) tablet insulin syringe-needle U-100 0.5 #400 ea 01/15/20 02/07/23 Unknown mL 29 gauge x 1/2" (BD Insulin Syringe) carvedilol 6.25 mg tablet 6.25 mg PO BID #180 tabs 07/10/22 02/07/23 02/06/23 insulin detemir U-100 100 unit/mL 28 unit (0.28 mL) subcut QPM #1 box 07/14/22 02/07/23 02/06/23 (3 mL) subcutaneous pen (Levemir FlexTouch U-100 Insulin) aspirin 81 mg chewable tablet 81 mg PO QAM 07/20/22 02/07/23 02/06/23 OneTouch Verio test strips (blood #300 ea 08/31/22 02/07/23 Unknown sugar diagnostic) nitroglycerin 0.4 mg sublingual 0.4 mg sublingual UD PRN Chest 08/31/22 02/07/23 02/06/23 tablet Pain #25 tabs insulin aspart U-100 100 unit/mL See Rx Instructions .Route 12/08/22 02/07/23 02/06/23 (3 mL) subcutaneous pen (Novolog .COMPLEX #30 mL FlexPen U-100 Insulin aspart) rosuvastatin 5 mg tablet 5 mg PO QAM 12/18/22 02/07/23 02/06/23 amiodarone 200 mg tablet 200 mg PO QAM 01/11/23 02/07/23 02/06/23 bumetanide 1 mg tablet 1 mg PO BID #180 tabs 01/12/23 02/07/23 02/06/23 clindamycin HCl 300 mg capsule 300 mg PO Q6H 02/02/23 02/07/23 02/06/23 warfarin 5 mg tablet See Rx Instructions .Route .COMPLEX 02/05/23 02/07/23 02/06/23 Active Medications Generic Name Dose Route Start Last Admin Trade Name Lance PRN Reason Stop Dose Admin Amiodarone HCl 200 mg 02/07/23 09:00 02/08/23 11:21 Amiodarone 200 Mg Tab PO 03/09/23 08:59 200 mg QAM PHUONG Administration Carvedilol 6.25 mg 02/07/23 21:00 02/08/23 22:25 Carvedilol 6.25 Mg Tab PO 03/09/23 20:59 6.25 mg BID PHUONG Administration Sodium Chloride 1,000 mls @ 125 mls/hr 02/07/23 13:30 02/09/23 01:51 Nss 1000ml IV 03/09/23 13:29 125 mls/hr .Q8H PHUONG Administration Daptomycin 575 mg/ Syringe 11.5 mls @ 5.75 mls/min 02/08/23 13:00 02/08/23 13:15 IV 02/15/23 12:59 5.75 mls/min Q24H PHUONG Administration Protocol Piperacillin Sod/Tazobactam 120 mls @ 30 mls/hr 02/07/23 19:30 02/09/23 05:54 Sod 4.5 gm/ Dextrose IV 02/14/23 19:29 30 mls/hr Q8H PHUONG Administration Protocol Insulin Aspart 0 units 02/09/23 00:00 02/09/23 05:40 Insulin Aspart Per Unit Charge SC 03/11/23 00:00 1 units Q6 PHUONG Administration Insulin Glargine 28 units 02/07/23 21:00 02/08/23 22:28 Lantus Per Unit Charge SQ 03/09/23 20:59 28 units HS PHUONG Administration NPO Date Last Intake of Fluids: 02/08/23 Time Last Intake of Fluids: 23:00 Date Last Intake of Solids: 02/08/23 Time Last Intake of Solids: 23:00 Past Medical History Medical History (Updated 02/09/23 @ 06:00 by Lula Finch RN) Aortic valve disease s/p TAVR (2018) CAD (coronary artery disease) follows with Dr. Elliott Carotid artery stenosis Under surveillance by vascular (Dr. Guerrero) Cerebrovascular duplex with 60-69% LICA stenosis (stable from 2019 study per report) Chronic systolic congestive heart failure Dyslipidemia History of atrial fibrillation History of chronic kidney disease Hypertension Ischemic cardiomyopathy MRSA (methicillin resistant Staphylococcus aureus) left fifth toe- current Myocardial Infarction 2014 Obesity (BMI 30.0-34.9) Osteomyelitis Hx PAD (peripheral artery disease) Paroxysmal atrial fibrillation Proliferative diabetic retinopathy Sleep apnea "Not bad enough for device" per pt Type 1 diabetes mellitus Ulcer of toe of left foot Exercise / Class Metabolic Activity II 4-5 Yardwork/Stairs/Walk up hill Past Family History Family History Sister Myocardial infarction Denies family history of Ovarian cancer Prostate cancer Breast cancer Lung cancer Colorectal cancer Stroke Past Surgical History Surgical History H/O gastric bypass History of adenoidectomy History of amputation of lesser toe of right foot History of amputation of toe History of cardiac cath 2017 [place] History of cataract surgery bilat History of tonsillectomy History of tooth extraction S/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 angioplasty ([employer]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 April 2017 S/P TAVR (transcatheter aortic valve replacement) [facility] [place] > Oct 2019 Status post below knee amputation of right lower extremity 2019 Status post transmetatarsal amputation of right foot Past Anesthesia History No Hx of Anesthesia Complications and No Family Hx of Anesthesia Complications History of PONV No Hx of PONV and No Hx of Motion Sickness Social History Smoking Status: Former smoker tobacco type: cigarettes Hx Alcohol Use: No Alcohol type: beer alcohol intake frequency: holidays/special occasions only Hx Substance Use: No substance use type: does not use Physical Exam Vital Signs Last Vital Signs Temp 36.6 C 02/09/23 06:44 Pulse 62 02/09/23 06:44 Resp 18 02/09/23 06:44 BP 155/54 H 02/09/23 06:44 Pulse Ox 97 02/09/23 06:44 O2 Del Method Room Air 02/09/23 06:44 ENMT Mouth: no dentition abnormality Thyromental Distance: > or= 3.5 Finger Breadths Mallampati Class: II Neck normal visual inspection Respiratory normal respiratory effort Auscultation: lungs clear to auscultation bilaterally Cardiovascular Rate/Rhythm: regular rate and regular rhythm Psychiatric Orientation: alert Testing Laboratory Results 02/09/23 05:45 02/09/23 05:45 PT 13.9 Seconds (9.0-12.0) H 02/09/23 05:45 INR 1.3 (0.9-1.1) H 02/09/23 05:45 APTT 43.7 Seconds (21.0-31.0) H 02/09/23 05:45 Hemoglobin A1c 9.8 % (4.5-5.6) H 02/08/23 04:07 02/07/23 11:17 Aerobic Blood Culture - Preliminary Blood No growth in Aerobic bottle after 24 hours. Anaerobic Blood Culture - Preliminary Gram positive cocci in chains 02/07/23 12:06 Gram Stain - Final Foot,Left Wound Culture - Preliminary Pin-point growth present, reincubating. 02/07/23 11:17 Aerobic Blood Culture - Preliminary Blood Gram positive cocci in chains Anaerobic Blood Culture - Preliminary Gram positive cocci in chains 02/09/23 02/09/23 02/08/23 05:32 04:29 23:58 POC Glucose 154 H 142 H 213 H 02/08/23 20:18 POC Glucose 257 H
--- NOTE | 2023-02-09 07:38 | History & Physical Bridge Note ---
Date of Service February 09, 2023 History & Physical Bridge Note I have examined the patient, reviewed the History & Physical and in the interval since the performance of the History & Physical I have noted the following changes of clinical significance: no changes noted
--- NOTE | 2023-02-09 08:59 | Post Operative Brief Note ---
Immediate Post Op Note v1 Date of Surgery February 09, 2023 Pre & Post Diagnosis Operation Date: 02/09/23 07:30 Pre-Op Diagnosis: Left foot osteomyelitis. Post-Op Diagnosis: Left foot osteomyelitis. I identified the patient and participated in the time-out.: Yes Procedure Operation Date: 02/09/23 07:30 Actual Procedures p Left Fifth Metatarsal Amputation & 4th metatarsal head, debridement of wound(11x4x2), & Application of Wound Vac(Left) - Sherif Guerrero MD Surgeon Sherif Guerrero MD Stock Unloader Ashley,PAC Estimated Blood Loss 20 Findings Consistent with Post-Op Diagnosis Drains Other (wound vac.) Anesthesia Type General Complications none Disposition Accompanied Patient To Recovery: No Disposition: Recovery Room
--- NOTE | 2023-02-09 09:15 | Hospitalist Progress Note ---
Date of Service February 09, 2023 Assessment & Plan (1) Foot osteomyelitis, left: Plan: Acute on chronic high risk diabetic L Foot osteomyelitis, complicated by PVD - scheduled for surgical revision 02/09/2023 Dr. Guerrero Continue Zosyn/Dapto. until cultures may define narrowing of antibiotics - CT-Foot: 1. Interval partial amputation of the left fifth toe. There is extensive erosive/destructive change at the residual base of the left fifth toe and head of the fifth metatarsal consistent with an osteomyelitis. There is also gas within the medullary cavity of the mid to distal shaft of the left fifth metatarsal consistent with an additional site of infectious change. 2. Nondisplaced subacute fracture at the lateral base of the fifth metatarsal. 3. 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 OR 02/09/23 5th met removed to base, 4th met head removed, wound open 11x4x2 cm with wound vac Type II DM, with neuropathy, chronic and uncontrolled high risk basal bolus insulin, hgb a1c elevated Coagulopathy secondary to coumadin, markedly elevated on presentation, additional vitamin K given 02/08/23, INR 1.3 pre op chronic and stable Ischemic cardiomyopathy, history of TAVR, A-fib No history of stents. Continue amnio, aspirin, carvedilol. Rosuvastatin held while on daptomycin. Bumex held for MEGAN Does not appear acutely decompensated at admission Is not on MAMIE inhibitor/Arni due to history of symptomatic hypotension. Multivessel CAD, no history of stents. Aspirin temporarily held preoperatively and in the setting of supratherapeutic MEGAN with ckd 3 Bumex restart 02/10/23 A-fib, chronic and stable Rate controlled, continue carvedilol Warfarin coagulopathy,reversed, may need lovenox and bridge while restarting coumadin, anticipate restart 02/10/23 depending on wound DVT prophylaxis: SCDs, heparin deferred in the setting of supratherapeutic INR CODE STATUS: Full code (2) Diabetic foot ulcer: (3) S/P TAVR (transcatheter aortic valve replacement): (4) Carotid artery stenosis: (5) CAD (coronary artery disease): (6) Chronic systolic congestive heart failure: (7) Uncontrolled type 1 diabetes mellitus with diabetic neuropathy, with long- term current use of insulin: (8) Paroxysmal atrial fibrillation: Admission and Anticipated Discharge Date Admission Date: February 07, 2023 Subjective Pt was seen after surgery, large wound vac is seen on lateral margin of left foot. Physical Exam Physical Exam: pt is in no distress, foot pain is controlled Results & Data Results & Data Vital Signs (Past 12 Hours) Vital Signs Temp Pulse Pulse Pulse Resp BP BP 02/09/23 09:10 96.8 F L 58 L 19 137/63 02/09/23 09:00 96.8 F L 58 L 13 139/67 02/09/23 08:50 96.8 F L 60 14 150/56 H 02/09/23 08:49 96.8 F L 61 12 184/67 H 02/09/23 07:28 58 L 02/09/23 06:44 97.9 F 62 18 155/54 H 02/08/23 22:18 62 02/09/23 05:24 98.2 F 63 20 151/55 H 02/08/23 22:46 98.2 F 59 L 18 136/77 Pulse Ox O2 Del Method O2 Flow Rate 02/09/23 09:10 98 Nasal Cannula 2 02/09/23 09:00 94 Room Air 02/09/23 08:50 100 Oxymask 5 02/09/23 08:49 98 Oxymask 8 02/09/23 07:28 02/09/23 06:44 97 Room Air 02/08/23 22:18 02/09/23 05:24 96 Room Air 02/08/23 22:46 96 Room Air Laboratory Results Reviewed CBC Reviewed PRP PG Care Time/CCT Total # of Minutes Spent Total Time Spent with Patient: Total time spent is greater than 50% in coordination of care (as documented) at patient's floor/unit and/or counseling patient: Coding Level of Care Code 57263 SUB INP/OBS CARE 3/50MIN Diagnoses Foot osteomyelitis, left M86.9 Diabetic foot ulcer E11.621; L97.509 S/P TAVR (transcatheter aortic valve replacement) Z95.2 Carotid artery stenosis I65.29 CAD (coronary artery disease) I25.10 Associated angina: without angina [place] vs. transplanted heart: [place] heart Chronic systolic congestive heart failure I50.22 Uncontrolled type 1 diabetes mellitus with diabetic neuropathy, with long-term current use of insulin E10.40; E10.65 Paroxysmal atrial fibrillation I48.0 (5) CAD (coronary artery disease) Associated angina: without angina [place] vs. transplanted heart: [place]
[2023-02-09] MEDS: carvediloL 6.25 MG TAB PO SCH ×2 (09:58→20:46)
[2023-02-09] MEDS: AMIODARONE 200 MG TAB PO SCH (09:59)
--- NOTE | 2023-02-09 10:53 | Operative Report ---
Post Operative Report Pre & Post Diagnosis Operation Date: 02/09/23 07:30 Pre-Op Diagnosis: Left foot osteomyelitis. Post-Op Diagnosis: Left foot osteomyelitis. I identified the patient and participated in the time-out.: Yes Procedure Operation Date: 02/09/23 07:30 Actual Procedures p Left Fifth Metatarsal Amputation & 4th metatarsal head, debridement of wound,skin, subcutaneous tissue, muscle(11X4X2), & Application of Wound Vac(Left) - Sherif Guerrero MD Surgeon Sherif Guerrero MD Collator WILBUR Ramirez Estimated Blood Loss 20 Findings Consistent with Post-Op Diagnosis Specimens none Anesthesia Type General Complications none Disposition Accompanied Patient To Recovery: No Disposition: Recovery Room Indications This is a 67-year-old gentleman who underwent a left toe amputation of the fifth toe a few weeks prior to this. He is returned to gangrenous changes to the surgical site as well as osteo of the metatarsal of the fifth toe. He was admitted due to an significantly elevated INR and blood sugar. INR is now returned to near normal. Debridement was recommended. I have discussed the risks options and benefits of the procedure with the patient. The patient understands the risks options and benefits and agrees to the procedure. Description of Procedure The patient was taken the operating placed supine position. After general an esthesia was accomplished the left foot was prepped and draped in a sterile manner. Incision was made around the outer margin of the necrotic eschar using sharp dissection. This was totally removed from the amputation site down to the midportion of the foot. The necrotic muscles and subcutaneous tissue were all debrided as well as the tendons using sharp surgical dissection. The remaining metatarsal the fifth bone was removed and amputated at the base. The bone appeared viable at the base of the fifth metatarsal. The fourth metatarsal head was exposed and this was freed up and amputated. After all necrotic tissue was removed the rest wound looked viable with brisk bleeding. After the bleeding was controlled a silver impregnated wound VAC was placed over the wound. The wound measured to be 11 x 4 x 2. Isabel Cope Pac assisted due to lack of resident availability and was necessary for positioning, draping, retraction, wound closure deep layers, subcutaneous tissue, and skin closure and was necessary for assisting with the case. I attest to the content of the Intraoperative Record and any orders documented therein. Any exceptions are noted below.
--- NOTE | 2023-02-09 12:32 | Anesthesiology Progress Note ---
Date of Service February 09, 2023 Anesthesia Post Procedure Vital Signs Vital Signs: Temp Pulse Pulse Pulse Resp BP BP 02/09/23 10:59 36.6 C 52 L 18 135/70 02/09/23 09:25 36.0 C L 58 L 14 133/52 L 02/09/23 09:15 36.0 C L 58 L 13 139/67 02/09/23 09:10 36.0 C L 58 L 19 137/63 02/09/23 09:00 36.0 C L 58 L 13 139/67 02/09/23 08:50 36.0 C L 60 14 150/56 H 02/09/23 08:49 36.0 C L 61 12 184/67 H 02/09/23 07:28 58 L 02/09/23 06:44 36.6 C 62 18 155/54 H 02/08/23 22:18 62 02/09/23 05:24 36.8 C 63 20 151/55 H 02/08/23 22:46 36.8 C 59 L 18 136/77 02/08/23 19:28 36.3 C L 62 18 109/51 L 02/08/23 16:54 55 L 02/08/23 16:05 36.6 C 54 L 18 142/56 H 02/08/23 15:13 36.3 C L 54 L 20 126/75 02/08/23 13:40 55 L 18 138/44 L Pulse Ox O2 Del Method O2 Flow Rate 02/09/23 10:59 96 Room Air 02/09/23 09:25 98 Nasal Cannula 2 02/09/23 09:15 98 Nasal Cannula 2 02/09/23 09:10 98 Nasal Cannula 2 02/09/23 09:00 94 Room Air 02/09/23 08:50 100 Oxymask 5 02/09/23 08:49 98 Oxymask 8 02/09/23 07:28 02/09/23 06:44 97 Room Air 02/08/23 22:18 02/09/23 05:24 96 Room Air 02/08/23 22:46 96 Room Air 02/08/23 19:28 95 Room Air 02/08/23 16:54 02/08/23 16:05 99 Room Air 02/08/23 15:13 97 Room Air 02/08/23 13:40 96 Room Air Pain Intensity Left Foot: Pain Intensity: 3 Transfer of Care Handoff Completed per policy Notes Mental Status: alert / awake / arousable Patient Amnestic to Procedure: Yes Nausea / Vomiting: adequately controlled Pain: adequately controlled Airway Patency, RR, SpO2: stable & adequate BP & HR: stable & adequate Hydration State: stable & adequate Anesthetic Complications: no major complications apparent
[2023-02-09] MEDS: DAPTOmycin 575 MG in SYRINGE 0 ML IV SCH (12:44)
[2023-02-09] MEDS: oxyCODONE/ACETAMINOPHEN 5mg/325mg TAB PO PRN ×2 (14:02→23:32)
--- NOTE | 2023-02-09 14:45 | Pharmacy Report ---
Pharmacy Glycemic Short Note 2 - Date of Service February 09, 2023 - Glycemic Short BSG Results (Last 24 hours): 02/08/23 02/08/23 02/08/23 16:25 16:26 16:28 Glucose POC Glucose 344 H* 230 H 310 H* 02/08/23 02/08/23 02/08/23 16:41 20:18 23:58 Glucose 241 H POC Glucose 257 H 213 H 02/09/23 02/09/23 02/09/23 04:29 05:32 05:45 Glucose 161 H POC Glucose 142 H 154 H 02/09/23 02/09/23 08:54 11:50 Glucose POC Glucose 166 H 197 H OUTPATIENT ANTIDIABETIC REGIMEN: * Detemir 28 units QPM * SSI (Insulin Aspart Carb ratio 1:4 and up to 60 units) A1c 9.8% (02/08/23) ASSESSMENT: 02/09: * Patient received a total of 76 units of insulin yesterday (28 basal, 48 bolus). * BSG's yesterday were [phone] mg/dL. * Patient was made NPO at midnight prior to surgical procedure this AM, diet resumed today at lunch. * Will tighten NovoLog given consistently elevated prandial BSGs. Fasting BSG's have been acceptable in respect to goal range. 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 Historically, pt has been managed on NPH per glycemic consult record * BSG yesterday ranged from 217 to 341 mg/dL. Received a total of 46 units of Insulin (of which 28 units was basal) * Anticipating NPO status tomorrow (possible Left metatarsal amputation). Will continue on Lantus PLAN FOR INPATIENT GLYCEMIC CONTROL: * Hold outpatient oral diabetes medications * Basal insulin * Lantus 28 units SQ HS * Bolus insulin * NovoLog per scale ACHS or Q6hrs while NPO * Goal Range: Low 110 mg/dL - High 140 mg/dL * Correction Factor: 15 mg/dL/unit * Nutritional / Prandial insulin per carb ratio of 1 unit per 4 grams CHO consumed
[2023-02-09] MEDS ORDERED: Nursing to Pharmacy Communication SCH (18:45)
[2023-02-09] MEDS: LANTUS PER UNIT CHARGE SQ SCH (20:47)
[2023-02-10] MEDS: PIPERACILLIN/TAZOBACTAM 4.5 GM in DEXTROSE 5% 100 ML IV SCH ×3 (05:07→20:59)
[2023-02-10 06:59] LABS: Hemoglobin 11.3 g/dl (14.0-18.0); Mean Corpuscular Hemoglobin 27.6 pg (25.0-34.0); Mean Corpuscular Hgb Conc 32.3 g/dL (32.0-36.0); Mean Corpuscular Volume 85.6 fL (80.0-100.0); Mean Platelet Volume 11.3 fL (9.4-12.4); Platelet Count 282 K/uL (130-400); RDW Coefficient of Variation 13.8 % (11.5-14.5); RDW Standard Deviation 42.8 fL (36.4-46.3); Red Blood Count 4.09 M/uL (4.70-6.10); White Blood Count 8.42 K/ul (4.8-10.8)
[2023-02-10 07:19] LABS: BUN Creatinine Ratio 11.5 (10-20); Creatinine Clr Calc Pharmacy 99.9 ml/min; Est GFR (African American) 94.4 ml/min; Est GFR (Non-African American) 81.5 ml/min; Potassium 4.3 mmol/L (3.5-5.1)
[2023-02-10 07:40] LABS: INR 1.1 (0.9-1.1); Prothrombin Time 11.9 Seconds (9.0-12.0)
[2023-02-10] MEDS: LANTUS PER UNIT CHARGE SQ SCH ×2 (08:07→20:59)
[2023-02-10] MEDS: INSULIN ASPART PER UNIT CHARGE SC SCH ×4 (08:07→20:59)
[2023-02-10] MEDS: carvediloL 6.25 MG TAB PO SCH ×2 (08:23→20:08)
[2023-02-10] MEDS: AMIODARONE 200 MG TAB PO SCH (08:23)
[2023-02-10] MEDS: DAPTOmycin 575 MG in SYRINGE 0 ML IV SCH (12:26)
--- NOTE | 2023-02-10 13:30 | Pharmacy Report ---
Pharmacy Glycemic Short Note 2 - Date of Service February 10, 2023 - Glycemic Short BSG Results (Last 24 hours): 02/09/23 02/09/23 02/09/23 16:31 20:37 23:49 Glucose POC Glucose 219 H 230 H 223 H 02/10/23 02/10/23 02/10/23 06:26 07:16 11:23 Glucose 242 H POC Glucose 232 H 265 H OUTPATIENT ANTIDIABETIC REGIMEN: * Detemir 28 units QPM * SSI (Insulin Aspart Carb ratio 1:4 and up to 60 units) A1c 9.8% (02/08/23) ASSESSMENT: 02/10: * Blood sugars remain above goal - tighten CF/CR, add AM basal insulin * Patient remains on IV Zosyn + Daptomycin 02/09: * Patient received a total of 76 units of insulin yesterday (28 basal, 48 bolus). * BSG's yesterday were [phone] mg/dL. * Patient was made NPO at midnight prior to surgical procedure this AM, diet resumed today at lunch. * Will tighten NovoLog given consistently elevated prandial BSGs. Fasting BSG's have been acceptable in respect to goal range. 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 Historically, pt has been managed on NPH per glycemic consult record * BSG yesterday ranged from 217 to 341 mg/dL. Received a total of 46 units of Insulin (of which 28 units was basal) * Anticipating NPO status tomorrow (possible Left metatarsal amputation). Will continue on Lantus PLAN FOR INPATIENT GLYCEMIC CONTROL: * Hold outpatient diabetes medications * Basal insulin * Lantus 20 units SQ QAM * Lantus 28 units SQ HS * Bolus insulin * NovoLog per scale ACHS or Q6hrs while NPO * Goal Range: Low 110 mg/dL - High 140 mg/dL * Correction Factor: 12 mg/dL/unit * Nutritional / Prandial insulin per carb ratio of 1 unit per 3 grams CHO consumed
--- NOTE | 2023-02-10 17:06 | Hospitalist Progress Note ---
Date of Service February 10, 2023 Assessment & Plan (1) Foot osteomyelitis, left: Plan: Mr. Rodriguez is a 67 yo M with acute on chronic high risk diabetic L Foot osteomyelitis, complicated by PVD - imaging on admission showing the following: CT-Foot: 1. Interval partial amputation of the left fifth toe. There is extensive erosive/destructive change at the residual base of the left fifth toe and head of the fifth metatarsal consistent with an osteomyelitis. There is also gas within the medullary cavity of the mid to distal shaft of the left fifth metatarsal consistent with an additional site of infectious change. 2. Nondisplaced subacute fracture at the lateral base of the fifth metatarsal. 3. 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 - s/p surgical revision 02/09/[address] Guerrero. 5th met removed to base, 4th met head removed, wound open 11x4x2 cm with wound vac. Wound vac in place. - Wound culture obtained was superficial and grew skin eda. 2/2 blood cultures growing Enterococcus faecalis. Sensitivity data showing strains are sensitive to ampicillin. According to [facility] Blood Culture Panel, ampicillin is preferred treatment. However recommend pursing ID Now consult -- I did place order and gave intake on telephone -- I was told only urgent consults are responded to over the weekend and routine ones will have to await until Sunday, / Continue Zosyn/Dapto until ID consult can be completed Type II DM, with neuropathy, chronic and uncontrolled high risk basal bolus insulin, hgb a1c elevated to 9.8 on admission. Compliance with insulin dosing should be discussed with him and/or consideration of start oral agents upon discharge (ie SGTL2i vs. GLP) - carb consistent diet - on crestor and ASA - not on mamie/arb despite elevated urine microalbumin done in 11/2022 -- upon review of outpatient documentation, it sounds as though patient has symptomatic hypotension with these agents in the past Coagulopathy secondary to chronic anticoagulation on Coumadin - markedly elevated INR on presentation, additional vitamin K given 02/08/23, INR 1.3 pre op - I see no reason not to resume anticoag today, as wound looks good. Lovenox bridge ordered along with restart to coumadin - check INR in am Chronic and stable Ischemic cardiomyopathy, history of TAVR, A-fib No history of stents. Continue amio, aspirin, carvedilol. Rosuvastatin held while on daptomycin. Bumex held for MEGAN Does not appear acutely decompensated at admission Is not on MAMIE inhibitor/Arni due to history of symptomatic hypotension. Multivessel CAD, no history of stents. Aspirin temporarily held preoperatively and in the setting of supratherapeutic MEGAN with ckd 3 Bumex restart 02/10/23 A-fib, chronic and stable Rate controlled, continue carvedilol - resume antioag (2) Diabetic foot ulcer: (3) S/P TAVR (transcatheter aortic valve replacement): (4) Carotid artery stenosis: (5) CAD (coronary artery disease): (6) Chronic systolic congestive heart failure: (7) Uncontrolled type 1 diabetes mellitus with diabetic neuropathy, with long- term current use of insulin: (8) Paroxysmal atrial fibrillation: Admission and Anticipated Discharge Date Admission Date: February 07, 2023 Subjective No acute event overnight. He is doing well. He has no complaints at this time Review of Systems Review of Systems: All systems reviewed & are unremarkable except as noted in HPI & below Physical Exam Physical Exam: General Appearance: well-developed, well-nourished older adult male in no acute distress HEENT: NC/AT. Sclera anicteric. Cardio: Rhythm is irregularly irregular Extremities: large wound vac is seen on lateral margin of left foot; does not seem to be excessively bleeding Skin: warm, dry, and intact Neuro: AAO x 3. No focal deficits. Psych: Appropriate mood and affect. Results & Data Results & Data Vital Signs (Past 12 Hours) Vital Signs Temp Pulse Pulse Resp BP Pulse Ox O2 Del Method 02/10/23 15:53 36.7 C 53 L 18 160/79 H 97 Room Air 02/10/23 11:16 36.9 C 53 L 18 136/48 L 97 Room Air 02/10/23 08:22 63 02/10/23 08:04 36.6 C 53 L 18 154/55 H 97 Room Air 02/10/23 07:28 Room Air 02/10/23 06:23 54 L PG Care Time/CCT Total # of Minutes Spent Total Time Spent with Patient: Total time spent is greater than 50% in coordination of care (as documented) at patient's floor/unit and/or counseling patient: Coding [place] [address] SUB INP/OBS CARE 2/35MIN Patient Type Established Diagnoses Foot osteomyelitis, left M86.9 Diabetic foot ulcer E11.621; L97.509 S/P TAVR (transcatheter aortic valve replacement) Z95.2 Carotid artery stenosis I65.29 CAD (coronary artery disease) I25.10 [place] vs. transplanted heart: [place] heart Associated angina: without angina Chronic systolic congestive heart failure I50.22 Uncontrolled type 1 diabetes mellitus with diabetic neuropathy, with long-term current use of insulin E10.40; E10.65 Paroxysmal atrial fibrillation I48.0 (5) CAD (coronary artery disease) [place] vs. transplanted heart: [place] heart Associated angina: without angina
[2023-02-10] MEDS: ENOXAPARIN 150 MG/ML SYR SQ SCH (17:26)
[2023-02-10] MEDS: WARFARIN SOD 5 MG TAB PO SCH (17:27)
[2023-02-10] MEDS: oxyCODONE/ACETAMINOPHEN 5mg/325mg TAB PO PRN (19:50)
[2023-02-11] MEDS: PIPERACILLIN/TAZOBACTAM 4.5 GM in DEXTROSE 5% 100 ML IV SCH (06:01)
[2023-02-11 06:06] LABS: Hematocrit (blood only) 32.3 % (42.0-52.0); Hemoglobin 10.6 g/dl (14.0-18.0); Mean Corpuscular Hemoglobin 27.9 pg (25.0-34.0); Mean Corpuscular Hgb Conc 32.8 g/dL (32.0-36.0); Mean Platelet Volume 11.1 fL (9.4-12.4); Platelet Count 287 K/uL (130-400); RDW Coefficient of Variation 13.6 % (11.5-14.5); RDW Standard Deviation 42.4 fL (36.4-46.3); White Blood Count 7.54 K/ul (4.8-10.8)
[2023-02-11 06:31] LABS: BUN Creatinine Ratio 14.4 (10-20); Calcium 7.9 mg/dl (8.6-10.3); Creatinine Clr Calc Pharmacy 106.4 ml/min; Est GFR (African American) 102.1 ml/min; Est GFR (Non-African American) 88.1 ml/min; Potassium 4.3 mmol/L (3.5-5.1)
[2023-02-11 06:56] LABS: INR 1.2 (0.9-1.1); Prothrombin Time 12.6 Seconds (9.0-12.0)
[2023-02-11] MEDS: AMIODARONE 200 MG TAB PO SCH (08:01)
[2023-02-11] MEDS: LANTUS PER UNIT CHARGE SQ SCH ×2 (08:01→22:09)
[2023-02-11] MEDS: INSULIN ASPART PER UNIT CHARGE SC SCH ×4 (08:02→21:59)
[2023-02-11] MEDS: carvediloL 6.25 MG TAB PO SCH ×2 (08:02→21:52)
--- NOTE | 2023-02-11 09:07 | Hospitalist Progress Note ---
Date of Service February 11, 2023 Assessment & Plan (1) Foot osteomyelitis, left: Plan: Mr. Rodriguez is a 67 yo M with acute on chronic high risk diabetic L Foot osteomyelitis, complicated by PVD - imaging on admission showing the following: CT-Foot: 1. Interval partial amputation of the left fifth toe. There is extensive erosive/destructive change at the residual base of the left fifth toe and head of the fifth metatarsal consistent with an osteomyelitis. There is also gas within the medullary cavity of the mid to distal shaft of the left fifth metatarsal consistent with an additional site of infectious change. 2. Nondisplaced subacute fracture at the lateral base of the fifth metatarsal. 3. 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 - s/p surgical revision 02/09/[address] Guerrero. 5th met removed to base, 4th met head removed, wound open 11x4x2 cm with wound vac. Wound vac in place. - Wound culture obtained was superficial and grew skin eda. 2/2 blood cultures growing Enterococcus faecalis. Sensitivity data showing strains are sensitive to ampicillin. According to [facility] Blood Culture Panel, ampicillin is preferred treatment. ID Now consult this week Type II DM, with neuropathy, chronic and uncontrolled high risk basal bolus insulin, hgb a1c elevated to 9.8 on admission. Compliance with insulin dosing should be discussed with him and/or consideration of start oral agents upon discharge (ie SGTL2i vs. GLP) - carb consistent diet - on crestor and ASA - not on mamie/arb despite elevated urine microalbumin done in 11/2022 -- upon review of outpatient documentation, it sounds as though patient has symptomatic hypotension with these agents in the past Coagulopathy secondary to chronic anticoagulation on Coumadin - markedly elevated INR on presentation, additional vitamin K given 02/08/23, INR 1.3 pre op -Lovenox bridge ordered along with restart to coumadin - Chronic and stable Ischemic cardiomyopathy, history of TAVR, A-fib No history of stents. Continue amio, aspirin, carvedilol. Rosuvastatin held while on daptomycin. Bumex held for MEGAN Does not appear acutely decompensated at admission Is not on MAMIE inhibitor/Arni due to history of symptomatic hypotension. Multivessel CAD, no history of stents. Aspirin resumed MEGAN with ckd 3 Bumex restart 02/10/23 A-fib, chronic and stable Rate controlled, continue carvedilol - resume antioag lovenox with coumadin (2) Diabetic foot ulcer: (3) S/P TAVR (transcatheter aortic valve replacement): (4) Carotid artery stenosis: (5) CAD (coronary artery disease): (6) Chronic systolic congestive heart failure: (7) Uncontrolled type 1 diabetes mellitus with diabetic neuropathy, with long- term current use of insulin: (8) Paroxysmal atrial fibrillation: Admission and Anticipated Discharge Date Admission Date: February 07, 2023 Subjective Patient is without complaints difficulty ambulating with a BKA on the right and nonweightbearing on the left. Looking to coordinate outpatient antibiotics with infectious disease this week With his neuropathy pain control is good Physical Exam Physical Exam: Awake alert appropriate. Heart exam is regular lungs are clear wound VAC on left foot Results & Data Results & Data Vital Signs (Past 12 Hours) Vital Signs Temp Pulse Pulse Resp BP Pulse Ox O2 Del Method 02/11/23 07:05 Room Air 02/11/23 06:03 73 02/11/23 02:59 98.1 F 49 L 18 137/83 96 Room Air 02/10/23 23:16 98.2 F 55 L 18 125/42 L 95 Room Air 02/10/23 23:35 48 L Laboratory Results Reviewed CBC Reviewed INR Reviewed PRP PG Care Time/CCT Total # of Minutes Spent Total Time Spent with Patient: Total time spent is greater than 50% in coordination of care (as documented) at patient's floor/unit and/or counseling patient: Coding Level of Care Code 01288 SUB INP/OBS CARE 2/35MIN Diagnoses Foot osteomyelitis, left M86.9 Diabetic foot ulcer E11.621; L97.509 S/P TAVR (transcatheter aortic valve replacement) Z95.2 Carotid artery stenosis I65.29 CAD (coronary artery disease) I25.10 Associated angina: without angina [place] vs. transplanted heart: [place] heart Chronic systolic congestive heart failure I50.22 Uncontrolled type 1 diabetes mellitus with diabetic neuropathy, with long-term current use of insulin E10.40; E10.65 Paroxysmal atrial fibrillation I48.0 (5) CAD (coronary artery disease) Associated angina: without angina [place] vs. transplanted heart: [place] heart
[2023-02-11] MEDS: AMPICILLIN 2,000 MG in SODIUM CHLOR 0.9% AD-VAN 100 ML IV SCH ×4 (09:47→21:52)
--- NOTE | 2023-02-11 11:28 | Pharmacy Report ---
Pharmacy Glycemic Short Note 2 - Date of Service February 11, 2023 - Glycemic Short BSG Results (Last 24 hours): 02/10/23 02/10/23 02/10/23 11:23 16:18 20:27 Glucose POC Glucose 265 H 151 H 174 H 02/11/23 02/11/23 02/11/23 01:05 05:23 07:47 Glucose 133 H POC Glucose 102 H 130 H 02/11/23 11:10 Glucose POC Glucose 164 H OUTPATIENT ANTIDIABETIC REGIMEN: * Detemir 28 units QPM * SSI (Insulin Aspart Carb ratio 1:4 and up to 60 units) A1c 9.8% (02/08/23) ASSESSMENT: 02/11: * Patient received 117 units of insulin yesterday, 48 units basal, blood sugars improved with added AM Lantus and tightened CF/CR, Fasting 130mg/dl today. * Patient refused AM Lantus today, despite long discussion with RN explaining good blood glucose control to prevent complications. * Will continue with CF/CR as yesterday, and leave AM Lantus order on for now, but knowing he may refuse it. 02/10: * Blood sugars remain above goal - tighten CF/CR, add AM basal insulin * Patient remains on IV Zosyn + Daptomycin 02/09: * Patient received a total of 76 units of insulin yesterday (28 basal, 48 bolus). * BSG's yesterday were [phone] mg/dL. * Patient was made NPO at midnight prior to surgical procedure this AM, diet resumed today at lunch. * Will tighten NovoLog given consistently elevated prandial BSGs. Fasting BSG's have been acceptable in respect to goal range. 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 Historically, pt has been managed on NPH per glycemic consult record * BSG yesterday ranged from 217 to 341 mg/dL. Received a total of 46 units of Insulin (of which 28 units was basal) * Anticipating NPO status tomorrow (possible Left metatarsal amputation). Will continue on Lantus PLAN FOR INPATIENT GLYCEMIC CONTROL: * Hold outpatient diabetes medications * Basal insulin * Lantus 20 units SQ QAM (received 02/10 AM, patient refused 02/11 AM) * Lantus 28 units SQ HS * Bolus insulin * NovoLog per scale ACHS or Q6hrs while NPO * Goal Range: Low 110 mg/dL - High 140 mg/dL * Correction Factor: 12 mg/dL/unit * Nutritional / Prandial insulin per carb ratio of 1 unit per 3 grams CHO consumed
--- NOTE | 2023-02-11 14:54 | Pharmacy Report ---
Pharmacy Glycemic Short Note 2 - Date of Service February 11, 2023 - Glycemic Short BSG Results (Last 24 hours): 02/10/23 02/10/23 02/11/23 16:18 20:27 01:05 Glucose POC Glucose 151 H 174 H 102 H 02/11/23 02/11/23 02/11/23 05:23 07:47 11:10 Glucose 133 H POC Glucose 130 H 164 H OUTPATIENT ANTIDIABETIC REGIMEN: * Detemir 28 units QPM * SSI (Insulin Aspart Carb ratio 1:4 and up to 60 units) A1c 9.8% (02/08/23) ASSESSMENT: 02/11: * Patient received 117 units of insulin yesterday, 48 units basal, blood sugars improved with added AM Lantus and tightened CF/CR, Fasting 130mg/dl today. * Patient refused AM Lantus today, despite long discussion with RN explaining good blood glucose control to prevent complications. * Patient's blood sugar went down to 102mg/dl last night, and patient is uncomfortable with this level even though it is euglycemic. He would like to continue once daily Lantus, but would be OK with increasing the dose some, but not to 48 units a day as he does not want his blood sugar near 100mg/dl. * Will continue with CF/CR as yesterday, DC AM Lantus and increase HS dose slightly. * Also adjust goal range up to patient preference to help with compliance. 02/10: * Blood sugars remain above goal - tighten CF/CR, add AM basal insulin * Patient remains on IV Zosyn + Daptomycin 02/09: * Patient received a total of 76 units of insulin yesterday (28 basal, 48 bolus). * BSG's yesterday were [phone] mg/dL. * Patient was made NPO at midnight prior to surgical procedure this AM, diet resumed today at lunch. * Will tighten NovoLog given consistently elevated prandial BSGs. Fasting BSG's have been acceptable in respect to goal range. 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 Historically, pt has been managed on NPH per glycemic consult record * BSG yesterday ranged from 217 to 341 mg/dL. Received a total of 46 units of Insulin (of which 28 units was basal) * Anticipating NPO status tomorrow (possible Left metatarsal amputation). Will continue on Lantus PLAN FOR INPATIENT GLYCEMIC CONTROL: * Hold outpatient diabetes medications * Basal insulin * DC Lantus 20 units SQ QAM * Increase - Lantus 30 units SQ HS * Bolus insulin * NovoLog per scale ACHS or Q6hrs while NPO * Goal Range: Low 130 mg/dL - High 160 mg/dL (per patient preference) * Correction Factor: 12 mg/dL/unit * Nutritional / Prandial insulin per carb ratio of 1 unit per 3 grams CHO consumed
[2023-02-11] MEDS: ENOXAPARIN 150 MG/ML SYR SQ SCH (15:20)
[2023-02-11] MEDS: WARFARIN SOD 5 MG TAB PO SCH (15:21)
[2023-02-12] MEDS: AMPICILLIN 2,000 MG in SODIUM CHLOR 0.9% AD-VAN 100 ML IV SCH ×6 (01:47→21:33)
[2023-02-12 07:54] LABS: Hematocrit (blood only) 32.5 % (42.0-52.0); Hemoglobin 10.4 g/dl (14.0-18.0); Mean Corpuscular Hemoglobin 27.7 pg (25.0-34.0); Mean Corpuscular Volume 86.4 fL (80.0-100.0); Mean Platelet Volume 11.1 fL (9.4-12.4); Platelet Count 279 K/uL (130-400); RDW Standard Deviation 43.8 fL (36.4-46.3); Red Blood Count 3.76 M/uL (4.70-6.10); White Blood Count 7.09 K/ul (4.8-10.8)
--- NOTE | 2023-02-12 07:58 | Hospitalist Progress Note ---
Date of Service February 12, 2023 Assessment & Plan (1) Foot osteomyelitis, left: Plan: Mr. Rodriguez is a 67 yo M with acute on chronic high risk diabetic L Foot osteomyelitis, complicated by PVD acute enterococcal bacteremia, is faecalis, high risk, will get additional blood cultures to clear, check echo, ID evaluation recommends 6 weeks of treatment, consider daptomycin at home for ease of use - imaging on admission showing the following: CT-Foot: 1. Interval partial amputation of the left fifth toe. There is extensive erosive/destructive change at the residual base of the left fifth toe and head of the fifth metatarsal consistent with an osteomyelitis. There is also gas within the medullary cavity of the mid to distal shaft of the left fifth metatarsal consistent with an additional site of infectious change. 2. Nondisplaced subacute fracture at the lateral base of the fifth metatarsal. 3. 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 - s/p surgical revision 02/09/[address] Guerrero. 5th met removed to base, 4th met head removed, wound open 11x4x2 cm with wound vac. Wound vac in place. - Wound culture obtained was superficial and grew skin eda. 2/2 blood cultures growing Enterococcus faecalis. Sensitivity data showing strains are sensitive to ampicillin. According to [facility] Blood Culture Panel, ampicillin is preferred treatment. Transthoracic echocardiogram showed no valvular vegetations 02/12/2023 Type II DM, with neuropathy, chronic and uncontrolled high risk basal bolus insulin, hgb a1c elevated to 9.8 on admission. Compliance with insulin dosing should be discussed with him and/or consideration of start oral agents upon discharge (ie SGTL2i vs. GLP) - carb consistent diet - on crestor and ASA - not on mamie/arb despite elevated urine microalbumin done in 11/2022 -- patient has symptomatic hypotension with these agents in the past Coagulopathy secondary to chronic anticoagulation on Coumadin for afib, high risk now moderate - markedly elevated INR on presentation, additional vitamin K given 02/08/23, INR 1.3 pre op -Lovenox bridge ordered along with restart to coumadin - Chronic and stable Ischemic cardiomyopathy, history of TAVR, A-fib No history of stents. Continue amio, aspirin, carvedilol. Rosuvastatin will need to be held while on daptomycin. Bumex held for MEGAN but restarted Does not appear acutely decompensated at admission Is not on MAMIE inhibitor/Arni due to history of symptomatic hypotension. Multivessel CAD, no history of stents. Aspirin resumed MEGAN with ckd 3, megan resolved Bumex restart 02/10/23 A-fib, chronic and stable Rate controlled, continue carvedilol - resume antioag lovenox with coumadin (2) Diabetic foot ulcer: (3) S/P TAVR (transcatheter aortic valve replacement): (4) Carotid artery stenosis: (5) CAD (coronary artery disease): (6) Chronic systolic congestive heart failure: (7) Uncontrolled type 1 diabetes mellitus with diabetic neuropathy, with long- term current use of insulin: (8) Paroxysmal atrial fibrillation: Admission and Anticipated Discharge Date Admission Date: February 07, 2023 Subjective pt is doing well but difficulty moving with prosthetic leg and NWB on left foot pt is not interested in rehab but may need to consider pain is controlled Results & Data Results & Data Vital Signs (Past 12 Hours) Vital Signs Temp Pulse Pulse Resp BP Pulse Ox O2 Del Method 02/12/23 06:03 58 L 02/12/23 03:39 98.4 F 63 16 122/55 L 95 Room Air 02/11/23 22:18 110 H 02/11/23 22:00 98.4 F 62 18 118/44 L 96 Room Air Laboratory Results Reviewed PT/INR Reviewed PRP Reviewed CBC PG Care Time/CCT Total # of Minutes Spent Total Time Spent with Patient: Total time spent is greater than 50% in coordination of care (as documented) at patient's floor/unit and/or counseling patient: Coding Level of Care Code 57750 SUB INP/OBS CARE 3/50MIN Diagnoses Foot osteomyelitis, left M86.9 Diabetic foot ulcer E11.621; L97.509 S/P TAVR (transcatheter aortic valve replacement) Z95.2 Carotid artery stenosis I65.29 CAD (coronary artery disease) I25.10 Associated angina: without angina [place] vs. transplanted heart: [place] heart Chronic systolic congestive heart failure I50.22 Uncontrolled type 1 diabetes mellitus with diabetic neuropathy, with long-term current use of insulin E10.40; E10.65 Paroxysmal atrial fibrillation I48.0 (5) CAD (coronary artery disease) Associated angina: without angina [place] vs. transplanted heart: [place] heart
[2023-02-12] MEDS: INSULIN ASPART PER UNIT CHARGE SC SCH ×4 (08:04→21:33)
[2023-02-12] MEDS: ASPIRIN 81 MG CHEW PO SCH (08:05)
[2023-02-12] MEDS: carvediloL 6.25 MG TAB PO SCH ×2 (08:05→21:32)
[2023-02-12] MEDS: AMIODARONE 200 MG TAB PO SCH (08:05)
[2023-02-12 08:16] LABS: INR 1.5 (0.9-1.1); Prothrombin Time 15.4 Seconds (9.0-12.0)
--- NOTE | 2023-02-12 10:18 | Infectious Disease Consult ---
Date of Consultation February 12, 2023 Assessment & Plan (1) Ulcer of left fifth toe due to diabetes mellitus: PROBLEM LIST 1. E faecalis bacteremia 2. Left fifth toe and head of the fifth metatarsal osteomyelitis s/p L 5th metatarsal amputation and 4th metatarsal head amputation on 02/09 3. TAVR in 2019 67 yo M with h/o aortic stenosis s/p TAVR in 2019, CAD, A-fib on warfarin, right BKA, and left 5th toe amputation, who was admitted on 02/07 with elevated INR and concerns for sepsis. Patient was on clindamycin on admission with anticipated metatarsal amputation. On admission, noted to have leukocytosis to 13.1 and Cr 1.4, INR elevated. CT of L foot demonstrated interval partial amputation of the left fifth toe describes extensive erosive destructive changes at the residual base of the left fifth toe and head of the fifth metatarsal consistent with osteomyelitis. Additional note is made of gas within the medullary cavity of the mid to distal shaft of the left fifth metatarsal consistent with additional infectious change. He was initiated with IV Zosyn and daptomycin. On 02/09 he underwent L 5th metatarsal amputation and 4th metatarsal head amputation with Dr. Guerrero. ID consulted when 02/07 blood cultures positive for 4/4 Enterococcus faecalis, ampicillin sensitive. Cultures also grew CoNS (not lugdenensis), Blood cultures have been repeat on 02/12. (2) S/P TAVR (transcatheter aortic valve replacement): Plan -Follow up repeat blood cultures from today -2DE in setting of TAVR and bacteremia to ensure no seeding to valve -Discuss with team if residual osteomyelitis, if this is case he will need 6 weeks of antibiotics, If no residual osteomyelitis then duration is pending clearance of cultures and result of echo -C/W ampicillin, no change recommended Thank you for this consult, Will discuss recommendations with Primary team Cecily Ludwig MD Infectious Diseases Consultation Information This patient recommendation is based on a telemedicine consult request which was completed asynchronously through chart review and information provided by the primary physician. The patient was not seen or examined today. The evaluation is consultative in nature and all patient care and treatment decisions can either be accepted or rejected by the patient's primary hospital-based treating physician using their own independent medical judgment for their patient. Copyright Manager contact information: Please call [facility] [phone]. (Phone Number For Physician Use Only) Time Spent Reviewing Chart: 31+ minutes History of Present Illness Reason for Consultation: Bacteremia and osteomyelitis of foot Requesting Physician: Manuel Patrick MD Attending Physician: Manuel Patrick MD History of Present Illness 67 yo M with h/o aortic stenosis s/p TAVR in 2019, CAD, A-fib on warfarin, right BKA, and left 5th toe amputation, who was admitted on 02/07 with elevated INR and concerns for sepsis. Patient was on clindamycin on admission with anticipated metatarsal amputation. On admission, noted to have leukocytosis to 13.1 and Cr 1.4, INR elevated. CT of L foot demonstrated interval partial amputation of the left fifth toe describes extensive erosive destructive changes at the residual base of the left fifth toe and head of the fifth metatarsal consistent with osteomyelitis. Additional note is made of gas within the medullary cavity of the mid to distal shaft of the left fifth metatarsal consistent with additional infectious change. He was initiated with IV Zosyn and daptomycin. On 02/09 he underwent L 5th metatarsal amputation and 4th metatarsal head amputation with Dr. Guerrero. ID consulted when 02/07 blood cultures positive for 02/13 Enterococcus faecalis, ampicillin sensitive. Cultures also grew CoNS (not lugdenensis), Blood cultures have been repeat on 02/12. 3/ ID consulted today regarding ABX management. Allergies Allergy/AdvReac Type Severity Reaction Status Date / Time ketoconazole [From Nizoral] AdvReac Unknown see comment Verified 02/07/23 11:52 Home Medications Medication Instructions Recorded Confirmed Type cholecalciferol (vitamin D3) 50 6,000 unit PO QAM ##0 06/17/18 02/07/23 History mcg (2,000 unit) tablet insulin syringe-needle U-100 0.5 #400 ea 01/15/20 02/07/23 Rx mL 29 gauge x 1/2" (BD Insulin Syringe) carvedilol 6.25 mg tablet 6.25 mg PO BID #180 tabs 07/10/22 02/07/23 Rx insulin detemir U-100 100 unit/mL 28 unit (0.28 mL) subcut QPM #1 box 07/14/22 02/07/23 Rx (3 mL) subcutaneous pen (Levemir FlexTouch U-100 Insulin) aspirin 81 mg chewable tablet 81 mg PO QAM 07/20/22 02/07/23 History OneTouch Verio test strips (blood #300 ea 08/31/22 02/07/23 Rx sugar diagnostic) nitroglycerin 0.4 mg sublingual 0.4 mg sublingual UD PRN Chest 08/31/22 02/07/23 Rx tablet Pain #25 tabs insulin aspart U-100 100 unit/mL See Rx Instructions .Route 12/08/22 02/07/23 Rx (3 mL) subcutaneous pen (Novolog .COMPLEX #30 mL FlexPen U-100 Insulin aspart) rosuvastatin 5 mg tablet 5 mg PO QAM 12/18/22 02/07/23 History amiodarone 200 mg tablet 200 mg PO QAM 01/11/23 02/07/23 History bumetanide 1 mg tablet 1 mg PO BID #180 tabs 01/12/23 02/07/23 Rx clindamycin HCl 300 mg capsule 300 mg PO Q6H 02/02/23 02/07/23 History warfarin 5 mg tablet See Rx Instructions .Route .COMPLEX 02/05/23 02/07/23 History Patient History Medical History Aortic valve disease s/p TAVR (2019) CAD (coronary artery disease) follows with Dr. Elliott Carotid artery stenosis Under surveillance by vascular (Dr. Guerrero) Cerebrovascular duplex with 60-69% LICA stenosis (stable from 2019 study per report) Chronic systolic congestive heart failure Dyslipidemia History of atrial fibrillation History of chronic kidney disease Hypertension Ischemic cardiomyopathy MRSA (methicillin resistant Staphylococcus aureus) left fifth toe- current Myocardial Infarction 2014 Obesity (BMI 30.0-34.9) Osteomyelitis Hx PAD (peripheral artery disease) Paroxysmal atrial fibrillation Proliferative diabetic retinopathy Sleep apnea "Not bad enough for device" per pt Type 1 diabetes mellitus Ulcer of toe of left foot Surgical History H/O gastric bypass History of adenoidectomy History of amputation of lesser toe of right foot History of amputation of toe History of cardiac cath 2018 [place] History of cataract surgery bilat History of tonsillectomy History of tooth extraction S/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 angioplasty (IMPROVEMENT NURSE) IMPROVEMENT NURSE of anterior tibial artery April 2017 S/P TAVR (transcatheter aortic valve [place] [facility] [place] Status post below knee amputation of right lower extremity 2019 Status post transmetatarsal amputation of right foot Family History Sister Myocardial infarction Denies family history of Ovarian cancer Prostate cancer Breast cancer Lung cancer Colorectal cancer Stroke Social History Smoking Status: Former smoker Smoking End Date: 20 YEARS AGO; Second Hand Exposure: No; Do You Dip or Chew Tobacco: No; Tobacco Cessation Education Requested by Patient: No Hx Alcohol Use: No Hx Substance Use: No Preferred Language: Turkish Communication Ability: Effective Visual Impairment: Limited Hearing Ability: Use of Hearing Aid Voice Over Announcer Required: No Beliefs That Will Affect Care: Spiritual marital status: Current Living Situation: Alone current occupational status: disabled How many Children do You have: 0 Other Information That Helps Us Care for You: No Feels Safe at Home: Yes Safety Concerns: Feels Safe At This Time Childhood Exposure to Second-Hand Smoke: No caffeine: Yes Dental Care, Regularly: No Physical Activity Frequency: 1-2 Times per Week Seatbelt Use: never Sunscreen Use: Yes Assistive Devices: Cane, Prosthesis, Wheelchair and Other Results & Data Vital Signs (Past 12 Hours) Vital Signs Temp Pulse Pulse Pulse Resp BP Pulse Ox 02/12/23 07:15 02/12/23 08:05 68 02/12/23 06:03 58 L 02/12/23 03:39 36.9 C 63 16 122/55 L 95 02/11/23 22:18 110 H O2 Del Method 02/12/23 07:15 Room Air 02/12/23 08:05 02/12/23 06:03 02/12/23 03:39 Room Air 02/11/23 22:18 Laboratory Results Laboratory Results - last 48 hr 02/10/23 02/10/23 02/10/23 11:23 16:18 20:27 WBC RBC Hgb Hct MCV MCH MCHC RDW Std Deviation RDW Coeff of Vargas Plt Count MPV PT INR Sodium Potassium Chloride Carbon Dioxide Anion Gap BUN Creatinine Est Cr Clr Drug Dosing Est GFR ( Amer) Est GFR (Non-Af Amer) BUN/Creatinine Ratio Glucose POC Glucose 265 H 151 H 174 H Calcium 02/11/23 02/11/23 02/11/23 01:05 05:23 05:23 WBC 7.54 RBC 3.80 L Hgb 10.6 L Hct 32.3 L MCV 85.0 MCH 27.9 MCHC 32.8 RDW Std Deviation 42.4 RDW Coeff of Vargas 13.6 Plt Count 287 MPV 11.1 PT 12.6 H INR 1.2 H Sodium Potassium Chloride Carbon Dioxide Anion Gap BUN Creatinine Est Cr Clr Drug Dosing Est GFR ( Amer) Est GFR (Non-Af Amer) BUN/Creatinine Ratio Glucose POC Glucose 102 H Calcium 02/11/23 02/11/23 02/11/23 05:23 07:47 11:10 WBC RBC Hgb Hct MCV MCH MCHC RDW Std Deviation RDW Coeff of Vargas Plt Count MPV PT INR Sodium 135 L Potassium 4.3 Chloride 104 Carbon Dioxide 27 Anion Gap 4 BUN 13 Creatinine 0.90 Est Cr Clr Drug Dosing 106.4 Est GFR ( Amer) 102.1 Est GFR (Non-Af Amer) 88.1 BUN/Creatinine Ratio 14.4 Glucose 133 H POC Glucose 130 H 164 H Calcium 7.9 L 02/11/23 02/11/23 02/12/23 16:06 20:31 07:28 WBC 7.09 RBC 3.76 L Hgb 10.4 L Hct 32.5 L MCV 86.4 MCH 27.7 MCHC 32.0 RDW Std Deviation 43.8 RDW Coeff of Vargas 14.0 Plt Count 279 MPV 11.1 PT INR Sodium Potassium Chloride Carbon Dioxide Anion Gap BUN Creatinine Est Cr Clr Drug Dosing Est GFR ( Amer) Est GFR (Non-Af Amer) BUN/Creatinine Ratio Glucose POC Glucose 85 159 H Calcium 02/12/23 02/12/23 07:28 07:38 WBC RBC Hgb Hct MCV MCH MCHC RDW Std Deviation RDW Coeff of Vargas Plt Count MPV PT 15.4 H INR 1.5 H Sodium Potassium Chloride Carbon Dioxide Anion Gap BUN Creatinine Est Cr Clr Drug Dosing Est GFR ( Amer) Est GFR (Non-Af Amer) BUN/Creatinine Ratio Glucose POC Glucose 142 H Calcium Microbiology 02/07/23 11:17 Blood Aerobic Blood Culture - Preliminary No growth in Aerobic bottle after 48 hours. 02/07/23 11:17 Blood Anaerobic Blood Culture - Preliminary Enterococcus faecalis 02/07/23 11:17 Blood Aerobic Blood Culture - Final Enterococcus faecalis Coag neg staph not lugdunensis 02/07/23 11:17 Blood Anaerobic Blood Culture - Final Enterococcus faecalis 02/07/23 12:06 Foot,Left Gram Stain - Final 02/07/23 12:06 Foot,Left Wound Culture - Final Moderate counts mixed probable skin microbiota. No further identifications or sensitivities to follow. Medications Administered Current Inpatient Medications Acetaminophen (Acetaminophen 325 Mg Tab) 650 mg PO Q4H PRN PRN Reason: Pain or Fever Stop: 03/09/23 19:18 Amiodarone HCl (Amiodarone 200 Mg Tab) 200 [facility] Stop: 03/09/23 08:59 Last Admin: 02/12/23 08:05 Dose: 200 mg Aspirin (Aspirin 81 Mg Chew) 81 mg PO QAM [facility] Stop: 03/14/23 08:59 Last Admin: 02/12/23 08:05 Dose: 81 mg Carvedilol (Carvedilol 6.25 Mg Tab) 6.25 mg PO BID [facility] Stop: 03/09/23 20:59 Last Admin: 02/12/23 08:05 Dose: 6.25 mg Dextrose (Dextrose 50% 50 Ml Syringe) 25 - 50 ml IV UD PRN; Protocol PRN Reason: Hypoglycemia Protocol Stop: 03/09/23 19:18 Enoxaparin Sodium (Enoxaparin 150 Mg/Ml Syr) 150 mg SQ Q24H [facility]; Protocol Stop: 03/12/23 15:59 Last Admin: 02/11/23 15:20 Dose: 150 mg Glucagon (Glucagon For Inj 1 Mg Vial) 1 mg SQ UD PRN; Protocol PRN Reason: Hypoglycemia Protocol Stop: 03/09/23 19:18 Glucose (Glucose 40% Gel 15 Gm Tube) 15 - 30 gm PO UD PRN; Protocol PRN Reason: Hypoglycemia Protocol Stop: 03/09/23 19:18 Glucose (Glucose 10 Tab/Tube) 4 - 8 tab PO UD PRN; Protocol PRN Reason: Hypoglycemia Treatment Stop: 03/09/23 19:18 Ampicillin Sodium 2,000 mg/ (Sodium Chloride) 100 mls @ 200 mls/hr IV Q4H [facility] Stop: 03/25/23 09:29 Last Infusion: 02/12/23 09:37 Dose: Infused Insulin Aspart (Insulin Aspart Per Unit Charge) 0 units SC ACHS [facility] Stop: 03/11/23 00:00 Last Admin: 02/12/23 08:04 Dose: 19 units Insulin Glargine (Lantus Per Unit Charge) 30 units SQ HS [facility]; Protocol Stop: 03/13/23 20:59 Last Admin: 02/11/23 22:09 Dose: 30 units Miscellaneous (Carbohydrates For Hypoglycemia ) 15 - 30 gm PO UD PRN PRN Reason: Hypoglycemia Protocol Stop: 03/09/23 19:18 Miscellaneous Information (Pharmacy Glycemic Mgmt Consult) 1 each N/A UD PRN; Protocol PRN Reason: Consult Stop: 03/09/23 20:14 Oxycodone/Acetaminophen (Oxycodone/Acetaminophen 5mg/325mg Tab) 1 tab PO Q4H PRN PRN Reason: Pain Stop: 02/23/23 09:54 Last Admin: 02/10/23 19:50 Dose: 1 tab Warfarin Sodium (Warfarin Sod 2.5 Mg Tab) 2.5 mg PO DAILY@1600 [facility]; Protocol Stop: 03/14/23 15:59
--- NOTE | 2023-02-12 10:33 | Surgery Progress Note ---
Patient was seen, examined, and chart reviewed. Agree with exam and treatment plan of the Vascular PA. Date of Service February 12, 2023 Assessment & Plan (1) Foot osteomyelitis, left: Plan: Pt POD #3 after debridement and 5th MT and 4th MT head amputation. Doing well. Wound healing as expected. No purulence or sign of further infection. Will change vac again WED. Obtain home vac insurance auth. Will need home nursing, possibly PT/OT eval. Will order offloading shoe for ambulation. Admission and Anticipated Discharge Date Admission Date: February 07, 2023 Subjective 67 yo m POD #3 after LLE 5th full metatarsal and 4th metatarsal head amputation and wound debridement, seen in f/u today. Pt states he has occasional sharp pains, but this is controlled with medications. No other new complaints. Review of Systems Review of Systems: All systems reviewed & are unremarkable except as noted in HPI & below Physical Exam Constitutional: WD/WN, vitals as above Cardiovascular: Vessels: + abnormal peripheral pulses and + dorsalis pedis pulses abnormal (nonpalpable LLE, RLE BKA) Extremities: normal capillary refill Skin: + wound (granulation noted in LLE wound bed, no necrosis.) Neurologic: moves all extremities and awake; no focal motor deficits and not confused Psychiatric: Orientation: alert and oriented x 3 Results & Data Vital Signs (Past 12 Hours) Vital Signs Temp Pulse Pulse Pulse Resp BP Pulse Ox 02/12/23 07:15 02/12/23 08:05 68 02/12/23 06:03 58 L 02/12/23 03:39 36.9 C 63 16 122/55 L 95 O2 Del Method 02/12/23 07:15 Room Air 02/12/23 08:05 02/12/23 06:03 02/12/23 03:39 Room Air
[2023-02-12 11:22] LABS: Calcium 7.9 mg/dl (8.6-10.3)
[2023-02-12 11:27] LABS: BUN Creatinine Ratio 13.7 (10-20); Est GFR (African American) 87.7 ml/min; Est GFR (Non-African American) 75.7 ml/min
--- NOTE | 2023-02-12 14:04 | XCELERA ---
[id number] \\[id number]
[2023-02-12] MEDS: ENOXAPARIN 150 MG/ML SYR SQ SCH (16:02)
[2023-02-12] MEDS: WARFARIN SOD 2.5 MG TAB PO SCH (16:02)
[2023-02-12] MEDS: LANTUS PER UNIT CHARGE SQ SCH (21:33)
[2023-02-13] MEDS ORDERED: NITROGLYCERIN SL 0.4 MG/TAB TAB SL STA ×3 (01:50→17:49)
[2023-02-13] MEDS ORDERED: NITROGLYCERIN SL 0.4 MG/TAB TAB ONE (01:58)
[2023-02-13] MEDS: AMPICILLIN 2,000 MG in SODIUM CHLOR 0.9% AD-VAN 100 ML IV SCH ×6 (02:03→22:22)
[2023-02-13 05:09] LABS: INR 1.8 (0.9-1.1); Prothrombin Time 18.2 Seconds (9.0-12.0)
[2023-02-13] MEDS: carvediloL 6.25 MG TAB PO SCH ×3 (08:54→23:14)
[2023-02-13] MEDS: AMIODARONE 200 MG TAB PO SCH (08:54)
[2023-02-13] MEDS: ASPIRIN 81 MG CHEW PO SCH (08:54)
[2023-02-13] MEDS: INSULIN ASPART PER UNIT CHARGE SC SCH ×4 (08:55→22:16)
--- NOTE | 2023-02-13 10:04 | Hospitalist Progress Note ---
Date of Service February 13, 2023 Assessment & Plan (1) Foot osteomyelitis, left: Plan: Mr. Rodriguez is a 67 yo M with acute on chronic high risk diabetic L Foot osteomyelitis, complicated by PVD acute enterococcal bacteremia, Enterococcus faecalis, high risk, blood cultures from 02/12 are negative to date transthoracic echo without valvular vegetations, ID evaluation recommends 6 weeks of treatment, ampicillin is a good choice but consider daptomycin for ease of use - imaging on admission showing the following: CT-Foot: 1. Interval partial amputation of the left fifth toe. There is extensive erosive/destructive change at the residual base of the left fifth toe and head of the fifth metatarsal consistent with an osteomyelitis. There is also gas within the medullary cavity of the mid to distal shaft of the left fifth metatarsal consistent with an additional site of infectious change. 2. Nondisplaced subacute fracture at the lateral base of the fifth metatarsal. 3. 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 - s/p surgical revision 02/09/[address] Guerrero. 5th met removed to base, 4th met head removed, wound open 11x4x2 cm with wound vac. Wound vac in place. - Wound culture obtained was superficial and grew skin eda. 2/2 blood cultures growing Enterococcus faecalis. Sensitivity data showing strains are sensitive to ampicillin. According to [facility] Blood Culture Panel, ampicillin is preferred treatment. Transthoracic echocardiogram showed no valvular vegetations 02/12/2023 Type II DM, with neuropathy, chronic and uncontrolled high risk complicates wound healing basal bolus insulin, hgb a1c elevated to 9.8 on admission. Compliance with insulin dosing should be discussed with him and/or consideration of start oral agents upon discharge (ie [id number] vs. GLP) - carb consistent diet - on crestor and ASA - not on mamie/arb despite elevated urine microalbumin done in 11/2022 -- patient has symptomatic hypotension with these agents in the past Coagulopathy secondary to chronic anticoagulation on Coumadin for afib, high risk now moderate - markedly elevated INR on presentation, additional vitamin K given 02/08/23, INR 1.3 pre op -Lovenox bridge ordered along with restart to coumadin - Chronic and stable Ischemic cardiomyopathy, history of TAVR, A-fib No history of stents. Continue amio, aspirin, carvedilol. Rosuvastatin will need to be held while on daptomycin. Bumex held for MEGAN but restarted Does not appear acutely decompensated at admission Is not on MAMIE inhibitor/Arni due to history of symptomatic hypotension. Multivessel CAD, no history of stents. Aspirin resumed MEGAN with ckd 3, megan resolved Bumex restart 02/10/23 A-fib, chronic and stable Rate controlled, continue carvedilol - resume antioag lovenox with coumadin (2) Diabetic foot ulcer: (3) S/P TAVR (transcatheter aortic valve replacement): (4) Carotid artery stenosis: (5) CAD (coronary artery disease): (6) Chronic systolic congestive heart failure: (7) Uncontrolled type 1 diabetes mellitus with diabetic neuropathy, with long- term current use of insulin: (8) Paroxysmal atrial fibrillation: Admission and Anticipated Discharge Date Admission Date: February 07, 2023 Subjective Encourage has had orthotics provide heel support for him needs to be adjusted Has improvement of erythema on foot with wound VAC Plan to go to rehab at this time Physical Exam Physical Exam: Patient awake alert appropriate no acute distress Card exam is regular Left foot has wound VAC in place erythema is receding Results & Data Results & Data Vital Signs (Past 12 Hours) Vital Signs Temp Pulse Pulse Resp BP Pulse Ox O2 Del Method 02/13/23 09:59 104 H 02/13/23 08:04 97.9 F 106 H 18 142/81 H 96 Room Air 02/13/23 03:30 109 H 18 152/63 H 98 Room Air 02/13/23 01:20 97.9 F 99 H 20 116/78 96 Room Air 02/13/23 00:54 Room Air 02/13/23 00:40 61 02/12/23 23:32 98.4 F 61 20 135/51 L 96 Room Air PG Care Time/CCT Total # of Minutes Spent Total Time Spent with Patient: Total time spent is greater than 50% in coordination of care (as documented) at patient's floor/unit and/or counseling patient: Coding Level of Care Code 39976 SUB INP/OBS CARE 2/35MIN Diagnoses Foot osteomyelitis, left M86.9 Diabetic foot ulcer E11.621; L97.509 S/P TAVR (transcatheter aortic valve replacement) Z95.2 Carotid artery stenosis I65.29 CAD (coronary artery disease) I25.10 Associated angina: without angina [place] vs. transplanted heart: tribal heart Chronic systolic congestive heart failure I50.22 Uncontrolled type 1 diabetes mellitus with diabetic neuropathy, with long-term current use of insulin E10.40; E10.65 Paroxysmal atrial fibrillation I48.0 (5) CAD (coronary artery disease) Associated angina: without angina [place] vs. transplanted heart: tribal heart
--- NOTE | 2023-02-13 10:41 | Electrocardiogram Report ---
Test Reason : Blood Pressure : / mmHG Vent. Rate : 096 BPM Atrial Rate : 468 BPM P-R Int : 000 ms QRS Dur : 110 ms QT Int : 364 ms P-R-T Axes : 000 007 -43 degrees QTc Int : 459 ms Poor data quality, interpretation may be adversely affected Atrial fibrillation Possible Old Inferior infarct (cited on or before 24-SEP-2018) Abnormal ECG When compared with ECG of 13-FEB-2023 01:25, No significant change was found Confirmed by Seferino Rivera ([id number]) on 02/13/2023 10:41:06 AM Referred By: Clarissa Hidalgo Confirmed By:Seferino Rivera
--- NOTE | 2023-02-13 10:41 | Electrocardiogram Report ---
Test Reason : Blood Pressure : / mmHG Vent. Rate : 090 BPM Atrial Rate : 073 BPM P-R Int : 000 ms QRS Dur : 118 ms QT Int : 362 ms P-R-T Axes : 000 001 250 degrees QTc Int : 442 ms Poor data quality, interpretation may be adversely affected Atrial fibrillation Possible Old Inferior infarct (cited on or before 24-SEP-2018) Abnormal ECG When compared with ECG of 07-FEB-2023 11:31, Atrial fibrillation has replaced Sinus rhythm Vent. rate has increased BY 34 BPM Confirmed by Seferino Rivera ([id number]) on 02/13/2023 10:40:49 AM Referred By: Clarissa Hidalgo Confirmed By:Seferino Rivera
--- NOTE | 2023-02-13 13:03 | Infectious Disease Progress Nt ---
Date of Service February 13, 2023 Assessment & Plan (1) Ulcer of left fifth toe due to diabetes mellitus: Plan: PROBLEM LIST 1. E faecalis bacteremia 2. Left fifth toe and head of the fifth metatarsal osteomyelitis s/p L 5th metatarsal amputation and 4th metatarsal head amputation on 02/09 3. TAVR in 2019 67 yo M with h/o aortic stenosis s/p TAVR in 2019, CAD, A-fib on warfarin, right BKA, and left 5th toe amputation, who was admitted on 02/07 with elevated INR and concerns for sepsis. Patient was on clindamycin on admission with anticipated metatarsal amputation. On admission, noted to have leukocytosis to 13.1 and Cr 1.4, INR elevated. CT of L foot demonstrated interval partial amputation of the left fifth toe describes extensive erosive destructive changes at the residual base of the left fifth toe and head of the fifth metatarsal consistent with osteomyelitis. Additional note is made of gas within the medullary cavity of the mid to distal shaft of the left fifth metatarsal consistent with additional infectious change. He was initiated with IV Zosyn and daptomycin. On 02/09 he underwent L 5th metatarsal amputation and 4th metatarsal head amputation with Dr. Guerrero. ID consulted when 02/07 blood cultures positive for 02/13 Enterococcus faecalis, ampicillin sensitive. Cultures also grew CoNS (not lugdenensis), Blood cultures have been repeat on 02/12. 2DE is negative. 02/12 Blood cultures are NG at 24 hours (2) S/P TAVR (transcatheter aortic valve replacement): Plan -Follow up repeat blood cultures from 02/12, if these are negative at 48 hours, then recommend PICC line placement. -Discuss with team if residual osteomyelitis, if this is case he will need 6 weeks of antibiotics (02/09- 03/23/23) with weekly CBCD, CMP, ESR, CRP If no residual osteomyelitis then duration would be 2 weeks from first negative blood culture (02/12-02/26/23) with weekly CBCD, CMP -C/W ampicillin, no change recommended -New versions of ampicillin can be given in continuous infusion, 12 Grams/24 hours which would be easier if patient going home rather than 2G IVq4 hours of ampicillin. Please check with Case managment. Otherwise alternatively we can give Unasyn 12 G/24 hours continuous infusion for ease of dosing D/W Primary team Cecily Ludwig MD Infectious Diseases Admission and Anticipated Discharge Date Admission Date: February 07, 2023 Subjective This patient recommendation is based on a telemedicine consult request which was completed asynchronously through chart review and information provided by the primary physician. The patient was not seen or examined today. The evaluation is consultative in nature and all patient care and treatment decisions can either be accepted or rejected by the patient's primary hospital-based treating physician using their own independent medical judgment for their patient. Time Spent Reviewing Chart: 31+ minutes No acute events overnight 2DE without vegetation Results & Data Vital Signs (Past 12 Hours) Vital Signs Temp Pulse Pulse Resp BP Pulse Ox O2 Del Method 02/13/23 12:00 36.9 C 62 14 148/65 H 96 Room Air 02/13/23 09:59 104 H 02/13/23 08:04 36.6 C 106 H 18 142/81 H 96 Room Air 02/13/23 03:30 109 H 18 152/63 H 98 Room Air 02/13/23 01:20 36.6 C 99 H 20 116/78 96 Room Air Laboratory Results Laboratory Results - last 48 hr 02/11/23 02/11/23 02/12/23 16:06 20:31 07:28 WBC 7.09 RBC 3.76 L Hgb 10.4 L Hct 32.5 L MCV 86.4 MCH 27.7 MCHC 32.0 RDW Std Deviation 43.8 RDW Coeff of Vargas 14.0 Plt Count 279 MPV 11.1 PT INR Sodium Potassium Chloride Carbon Dioxide Anion Gap BUN Creatinine Est Cr Clr Drug Dosing Est GFR ( Amer) Est GFR (Non-Af Amer) BUN/Creatinine Ratio Glucose POC Glucose 85 159 H Calcium Troponin I High Sens 02/12/23 02/12/23 02/12/23 07:28 07:28 07:38 WBC RBC Hgb Hct MCV MCH MCHC RDW Std Deviation RDW Coeff of Vargas Plt Count MPV PT 15.4 H INR 1.5 H Sodium 137 Potassium 4.0 Chloride 105 Carbon Dioxide 24 Anion Gap 8 BUN 14 Creatinine 1.02 Est Cr Clr Drug Dosing 94.0 Est GFR ( Amer) 87.7 Est GFR (Non-Af Amer) 75.7 BUN/Creatinine Ratio 13.7 Glucose 135 H POC Glucose 142 H Calcium 7.9 L Troponin I High Sens 0402/12/23 02/12/23 11:36 16:33 20:37 WBC RBC Hgb Hct MCV MCH MCHC RDW Std Deviation RDW Coeff of Vargas Plt Count MPV PT INR Sodium Potassium Chloride Carbon Dioxide Anion Gap BUN Creatinine Est Cr Clr Drug Dosing Est GFR ( Amer) Est GFR (Non-Af Amer) BUN/Creatinine Ratio Glucose POC Glucose 216 H 172 H 164 H Calcium Troponin I High Sens 02/13/23 02/13/23 02/13/23 03:48 03:48 07:45 WBC RBC Hgb Hct MCV MCH MCHC RDW Std Deviation RDW Coeff of Vargas Plt Count MPV PT 18.2 H INR 1.8 H Sodium Potassium Chloride Carbon Dioxide Anion Gap BUN Creatinine Est Cr Clr Drug Dosing Est GFR ( Amer) Est GFR (Non-Af Amer) BUN/Creatinine Ratio Glucose POC Glucose 152 H Calcium Troponin I High Sens 14.5 02/13/23 11:45 WBC RBC Hgb Hct MCV MCH MCHC RDW Std Deviation RDW Coeff of Vargas Plt Count MPV PT INR Sodium Potassium Chloride Carbon Dioxide Anion Gap BUN Creatinine Est Cr Clr Drug Dosing Est GFR ( Amer) Est GFR (Non-Af Amer) BUN/Creatinine Ratio Glucose POC Glucose 229 H Calcium Troponin I High Sens Microbiology 02/12/23 09:37 Blood Aerobic Blood Culture - Preliminary No growth in Aerobic bottle after 24 hours. 02/12/23 09:37 Blood Anaerobic Blood Culture - Preliminary No growth in Anaerobic bottle after 24 hours. 02/12/23 09:24 Blood Aerobic Blood Culture - Preliminary No growth in Aerobic bottle after 24 hours. 02/12/23 09:24 Blood Anaerobic Blood Culture - Preliminary No growth in Anaerobic bottle after 24 hours. 02/07/23 11:17 Blood Aerobic Blood Culture - Final No growth in Aerobic bottle after 5 days. 02/07/23 11:17 Blood Anaerobic Blood Culture - Preliminary Enterococcus faecalis 02/07/23 11:17 Blood Aerobic Blood Culture - Final Enterococcus faecalis Coag neg staph not lugdunensis 02/07/23 11:17 Blood Anaerobic Blood Culture - Final Enterococcus faecalis 02/07/23 12:06 Foot,Left Gram Stain - Final 02/07/23 12:06 Foot,Left Wound Culture - Final Moderate counts mixed probable skin microbiota. No further identifications or sensitivities to follow. Medications Administered Current Inpatient Medications Acetaminophen (Acetaminophen 325 Mg Tab) 650 mg PO Q4H PRN PRN Reason: Pain or Fever Stop: 03/09/23 19:18 Amiodarone HCl (Amiodarone 200 Mg Tab) 200 mg PO QAM [facility] Stop: 03/09/23 08:59 Last Admin: 02/13/23 08:54 Dose: 200 mg Aspirin (Aspirin 81 Mg Chew) 81 mg PO QAM [facility] Stop: 03/14/23 08:59 Last Admin: 02/13/23 08:54 Dose: 81 mg Carvedilol (Carvedilol 6.25 Mg Tab) 6.25 mg PO BID [facility] Stop: 03/09/23 20:59 Last Admin: 02/13/23 08:54 Dose: 6.25 mg Dextrose (Dextrose 50% 50 Ml Syringe) 25 - 50 ml IV UD PRN; Protocol PRN Reason: Hypoglycemia Protocol Stop: 03/09/23 19:18 Enoxaparin Sodium (Enoxaparin 150 Mg/Ml Syr) 150 mg SQ Q24H [facility]; Protocol Stop: 03/12/23 15:59 Last Admin: 02/12/23 16:02 Dose: 150 mg Glucagon (Glucagon For Inj 1 Mg Vial) 1 mg SQ UD PRN; Protocol PRN Reason: Hypoglycemia Protocol Stop: 03/09/23 19:18 Glucose (Glucose 40% Gel 15 Gm Tube) 15 - 30 gm PO UD PRN; Protocol PRN Reason: Hypoglycemia Protocol Stop: 03/09/23 19:18 Glucose (Glucose 10 Tab/Tube) 4 - 8 tab PO UD PRN; Protocol PRN Reason: Hypoglycemia Treatment Stop: 03/09/23 19:18 Ampicillin Sodium 2,000 mg/ (Sodium Chloride) 100 mls @ 200 mls/hr IV Q4H [facility] Stop: 03/25/23 09:29 Last Admin: 02/13/23 12:47 Dose: 200 mls/hr Insulin Aspart (Insulin Aspart Per Unit Charge) 0 units SC ACHS [facility] Stop: 03/11/23 00:00 Last Admin: 02/13/23 12:15 Dose: 26 units Insulin Glargine (Lantus Per Unit Charge) 35 units SQ HS [facility]; Protocol Stop: 03/15/23 20:59 Miscellaneous (Carbohydrates For Hypoglycemia ) 15 - 30 gm PO UD PRN PRN Reason: Hypoglycemia Protocol Stop: 03/09/23 19:18 Miscellaneous Information (Pharmacy Glycemic Mgmt Consult) 1 each N/A UD PRN; Protocol PRN Reason: Consult Stop: 03/09/23 20:14 Oxycodone/Acetaminophen (Oxycodone/Acetaminophen 5mg/325mg Tab) 1 tab PO Q4H PRN PRN Reason: Pain Stop: 02/23/23 09:54 Last Admin: 02/10/23 19:50 Dose: 1 tab Warfarin Sodium (Warfarin Sod 2.5 Mg Tab) 2.5 mg PO DAILY@1600 [facility]; Protocol Stop: 03/14/23 15:59 Last Admin: 02/12/23 16:02 Dose: 2.5 mg
--- NOTE | 2023-02-13 13:54 | Pharmacy Report ---
Pharmacy Glycemic Short Note 2 - Date of Service February 13, 2023 - Glycemic Short BSG Results (Last 24 hours): 02/12/23 02/12/23 02/13/23 16:33 20:37 07:45 POC Glucose 172 H 164 H 152 H 02/13/23 11:45 POC Glucose 229 H OUTPATIENT ANTIDIABETIC REGIMEN: * Detemir 28 units QPM * SSI (Insulin Aspart Carb ratio 1:4 and up to 60 units) A1c 9.8% (02/08/23) ASSESSMENT: 02/13/23 * Patient's BSGs yesterday were [phone] mg/dL. He received 92 units of insulin (30 units of basal and 62 units of bolus). * Fasting today was 152 mg/dL- increase basal to 35 units. * Yesterday, had loosened CF to prevent overcorrection. Lunch today was elevated at 229 mg/dL so tighten CR. 02/11: * Patient received 117 units of insulin yesterday, 48 units basal, blood sugars improved with added AM Lantus and tightened CF/CR, Fasting 130mg/dl today. * Patient refused AM Lantus today, despite long discussion with RN explaining good blood glucose control to prevent complications. * Patient's blood sugar went down to 102mg/dl last night, and patient is uncomfortable with this level even though it is euglycemic. He would like to continue once daily Lantus, but would be OK with increasing the dose some, but not to 48 units a day as he does not want his blood sugar near 100mg/dl. * Will continue with CF/CR as yesterday, DC AM Lantus and increase HS dose slightly. * Also adjust goal range up to patient preference to help with compliance. 02/10: * Blood sugars remain above goal - tighten CF/CR, add AM basal insulin * Patient remains on IV Zosyn + Daptomycin 02/09: * Patient received a total of 76 units of insulin yesterday (28 basal, 48 bolus). * BSG's yesterday were [phone] mg/dL. * Patient was made NPO at midnight prior to surgical procedure this AM, diet resumed today at lunch. * Will tighten NovoLog given consistently elevated prandial BSGs. Fasting BSG's have been acceptable in respect to goal range. 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 Historically, pt has been managed on NPH per glycemic consult record * BSG yesterday ranged from 217 to 341 mg/dL. Received a total of 46 units of Insulin (of which 28 units was basal) * Anticipating NPO status tomorrow (possible Left metatarsal amputation). Will continue on Lantus PLAN FOR INPATIENT GLYCEMIC CONTROL: * Hold outpatient diabetes medications * Basal insulin * Lantus 35 units SQ HS * Bolus insulin * NovoLog per scale ACHS or Q6hrs while NPO * Goal Range: Low 130 mg/dL - High 160 mg/dL (per patient preference) * Correction Factor: 15 mg/dL/unit * Nutritional / Prandial insulin per carb ratio of 1 unit per 2 grams CHO consumed
[2023-02-13] MEDS: WARFARIN SOD 2.5 MG TAB PO SCH (16:29)
[2023-02-13] MEDS: ENOXAPARIN 150 MG/ML SYR SQ SCH (16:30)
[2023-02-13] MEDS ORDERED: NITROGLYCERIN SL 0.4 MG/TAB TAB SL PRN (17:49)
[2023-02-13] MEDS: LANTUS PER UNIT CHARGE SQ SCH (22:17)
[2023-02-13] MEDS: BUMETANIDE 1 MG TAB PO SCH (22:35)
[2023-02-14] MEDS: AMPICILLIN 2,000 MG in SODIUM CHLOR 0.9% AD-VAN 100 ML IV SCH ×3 (01:41→09:10)
[2023-02-14] MEDS ORDERED: Nursing to Pharmacy Communication SCH (03:15)
[2023-02-14 06:59] LABS: Hematocrit (blood only) 31.1 % (42.0-52.0); Hemoglobin 10.3 g/dl (14.0-18.0); Mean Corpuscular Hemoglobin 27.8 pg (25.0-34.0); Mean Corpuscular Hgb Conc 33.1 g/dL (32.0-36.0); Mean Corpuscular Volume 84.1 fL (80.0-100.0); Platelet Count 264 K/uL (130-400); RDW Coefficient of Variation 14.3 % (11.5-14.5); RDW Standard Deviation 43.4 fL (36.4-46.3); White Blood Count 6.97 K/ul (4.8-10.8)
[2023-02-14 07:26] LABS: BUN Creatinine Ratio 20.6 (10-20); Calcium 7.7 mg/dl (8.6-10.3); Creatinine Clr Calc Pharmacy 95.5 ml/min; Est GFR (African American) 87.7 ml/min; Est GFR (Non-African American) 75.7 ml/min; INR 1.8 (0.9-1.1); Potassium 3.9 mmol/L (3.5-5.1); Prothrombin Time 18.2 Seconds (9.0-12.0)
[2023-02-14 07:33] LABS: Troponin I High Sensitivity 14.6 pg/ml (0-20)
--- NOTE | 2023-02-14 08:48 | Hospitalist Progress Note ---
Date of Service February 14, 2023 Assessment & Plan (1) Foot osteomyelitis, left: Plan: Mr. Rodriguez is a 67 yo M with acute on chronic high risk diabetic L Foot osteomyelitis, complicated by PVD acute enterococcal bacteremia, Enterococcus faecalis, high risk, blood cultures from 02/12 are negative to date transthoracic echo without valvular vegetations, ID evaluation recommends 6 weeks of treatment, ampicillin is a good choice but consider daptomycin for ease of use, we switched to daptomycin as patient feels the ampicillin is correlating with his symptoms usually occurring after he receives it. This was given first dose on 02/14. Ultrasound-guided central catheter was applied - s/p surgical revision 02/09/[address] Guerrero. 5th met removed to base, 4th met head removed, wound open 11x4x2 cm with wound vac. Wound vac in place. - Wound culture obtained was superficial and grew skin eda. 2/2 blood cultures growing Enterococcus faecalis. Type II DM, with neuropathy, chronic and uncontrolled high risk complicates wound healing basal bolus insulin, hgb a1c elevated to 9.8 on admission. Compliance with insulin dosing should be discussed with him and/or consideration of start oral agents upon discharge (ie SGTL2i vs. GLP) - carb consistent diet - on crestor and ASA as secondary risk reduction - not on mamie/arb despite elevated urine microalbumin done in 11/2022 -- patient has symptomatic hypotension with these agents in the past Coagulopathy secondary to chronic anticoagulation on Coumadin for afib, high risk now resoved - markedly elevated INR on presentation, additional vitamin K given 02/08/23, INR 1.3 pre op -Lovenox d/c continue coumadin - Chronic and stable Ischemic cardiomyopathy, history of TAVR, A-fib No history of stents. Continue amio, aspirin, carvedilol. Rosuvastatin will need to be held if on daptomycin. Bumex restarted -not appear acutely decompensated Is not on MAMIE inhibitor/Arni due to history of symptomatic hypotension. Multivessel CAD, no history of stents. Aspirin resumed MEGAN with ckd 3, megan resolved Bumex restarted 02/13/23 A-fib, chronic and stable Rate controlled, continue carvedilol - resume antioag lovenox with coumadin (2) Diabetic foot ulcer: (3) S/P TAVR (transcatheter aortic valve replacement): (4) Carotid artery stenosis: (5) CAD (coronary artery disease): (6) Chronic systolic congestive heart failure: (7) Uncontrolled type 1 diabetes mellitus with diabetic neuropathy, with long- term current use of insulin: (8) Paroxysmal atrial fibrillation: Admission and Anticipated Discharge Date Admission Date: February 07, 2023 Subjective Patient complaining of palpitations is not correlating with tachyarrhythmia or bradycardia arrhythmia on monitor. Has a known history of coronary disease and did have his diuretic stopped which were restarted. Troponin checked this morning is without elevation Physical Exam Physical Exam: Patient awake and oriented card exam is regular without murmurs lungs are clear without wheezes or crackles his extremities is with the right BKA left he has a large wound VAC on the lateral edge of his foot which is with a large open wound Results & Data Results & Data Vital Signs (Past 12 Hours) Vital Signs Temp Pulse Pulse Resp BP Pulse Ox O2 Del Method 02/14/23 07:36 98.1 F 108 H 18 141/64 H 97 Room Air 02/13/23 22:00 60 02/14/23 04:29 Room Air 02/14/23 04:05 97.5 F L 108 H 18 137/79 95 Room Air 02/13/23 23:16 97.7 F 60 18 98 Room Air Diagnostic Findings - imaging on admission showing the following: CT-Foot: 1. Interval partial amputation of the left fifth toe. There is extensive erosive/destructive change at the residual base of the left fifth toe and head of the fifth metatarsal consistent with an osteomyelitis. There is also gas within the medullary cavity of the mid to distal shaft of the left fifth metatarsal consistent with an additional site of infectious change. 2. Nondisplaced subacute fracture at the lateral base of the fifth metatarsal. 3. 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 PG Care Time/CCT Total # of Minutes Spent Total Time Spent with Patient: Total time spent is greater than 50% in coordination of care (as documented) at patient's floor/unit and/or counseling patient: Coding Level of Care Code 25650 SUB INP/OBS CARE 2/35MIN Diagnoses Foot osteomyelitis, left M86.9 Diabetic foot ulcer E11.621; L97.509 S/P TAVR (transcatheter aortic valve replacement) Z95.2 Carotid artery stenosis I65.29 CAD (coronary artery disease) I25.10 Associated angina: without angina [place] vs. transplanted heart: [place] heart Chronic systolic congestive heart failure I50.22 Uncontrolled type 1 diabetes mellitus with diabetic neuropathy, with long-term current use of insulin E10.40; E10.65 Paroxysmal atrial fibrillation I48.0 (5) CAD (coronary artery disease) Associated angina: without angina [place] vs. transplanted heart: [place] heart
[2023-02-14] MEDS: carvediloL 6.25 MG TAB PO SCH (08:57)
[2023-02-14] MEDS: BUMETANIDE 1 MG TAB PO SCH ×2 (08:57→20:30)
[2023-02-14] MEDS: AMIODARONE 200 MG TAB PO SCH (08:59)
[2023-02-14] MEDS: ASPIRIN 81 MG CHEW PO SCH (08:59)
[2023-02-14] MEDS: INSULIN ASPART PER UNIT CHARGE SC SCH ×3 (09:11→17:10)
--- NOTE | 2023-02-14 09:20 | Electrocardiogram Report ---
Test Reason : Blood Pressure : / mmHG Vent. 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
--- NOTE | 2023-02-14 09:59 | Surgery Progress Note ---
Date of Service February 14, 2023 Assessment & Plan (1) Foot osteomyelitis, left: Plan: Pt POD #5 after debridement and 5th MT and 4th MT head amputation. Doing well. Wound healing as expected. No purulence or sign of further infection. Next vac change will be sunday. OK for d/c to rehab from vascular standpoint. Will see in office in 1-2 weeks. Admission and Anticipated Discharge Date Admission Date: February 07, 2023 Subjective 67 yo m s/p LLE 5th MT and 4th MT head amputation and debridement, seen in f/u today. Pt denies any new complaints. Review of Systems Review of Systems: All systems reviewed & are unremarkable except as noted in HPI & below Physical Exam Constitutional: WD/WN, vitals as above Cardiovascular: Vessels: + abnormal peripheral pulses and + dorsalis pedis pulses abnormal (nonpalpable LLE, RLE BKA) Extremities: normal capillary refill Skin: + wound (granulation noted in LLE wound bed, no necrosis.) Neurologic: moves all extremities and awake; no focal motor deficits and not confused Psychiatric: Orientation: alert and oriented x 3 Results & Data Vital Signs (Past 12 Hours) Vital Signs Temp Pulse Pulse Resp BP Pulse Ox O2 Del Method 02/14/23 07:36 36.7 C 108 H 18 141/64 H 97 Room Air 02/13/23 22:00 60 02/14/23 04:29 Room Air 02/14/23 04:05 36.4 C L 108 H 18 137/79 95 Room Air 02/13/23 23:16 36.5 C 60 18 98 Room Air
[2023-02-14] MEDS ORDERED: carvediloL 6.25 MG TAB PO ONE (10:51)
[2023-02-14] MEDS: DAPTOmycin 575 MG in SYRINGE 0 ML IV SCH (12:34)
--- NOTE | 2023-02-14 14:43 | Pharmacy Report ---
Pharmacy Glycemic Short Note 2 - Date of Service February 14, 2023 - Glycemic Short BSG Results (Last 24 hours): 02/13/23 02/13/23 02/14/23 16:55 20:24 01:50 Glucose POC Glucose 163 H 225 H 61 L* 02/14/23 02/14/23 02/14/23 01:54 02:18 06:33 Glucose 155 H POC Glucose 59 L* 76 02/14/23 02/14/23 07:29 11:20 Glucose POC Glucose 159 H 247 H OUTPATIENT ANTIDIABETIC REGIMEN: * Detemir 28 units QPM * SSI (Insulin Aspart Carb ratio 1:4 and up to 60 units) A1c 9.8% (02/08/23) ASSESSMENT: 02/14/23 * Patient's BSGs yesterday were [phone] mg/dL. Patient received 122 units of insulin yesterday (35 units of basal and 87 units of bolus). Patient had a low BSG overnight around 0100. * Discussed blood sugar control with patient over the phone. He felt that the low was due to Novolog (I agree with this assessment). * He is comfortable with continuing Lantus 35 units nightly. * Upped the goal range to 140-180 mg/dL and loosened the correction factor for HS only. 02/13/23 * Patient's BSGs yesterday were [phone] mg/dL. He received 92 units of insulin (30 units of basal and 62 units of bolus). * Fasting today was 152 mg/dL- increase basal to 35 units. * Yesterday, had loosened CF to prevent overcorrection. Lunch today was elevated at 229 mg/dL so tighten CR. 02/11: * Patient received 117 units of insulin yesterday, 48 units basal, blood sugars improved with added AM Lantus and tightened CF/CR, Fasting 130mg/dl today. * Patient refused AM Lantus today, despite long discussion with RN explaining good blood glucose control to prevent complications. * Patient's blood sugar went down to 102mg/dl last night, and patient is uncomfortable with this level even though it is euglycemic. He would like to continue once daily Lantus, but would be OK with increasing the dose some, but not to 48 units a day as he does not want his blood sugar near 100mg/dl. * Will continue with CF/CR as yesterday, DC AM Lantus and increase HS dose slightly. * Also adjust goal range up to patient preference to help with compliance. 02/10: * Blood sugars remain above goal - tighten CF/CR, add AM basal insulin * Patient remains on IV Zosyn + Daptomycin 02/09: * Patient received a total of 76 units of insulin yesterday (28 basal, 48 bolus). * BSG's yesterday were [phone] mg/dL. * Patient was made NPO at midnight prior to surgical procedure this AM, diet resumed today at lunch. * Will tighten NovoLog given consistently elevated prandial BSGs. Fasting BSG's have been acceptable in respect to goal range. 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 Historically, pt has been managed on NPH per glycemic consult record * BSG yesterday ranged from 217 to 341 mg/dL. Received a total of 46 units of In sulin (of which 28 units was basal) * Anticipating NPO status tomorrow (possible Left metatarsal amputation). Will continue on Lantus PLAN FOR INPATIENT GLYCEMIC CONTROL: * Hold outpatient diabetes medications * Basal insulin * Lantus 35 units SQ HS * Bolus insulin * NovoLog per scale ACHS or Q6hrs while NPO * Goal Range: Low 140 mg/dL - High 180 mg/dL (per patient preference) * Correction Factor: 20 mg/dL/unit (30 mg/dL/unit at night) * Nutritional / Prandial insulin per carb ratio of 1 unit per 2.5 grams CHO consumed (1 unit per 5 grams CHO consumed at HS)
[2023-02-14] MEDS ORDERED: WARFARIN SOD 3 MG TAB PO SCH (16:00)
[2023-02-14] MEDS: carvediloL 12.5 MG TAB PO SCH (20:30)
[2023-02-14] MEDS ORDERED: INSULIN ASPART PER UNIT CHARGE SC SCH (21:00)
[2023-02-14] MEDS: LANTUS PER UNIT CHARGE SQ SCH (21:33)
[2023-02-15 08:07] LABS: INR 1.9 (0.9-1.1); Prothrombin Time 19.2 Seconds (9.0-12.0)
[2023-02-15] MEDS: INSULIN ASPART PER UNIT CHARGE SC SCH ×2 (08:14→12:13)
[2023-02-15] MEDS: BUMETANIDE 1 MG TAB PO SCH (08:20)
[2023-02-15] MEDS: carvediloL 12.5 MG TAB PO SCH (08:20)
[2023-02-15] MEDS: AMIODARONE 200 MG TAB PO SCH (08:22)
[2023-02-15] MEDS: ASPIRIN 81 MG CHEW PO SCH (08:22)
[2023-02-15 12:02] VITALS: PULSE 56; TEMP 98.2; O2SAT 97
[2023-02-15] MEDS: DAPTOmycin 575 MG in SYRINGE 0 ML IV SCH (12:12)
--- NOTE | 2023-02-15 14:18 | Pharmacy Report ---
Pharmacy Glycemic Short Note 2 - Date of Service February 15, 2023 - Glycemic Short BSG Results (Last 24 hours): 02/14/23 02/14/23 02/15/23 16:16 20:22 11:30 POC Glucose 172 H 181 H 91 OUTPATIENT ANTIDIABETIC REGIMEN: * Detemir 28 units QPM * SSI (Insulin Aspart Carb ratio 1:4 and up to 60 units) A1c 9.8% (02/08/23) ASSESSMENT: 02/15: * Patient's BSGs yesterday were [phone] mg/dL * Fasting this morning 111 mg/dL- will decrease lantus this AM * Lunch BSG also <100 mg/dL this morning- loosened carb ratio 02/14/23 * Patient's BSGs yesterday were [phone] mg/dL. Patient received 122 units of insulin yesterday (35 units of basal and 87 units of bolus). Patient had a low BSG overnight around 0100. * Discussed blood sugar control with patient over the phone. He felt that the l ow was due to Novolog (I agree with this assessment). * He is comfortable with continuing Lantus 35 units nightly. * Upped the goal range to 140-180 mg/dL and loosened the correction factor for HS only. 02/13/23 * Patient's BSGs yesterday were [phone] mg/dL. He received 92 units of insulin (30 units of basal and 62 units of bolus). * Fasting today was 152 mg/dL- increase basal to 35 units. * Yesterday, had loosened CF to prevent overcorrection. Lunch today was elevated at 229 mg/dL so tighten CR. 02/11: * Patient received 117 units of insulin yesterday, 48 units basal, blood sugars improved with added AM Lantus and tightened CF/CR, Fasting 130mg/dl today. * Patient refused AM Lantus today, despite long discussion with RN explaining good blood glucose control to prevent complications. * Patient's blood sugar went down to 102mg/dl last night, and patient is uncomfortable with this level even though it is euglycemic. He would like to continue once daily Lantus, but would be OK with increasing the dose some, but not to 48 units a day as he does not want his blood sugar near 100mg/dl. * Will continue with CF/CR as yesterday, DC AM Lantus and increase HS dose slightly. * Also adjust goal range up to patient preference to help with compliance. 02/10: * Blood sugars remain above goal - tighten CF/CR, add AM basal insulin * Patient remains on IV Zosyn + Daptomycin 02/09: * Patient received a total of 76 units of insulin yesterday (28 basal, 48 bolus). * BSG's yesterday were [phone] mg/dL. * Patient was made NPO at midnight prior to surgical procedure this AM, diet resumed today at lunch. * Will tighten NovoLog given consistently elevated prandial BSGs. Fasting BSG's have been acceptable in respect to goal range. 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 Historically, pt has been managed on NPH per glycemic consult record * BSG yesterday ranged from 217 to 341 mg/dL. Received a total of 46 units of Insulin (of which 28 units was basal) * Anticipating NPO status tomorrow (possible Left metatarsal amputation). Will continue on Lantus PLAN FOR INPATIENT GLYCEMIC CONTROL: * Hold outpatient diabetes medications * Basal insulin * Lantus 30 units SQ HS * Bolus insulin * NovoLog per scale ACHS or Q6hrs while NPO * Goal Range: Low 140 mg/dL - High 180 mg/dL (per patient preference) * Correction Factor: 20 mg/dL/unit (30 mg/dL/unit at night) * Nutritional / Prandial insulin per carb ratio of 1 unit per 3 grams CHO consumed (1 unit per 5 grams CHO consumed at HS)
--- NOTE | 2023-02-15 14:34 | Discharge Summary ---
Date of Service February 15, 2023 Admission HPI Per Admitting Provider Agustín reports he came for an INR check prior to surgery this Sunday. INR was 'completely off the scale' so Dr. Hidalgo gave him 10mg of Vitamin K and sent him to the ER. Case was discussed with Vascular who recommended medical admission for osteomyelitis and pending surgical intervention on Sunday. Reports he has a history of carotid stenosis following vascular surgery, aortic stenosis s/p TAVR, CAD, A-fib, right BKA, and left toe amputations. He has had worsening ulceration of his left foot for "a long time ". [place] [facility] [place] his last INR 3.6, was greater than 8 at [id number]. He denies any bleeding, was given 10 mg of p.o. vitamin K and referred to the ER. Patient has been on clindamycin, low impact on INR level. No black or bloody bowel movements.No reflux or stomach pain. No vomiting, nausea. no chest pain or chest pressure. no shortness of breath. no fever or chills Blood sugars were high at 240 today but didn't take his insulin today. Blood sugars this morning and this past week have been low 100s, 133 this AM before coming in. No history of blood clots or PE Takes warfarin for Afib Had a valve in his heart replaced, pt is not sure what kind. Reprots had a heart attack due to his aortic valve, 'no heart problems since valve was replaced.' No history of stents. Garber snot know if he had a cath. pt does not think he has any heart fialure, takes bumex for past leg swelling. No orthopnea Did not take amio or cavedilol this morning Per cardiology note review: [place] [facility] [place] 29 mm Watson ALLYSON 3 bovine basedValve. Per their note review echo 05/2022 with EF 35-40%, akinesis of inferolateral, basal to mid inferior, basal inferior septal segments with hypokinesis of mid inferior septum. Cardiac cath performed 07/2018 Mid to distal LM CA 30%. Proximal LAD 40-50%. Mid LAD 40-50%. Large D1 mid 40%. Proximal circumflex 70-80%. Large OM2 ostial 40-50%. Dominant RCA. Proximal RCA 90%. Mid RCA 30-40% followed by 50%. Distal RCA 30-40%. Mid PDA 30%.. Discussed with patient that this was consistent with heart failure as initially during HPI reported he did not have a history of heart failure. He has had dyspnea on exertion going up stairs, when discussed with patient reason he says he endorses this but has not had dyspnea at rest or chest pain feels his symptoms has not changed in the last several weeks. Medical History: Reviewed Medications: Reviewed Surgical History: Reviewed Family history: Reviewed Allergies: Reviewed Social History: Former smoker 25 years ago, rare social alcohol use, no recreational drug use Code Status: Full code Principal Diagnosis left foot osteomyelitis Discharge Exam Patient awake and oriented card exam is regular without murmurs lungs are clear without wheezes or crackles his extremities is with the right BKA left he has a large wound VAC on the lateral edge of his foot which is with a large open wound Discharge Data Allergies Allergy/AdvReac Type Severity Reaction Status Date / Time ketoconazole [From Nizoral] AdvReac Unknown see comment Verified 02/07/23 11:52 Consultations 02/07/23 13:29 ED Decision to Admit Stat 02/07/23 19:19 Consult Vascular Surgery Routine 02/10/23 13:39 Consult Infectious Diseases Routine 02/12/23 08:22 Consult Infectious Diseases Routine Procedures Performed Operation Date: 02/09/23 07:30 Actual Procedures p Left Fifth Metatarsal Amputation & 4th metatarsal head, debridement of wound, & Application of Wound Vac(Left) - Sherif Guerrero MD Ordered Studies 02/07/23 11:47 CT foot LT wo con Stat 02/14/23 17:04 US guide vascular access Routine Hospital Course (1) Foot osteomyelitis, left: Mr. Rodriguez is a 67 yo M with acute on chronic high risk diabetic L Foot osteomyelitis, complicated by PVD acute enterococcal bacteremia, Enterococcus faecalis, high risk, blood cultures from 02/12 are negative to date transthoracic echo without valvular vegetations, ID evaluation recommends 6 weeks of treatment, ampicillin is a good choice but consider daptomycin for ease of use, we switched to daptomycin as patient feels the ampicillin is correlating with his symptoms usually occurring after he receives it. This was given first dose on 02/14. Ultrasound-guided central catheter was applied - s/p surgical revision 02/09/[address] Guerrero. 5th met removed to base, 4th met head removed, wound open 11x4x2 cm with wound vac. Wound vac in place. - Wound culture obtained was superficial and grew skin eda. 2/2 blood cultures growing Enterococcus faecalis. Patient will be discharged with followup as noted below. Type II DM, with neuropathy, chronic and uncontrolled high risk complicates wound healing basal bolus insulin, hgb a1c elevated to 9.8 on admission. Compliance with insulin dosing should be discussed with him and/or consideration of start oral agents upon discharge (ie SGTL2i vs. GLP) - carb consistent diet - on crestor and ASA as secondary risk reduction - not on mamie/arb despite elevated urine microalbumin done in 11/2022 - patient has symptomatic hypotension with these agents in the past Coagulopathy secondary to chronic anticoagulation on Coumadin for afib, high risk now resoved - markedly elevated INR on presentation, additional vitamin K given 02/08/23, INR 1.3 pre op -Lovenox d/c continue coumadin Chronic and stable Ischemic cardiomyopathy, history of TAVR, A-fib No history of stents. Continue amio, aspirin, carvedilol. Rosuvastatin will need to be held if on daptomycin. Bumex restarted -not appear acutely decompensated Is not on MAMIE inhibitor/Arni due to history of symptomatic hypotension. Multivessel CAD, no history of stents. Aspirin resumed MEGAN with ckd 3, megan resolved Bumex restarted 02/13/23 A-fib, chronic and stable Rate controlled, continue carvedilol - resume antioag (2) Diabetic foot ulcer: (3) S/P TAVR (transcatheter aortic valve replacement): (4) Carotid artery stenosis: (5) CAD (coronary artery disease): (6) Chronic systolic congestive heart failure: (7) Uncontrolled type 1 diabetes mellitus with diabetic neuropathy, with long- term current use of insulin: (8) Paroxysmal atrial fibrillation: Total Time Total Time Spent Total Time Spent (In Minutes): 32 Discharge Plan Discharge Items Patient Disposition: Transfer Inpatient Rehab Fac Reason For Visit: L OSTEO. Discharge Diagnosis: Left osteomyelitis Activity: Resume your previous activity Non-emergency contact: Primary Care Provider Call non-emergency contact if: you have any medication questions Follow-up/Referrals: Suze Addison MD [Primary Care Provider] - 02/22/23 11:00 am Diet: Carb Consistent or DM2 and Heart Healthy Addtl Attending Provider Instructions: Continue Daptomycin daily at noon 575 mg IV check weekly CBCD, CMP, ESR, CRP, CK Off crestor while on daptomycin recommend followup with PCP in 2 weeks Vascular surgeon: Dr. Guerrero will get in touch. Pending Studies at Discharge: No Stand-Alone Forms: [facility] Skilled Items Patient informed of condition?: Yes DNR: No Discharge Level of Care: Acute rehab Communicable Disease: No Discharge Prognosis: Stable Lines: US Guided Peripheral IV Urinary Catheter: No Medications and DC Order Prescriptions: New acetaminophen 325 mg Tablet 650 mg PO Q4H PRNQty: 0 0RF carvedilol 12.5 mg Tablet 12.5 mg PO BID Qty: 60 0RF warfarin 3 mg Tablet 3 mg PO DAILY@1600 Qty: 30 0RF daptomycin 500 mg recon soln 575 mg IV .noon Qty: 11 0RF Rx Instructions: administer over 30 mins (02/12-02/26/23) Continued aspirin 81 mg tablet,chewable 81 mg PO QAM cholecalciferol (vitamin D3) 2,000 unit Tablet 6,000 unit PO QAM Qty: 0 (DME) insulin syringe-needle U-100 [BD Insulin Syringe] 0.5 mL 29 gauge x 1/2" syringe See Rx Instructions .ROUTE .MEDSUPPLY Qty: 400 3RF Rx Instructions: use 4 x daily Levemir FlexTouch U-100 Insuln 100 unit/mL (3 mL) insulin pen 28 unit subcut QPM Qty: 1 5RF (DME) OneTouch Verio test strips Strip See Dose Instructions .ROUTE .MEDSUPPLY Qty: 300 3RF Dose Instruction: As directed Rx Instructions: Test 3 times daily nitroglycerin 0.4 mg tablet, sublingual 0.4 mg Sublingual UD PRN (Reason: Chest Pain) Qty: 25 3RF Rx Instructions: NEEDED FOR CHEST PAIN: ONE TABLET UNDER THE TONGUE EVERY 5 MINUTES UP TO 3 DOSES insulin aspart U-100 [Novolog FlexPen U-100 Insulin] 100 unit/mL (3 mL) insulin pen See Rx Instructions .ROUTE .COMPLEX Qty: 30 5RF Rx Instructions: TAKES TIDM--SLIDING SCALE. Injecting 1 unit per 4 carbs up to 60 units a day; bumetanide 1 mg tablet 1 mg PO BID Qty: 180 3RF amiodarone 200 mg tablet 200 mg PO QAM Discontinued warfarin 5 mg tablet See Rx Instructions .ROUTE .COMPLEX Rx Instructions: 5mg q Sunday, 2.5mg x 6 days per [facility] orally use as directed; carvedilol 6.25 mg tablet 6.25 mg PO BID Qty: 180 3RF rosuvastatin 5 mg tablet 5 mg PO QAM clindamycin HCl 300 mg capsule 300 mg PO Q6H Rx Instructions: STARTED 02/01/23 FOR 14 DAYS. Discharge Orders: Discharge Order (Routine); Ordered 02/15/23 Ordered By: Kishan Bonilla Admission Data Admit Date/Time: 02/07/23 15:06 Attending Provider: Kishan Bonilla Admit Provider: Eder Fortune Primary Care Provider: Suze Addison Other Providers: Sherif Guerrero ; Cecily Ludwig ; [facility] Coding Level of Care Code 54710 INP/OBS DISCH >30 MIN Diagnoses Foot osteomyelitis, left M86.9 Diabetic foot ulcer E11.621; L97.509 S/P TAVR (transcatheter aortic valve replacement) Z95.2 Carotid artery stenosis I65.29 CAD (coronary artery disease) I25.10 Associated angina: without angina Solomon vs. transplanted heart: makah heart Chronic systolic congestive heart failure I50.22 Uncontrolled type 1 diabetes mellitus with diabetic neuropathy, with long-term current use of insulin E10.40; E10.65 Paroxysmal atrial fibrillation I48.0
[2023-02-15 15:14] VITALS: BP 136/77
[2023-02-15] MEDS ORDERED: LANTUS PER UNIT CHARGE SQ SCH (21:00)
--- NOTE | 2023-02-21 09:34 | Coding Query ---
CODING QUERY To promote full compliance with coding requirements relating to patient care, provider participation is requested in all cases of gun repair clerk uncertainty. Please assist us with the question(s) below: Coding Question(s): There is conflicting documentation through the record regarding the type of Diabetes with Diabetes type 1 and Diabetes type 2 documented. Please clarify below, in your clinical opinion, the type of Diabetes: ( ) Diabetes, Type 1 ( xx) Diabetes, Type 2 ( ) Other: Please Specify Physician's Response(s): Thank you Linnette Grande Principal Diagnosis: "that condition established after study, to be chiefly responsible for occasioning the admission of the patient to the hospital for care." Co-Existing Principal Diagnosis: "when two or more diagnoses equally meet the criteria for principal diagnosis as determined by the circumstances of admission, diagnostic work up, and/or therapy provided, and the Alphabetic Index, Tabular List, or another coding guideline does not provide sequencing direction, any one of the diagnoses may be sequenced first." "When the physician has documented what appears to be a current diagnosis in the body of the record, but has not included the diagnosis in the final diagnostic statement, the physician should be asked whether the diagnosis should be added." ([facility] 2 QTR90. p3-4) MT
--- NOTE | 2023-02-21 09:50 | Coding Query ---
CODING QUERY To promote full compliance with coding requirements relating to patient care, provider participation is requested in all cases of systems navigator uncertainty. Please assist us with the question(s) below: Coding Question(s): The ER documents, "referred from his coagulation clinic where there was concern for systemic infection/sepsis in the setting of his chronic diabetic foot infection for which he is scheduled for metatarsal amputation this Sunday with his surgeon, Dr. Guerrero, after being seen on 02/01 in the clinic and started on clindamycin", and the 02/12 Infectious Disease Consultation documents, "67 yo M with h/o aortic stenosis s/p TAVR in 2019, CAD, A-fib on warfarin, right BKA, and left 5th toe amputation, who was admitted on 02/07 with elevated INR and concerns for sepsis. Patient was on clindamycin on admission with anticipated metatarsal amputation", and also documents, "1. E faecalis bacteremia", and Hospitalist Progress Note 02/12 to 02/14 and Discharge Summary document, "acute enterococcal bacteremia, is faecalis", and/or, "acute enterococcal bacteremia, Enterococcus faecalis, high risk". It is not clear if Sepsis was ruled-out and there is only bacteremia. Please specify below, in your clinical opinion: ( xx ) Sepsis is Ruled-Out and there is Acute Enterococcal Bacteremia. Please specify further the most likely source: ( xx) most likely source is Left Foot Osteomyelitis ( ) most likely source is Other: Please Specify ( ) Unknown source ( ) Sepsis is still possible and Not ruled-out. Please specify further the most likely source: ( ) most likely source is Left Foot Osteomyelitis ( ) most likely source is Other: Please Specify ( ) Unknown source ( ) Other: Please Specify Physician's Response(s): Thank you Linnette Grande Principal Diagnosis: "that condition established after study, to be chiefly responsible for occasioning the admission of the patient to the hospital for care." Co-Existing Principal Diagnosis: "when two or more diagnoses equally meet the criteria for principal diagnosis as determined by the circumstances of admission, diagnostic work up, and/or therapy provided, and the Alphabetic Index, Tabular List, or another coding guideline does not provide sequencing direction, any one of the diagnoses may be sequenced first." "When the physician has documented what appears to be a current diagnosis in the body of the record, but has not included the diagnosis in the final diagnostic statement, the physician should be asked whether the diagnosis should be added." (Source Coding [facility] 2 QTR90. p3-4) MT
== END 2023-02-15 16:00 | DRG 617 ==
LOC: ED 10:55 → EDINP 15:06 → SUATTDRO 15:06 → 2W 19:19

== ENCOUNTER 2023-06-05 17:03 | Inpatient (IN) ==
--- NOTE | 2023-06-05 17:54 | Emergency Department Note ---
Impression & Plan Foot osteomyelitis, left, Type 2 diabetes mellitus with diabetic neuropathy, PAD (peripheral artery disease) ED Provider Note Provider: Ethan Brink MD DATE OF SERVICE: 06/05/2023 CHIEF COMPLAINT: Left foot infection HISTORY OF PRESENT ILLNESS: Patient is a 67-year-old gentleman history of diabetes, CAD, TAVR, CHF, PAD, hypertension, and prior left foot osteomyelitis currently maintained on warfarin presenting today concern for an infection of the left part of his foot. Was seen here in January and February that she required surgical intervention and resection of osteomyelitis of the bones of the left foot. Was on daptomycin at that time for enteric coccus and had a transient episode of bacteremia. Home health has been visiting and over the past 5 days concerned about increasing redness and wound size. Patient held off on coming as he saw vascular surgery today. Saw by limb in urgent care and referred here for concern for deeper infection. Patient reports that again Dr. Felicianoi vascular surgery to prior resection but he does not do this far up the foot and they are concerned he may have a deeper infection that require surgical intervention. Patient states occasional intermittent fleeting pain in the left foot but has fairly bad neuropathy. Denies any new trauma or falls. Denies fever. Vascular office concerned over a small blackened area concerned that gangrene may be developing. Patient states that it was healing well and again in just over the last week or 2 things worsen. PAST MEDICAL HISTORY: As noted above and prior right BKA at [facility] in November 2019 MEDICATIONS: Reviewed home medications includes warfarin SOCIAL HISTORY: Lives in apartment without reported smoking PHYSICAL EXAM: GENERAL: alert and oriented in no acute distress on stretcher Head: normocephalic and atraumatic EYES: No injection, discharge or icterus. NECK: Trachea midline. ENT: Mucous membranes pink and moist. LUNGS: Airway patent. No retractions or tachypnea HEART: Regular rate and rhythm. ABDOMEN: Soft and non-tender, without guarding or rebound. SKIN: Acyanotic, warm, dry, without rashes EXTREMITIES: Right BKA in place with prosthetic at this time. The left lower extremity with a bit of dry scaly skin without significant edema. There is surrounding area of erythema over the lateral left foot with prior area of metatarsal resection wound noted. Appears approximately 1 cm by approximately 14 cm size wound with some erythema. There is trace discharge. Small less than centimeter blackened area towards the posterior aspect here. No crepitus. Does not extend significantly around the foot or towards the ankle at this time. NEUROLOGICAL: No aphasia or slurred speech. No facial droop. Follows command. Patient's laboratory studies and imaging reviewed. Differential includes Cellulitis, abscess, MRSA infection, DVT, necrotizing fasciitis, dermatitis, drug eruption, allergic reaction, as well as other pathologies. IMPRESSION/MEDICAL DECISION MAKING: Patient with history of prevascular disease as well as diabetes and osteomyelitis requiring prior surgery on his left foot. Wound now appears infected. Afebrile. Denies systemic symptoms. Basic blood work sent. Seen in vascular office as he had prior surgery with them and referred here. Limit self does not seem that swollen or erythematous and I doubt DVT. While has PAD doubt acute vascular ischemia. Concern for cellulitis versus recurrent osteomyelitis. Blood work here without leukocytosis and stable mild anemia. Patient is on warfarin. Lactate not elevated and he does not appear septic. ESR and CRP sent to look for inflammatory change as well as x-ray of the left foot to look for bony osteomyelitis changes that may be present on this. X-ray report is concerning for some suspicious findings for osteomyelitis at the base of the fourth metatarsal. Reviewed prior microbiology and will cover with daptomycin and Zosyn given prior microbiology notes. Procalcitonin is somewhat elevated and CRP is elevated. Again seems consistent with osteomyelitis. Does not appear grossly septic however and I doubt there is necrotizing fasciitis. Discussed with the patient and hospitalist team for further care here. DIAGNOSIS: Diabetic left foot infection, osteomyelitis of the foot DISPOSITION: Hospitalist will evaluate Patient was agreeable with this plan. Past Med/Surg History Medical History Aortic valve disease s/p TAVR (2019) CAD (coronary artery disease) follows with Dr. Elliott Carotid artery stenosis Under surveillance by vascular (Dr. Guerrero) Cerebrovascular duplex with 60-69% LICA stenosis (stable from 2019 study per report) Chronic systolic congestive heart failure Dyslipidemia History of atrial fibrillation History of chronic kidney disease Hypertension Ischemic cardiomyopathy MRSA (methicillin resistant Staphylococcus aureus) left fifth toe- current Myocardial Infarction 2014 Obesity (BMI 30.0-34.9) Osteomyelitis Hx PAD (peripheral artery disease) Paroxysmal atrial fibrillation Proliferative diabetic retinopathy Sleep apnea "Not bad enough for device" per pt Type 1 diabetes mellitus Ulcer of toe of left foot Surgical History H/O gastric bypass History of adenoidectomy History of amputation of lesser toe of right foot History of amputation of toe History of cardiac cath 2017 [place] History of cataract surgery bilat History of tonsillectomy History of tooth extraction S/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 angioplasty ([employer]ER STRUCTURES) [employer] STRU[employer]URES of anterior tibial artery April 2017 S/P TAVR (transcatheter aortic valve replacement) [facility] [place] > Oct 2019 Status post below knee amputation of right lower extremity 2019 Status post transmetatarsal amputation of right foot Family History Sister Myocardial infarction Denies family history of Ovarian cancer Prostate cancer Breast cancer Lung cancer Colorectal cancer Stroke Social History Smoking Status: Never smoker Second Hand Exposure: No; Do You Dip or Chew Tobacco: No; Hx Alcohol Use: No Hx Substance Use: No Preferred Language: Belarusian Communication Ability: Effective Visual Impairment: Limited Hearing Ability: Use of Hearing Aid 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 Required: No Beliefs That Will Affect Care: Spiritual marital status: Current Living Situation: Alone current occupational status: disabled How many Children do You have: 0 Feels Safe at Home: Yes Childhood Exposure to Second-Hand Smoke: No Diet: regular caffeine: Yes Dental Care, Regularly: No Physical Activity Frequency: 1-2 Times per Week Seatbelt Use: never Sunscreen Use: Yes Assistive Devices: Cane, Prosthesis, Wheelchair and Other Allergies Allergies Allergy/AdvReac Type Severity Reaction Status Date / Time ketoconazole [From Nizoral] AdvReac Unknown see comment Verified 02/07/23 11:52 Home Meds Home Medications Medication Instructions Recorded Confirmed aspirin 81 mg chewable tablet 81 mg PO QAM 07/20/22 03/28/23 amiodarone 200 mg tablet 200 mg PO QAM 01/11/23 03/28/23 rosuvastatin 5 mg tablet 5 mg PO DAILY 04/04/23 04/04/23 warfarin 5 mg tablet See Rx Instructions PO DAILY 04/18/23 Previous Rx's Medication Instructions Recorded insulin syringe-needle U-100 0.5 #400 ea 01/15/20 mL 29 gauge x 1/2" (BD Insulin Syringe) insulin detemir U-100 100 unit/mL 28 unit (0.28 mL) subcut QPM #1 box 07/14/22 (3 mL) subcutaneous pen (Levemir FlexTouch U-100 Insulin) OneTouch Verio test strips (blood #300 ea 08/31/22 sugar diagnostic) nitroglycerin 0.4 mg sublingual 0.4 mg sublingual UD PRN Chest 08/31/22 tablet Pain #25 tabs bumetanide 1 mg tablet 1 mg PO BID #180 tabs 01/12/23 acetaminophen 325 mg tablet 650 mg PO Q4H PRN #0 tabs 02/15/23 carvedilol 12.5 mg tablet 12.5 mg PO BID #60 tabs 02/15/23 insulin aspart U-100 100 unit/mL See Rx Instructions .Route 05/25/23 (3 mL) subcutaneous pen (Novolog .COMPLEX #30 mL FlexPen U-100 Insulin aspart) Results & Data (ED) Vital Signs Vital Signs - 24 hr 06/05/23 17:07 06/05/23 19:01 Temperature 36.7 C Temperature Source Temporal Artery Scan Pulse Rate 69 80 Pulse Rate from SpO2 Sensor 105 H Respiratory Rate 17 18 Respiratory Effort / Characteristics Non-Labored Spontaneous Respiratory Depth Normal Respiratory Pattern Regular Blood Pressure 115/47 L 159/68 H Blood Pressure Mean 69 98 Pulse Oximetry 95 95 Oxygen Delivery Method Room Air Room Air Sepsis Recent Fever Within 48 Hours No Sepsis New/Unexplained Change in Mental Status No Sepsis Action Taken by Nursing No Action Required Laboratory Data 06/05/23 17:15 06/05/23 17:15 Lab Results 06/05/23 06/05/23 06/05/23 Range/Units 17:15 17:15 17:15 WBC 9.20 (4.8-10.8) K/ul RBC 4.18 L (4.70-6.10) M/uL Hgb 10.7 L (14.0-18.0) g/dl Hct 33.7 L (42.0-52.0) % MCV 80.6 (80.0-100.0) fL MCH 25.6 (25.0-34.0) pg MCHC 31.8 L (32.0-36.0) g/dL RDW Std Deviation 52.4 H (36.4-46.3) fL RDW Coeff of Vargas 17.8 H (11.5-14.5) % Plt Count 302 (130-400) K/uL MPV 11.1 (9.4-12.4) fL Immature Gran % (Auto) 0.2 % Neut % (Auto) 76.3 % Lymph % (Auto) 12.9 % [place] % (Auto) 8.3 % Eos % (Auto) 1.8 % Baso % (Auto) 0.5 % Neut # (Auto) 7.01 H (1.40-6.50) K/uL Lymph # (Auto) 1.19 L (1.2-3.4) K/uL [place] # (Auto) 0.76 H (0.11-0.59) K/uL Eos # (Auto) 0.17 (0-0.50) K/uL Baso # (Auto) 0.05 (0-0.2) K/uL Immature Gran # (Auto) 0.02 (0.01-0.20) K/uL ESR 123 H (0-20) mm/hr PT (9.0-12.0) Seconds INR (0.9-1.1) APTT (21.0-31.0) Seconds PTT Ratio Sodium 132 L (136-145) mmol/L Potassium 4.3 (3.5-5.1) mmol/L Chloride 98 (98-107) mmol/L Carbon Dioxide 24 (21-32) mmol/L Anion Gap 10 (3-11) BUN 27 H (6-23) mg/dl Creatinine 1.37 (0.6-1.4) mg/dl Est Cr Clr Drug Dosing 72.7 ml/min Est GFR ( Amer) 61.4 ml/min Est GFR (Non-Af Amer) 53.0 ml/min BUN/Creatinine Ratio 19.7 (10-20) Glucose 429 H* (70-99(Fasting)) mg/dl Lactate (0.4-2.0) mmol/L Calcium 8.7 (8.6-10.3) mg/dl Total Bilirubin 0.4 (0.2-1.0) mg/dl AST 13 (13-39) U/L ALT < 3 L (7-52) U/L Alkaline Phosphatase 114 H (34-104) U/L C-Reactive Protein 7.95 H (0-0.5) mg/dl Total Protein 7.5 (6.0-8.3) gm/dl Albumin 3.5 (3.4-5.0) gm/dl Globulin 4.0 (2.5-4.0) gm/dl Albumin/Globulin Ratio 0.9 (0.9-2) Procalcitonin (0-0.5) ng/ml 06/05/23 06/05/23 06/05/23 Range/Units 17:15 17:15 17:30 WBC (4.8-10.8) K/ul RBC (4.70-6.10) M/uL Hgb (14.0-18.0) g/dl Hct (42.0-52.0) % MCV (80.0-100.0) fL MCH (25.0-34.0) pg MCHC (32.0-36.0) g/dL RDW Std Deviation (36.4-46.3) fL RDW Coeff of Vargas (11.5-14.5) % Plt Count (130-400) K/uL MPV (9.4-12.4) fL Immature Gran % (Auto) % Neut % (Auto) % Lymph % (Auto) % [place] % (Auto) % Eos % (Auto) % Baso % (Auto) % Neut # (Auto) (1.40-6.50) K/uL Lymph # (Auto) (1.2-3.4) K/uL [place] # (Auto) (0.11-0.59) K/uL Eos # (Auto) (0-0.50) K/uL Baso # (Auto) (0-0.2) K/uL Immature Gran # (Auto) (0.01-0.20) K/uL ESR (0-20) mm/hr PT 26.4 H (9.0-12.0) Seconds INR 2.6 H (0.9-1.1) APTT 46.9 H* (21.0-31.0) Seconds PTT Ratio 1.7 Sodium (136-145) mmol/L Potassium (3.5-5.1) mmol/L Chloride (98-107) mmol/L Carbon Dioxide (21-32) mmol/L Anion Gap (3-11) BUN (6-23) mg/dl Creatinine (0.6-1.4) mg/dl Est Cr Clr Drug Dosing ml/min Est GFR ( Amer) ml/min Est GFR (Non-Af Amer) ml/min BUN/Creatinine Ratio (10-20) Glucose (70-99(Fasting)) mg/dl Lactate 1.8 (0.4-2.0) mmol/L Calcium (8.6-10.3) mg/dl Total Bilirubin (0.2-1.0) mg/dl AST (13-39) U/L ALT (7-52) U/L Alkaline Phosphatase (34-104) U/L C-Reactive Protein (0-0.5) mg/dl Total Protein (6.0-8.3) gm/dl Albumin (3.4-5.0) gm/dl Globulin (2.5-4.0) gm/dl Albumin/Globulin Ratio (0.9-2) Procalcitonin 0.71 H (0-0.5) ng/ml Administered Medications Daptomycin 600 mg/ Syringe 12 mls @ 6 mls/min IV Q24H PHUONG; Protocol Stop: 06/07/23 18:29 Last Admin: 06/05/23 18:59 Dose: 6 mls/min Documented By: MESHA Discontinued Medications Piperacillin Sod/Tazobactam Sod (Zosyn) 4.5 gm in 120 mls @ 240 mls/hr IV NOW ONE Stop: 06/05/23 18:58 Last Admin: 06/05/23 19:02 Dose: 240 mls/hr Documented By: MESHA Imaging Data Radiologist's Impression: Foot X-Ray 06/05/23 17:14 XR foot LT min 3V routine HISTORY: 67 years-old Male infection chronic left foot pain with reported soft tissue infection COMPARISON: 12/11/2022 TECHNIQUE: 3 views of the left foot FINDINGS: Interval postoperative changes of partial resection of the first digit at the level of the mid diaphyseal proximal phalanx. Status post resection of the distal fourth metatarsal and the entire fifth digit. Chronic cortical thickening of the second and third metatarsals demineralized appearance of the bones with severe degeneration of the midfoot and hindfoot. Pes planus with mid foot collapse and chronic remodeling/disorganization. 2 soft tissue swelling. Probable bone fragments noted within the lateral forefoot. Mild bony irregularity noted within the base of the fourth proximal phalanx IMPRESSION: 1. Findings suspicious for osteomyelitis involving the base of the fourth proximal phalanx. 2. Soft tissue swelling with postoperative and chronic findings as above. ACT 112: Negative or not required by law. The above report was generated using voice recognition software. It may contain grammatical, syntax or spelling errors. Electronically signed by: Gabino Singh M.D. 06/05/2023 6:16 PM Discharge Plan Visit Data Chief Complaint: Infection, Wound Stated Complaint: REF BY DOC,INFECTION ON SIDE OF L FOOT ED Provider: Ethan Brink Discharge Problem: Foot osteomyelitis, left, Type 2 diabetes mellitus with diabetic neuropathy, PAD (peripheral artery disease) Patient Disposition: Being Evaluated by Hospitalist Forms Stand Alone Forms: [facility] Prescriptions Prescriptions: No Action aspirin 81 mg tablet,chewable 81 mg PO QAM warfarin 5 mg tablet See Rx Instructions PO DAILY Rx Instructions: 5 mg q Sunday and Sunday and 2.5 mg x 5days orally daily; rosuvastatin 5 mg tablet 5 mg PO DAILY (DME) insulin syringe-needle U-100 [BD Insulin Syringe] 0.5 mL 29 gauge x 1/2" syringe See Rx Instructions .ROUTE .MEDSUPPLY Qty: 400 3RF Rx Instructions: use 4 x daily Levemir FlexTouch U100 Insulin 100 unit/mL (3 mL) insulin pen 28 unit subcut QPM Qty: 1 5RF (DME) OneTouch Verio test strips Strip See Dose Instructions .ROUTE .MEDSUPPLY Qty: 300 3RF Dose Instruction: As directed Rx Instructions: Test 3 times daily nitroglycerin 0.4 mg tablet, sublingual 0.4 mg Sublingual UD PRN (Reason: Chest Pain) Qty: 25 3RF Rx Instructions: NEEDED FOR CHEST PAIN: ONE TABLET UNDER THE TONGUE EVERY 5 MINUTES UP TO 3 DOSES bumetanide 1 mg tablet 1 mg PO BID Qty: 180 3RF insulin aspart U-100 [Novolog FlexPen U-100 Insulin] 100 unit/mL (3 mL) insulin pen See Rx Instructions .ROUTE .COMPLEX Qty: 30 5RF Rx Instructions: TAKES TIDM--SLIDING SCALE. Injecting 1 unit per 4 carbs up to 60 units a day; amiodarone 200 mg tablet 200 mg PO QAM acetaminophen 325 mg Tablet 650 mg PO Q4H PRNQty: 0 0RF carvedilol 12.5 mg Tablet 12.5 mg PO BID Qty: 60 0RF Referrals Referrals: Suze Addison MD [Primary Care Provider] -
[2023-06-05 17:59] LABS: Basophils # (auto) 0.05 K/uL (0-0.2); Basophils % (auto) 0.5 %; Eosinophils # (auto) 0.17 K/uL (0-0.50); Eosinophils % (auto) 1.8 %; Hematocrit (blood only) 33.7 % (42.0-52.0); Hemoglobin 10.7 g/dl (14.0-18.0); Immature Granulocytes # (auto) 0.02 K/uL (0.01-0.20); Immature Granulocytes % (auto) 0.2 %; Lymphocytes # (auto) 1.19 K/uL (1.2-3.4); Lymphocytes % (auto) 12.9 %; Mean Corpuscular Hemoglobin 25.6 pg (25.0-34.0); Mean Corpuscular Hgb Conc 31.8 g/dL (32.0-36.0); Mean Corpuscular Volume 80.6 fL (80.0-100.0); Mean Platelet Volume 11.1 fL (9.4-12.4); Monocytes # (auto) 0.76 K/uL (0.11-0.59); Monocytes % (auto) 8.3 %; Neutrophils # (auto) 7.01 K/uL (1.40-6.50); Neutrophils % (auto) 76.3 %; Platelet Count 302 K/uL (130-400); RDW Coefficient of Variation 17.8 % (11.5-14.5); RDW Standard Deviation 52.4 fL (36.4-46.3); Red Blood Count 4.18 M/uL (4.70-6.10)
--- NOTE | 2023-06-05 18:18 | XRay Report ---
XR foot LT min 3V routine HISTORY: 67 years-old Male infection chronic left foot pain with reported soft tissue infection COMPARISON: 12/11/2022 TECHNIQUE: 3 views of the left foot FINDINGS: Interval postoperative changes of partial resection of the first digit at the level of the mid diaphy seal proximal phalanx. Status post resection of the distal fourth metatarsal and the entire fifth dig it. Chronic cortical thickening of the second and third metatarsals demineralized appearance of the b ones with severe degeneration of the midfoot and hindfoot. Pes planus with mid foot collapse and lunchroom aide brant remodeling/disorganization. 2 soft tissue swelling. Probable bone fragments noted within the lateral forefoot. Mild bony irregula rity noted within the base of the fourth proximal phalanx IMPRESSION: 1. Findings suspicious for osteomyelitis involving the base of the fourth proximal phalanx. 2. Soft tissue swelling with postoperative and chronic findings as above. ACT 112: Negative or not required by law. The above report was generated using voice recognition software. It may contain grammatical, syntax o r spelling errors. Electronically signed by: Gabino Singh M.D. 06/05/2023 6:16 PM
[2023-06-05] MEDS ORDERED: PIPERACILLIN/TAZOBACTAM 4.5 GM/120 ML BAG IV ONE (18:29)
[2023-06-05 18:34] LABS: Alanine Aminotransferase < 3 U/L (7-52); Albumin Globulin Ratio 0.9 (0.9-2); Albumin Level 3.5 gm/dl (3.4-5.0); Alkaline Phosphatase 114 U/L (34-104); Anion Gap 10 (3-11); Aspartate Aminotransferase 13 U/L (13-39); BUN Creatinine Ratio 19.7 (10-20); Bilirubin,Total 0.4 mg/dl (0.2-1.0); Blood Urea Nitrogen 27 mg/dl (6-23); C Reactive Protein 7.95 mg/dl (0-0.5); Calcium 8.7 mg/dl (8.6-10.3); Carbon Dioxide 24 mmol/L (21-32); Chloride 98 mmol/L (98-107); Creatinine Clr Calc Pharmacy 72.7 ml/min; Est GFR (African American) 61.4 ml/min; Glucose 429 mg/dl (70-99(Fasting)); Potassium 4.3 mmol/L (3.5-5.1); Sodium 132 mmol/L (136-145); Total Protein 7.5 gm/dl (6.0-8.3)
[2023-06-05 18:42] LABS: INR 2.6 (0.9-1.1); Partial Thromboplastin Ratio 1.7; Prothrombin Time 26.4 Seconds (9.0-12.0)
[2023-06-05 18:46] LABS: Partial Thromboplastin Time 46.9 Seconds (21.0-31.0)
[2023-06-05] MEDS: DAPTOmycin 600 MG in SYRINGE 0 ML IV SCH (18:59)
--- NOTE | 2023-06-05 19:28 | History & Physical Report ---
Date of Service June 05, 2023 Assessment & Plan (1) Foot osteomyelitis, left: Plan: Previous osteomyelitis in the left foot s/p debridement and 5th MT and 4th MT head amputation done on 02/09/2023. Previous blood cultures positive for Enterococcus faecalis, past wound cultures positive for MRSA. X-ray of the left foot showed possible osteomyelitis of the left base of the fourth proximal phalange. Blood and wound cultures pending. Podiatry consulted on admission. Recommend patient get a MRI and will see the patient in the a.m. We will make patient n.p.o. after midnight. No intervention needed currently. Continue with daptomycin and Zosyn for osteomyelitis given patient is a uncontrolled diabetic and positive wound culture in the past for MRSA. Patient overall is nontoxic on exam, afebrile, in no acute distress and without any leukocytosis. Though patient's CRP, Pro-Armen, and ESR are elevated. Trend CRP, CBC, and CMP and monitor patient closely. (2) S/P TAVR (transcatheter aortic valve replacement): Plan: Patient on warfarin for history of AVR and paroxysmal A-fib. INR of 2.6 at time of admission. We will hold warfarin at this time and switch to low-dose heparin every 12 hours. We will continue to monitor PT/INR. Heparin should be held at least 6 hours prior to any surgical intervention (3) Chronic systolic congestive heart failure: Plan: Last echo done on 02/12/2023 showed a EF of 35 to 40%. Patient is euvolemic on physical exam and has no signs or symptoms of acute CHF exacerbation. We will continue to monitor while admitted. Continue Bumex 1 mg twice daily. Patient is not on Entresto or MAMIE inhibitor due to symptomatic hypotension in the past SGLT2 inhibitor not indicated due to being a type I diabetic. (4) Paroxysmal atrial fibrillation: Plan: Continue Coreg 12.5 mg twice daily, amiodarone 200 mg every morning, and aspirin 81 mg every morning. Uses nitroglycerin 0.4 mg as needed for chest pain. He has not used in the past 3 to 4 weeks. (5) Uncontrolled type 1 diabetes mellitus with diabetic neuropathy, with long- term current use of insulin: Plan: Patient is a type I diabetic uncontrolled last seen by endocrine on 11/2022. At home uses 20 units of Levemir with sliding scale during the day. HbA1c will be done in the a.m. Patient's home regimen held on admission Continue BSG checks, sliding-scale insulin, hypoglycemic protocol. 35 units of Lantus every afternoon. Pharmacy glycemic management consult placed. (6) Hyperlipidemia: Plan: Continue Crestor 5 mg daily. Plan Fluids: None Nutrition: Type I diabetic, heart healthy. N.p.o. at midnight Code status: Full code DVT ppx: Holding warfarin, low-dose heparin, heparin to be stopped 6 hours prior to surgical intervention. Consults: Podiatry PT/OT: None at this time, can consider after surgical intervention Case management: None Dispo: PCU/telemetry Thank you for allowing me to participate in the care of your patient. -Dr. Octaviano Pastor PGY2 History of Present Illness Chief Complaint: Left foot osteomyelitis Primary Care Provider: Suze Addison MD Patient is a 67-year-old male with past medical history of diabetes, CAD, TAVR (on warfarin), congestive heart failure with reduced ejection fraction, PAD, hypertension, R BKA, who presents to the hospital for infection of his left foot today after seeing Dr. Guerrero in clinic today. Patient had a left foot fifth transmetatarsal amputation done on 01/[address] Guerrero. Patient previously had a wound VAC that was removed approximately 3 weeks ago. Patient states that since Sunday he has been having some pain in his left foot with drainage, redness, swelling, and discharge. He denies any nausea, vomiting, or fevers. In the ED: Afebrile, no leukocytosis, elevated ESR, CRP, and Pro-Armen. Glucose of 429. Patient states that he ate Oleary's before coming to the ED and did not take his normal insulin. X-ray of the left foot showed possible osteomyelitis at the base of the fourth metatarsal. Blood cultures collected and patient was started on Dapto and Zosyn. Allergies Allergy/AdvReac Type Severity Reaction Status Date / Time ketoconazole [From Nizoral] AdvReac Unknown see comment Verified 02/07/23 11:52 Home Medications Medication Instructions Recorded Confirmed Type insulin syringe-needle U-100 0.5 #400 ea 01/15/20 03/28/23 Rx mL 29 gauge x 1/2" (BD Insulin Syringe) insulin detemir U-100 100 unit/mL 28 unit (0.28 mL) subcut QPM #1 box 07/14/22 03/28/23 Rx (3 mL) subcutaneous pen (Levemir FlexTouch U-100 Insulin) aspirin 81 mg chewable tablet 81 mg PO QAM 07/20/22 03/28/23 History OneTouch Verio test strips (blood #300 ea 08/31/22 03/28/23 Rx sugar diagnostic) nitroglycerin 0.4 mg sublingual 0.4 mg sublingual UD PRN Chest 08/31/22 03/28/23 Rx tablet Pain #25 tabs amiodarone 200 mg tablet 200 mg PO QAM 01/11/23 03/28/23 History bumetanide 1 mg tablet 1 mg PO BID #180 tabs 01/12/23 03/28/23 Rx acetaminophen 325 mg tablet 650 mg PO Q4H PRN #0 tabs 02/15/23 03/28/23 Rx carvedilol 12.5 mg tablet 12.5 mg PO BID #60 tabs 02/15/23 03/28/23 Rx rosuvastatin 5 mg tablet 5 mg PO DAILY 04/04/23 04/04/23 History warfarin 5 mg tablet See Rx Instructions PO DAILY 04/18/23 History insulin aspart U-100 100 unit/mL See Rx Instructions .Route 05/25/23 Rx (3 mL) subcutaneous pen (Novolog .COMPLEX #30 mL FlexPen U-100 Insulin aspart) Past Med/Surg History Medical History Aortic valve disease s/p TAVR (2019) CAD (coronary artery disease) follows with Dr. Elliott Carotid artery stenosis Under surveillance by vascular (Dr. Guerrero) Cerebrovascular duplex with 60-69% LICA stenosis (stable from 2019 study per report) Chronic systolic congestive heart failure Dyslipidemia History of atrial fibrillation History of chronic kidney disease Hypertension Ischemic cardiomyopathy MRSA (methicillin resistant Staphylococcus aureus) left fifth toe- current Myocardial Infarction 2014 Obesity (BMI 30.0-34.9) Osteomyelitis Hx PAD (peripheral artery disease) Paroxysmal atrial fibrillation Proliferative diabetic retinopathy Sleep apnea "Not bad enough for device" per pt Type 1 diabetes mellitus Ulcer of toe of left foot Surgical History H/O gastric bypass History of adenoidectomy History of amputation of lesser toe of right foot History of amputation of toe History of cardiac cath 2018 [place] History of cataract surgery bilat History of tonsillectomy History of tooth extraction S/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 S/P TAVR (transcatheter aortic valve replacement) [facility] [place] Oct [place] Status post below knee amputation of right lower extremity 2019 Status post transmetatarsal amputation of right foot Family History Sister Myocardial infarction Denies family history of Ovarian cancer Prostate cancer Breast cancer Lung cancer Colorectal cancer Stroke Social History Smoking Status: Never smoker Second Hand Exposure: No; Do You Dip or Chew Tobacco: No; Hx Alcohol Use: No Hx Substance Use: No Preferred Language: [place] Communication Ability: Effective Visual Impairment: Limited Hearing Ability: Use of Hearing Aid Coverer Required: No Beliefs That Will Affect Care: Spiritual marital status: Current Living Situation: Alone current occupational status: disabled How many Children do You have: 0 Feels Safe at Home: Yes Childhood Exposure to Second-Hand Smoke: No Diet: regular caffeine: Yes Dental Care, Regularly: No Physical Activity Frequency: 1-2 Times per Week Seatbelt Use: never Sunscreen Use: Yes Assistive Devices: Cane, Prosthesis, Wheelchair and Other Review of Systems Review of Systems: All systems reviewed & are unremarkable except as noted in Subjective Physical Exam Physical Exam: Constitutional: well-appearing, no acute distress HEENT: NCAT, no conjunctival injection CV: regular rhythm, no murmur appreciated, extremities well-perfused, no LE edema Resp: CTABL, no wheezes/rales/rhonchi appreciated, no increased work of breathing GI: soft, nondistended, nontender, BS normoactive MSK: Left foot warm, tender, erythematous, wrapped with bandage. Lacks sensation to the distal left lower extremity past mid tibia. Right BKA Skin: warm, dry, no rash appreciated Neuro: alert, oriented, no focal neurologic deficit appreciated Results & Data Results & Data Vital Signs (Past 12 Hours) Vital Signs Temp Pulse Resp BP Pulse Ox O2 Del Method 06/05/23 19:01 80 18 159/68 H 95 Room Air 06/05/23 17:07 36.7 C 69 17 115/47 L 95 Room Air Supervising Physician Co-Signing Physician Notes Patient seen and examined, chart reviewed, case discussed with Dr. Octaviano Pastor and I agree with the assessment and plan as above except as otherwise noted Labs and images reviewed Agustín is a 67-year-old male with recent hospital admission 02/07/2023 - 02/15/2023 for diabetic foot infection with osteomyelitis s/p left fifth toe and head of the fifth metatarsal revision and fourth metatarsal head amputation with preservation of the fourth distal toe. At that admission he was culture positive for Enterococcus faecalis. Has had past cultures positive for coag negative staph and MRSA. He presents to the ER 06/05 from vascular surgery office for worsening left foot wound on follow-up, is recommended for podiatry/orthopedic revision due to proximal spread of his foot infection with overlying cellulitis. In the ER he has no leukocytosis,And left foot x-ray is suspicious for osteomyelitis at the base of the fourth proximal phalanx with soft tissue swelling of the foot. He is seen at the bedside, is in no acute distress. He reports he feels a little thirsty due to having Oleary's just before coming in and not taking insulin. Reports he has some discomfort in his left foot, but neuropathy prevents a lot of feeling. He denies chest pain, chest pressure, shortness of breath, lightheadedness, dizziness, fever, chills. Left foot with hallux revision and postop changes as noted. Is warm, mildly erythematous, tender.. Agree with Zosyn/daptomycin for broad coverage of DFI with osteomyelitis. Podiatry consulted for surgical intervention. Patient is on warfarin for paroxysmal A-fib, has a history of AVR this is a bioprosthetic valve which has been in place for more than 6 months. We will hold warfarin and switch to low-dose heparin gtt. for prophylaxis, this should be held 6 hours prior to any surgical procedure. No procedure anticipated tonight, will continue on diabetic diet until midnight and then make n.p.o. after midnight. Insulin orders as noted. Trend CRP. Agree with assessment and management as above.
[2023-06-05] MEDS ORDERED: INSULIN ASPART PER UNIT CHARGE SC STA (20:08)
[2023-06-05] MEDS ORDERED: GADOBUTROL 65ML VIAL IV ONE (21:41)
--- NOTE | 2023-06-05 22:27 | Magnetic Resonance Report ---
Exam(s): MRI LEFT FOOT W/WO Contrast IV Amt: 11.5cc Gadavist EXAM: MR Left Lower Extremity Without and With Intravenous Contrast, Foot CLINICAL HISTORY: Reason for exam: Left foot osteomyelitis?. TECHNIQUE: Multiplanar magnetic resonance images of the left foot without and with intravenous contrast. CONTRAST: Patient received 11.5cc Gadavist of IV contrast COMPARISON: Plane films of the left foot from June 05, 2023 FINDINGS: Bones/joints: Focal edema and enhancement running obliquely across the distal third metatarsal consistent with acute or nonhealed fracture. Previous amputation of the fifth ray as well as the first digit proximal to the interphalangeal joint and focal resection of the distal fourth metatarsal head. Soft tissues: There is focal edema and enhancement of an approximately 0.7 x 1.6 cm area of the lateral aspect of the proximal fourth metatarsal deep to the wound suspicious for osteomyelitis. Other findings: The hindfoot is not included on the study. IMPRESSION: 1. There is focal edema and enhancement of an approximately 0.7 x 1.6 cm area of the lateral aspect of the proximal fourth metatarsal deep to the wound suspicious for osteomyelitis. 2. Focal edema and enhancement running obliquely across the distal third metatarsal consistent with acute or nonhealed fracture. 3. Previous amputation of the fifth ray as well as the first digit proximal to the interphalangeal joint and focal resection of the distal fourth metatarsal head. Electronically signed by: Ethan Paulino MD 06/05/23 22:26 PM
[2023-06-05] MEDS ORDERED: GLUCOSE 10 TAB/TUBE PO PRN (22:35)
[2023-06-05] MEDS ORDERED: GLUCAGON FOR INJ 1 MG VIAL SQ PRN (22:35)
[2023-06-05] MEDS ORDERED: PHARMACY GLYCEMIC MGMT CONSULT PRN (22:35)
[2023-06-05] MEDS ORDERED: NITROGLYCERIN SL 0.4 MG/TAB TAB SL PRN (22:35)
[2023-06-05] MEDS ORDERED: GLUCOSE 40% GEL 15 GM TUBE PO PRN (22:35)
[2023-06-05] MEDS ORDERED: DEXTROSE 50% 50 ML SYRINGE IV PRN (22:35)
[2023-06-05] MEDS ORDERED: INSULIN HUMAN REGULAR PER UNIT 10 UNITS in SYRINGE 9.9 ML IV ONE (23:00)
[2023-06-05] MEDS ORDERED: LANTUS PER UNIT CHARGE SQ ONE (23:00)
[2023-06-05] MEDS: INSULIN ASPART PER UNIT CHARGE SC SCH (23:14)
[2023-06-05] MEDS: HEPARIN SOD 5,000 UNIT/0.5 ML VIAL SQ SCH (23:28)
[2023-06-05] MEDS: carvediloL 12.5 MG TAB PO SCH (23:30)
[2023-06-05] MEDS: BUMETANIDE 1 MG TAB PO SCH (23:30)
[2023-06-06] MEDS: PIPERACILLIN/TAZOBACTAM 4.5 GM in DEXTROSE 5% 100 ML IV SCH ×4 (00:55→23:41)
[2023-06-06] MEDS ORDERED: PIPERACILLIN/TAZOBACTAM 4.5 GM in DEXTROSE 5% 100 ML IV SCH (01:00)
[2023-06-06] MEDS ORDERED: INSULIN ASPART PER UNIT CHARGE SC SCH (01:30)
[2023-06-06] MEDS: INSULIN ASPART PER UNIT CHARGE SC SCH ×5 (04:22→20:18)
[2023-06-06] MEDS ORDERED: ACETAMINOPHEN 500 MG TAB PO PRN (04:29)
[2023-06-06] MEDS: ACETAMINOPHEN 1,000 MG/100 ML VIAL IV PRN ×2 (04:43→17:50)
[2023-06-06 06:16] LABS: Hematocrit (blood only) 29.2 % (42.0-52.0); Hemoglobin 9.5 g/dl (14.0-18.0); Mean Corpuscular Hemoglobin 25.9 pg (25.0-34.0); Mean Corpuscular Hgb Conc 32.5 g/dL (32.0-36.0); Mean Corpuscular Volume 79.6 fL (80.0-100.0); Mean Platelet Volume 10.6 fL (9.4-12.4); Platelet Count 261 K/uL (130-400); RDW Coefficient of Variation 17.6 % (11.5-14.5); RDW Standard Deviation 51.6 fL (36.4-46.3); Red Blood Count 3.67 M/uL (4.70-6.10); White Blood Count 8.79 K/ul (4.8-10.8)
[2023-06-06 06:34] LABS: Albumin Globulin Ratio 0.9 (0.9-2); Albumin Level 2.9 gm/dl (3.4-5.0); Alkaline Phosphatase 93 U/L (34-104); Anion Gap 6 (3-11); Aspartate Aminotransferase 11 U/L (13-39); BUN Creatinine Ratio 23.1 (10-20); Bilirubin,Total 0.4 mg/dl (0.2-1.0); Blood Urea Nitrogen 27 mg/dl (6-23); C Reactive Protein 9.27 mg/dl (0-0.5); Calcium 8.4 mg/dl (8.6-10.3); Carbon Dioxide 28 mmol/L (21-32); Chloride 101 mmol/L (98-107); Creatinine Clr Calc Pharmacy 79.9 ml/min; Est GFR (African American) 74.3 ml/min; Est GFR (Non-African American) 64.1 ml/min; Globulin 3.4 gm/dl (2.5-4.0); Glucose 144 mg/dl (70-99(Fasting)); Potassium 3.4 mmol/L (3.5-5.1); Sodium 135 mmol/L (136-145); Total Protein 6.3 gm/dl (6.0-8.3)
[2023-06-06 06:40] LABS: INR 2.6 (0.9-1.1); Prothrombin Time 27.3 Seconds (9.0-12.0)
[2023-06-06 06:52] LABS: Alanine Aminotransferase < 3 U/L (7-52)
--- NOTE | 2023-06-06 06:59 | Billing Data ---
Date of Service June 06, 2023 Coding Level of Care Code 74202 INT INP/OBS CARE
--- NOTE | 2023-06-06 09:01 | Hospitalist Progress Note ---
Date of Service June 06, 2023 Assessment & Plan (1) Foot osteomyelitis, left: Plan: (1) Foot osteomyelitis, left: Previous osteomyelitis in the left foot s/p debridement and 5th MT and 4th MT head amputation done on 02/09/[address] Guerrero. No prior artial disease/i ntervention required Increased pain/redness/drainage x 3-4 days at home reported. CRP/ESR elevation Xray w/ possible osto L base 4th proximal phalange MRI w/ * 1. There is focal edema and enhancement of an approximately 0.7 x 1.6 cm area of the lateral aspect of the proximal fourth metatarsal deep to the wound suspicious for osteomyelitis. * 2. Focal edema and enhancement running obliquely across the distal third metatarsal consistent with acute or nonhealed fracture. * 3. Previous amputation of the fifth ray as well as the first digit proximal to the interphalangeal joint and focal resection of the distal fourth metatarsal head. Prior blood cx + Enterococcus faecalis, past wound cultures positive for MRSA. CX on admit gram negative bacilli -- monitor Podiatry consulted NPO initially -- given diet as per Dr Mcbride no surgery until likely Sunday. Diet ordered Holding off on Vit K but will monitor INR off coumadin in meantime. May require but possibly not given surgery not until Sunday Blood cultures pending Continue on Dapto/Zosyn given DM, bsg elevation and prior cx WBC trending down, remains afebrile US Arterial Doppler pending as ordered by Vascular. Consult placed per discu ssion w/ them Monitor labs/cx on follow up (2) CAD (coronary artery disease): Plan: follows w/ [facility] S/P TAVR (transcatheter aortic valve replacement): Patient on warfarin for history of AVR and paroxysmal A-fib. Holding coumadin, on heparin SQ BID, monitoring INR (would need to hold heparin at least 6 hrs prior to surgical intervention) continues on amiodarone 200mg daily No need for vitamin K at present but will monitor INR in AM/prior to surgery, possible need pending repeat values Chronic systolic congestive heart failure: Chronic, stable Last echo done on 02/12/2023 showed a EF of 35 to 40%. Patient is euvolemic on physical exam and has no signs or symptoms of acute CHF exacerbation. Monitor weights/I&O Bumex 1mg BID continued (held this AM for lower BPs, no significant volume overload at present). Not on entresto or MAMIE-I due to symptomatic hypotension in the past Carvediolol as able w/ hold parameters SGLT2 inhibitor not indicated due to DM type 1 Monitor volume status Paroxysmal atrial fibrillation: Continue Coreg 12.5 mg twice daily, amiodarone 200 mg every morning, and aspirin 81 mg every morning. Uses nitroglycerin 0.4 mg as needed for chest pain. He has not used in the past 3 to 4 weeks. Converted to NSR overnight Keep K/mag replete monitoring on telemetry Coumadin on hold as above, INR in AM Hyperlipidemia: Continue Crestor 5 mg daily (3) Uncontrolled type 1 diabetes mellitus with diabetic neuropathy, with long- term current use of insulin: Plan: (5) Uncontrolled type 1 diabetes mellitus with diabetic neuropathy, with long- term current use of insulin: Patient is a type I diabetic uncontrolled last seen by endocrine on 11/2022, BSG elevation on admit A1c pending from AM labs Home regimen on hold, pharmacy consulted BSGs acceptable and much improved monitor (4) Type 2 diabetes mellitus with diabetic neuropathy: (5) MEGAN (acute kidney injury): Plan: Cr elevation on admission, meds renal doses/parameters for BP Improved on repeat Held AM bumex, BPs borderline, carvediolol w/ hold parameters Monitor BMP in AM (6) S/P TAVR (transcatheter aortic valve replacement): Plan: noted hx, coumadin on hold as above, on Heparin SQ BID (7) Carotid artery stenosis: Plan: continues on aspirin daily (8) Chronic systolic congestive heart failure: Plan: as above, bumex continued (but held this morning for BPs) (9) Paroxysmal atrial fibrillation: (10) Hypertension: (11) Dyslipidemia: Plan continued inpatient stay Admission and Anticipated Discharge Date Admission Date: June 05, 2023 Supervising Physician Co-Signing Physician Notes The patient was not seen by me. The chart was reviewed. Case discussed with YAMEL Castro. Agree with assessment and plan Subjective eval this morning around 10:30am, awaiting to go down for ultrasound. Discussed I spoke w/ vascular and no prior arterial disease but checking to be safe. Had been having increased pain/swelling/drainage over the past 4 days at home w/ visiting nursing. Podiatry consulted, discussed with them this morning and likely no surgery until Sunday. Will hold off giving some vitamin K for now and continue to hold his coumadin. No fever/chills. No pain due to hx of osteomyelitis. Having some drainage to lateral aspect of foot. Plans for likely transmetatarsal amputation given findings but plan defer to Dr Mcbride who he states he did see this morning. Questions/concerns addressed at this time. Review of Systems Review of Systems: All systems reviewed & are unremarkable except as noted in HPI & below Physical Exam Physical Exam: General: WD male sitting up in bed, getting ready to go to ultrasound, NAD HEENT: head normocephalic, atraumatic, mmm, trachea midline Resp: diminished in the bases, no w/c/r, 98% on RA CV: regular/elena to 50/60s, no significant m/r/g, no calf tenderness GI: +BS, soft/NT MSK: Left foot warm, tender, erythematous, wrapped with bandage. Lacks sensation to the distal left lower extremity past mid tibia. Right BKA Skin: dressing to LEFT foot removed -- lateral aspect w/ wound approximately 5- 6cm in length, escar, drainage present. nontender to palpation Neuro: alert, oriented, no focal neurologic deficit appreciated Psych: AOx3, cooperative with exam Cardiovascular: Vessels: + abnormal peripheral pulses Extremities: + edema (L foot) Musculoskeletal: Extremities: + amputation noted (RLE BKA) Skin: + wound, + erythema and + eschar Results & Data Results & Data Vital Signs (Past 12 Hours) Vital Signs Temp Pulse Pulse Resp BP Pulse Ox O2 Del Method 06/06/23 08:43 56 L 103/61 06/06/23 07:24 36.6 C 57 L 20 105/43 L 98 Room Air 06/06/23 02:49 36.7 C 64 20 111/67 97 Room Air 06/05/23 22:30 120 H 06/05/23 22:30 36.2 C L 114 H 18 159/74 H 96 Room Air 06/05/23 22:10 100 H 18 155/87 H 97 Room Air Laboratory Results 06/06/23 06/06/23 06/06/23 Range/Units 08:31 05:50 05:49 WBC 8.79 (4.8-10.8) K/ul RBC 3.67 L (4.70-6.10) M/uL Hgb 9.5 L (14.0-18.0) g/dl Hct 29.2 L (42.0-52.0) % MCV 79.6 L (80.0-100.0) fL MCH 25.9 (25.0-34.0) pg MCHC 32.5 (32.0-36.0) g/dL RDW Std Deviation 51.6 H (36.4-46.3) fL RDW Coeff of Vargas 17.6 H (11.5-14.5) % Plt Count 261 (130-400) K/uL MPV 10.6 (9.4-12.4) fL Immature Gran % (Auto) % Neut % (Auto) % Lymph % (Auto) % [place] % (Auto) % Eos % (Auto) % Baso % (Auto) % Neut # (Auto) (1.40-6.50) K/uL Lymph # (Auto) (1.2-3.4) K/uL [place] # (Auto) (0.11-0.59) K/uL Eos # (Auto) (0-0.50) K/uL Baso # (Auto) (0-0.2) K/uL Immature Gran # (Auto) (0.01-0.20) K/uL ESR (0-20) mm/hr PT (9.0-12.0) Seconds INR (0.9-1.1) APTT (21.0-31.0) Seconds PTT Ratio Sodium (136-145) mmol/L Potassium (3.5-5.1) mmol/L Chloride (98-107) mmol/L Carbon Dioxide (21-32) mmol/L Anion Gap (3-11) BUN (6-23) mg/dl Creatinine (0.6-1.4) mg/dl Est Cr Clr Drug Dosing ml/min Est GFR ( Amer) ml/min Est GFR (Non-Af Amer) ml/min BUN/Creatinine Ratio (10-20) Glucose (70-99(Fasting)) mg/dl POC Glucose 158 H (70-99) mg/dl Estimat Average Glucose Pending Hemoglobin A1c Pending Lactate (0.4-2.0) mmol/L Calcium (8.6-10.3) mg/dl Total Bilirubin (0.2-1.0) mg/dl AST (13-39) U/L ALT (7-52) U/L Alkaline Phosphatase (34-104) U/L C-Reactive Protein (0-0.5) mg/dl Total Protein (6.0-8.3) gm/dl Albumin (3.4-5.0) gm/dl Globulin (2.5-4.0) gm/dl Albumin/Globulin Ratio (0.9-2) Procalcitonin (0-0.5) ng/ml 06/06/23 06/06/23 06/06/23 Range/Units 05:49 05:49 04:06 WBC (4.8-10.8) K/ul RBC (4.70-6.10) M/uL Hgb (14.0-18.0) g/dl Hct (42.0-52.0) % MCV (80.0-100.0) fL MCH (25.0-34.0) pg MCHC (32.0-36.0) g/dL RDW Std Deviation (36.4-46.3) fL RDW Coeff of Vargas (11.5-14.5) % Plt Count (130-400) K/uL MPV (9.4-12.4) fL Immature Gran % (Auto) % Neut % (Auto) % Lymph % (Auto) % [place] % (Auto) % Eos % (Auto) % Baso % (Auto) % Neut # (Auto) (1.40-6.50) K/uL Lymph # (Auto) (1.2-3.4) K/uL [place] # (Auto) (0.11-0.59) K/uL Eos # (Auto) (0-0.50) K/uL Baso # (Auto) (0-0.2) K/uL Immature Gran # (Auto) (0.01-0.20) K/uL ESR (0-20) mm/hr PT 27.3 H (9.0-12.0) Seconds INR 2.6 H (0.9-1.1) APTT (21.0-31.0) Seconds PTT Ratio Sodium 135 L (136-145) mmol/L Potassium 3.4 L D (3.5-5.1) mmol/L Chloride 101 (98-107) mmol/L Carbon Dioxide 28 (21-32) mmol/L Anion Gap 6 (3-11) BUN 27 H (6-23) mg/dl Creatinine 1.17 (0.6-1.4) mg/dl Est Cr Clr Drug Dosing 79.9 ml/min Est GFR ( Amer) 74.3 ml/min Est GFR (Non-Af Amer) 64.1 ml/min BUN/Creatinine Ratio 23.1 H (10-20) Glucose 144 H (70-99(Fasting)) mg/dl POC Glucose 157 H (70-99) mg/dl Estimat Average Glucose Hemoglobin A1c Lactate (0.4-2.0) mmol/L Calcium 8.4 L (8.6-10.3) mg/dl Total Bilirubin 0.4 (0.2-1.0) mg/dl AST 11 L (13-39) U/L ALT < 3 L (7-52) U/L Alkaline Phosphatase 93 (34-104) U/L C-Reactive Protein 9.27 H (0-0.5) mg/dl Total Protein 6.3 (6.0-8.3) gm/dl Albumin 2.9 L (3.4-5.0) gm/dl Globulin 3.4 (2.5-4.0) gm/dl Albumin/Globulin Ratio 0.9 (0.9-2) Procalcitonin (0-0.5) ng/ml 06/06/23 06/05/23 06/05/23 Range/Units 01:27 22:56 22:03 WBC (4.8-10.8) K/ul RBC (4.70-6.10) M/uL Hgb (14.0-18.0) g/dl Hct (42.0-52.0) % MCV (80.0-100.0) fL MCH (25.0-34.0) pg MCHC (32.0-36.0) g/dL RDW Std Deviation (36.4-46.3) fL RDW Coeff of Vargas (11.5-14.5) % Plt Count (130-400) K/uL MPV (9.4-12.4) fL Immature Gran % (Auto) % Neut % (Auto) % Lymph % (Auto) % [place] % (Auto) % Eos % (Auto) % Baso % (Auto) % Neut # (Auto) (1.40-6.50) K/uL Lymph # (Auto) (1.2-3.4) K/uL [place] # (Auto) (0.11-0.59) K/uL Eos # (Auto) (0-0.50) K/uL Baso # (Auto) (0-0.2) K/uL Immature Gran # (Auto) (0.01-0.20) K/uL ESR (0-20) mm/hr PT (9.0-12.0) Seconds INR (0.9-1.1) APTT (21.0-31.0) Seconds PTT Ratio Sodium (136-145) mmol/L Potassium (3.5-5.1) mmol/L Chloride (98-107) mmol/L Carbon Dioxide (21-32) mmol/L Anion Gap (3-11) BUN (6-23) mg/dl Creatinine (0.6-1.4) mg/dl Est Cr Clr Drug Dosing ml/min Est GFR ( Amer) ml/min Est GFR (Non-Af Amer) ml/min BUN/Creatinine Ratio (10-20) Glucose (70-99(Fasting)) mg/dl POC Glucose 219 H 421 H* 435 H* (70-99) mg/dl Estimat Average Glucose Hemoglobin A1c Lactate (0.4-2.0) mmol/L Calcium (8.6-10.3) mg/dl Total Bilirubin (0.2-1.0) mg/dl AST (13-39) U/L ALT (7-52) U/L Alkaline Phosphatase (34-104) U/L C-Reactive Protein (0-0.5) mg/dl Total Protein (6.0-8.3) gm/dl Albumin (3.4-5.0) gm/dl Globulin (2.5-4.0) gm/dl Albumin/Globulin Ratio (0.9-2) Procalcitonin (0-0.5) ng/ml 06/05/23 06/05/23 06/05/23 Range/Units 17:30 17:15 17:15 WBC (4.8-10.8) K/ul RBC (4.70-6.10) M/uL Hgb (14.0-18.0) g/dl Hct (42.0-52.0) % MCV (80.0-100.0) fL MCH (25.0-34.0) pg MCHC (32.0-36.0) g/dL RDW Std Deviation (36.4-46.3) fL RDW Coeff of Vargas (11.5-14.5) % Plt Count (130-400) K/uL MPV (9.4-12.4) fL Immature Gran % (Auto) % Neut % (Auto) % Lymph % (Auto) % [place] % (Auto) % Eos % (Auto) % Baso % (Auto) % Neut # (Auto) (1.40-6.50) K/uL Lymph # (Auto) (1.2-3.4) K/uL [place] # (Auto) (0.11-0.59) K/uL Eos # (Auto) (0-0.50) K/uL Baso # (Auto) (0-0.2) K/uL Immature Gran # (Auto) (0.01-0.20) K/uL ESR (0-20) mm/hr PT 26.4 H (9.0-12.0) Seconds INR 2.6 H (0.9-1.1) APTT 46.9 H* (21.0-31.0) Seconds PTT Ratio 1.7 Sodium (136-145) mmol/L Potassium (3.5-5.1) mmol/L Chloride (98-107) mmol/L Carbon Dioxide (21-32) mmol/L Anion Gap (3-11) BUN (6-23) mg/dl Creatinine (0.6-1.4) mg/dl Est Cr Clr Drug Dosing ml/min Est GFR ( Amer) ml/min Est GFR (Non-Af Amer) ml/min BUN/Creatinine Ratio (10-20) Glucose (70-99(Fasting)) mg/dl POC Glucose (70-99) mg/dl Estimat Average Glucose Hemoglobin A1c Lactate 1.8 (0.4-2.0) mmol/L Calcium (8.6-10.3) mg/dl Total Bilirubin (0.2-1.0) mg/dl AST (13-39) U/L ALT (7-52) U/L Alkaline Phosphatase (34-104) U/L C-Reactive Protein (0-0.5) mg/dl Total Protein (6.0-8.3) gm/dl Albumin (3.4-5.0) gm/dl Globulin (2.5-4.0) gm/dl Albumin/Globulin Ratio (0.9-2) Procalcitonin 0.71 H (0-0.5) ng/ml 06/05/23 06/05/23 06/05/23 Range/Units 17:15 17:15 17:15 WBC 9.20 (4.8-10.8) K/ul RBC 4.18 L (4.70-6.10) M/uL Hgb 10.7 L (14.0-18.0) g/dl Hct 33.7 L (42.0-52.0) % MCV 80.6 (80.0-100.0) fL MCH 25.6 (25.0-34.0) pg MCHC 31.8 L (32.0-36.0) g/dL RDW Std Deviation 52.4 H (36.4-46.3) fL RDW Coeff of Vargas 17.8 H (11.5-14.5) % Plt Count 302 (130-400) K/uL MPV 11.1 (9.4-12.4) fL Immature Gran % (Auto) 0.2 % Neut % (Auto) 76.3 % Lymph % (Auto) 12.9 % [place] % (Auto) 8.3 % Eos % (Auto) 1.8 % Baso % (Auto) 0.5 % Neut # (Auto) 7.01 H (1.40-6.50) K/uL Lymph # (Auto) 1.19 L (1.2-3.4) K/uL [place] # (Auto) 0.76 H (0.11-0.59) K/uL Eos # (Auto) 0.17 (0-0.50) K/uL Baso # (Auto) 0.05 (0-0.2) K/uL Immature Gran # (Auto) 0.02 (0.01-0.20) K/uL ESR 123 H (0-20) mm/hr PT (9.0-12.0) Seconds INR (0.9-1.1) APTT (21.0-31.0) Seconds PTT Ratio Sodium 132 L (136-145) mmol/L Potassium 4.3 (3.5-5.1) mmol/L Chloride 98 (98-107) mmol/L Carbon Dioxide 24 (21-32) mmol/L Anion Gap 10 (3-11) BUN 27 H (6-23) mg/dl Creatinine 1.37 (0.6-1.4) mg/dl Est Cr Clr Drug Dosing 72.7 ml/min Est GFR ( Amer) 61.4 ml/min Est GFR (Non-Af Amer) 53.0 ml/min BUN/Creatinine Ratio 19.7 (10-20) Glucose 429 H* (70-99(Fasting)) mg/dl POC Glucose (70-99) mg/dl Estimat Average Glucose Hemoglobin A1c Lactate (0.4-2.0) mmol/L Calcium 8.7 (8.6-10.3) mg/dl Total Bilirubin 0.4 (0.2-1.0) mg/dl AST 13 (13-39) U/L ALT < 3 L (7-52) U/L Alkaline Phosphatase 114 H (34-104) U/L C-Reactive Protein 7.95 H (0-0.5) mg/dl Total Protein 7.5 (6.0-8.3) gm/dl Albumin 3.5 (3.4-5.0) gm/dl Globulin 4.0 (2.5-4.0) gm/dl Albumin/Globulin Ratio 0.9 (0.9-2) Procalcitonin (0-0.5) ng/ml Diagnostic Findings Foot X-Ray 06/05/23 17:14 XR foot LT min 3V routine HISTORY: 67 years-old Male infection chronic left foot pain with reported soft tissue infection COMPARISON: 12/11/2022 TECHNIQUE: 3 views of the left foot FINDINGS: Interval postoperative changes of partial resection of the first digit at the level of the mid diaphyseal proximal phalanx. Status post resection of the distal fourth metatarsal and the entire fifth digit. Chronic cortical thickening of the second and third metatarsals demineralized appearance of the bones with severe degeneration of the midfoot and hindfoot. Pes planus with mid foot collapse and chronic remodeling/disorganization. 2 soft tissue swelling. Probable bone fragments noted within the lateral forefoot. Mild bony irregularity noted within the base of the fourth proximal phalanx IMPRESSION: 1. Findings suspicious for osteomyelitis involving the base of the fourth proximal phalanx. 2. Soft tissue swelling with postoperative and chronic findings as above. ACT 112: Negative or not required by law. The above report was generated using voice recognition software. It may contain grammatical, syntax or spelling errors. Electronically signed by: Gabino Singh M.D. 06/05/2023 6:16 PM Foot MRI 06/05/23 20:04 Exam(s): MRI LEFT FOOT W/WO Contrast IV Amt: 11.5cc Gadavist EXAM: MR Left Lower Extremity Without and With Intravenous Contrast, Foot CLINICAL HISTORY: Reason for exam: Left foot osteomyelitis?. TECHNIQUE: Multiplanar magnetic resonance images of the left foot without and with intravenous contrast. CONTRAST: Patient received 11.5cc Gadavist of IV contrast COMPARISON: Plane films of the left foot from June 05, 2023 FINDINGS: Bones/joints: Focal edema and enhancement running obliquely across the distal third metatarsal consistent with acute or nonhealed fracture. Previous amputation of the fifth ray as well as the first digit proximal to the interphalangeal joint and focal resection of the distal fourth metatarsal head. Soft tissues: There is focal edema and enhancement of an approximately 0.7 x 1.6 cm area of the lateral aspect of the proximal fourth metatarsal deep to the wound suspicious for osteomyelitis. Other findings: The hindfoot is not included on the study. IMPRESSION: 1. There is focal edema and enhancement of an approximately 0.7 x 1.6 cm area of the lateral aspect of the proximal fourth metatarsal deep to the wound suspicious for osteomyelitis. 2. Focal edema and enhancement running obliquely across the distal third metatarsal consistent with acute or nonhealed fracture. 3. Previous amputation of the fifth ray as well as the first digit proximal to the interphalangeal joint and focal resection of the distal fourth metatarsal head. Electronically signed by: Ethan Paulino MD 06/05/23 22:26 PM PG Care Time/CCT Total # of Minutes Spent Total Time Spent with Patient: Total time spent is greater than 50% in coordination of care (as documented) at patient's floor/unit and/or counseling patient: Coding Level of Care Code 70084 SUB INP/OBS CARE MIN Diagnoses Foot osteomyelitis, left M86.9 CAD (coronary artery disease) I25.10 Associated angina: without angina [place] vs. transplanted heart: eek heart Uncontrolled type 1 diabetes mellitus with diabetic neuropathy, with long-term current use of insulin E10.40; E10.65 Type 2 diabetes mellitus with diabetic neuropathy E11.40 MEGAN (acute kidney injury) N17.9 S/P TAVR (transcatheter aortic valve replacement) Z95.2 Carotid artery stenosis I65.29 Chronic systolic congestive heart failure I50.22 Paroxysmal atrial fibrillation I48.0 Hypertension I10 Hypertension type: essential hypertension Dyslipidemia E78.5 (2) CAD (coronary artery disease) Associated angina: without angina [place] vs. transplanted heart: eek heart (10) Hypertension Hypertension type: essential hypertension Qualified Code(s): I10 - Essential (primary) hypertension
[2023-06-06] MEDS ORDERED: POTASSIUM CHLORIDE CRTAB 20 MEQ TABCR PO STA (09:03)
[2023-06-06] MEDS: BUMETANIDE 1 MG TAB PO SCH ×2 (09:07→17:08)
[2023-06-06] MEDS: carvediloL 12.5 MG TAB PO SCH ×2 (09:07→20:17)
[2023-06-06] MEDS: AMIODARONE 200 MG TAB PO SCH (09:11)
[2023-06-06] MEDS: ROSUVASTATIN CALCIUM 5 MG TAB PO SCH (09:11)
[2023-06-06] MEDS: ASPIRIN 81 MG ECTAB PO SCH (09:12)
[2023-06-06] MEDS: HEPARIN SOD 5,000 UNIT/0.5 ML VIAL SQ SCH ×2 (09:12→20:18)
[2023-06-06 09:15] LABS: Estimated Average Glucose 220 mg/dl; Hemoglobin A1C 9.3 % (4.5-5.6)
--- NOTE | 2023-06-06 09:30 | Electrocardiogram Report ---
Test Reason : Blood Pressure : / mmHG Vent. 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 lead placement vs. LVH Abnormal ECG When compared with ECG of 13-FEB-2023 17:36, Suspect arm lead reversal, interpretation assumes no reversal now present Atrial fibrillation no longer present HR has decreased by 55 bpm Confirmed by Seferino Rivera ([id number]) on 06/06/2023 9:29:58 AM Referred By: Sherif Guerrero Confirmed By:Seferino Rivera
--- NOTE | 2023-06-06 09:30 | Pharmacy Report ---
Pharmacy Glycemic Short Note 2 - Date of Service June 06, 2023 - Glycemic Short BSG Results (Last 24 hours): 06/05/23 06/05/23 06/05/23 17:15 22:03 22:56 Glucose 429 H* POC Glucose 435 H* 421 H* 06/06/23 06/06/23 06/06/23 01:27 04:06 05:49 Glucose 144 H POC Glucose 219 H 157 H 06/06/23 08:31 Glucose POC Glucose 158 H OUTPATIENT ANTIDIABETIC REGIMEN: * Levemir 28 units SQ HS * NovoLog, carb ratio 1:4 - uses ~60units/day * A1c 9.3% 06/06/23 ASSESSMENT: * 67 year old male Type 1 DM, last seen by endocrine in November, admitted with left foot osteomyelitis, on IV zosyn, NPO at this time. * Hyperglycemic last night on admission, given 10 units IV Regular insulin, 25 units of Lantus, and NovoLog Q4H SQ. * Started on CF/CR as used last admission with success, will continue at this time, euglycemic, change to Q6H checks. * Continue basal insulin. PLAN FOR INPATIENT GLYCEMIC CONTROL: * Basal insulin * Lantus 25 units SQ HS * Bolus insulin * NovoLog per scale ACHS Q6hrs while NPO * Goal Range: Low 110 mg/dL - High 140 mg/dL * Correction Factor: 20 mg/dL/unit * Nutritional / Prandial insulin per carb ratio of 1 unit per 3 grams CHO consumed
--- NOTE | 2023-06-06 10:01 | Consultation ---
Date of Consultation June 06, 2023 Assessment & Plan (1) Foot osteomyelitis, left: Pt with hx of diffuse PAD not requiring intervention, and ongoing L foot wound, now infected. Pt was sent to ED d/t concern for osteomyelitis, IV abx, and blood sugar control. Pt also with hx TAVR. Due to proximal bone osteomyelitis, recommend podiatry eval pt for further surgery. Will order new arterial US to eval for changes in PAD as well. History of Present Illness Reason for Consultation: L foot infected wound Attending Physician: Jesse Wallace MD History of Present Illness 67 yo m with multiple medical problems, including DMII, aortic stenosis s/p TAVR, carotid stenosis, CAD, CHF, HTN, A fib, dyslipidemia, PAD, RLE BKA, admitted with worsening L foot infection, seen in consultation today for PAD. Pt known to Dr Guerrero. Has had L 5th toe amputation d/t osteomyelitis in November 2022, then underwent 5th TMA and wound debridement with wound vac placement in January 2023. Wound vac was continued as outpt until about 2-3 weeks ago. At that time, pt was seen in office and wound appeared healed to surface, so vac was d/c. Has been dressing it daily at home. Still has home nurses for wound care. Pt called office asking to be seen d/t increased pain, swelling, redness, drainage over about 4 days. Was seen in office yesterday and advised to go to ED for admission d/t uncontrolled blood sugars and imaging to eval extent of infection. Pt denies any new complaints today. Denies fever, chest pain, SOB, abd pain, N/V, other complaints. Does not walk fast or far enough to claudicate. Previous imaging had demonstrated mild diffuse disease, no intervention performed. Allergies Allergy/AdvReac Type Severity Reaction Status Date / Time ketoconazole [From Nizoral] AdvReac Unknown see comment Verified 02/07/23 11:52 Home Medications Medication Instructions Recorded Confirmed Type insulin syringe-needle U-100 0.5 #400 ea 01/15/20 03/28/23 Rx mL 29 gauge x 1/2" (BD Insulin Syringe) insulin detemir U-100 100 unit/mL 28 unit (0.28 mL) subcut QPM #1 box 07/14/22 03/28/23 Rx (3 mL) subcutaneous pen (Levemir FlexTouch U-100 Insulin) aspirin 81 mg chewable tablet 81 mg PO QAM 07/20/22 03/28/23 History OneTouch Verio test strips (blood #300 ea 08/31/22 03/28/23 Rx sugar diagnostic) nitroglycerin 0.4 mg sublingual 0.4 mg sublingual UD PRN Chest 08/31/22 03/28/23 Rx tablet Pain #25 tabs amiodarone 200 mg tablet 200 mg PO QAM 01/11/23 03/28/23 History bumetanide 1 mg tablet 1 mg PO BID #180 tabs 01/12/23 03/28/23 Rx acetaminophen 325 mg tablet 650 mg PO Q4H PRN #0 tabs 02/15/23 03/28/23 Rx carvedilol 12.5 mg tablet 12.5 mg PO BID #60 tabs 02/15/23 03/28/23 Rx rosuvastatin 5 mg tablet 5 mg PO DAILY 04/04/23 04/04/23 History warfarin 5 mg tablet See Rx Instructions PO DAILY 04/18/23 History insulin aspart U-100 100 unit/mL See Rx Instructions .Route 05/25/23 Rx (3 mL) subcutaneous pen (Novolog .COMPLEX #30 mL FlexPen U-100 Insulin aspart) Patient History Medical History Aortic valve disease s/p TAVR (2019) CAD (coronary artery disease) follows with Dr. Elliott Carotid artery stenosis Under surveillance by vascular (Dr. Guerrero) Cerebrovascular duplex with 60-69% LICA stenosis (stable from 2019 study per report) Chronic systolic congestive heart failure Dyslipidemia History of atrial fibrillation History of chronic kidney disease Hypertension Ischemic cardiomyopathy MRSA (methicillin resistant Staphylococcus aureus) left fifth toe- current Myocardial Infarction 2014 Obesity (BMI 30.0-34.9) Osteomyelitis Hx PAD (peripheral artery disease) Paroxysmal atrial fibrillation Proliferative diabetic retinopathy Sleep apnea "Not bad enough for device" per pt Type 1 diabetes mellitus Ulcer of toe of left foot Surgical History H/O gastric bypass History of adenoidectomy History of amputation of lesser toe of right foot History of amputation of toe History of cardiac cath 2018 [place] History of cataract surgery bilat History of tonsillectomy History of tooth extraction S/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 angioplasty (TRAFFIC SUPERINTENDENT) TRAFFIC SUPERINTENDENT of anterior tibial artery April 2017 S/P TAVR (transcatheter aortic valve replacement[place] [facility] [place] Status post below knee amputation of right lower extremity 2019 Status post transmetatarsal amputation of right foot Family History Sister Myocardial infarction Denies family history of Ovarian cancer Prostate cancer Breast cancer Lung cancer Colorectal cancer Stroke Social History Smoking Status: Never smoker Second Hand Exposure: No; Do You Dip or Chew Tobacco: No; Hx Alcohol Use: No Hx Substance Use: No Preferred Language: Yoruba Communication Ability: Effective Visual Impairment: Limited Hearing Ability: Use of Hearing Aid [employer] Trooper Required: No Beliefs That Will Affect Care: None and Spiritual marital status: Current Living Situation: Alone current occupational status: disabled How many Children do You have: 0 Feels Safe at Home: Yes Childhood Exposure to Second-Hand Smoke: No Diet: regular caffeine: Yes Dental Care, Regularly: No Physical Activity Frequency: 1-2 Times per Week Seatbelt Use: never Sunscreen Use: Yes Assistive Devices: Cane, Walker and Wheelchair Review of Systems Review of Systems: All systems reviewed & are unremarkable except as noted in HPI & below Physical Exam Constitutional: WD/WN, vitals as above not in distress Neck: trachea midline Respiratory: normal respiratory effort, lungs clear to auscultation Auscultation: + diminished lung sounds Cardiovascular: Rate/Rhythm: + irregularly irregular Vessels: posterior tibial pulses present (doppler LLE), dorsalis pedis pulses present (doppler LLE) and radial pulses present; + abnormal peripheral pulses Extremities: normal capillary refill and + edema (L foot) Gastrointestinal (Abdomen): Inspection/Auscultation: abdomen normal to inspection and normal bowel sounds Percussion/Palpation: abdomen soft; abdomen nontender Musculoskeletal: Extremities: + amputation noted (RLE BKA) Skin: + wound, + erythema and + eschar LLE lateral 5th TMA wound + periwound erythema, warmth, tenderness, mild serosan drainage. new eschar proximally. Neurologic: moves all extremities and awake; no focal motor deficits and not confused Psychiatric: A+Ox3, euthymic affect Results & Data Vital Signs (Past 12 Hours) Vital Signs Temp Pulse Pulse Resp BP Pulse Ox O2 Del Method 06/06/23 08:43 56 L 103/61 06/06/23 07:24 36.6 C 57 L 20 105/43 L 98 Room Air 06/06/23 02:49 36.7 C 64 20 111/67 97 Room Air 06/05/23 22:30 120 H 06/05/23 22:30 36.2 C L 114 H 18 159/74 H 96 Room Air 06/05/23 22:10 100 H 18 155/87 H 97 Room Air
[2023-06-06] MEDS ORDERED: Nursing to Pharmacy Communication SCH (10:45)
[2023-06-06] MEDS ORDERED: carvediloL 12.5 MG TAB PO ONE (12:24)
--- NOTE | 2023-06-06 13:17 | Ultrasound Report ---
LEFT LOWER EXTREMITY ARTERIAL DOPPLER ULTRASOUND CLINICAL HISTORY: Non-healing ulcer. COMPARISON STUDY: Bilateral large extremity arterial Doppler ultrasound April 02, 2017. TECHNIQUE: Left ankle to brachial index was obtained. Grayscale, color and duplex Doppler sonography of the arterial system of the left lower extremity was performed. FINDINGS: Left ankle to brachial index measured 0.55 when using dorsalis pedis and 0.33 when using th e posterior tibial artery. There is triphasic flow within the left common femoral artery. There is ex tensive plaque within the left lower extremity. There is an elevated peak systolic velocity of 280 cm /s within the proximal left superficial femoral artery. There is monophasic flow within the mid to di stal left superficial femoral artery. There is monophasic flow within the left popliteal, anterior ti bial and dorsalis pedis arteries. There is suspected occlusion with distal reconstitution of the left posterior tibial artery. This was shown on prior ultrasound. There is suspected occlusion of the dis jose juan left peroneal artery. IMPRESSION: 1. Extensive atherosclerotic plaque within the left lower extremity. Moderately diminished left ankle to brachial index of 0.55. 2. Findings suggestive of a hemodynamically significant stenosis within the proximal left superficial femoral artery. 3. Monophasic flow throughout the remainder of the left lower extremity with suspected occlusion of t he proximal left posterior tibial artery with distal reconstitution and occlusion of the distal left peroneal artery. ACT 112: Negative or not required by law. Electronically signed by: Dmitry Harper M.D. 06/06/2023 1:15 PM
--- NOTE | 2023-06-06 16:10 | Orthopedic Consultation ---
Date of Consultation June 06, 2023 Assessment & Plan (1) Foot osteomyelitis, left: Patient seen, evaluated, and treated. Reviewed x-ray and MRI images and findings. Discussed plan of care with Patient. Awaiting INR to become non therapeutic. Patient will undergo removal of non-viable bone (4th metatarsal) possible TMA Left foot tentative OR time 06/08/23 History of Present Illness Attending Physician: Jesse Wallace MD History of Present Illness Patient is a 67 year old male seen at bedside this morning for a left foot wound. Patient has a past medical history significant for type II diabetes, aortic stenosis s/p TAVR, carotid stenosis, CAD, CHF, HTN, A fib, dyslipidemia, PAD, and RLE BKA. Patient was admitted for left fifth metatarsal osteomyelitis and associated left foot wound infection. Patient has had L 5th toe amputation d/t osteomyelitis in November 2022, then underwent 5th metatarsal resection and wound debridement with wound vac placement in January 2023. Wound vac was continued outpatient until about 2-3 weeks ago. Patient has been dressing it daily along with home nurses for wound care. Patient noted increased pain, swelling, redness, drainage over about 4 days. He was seen in Dr. Guerrero's office yesterday and advised to go to ED for admission d/t uncontrolled blood sugars and imaging to eval extent of infection. Allergies Allergy/AdvReac Type Severity Reaction Status Date / Time ketoconazole [From Nizoral] AdvReac Unknown see comment Verified 06/07/23 15:47 Home Medications Medication Instructions Recorded Confirmed Type insulin syringe-needle U-100 0.5 #400 ea 01/15/20 03/28/23 Rx mL 29 gauge x 1/2" (BD Insulin Syringe) insulin detemir U-100 100 unit/mL 28 unit (0.28 mL) subcut QPM #1 box 07/14/22 06/07/23 Rx (3 mL) subcutaneous pen (Levemir FlexTouch U-100 Insulin) aspirin 81 mg chewable tablet 81 mg PO QAM 07/20/22 06/07/23 History OneTouch Verio test strips (blood #300 ea 08/31/22 03/28/23 Rx sugar diagnostic) nitroglycerin 0.4 mg sublingual 0.4 mg sublingual UD PRN Chest 08/31/22 06/07/23 Rx tablet Pain #25 tabs amiodarone 200 mg tablet 200 mg PO QAM 01/11/23 06/07/23 History bumetanide 1 mg tablet 1 mg PO BID #180 tabs 01/12/23 06/07/23 Rx acetaminophen 325 mg tablet 650 mg PO Q4H PRN #0 tabs 02/15/23 06/07/23 Rx carvedilol 12.5 mg tablet 12.5 mg PO BID #60 tabs 02/15/23 06/07/23 Rx rosuvastatin 5 mg tablet 5 mg PO DAILY 04/04/23 06/07/23 History warfarin 5 mg tablet 5 mg PO 2XWK 04/18/23 06/07/23 History insulin aspart U-100 100 unit/mL See Rx Instructions .Route 05/25/23 06/07/23 Rx (3 mL) subcutaneous pen (Novolog .COMPLEX #30 mL FlexPen U-100 Insulin aspart) warfarin 2.5 mg tablet 2.5 mg PO 5XWK 06/07/23 06/07/23 History Patient History Medical History (Updated 06/07/23 @ 13:25 by Seferino Rivera MD) Aortic valve disease s/p TAVR (2019) CAD (coronary artery disease) follows with Dr. Elliott Carotid artery stenosis Under surveillance by vascular (Dr. Guerrero) Cerebrovascular duplex with 60-69% LICA stenosis (stable from 2019 study per report) Dyslipidemia History of atrial fibrillation History of chronic kidney disease Hypertension Ischemic cardiomyopathy MRSA (methicillin resistant Staphylococcus aureus) left fifth toe- current Myocardial Infarction 2014 Obesity (BMI 30.0-34.9) Osteomyelitis Hx PAD (peripheral artery disease) Paroxysmal atrial fibrillation Proliferative diabetic retinopathy Sleep apnea "Not bad enough for device" per pt Type 1 diabetes mellitus Ulcer of toe of left foot Surgical History H/O gastric bypass History of adenoidectomy History of amputation of lesser toe of right foot History of amputation of toe History of cardiac cath 2017 [place] History of cataract surgery bilat History of tonsillectomy History of tooth extraction S/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 angioplasty (GIS PROFESSOR) GIS PROFESSOR of anterior tibial artery April 2017 S/P TAVR (transcatheter aortic valve replacement) [facility] [place] Oct [place] Status post below knee amputation of right lower extremity 2019 Status post transmetatarsal amputation of right foot Family History Sister Myocardial infarction Denies family history of Ovarian cancer Prostate cancer Breast cancer Lung cancer Colorectal cancer Stroke Social History Smoking Status: Never smoker Second Hand Exposure: No; Do You Dip or Chew Tobacco: No; Hx Alcohol Use: No Hx Substance Use: No Preferred Language: Finnish Communication Ability: Effective Visual Impairment: Limited Hearing Ability: Use of Hearing Aid Service Order Dispatcher Required: No Beliefs That Will Affect Care: None and Spiritual marital status: Current Living Situation: Alone current occupational status: disabled How many Children do You have: 0 Feels Safe at Home: Yes Childhood Exposure to Second-Hand Smoke: No Diet: regular caffeine: Yes Dental Care, Regularly: No Physical Activity Frequency: 1-2 Times per Week Seatbelt Use: never Sunscreen Use: Yes Assistive Devices: Cane, Walker and Wheelchair Physical Exam Constitutional: cooperative and comfortable Eyes: normal visual ramos by confrontation Neck: normal visual inspection Respiratory: normal respiratory effort Cardiovascular: Rate/Rhythm: regular rate and regular rhythm Musculoskeletal: Extremities: + amputation noted (RLE BKA) Skin: + ulcer (Left lateral foot full thickness ulcer.) Neurologic: moves all extremities (Absent epicritic sensation) Psychiatric: Orientation: alert and oriented x 3 Results & Data Vital Signs (Past 12 Hours) Vital Signs Temp Pulse Pulse Resp BP Pulse Ox O2 Del Method 06/06/23 15:07 86 06/06/23 11:46 36.6 C 101 H 20 136/52 L 97 Room Air 06/06/23 07:15 56 L 06/06/23 08:43 56 L 103/61 06/06/23 07:24 36.6 C 57 L 20 105/43 L 98 Room Air [facility] [phone] Magnetic Resonance Report Patient:KIRK EPPS Admit Date:06/05/23 MR#:[id number] Address1:[facility] [address] Acct ID:[id number] Address2: Date:[address] [facility] Zip:[place] [address] Age:67 Location:ED Sex:M Room/Bed: Att Phy: Diagnosis:REF BY DOC,INFECTION ON SIDE OF L FOOT Eryn Phy:Suze Addison MD Service Date:06/05/23 [facility] Phy: Interpreting Phy:Ethan Paulino MDAdmit Phy: Ordering Phy:Octaviano Pastor DO cc: ~ Exam(s): MRI LEFT FOOT W/WO Contrast IV Amt: 11.5cc Gadavist EXAM: MR Left Lower Extremity Without and With Intravenous Contrast, Foot CLINICAL HISTORY: Reason for exam: Left foot osteomyelitis?. TECHNIQUE: Multiplanar magnetic resonance images of the left foot without and with intravenous contrast. CONTRAST: Patient received 11.5cc Gadavist of IV contrast COMPARISON: Plane films of the left foot from June 05, 2023 FINDINGS: Bones/joints: Focal edema and enhancement running obliquely across the distal third metatarsal consistent with acute or nonhealed fracture. Previous amputation of the fifth ray as well as the first digit proximal to the interphalangeal joint and focal resection of the distal fourth metatarsal head. Soft tissues: There is focal edema and enhancement of an approximately 0.7 x 1.6 cm area of the lateral aspect of the proximal fourth metatarsal deep to the wound suspicious for osteomyelitis. Other findings: The hindfoot is not included on the study. IMPRESSION: 1. There is focal edema and enhancement of an approximately 0.7 x 1.6 cm area of the lateral aspect of the proximal fourth metatarsal deep to the wound suspicious for osteomyelitis. 2. Focal edema and enhancement running obliquely across the distal third metatarsal consistent with acute or nonhealed fracture. 3. Previous amputation of the fifth ray as well as the first digit proximal to the interphalangeal joint and focal resection of the distal fourth metatarsal head. Electronically signed by: Ethan Paulino MD 06/05/23 22:26 PM
[2023-06-06] MEDS: DAPTOmycin 600 MG in SYRINGE 0 ML IV SCH (18:10)
[2023-06-06] MEDS ORDERED: MoRPHine SULFATE 2 MG/ML CARP IV STA (19:59)
[2023-06-06] MEDS ORDERED: LANTUS PER UNIT CHARGE SQ SCH (21:00)
[2023-06-07] MEDS: ACETAMINOPHEN 1,000 MG/100 ML VIAL IV PRN ×2 (05:56→15:36)
[2023-06-07 06:34] LABS: Hematocrit (blood only) 31.1 % (42.0-52.0); Hemoglobin 9.9 g/dl (14.0-18.0); Mean Corpuscular Hemoglobin 25.7 pg (25.0-34.0); Mean Corpuscular Hgb Conc 31.8 g/dL (32.0-36.0); Mean Corpuscular Volume 80.8 fL (80.0-100.0); Mean Platelet Volume 10.9 fL (9.4-12.4); Platelet Count 248 K/uL (130-400); RDW Coefficient of Variation 17.9 % (11.5-14.5); RDW Standard Deviation 52.7 fL (36.4-46.3); Red Blood Count 3.85 M/uL (4.70-6.10); White Blood Count 9.25 K/ul (4.8-10.8)
[2023-06-07 06:55] LABS: Anion Gap 6 (3-11); BUN Creatinine Ratio 20.4 (10-20); Blood Urea Nitrogen 23 mg/dl (6-23); Calcium 8.4 mg/dl (8.6-10.3); Carbon Dioxide 28 mmol/L (21-32); Chloride 101 mmol/L (98-107); Creatinine Clr Calc Pharmacy 82.7 ml/min; Est GFR (African American) 77.5 ml/min; Est GFR (Non-African American) 66.9 ml/min; Glucose 173 mg/dl (70-99(Fasting)); Potassium 3.9 mmol/L (3.5-5.1); Sodium 135 mmol/L (136-145)
[2023-06-07 06:56] LABS: INR 2.3 (0.9-1.1); Prothrombin Time 24.2 Seconds (9.0-12.0)
[2023-06-07 07:13] LABS: Alanine Aminotransferase < 3 U/L (7-52); Albumin Globulin Ratio 0.8 (0.9-2); Alkaline Phosphatase 87 U/L (34-104); Aspartate Aminotransferase 10 U/L (13-39); Bilirubin,Total 0.4 mg/dl (0.2-1.0); Chol HDL Ratio 2.7 (0-5); Cholesterol 131 mg/dl (0-200); Globulin 3.6 gm/dl (2.5-4.0); HDL Cholesterol 49 mg/dl; Iron 20 mcg/dl (35-175); LDL Cholesterol Calculated 67 mg/dl; Magnesium 2.1 mg/dl (1.7-2.4); Total Iron Binding Cap Calc 238 mcg/dl (250-450); Total Protein 6.6 gm/dl (6.0-8.3); Transferrin (FE) Percent Satur 8 % (20-50); Triglycerides 77 mg/dl (0-150); Unsaturated Iron Binding Cap 218 mcg/dl (155-355); VLDL Cholesterol 15 mg/dl (0-30)
[2023-06-07 07:14] LABS: Ferritin 37.8 ng/ml (8-388)
--- NOTE | 2023-06-07 07:37 | Electrocardiogram Report ---
Test Reason : Blood Pressure : / mmHG Vent. 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 lead placement vs. LVH Abnormal ECG When compared with ECG of 06-JUN-2023 08:24, HR has decreased by 17 bpm Limb lead reversal corrected Confirmed by Seferino Rivera ([id number]) on 06/07/2023 7:37:37 AM Referred By: Sherif Guerrero Confirmed By:Seferino Rivera
--- NOTE | 2023-06-07 07:39 | Electrocardiogram Report ---
Test Reason : Blood Pressure : / mmHG Vent. 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 lead placement vs. LVH Abnormal ECG When compared with ECG of 06-JUN-2023 17:10, Vent. rate has increased BY 24 BPM Sinus rhythm now present Confirmed by Seferino Rivera ([id number]) on 06/07/2023 7:39:10 AM Referred By: Sherif Guerrero Confirmed By:Seferino Rivera
[2023-06-07] MEDS: INSULIN ASPART PER UNIT CHARGE SC SCH ×5 (08:29→20:17)
--- NOTE | 2023-06-07 08:35 | Hospitalist Progress Note ---
Date of Service June 07, 2023 Assessment & Plan (1) Foot osteomyelitis, left: Plan: Previous osteomyelitis in the left foot s/p debridement and 5th MT and 4th MT head amputation done on 02/09/[address] Guerrero. No prior artial disease/intervention required Increased pain/redness/drainage x 3-4 days at home reported. CRP/ESR elevation Prior blood cx + Enterococcus faecalis, past wound cultures positive for MRSA. Xray w/ possible osto L base 4th proximal phalange MRI w/ focal edema and enhancement of an approximately 0.7 x 1.6 cm area of the lateral aspect of the proximal fourth metatarsal deep to the wound suspicious for osteomyelitis. Focal edema and enhancement running obliquely across the distal third metatarsal consistent with acute or nonhealed fracture. Previous amputation of the fifth ray as well as the first digit proximal to the interphalangeal joint and focal resection of the distal fourth metatarsal head. CX on admit growing Proteus mirabilis, pansensitive on preliminary Blood cultures pending, NGTD at present Remains on Dapto/Zosyn given DM, bsg elevation and prior cx hx WBC wnl, remains afebrile Podiatry consulted, Dr Mcbride. Vascular consulted, Dr Guerrero US Duplex w/ hemodynamically significant stenosis within proximal L superficial femoral artery. Susp occluision of L proximal L posterior tibial artery with distal reconstitution and occlusion distal L peroneal artery Planning angio Sunday initially, possible coordination w/ podiatry regarding amputation Discussed w/ vascular this morning --> recommending Dr Mcbride proceed w/ surgery Sunday as more urgent and they will plan for angio on Sunday Holding coumadin, INR 2.3 and will monitor daily/Vitamin K tomorrow if remains elevated but to hold off for now. Continue Heparin SQ 12 H -- will hold after dose in AM as per Dr Mcbride, procedure not until tomorrow at 4pm Monitor CBC/CMP/INR in AM (2) PAD (peripheral artery disease): Plan: US Duplex obtained by vascular yesterday to ensure no arterial disease/other causes for not healing IMPRESSION: 1. Extensive atherosclerotic plaque within the left lower extremity. Moderately diminished left ankle to brachial index of 0.55. 2. Findings suggestive of a hemodynamically significant stenosis within the proximal left superficial femoral artery. 3. Monophasic flow throughout the remainder of the left lower extremity with suspected occlusion of the proximal left posterior tibial artery with distal reconstitution and occlusion of the distal left peroneal artery. Messaged Dr Mcbride/vascular -- vascular planning for Angio on Sunday however as above will plan for angio on Sunday after amputation completed given urgent nature (3) CAD (coronary artery disease): Plan: follows w/ [facility] S/P TAVR (transcatheter aortic valve replacement): Patient on warfarin for history of AVR and paroxysmal A-fib. Holding coumadin, on heparin SQ BID, monitoring INR (would need to hold heparin at least 6 hrs prior to surgical intervention) continues on amiodarone 200mg daily No need for vitamin K at present, INR decreasing Will monitor INR in AM/prior to surgery, possible need pending repeat values. Per Dr Mcbride, hold off vit k for now Chronic systolic congestive heart failure: Chronic, stable Last echo done on 02/12/2023 showed a EF of 35 to 40%. Patient is euvolemic on physical exam and has no signs or symptoms of acute CHF exacerbation. Monitor weights/I&O Bumex 1mg BID continued (held AM 06/06 for lower BPs, no significant volume overload at present). Not on entresto or MAMIE-I due to symptomatic hypotension in the past Carvedilol as able w/ hold parameters SGLT2 inhibitor not indicated due to DM type 1 Monitor volume status, appears stable at present Paroxysmal atrial fibrillation: Continue Coreg 12.5 mg twice daily, amiodarone 200 mg every morning, and aspirin 81 mg every morning. Uses nitroglycerin 0.4 mg as needed for chest pain. He has not used in the past 3 to 4 weeks. Converted to NSR overnight but flipping in/out at times Keep K/mag replete monitoring on telemetry Coumadin on hold as above, INR in AM Hyperlipidemia: Crestor 5 mg daily -- lipid panel checked given PAD, can increase to 10mg daily but placed on hold while on Dapto to prevent rhabdo (4) Uncontrolled type 1 diabetes mellitus with diabetic neuropathy, with long- term current use of insulin: Plan: (5) Uncontrolled type 1 diabetes mellitus with diabetic neuropathy, with long- term current use of insulin: Patient is a type I diabetic uncontrolled last seen by endocrine on 11/2022, BSG elevation on admit A1c 9.3 from prior 9.8 in January Home regimen on hold, pharmacy consulted BSGs acceptable and improved -- continued monitoring/adjustments per pharmacy (5) Type 2 diabetes mellitus with diabetic neuropathy: (6) MEGAN (acute kidney injury): Plan: Cr elevation on admission, meds renal doses/parameters for BP Improved on repeat Held AM bumex 06/07 as BPs borderline, carvedilol w/ hold parameters Cr stable 1.13 on repeat and will continue to monitor/adjust meds renally/avoid nephrotoxic agents as able Monitor BMP in AM (7) S/P TAVR (transcatheter aortic valve replacement): Plan: noted hx, coumadin on hold as above, on Heparin SQ BID -- placed on hold after dose in AM to resume following surgery (8) Carotid artery stenosis: Plan: continues on aspirin daily (9) Chronic systolic congestive heart failure: Plan: as above, volume stable on exam (10) Paroxysmal atrial fibrillation: Plan: monitoring on tele -- keep K/mag replete (11) Hypertension: (12) Dyslipidemia: Plan: lipid panel checked given PAD and on crestor 5mg Cholesterol level 131, LDL 67. Consider increasing to 10mg daily but holding while on Dapto to prevent rhabdo (13) Anemia: Plan: Iron studies checked - iron low at 20, TIBC low, unsat acceptable. Trans % sat lLOW at 8%. Ferritin only 37.8. Can consider IV venofer. No active bleeding on exam. Hgb improved on repeat to 9.9 and will monitor Plan continued inpatient stay, NPO at midnight for surgery tomorrow Admission and Anticipated Discharge Date Admission Date: June 05, 2023 Supervising Physician Co-Signing Physician Notes The patient was not seen by me. The chart was reviewed. Case discussed with YAMEL Castro. Agree with assessment and plan Subjective Eval this morning, not having much pain, controlled. Not seen by vascular or podiatry this morning but reviewed narrowing in duplex study and need for angio but per vascular more urgent need for amputation and recs to proceed with this tomorrow and plan for angio on sunday. No fever/chills, chest pain, shortness of breath, abdominal pain at this time. Questions/concerns addressed. Physical Exam Physical Exam: General: WD male resting in bed, NAD HEENT: head normocephalic, atraumatic, mmm, trachea midline Resp: diminished in the bases, no w/c/r, 96% on RA CV: irregularly irregular, rates in 50s, no significant m/r/g GI: +BS, soft/NT MSK: Left foot warm (decreased), tender (decreased) erythematous, wrapped with bandage. Lacks sensation to the distal left lower extremity past mid tibia. Right BKA Skin: dressing to LEFT foot w/ lateral aspect w/ wound approximately 5-6cm in length, eschar, drainage present. nontender to palpation Neuro: alert, oriented, no focal neurologic deficit appreciated Psych: AOx3, cooperative with exam Cardiovascular: Vessels: + abnormal peripheral pulses Extremities: + edema (L foot) Musculoskeletal: Extremities: + amputation noted (RLE BKA) Skin: + wound, + erythema and + eschar Results & Data Results & Data Vital Signs (Past 12 Hours) Vital Signs Temp Pulse Pulse Resp BP Pulse Ox O2 Del Method 06/06/23 23:00 88 06/07/23 03:00 36.5 C 60 16 141/79 H 96 Room Air 06/06/23 22:48 36.5 C 85 16 102/66 96 Room Air Laboratory Results 06/07/23 06/07/23 06/07/23 Range/Units 07:50 05:37 05:37 WBC 9.25 (4.8-10.8) K/ul RBC 3.85 L (4.70-6.10) M/uL Hgb 9.9 L (14.0-18.0) g/dl Hct 31.1 L (42.0-52.0) % MCV 80.8 (80.0-100.0) fL MCH 25.7 (25.0-34.0) pg MCHC 31.8 L (32.0-36.0) g/dL RDW Std Deviation 52.7 H (36.4-46.3) fL RDW Coeff of Vargas 17.9 H (11.5-14.5) % Plt Count 248 (130-400) K/uL MPV 10.9 (9.4-12.4) fL PT (9.0-12.0) Seconds INR (0.9-1.1) Sodium 135 L (136-145) mmol/L Potassium 3.9 (3.5-5.1) mmol/L Chloride 101 (98-107) mmol/L Carbon Dioxide 28 (21-32) mmol/L Anion Gap 6 (3-11) BUN 23 (6-23) mg/dl Creatinine 1.13 (0.6-1.4) mg/dl Est Cr Clr Drug Dosing 82.7 ml/min Est GFR ( Amer) 77.5 ml/min Est GFR (Non-Af Amer) 66.9 ml/min BUN/Creatinine Ratio 20.4 H (10-20) Glucose 173 H (70-99(Fasting)) mg/dl POC Glucose 234 H (70-99) mg/dl Estimat Average Glucose mg/dl Hemoglobin A1c (4.5-5.6) % Calcium 8.4 L (8.6-10.3) mg/dl Magnesium 2.1 (1.7-2.4) mg/dl Iron 20 L (35-175) mcg/dl TIBC 238 L (250-450) mcg/dl Unsaturated IBC 218 (155-355) mcg/dl Transferrin % Sat 8 L (20-50) % Ferritin 37.8 (8-388) ng/ml Total Bilirubin 0.4 (0.2-1.0) mg/dl AST 10 L (13-39) U/L ALT < 3 L (7-52) U/L Alkaline Phosphatase 87 (34-104) U/L C-Reactive Protein 9.20 H (0-0.5) mg/dl Total Protein 6.6 (6.0-8.3) gm/dl Albumin 3.0 L (3.4-5.0) gm/dl Globulin 3.6 (2.5-4.0) gm/dl Albumin/Globulin Ratio 0.8 L (0.9-2) Triglycerides 77 (0-150) mg/dl Cholesterol 131 (0-200) mg/dl LDL Cholesterol, Calc 67 mg/dl VLDL Cholesterol, Calc 15 (0-30) mg/dl HDL Cholesterol 49 mg/dl Cholesterol/HDL Ratio 2.7 (0-5) 06/07/23 06/06/23 06/06/23 Range/Units 05:37 21:44 20:07 WBC (4.8-10.8) K/ul RBC (4.70-6.10) M/uL Hgb (14.0-18.0) g/dl Hct (42.0-52.0) % MCV (80.0-100.0) fL MCH (25.0-34.0) pg MCHC (32.0-36.0) g/dL RDW Std Deviation (36.4-46.3) fL RDW Coeff of Vargas (11.5-14.5) % Plt Count (130-400) K/uL MPV (9.4-12.4) fL PT 24.2 H (9.0-12.0) Seconds INR 2.3 H (0.9-1.1) Sodium (136-145) mmol/L Potassium (3.5-5.1) mmol/L Chloride (98-107) mmol/L Carbon Dioxide (21-32) mmol/L Anion Gap (3-11) BUN (6-23) mg/dl Creatinine (0.6-1.4) mg/dl Est Cr Clr Drug Dosing ml/min Est GFR ( Amer) ml/min Est GFR (Non-Af Amer) ml/min BUN/Creatinine Ratio (10-20) Glucose (70-99(Fasting)) mg/dl POC Glucose 214 H 277 H (70-99) mg/dl Estimat Average Glucose mg/dl Hemoglobin A1c (4.5-5.6) % Calcium (8.6-10.3) mg/dl Magnesium (1.7-2.4) mg/dl Iron (35-175) mcg/dl TIBC (250-450) mcg/dl Unsaturated IBC (155-355) mcg/dl Transferrin % Sat (20-50) % Ferritin (8-388) ng/ml Total Bilirubin (0.2-1.0) mg/dl AST (13-39) U/L ALT (7-52) U/L Alkaline Phosphatase (34-104) U/L C-Reactive Protein (0-0.5) mg/dl Total Protein (6.0-8.3) gm/dl Albumin (3.4-5.0) gm/dl Globulin (2.5-4.0) gm/dl Albumin/Globulin Ratio (0.9-2) Triglycerides (0-150) mg/dl Cholesterol (0-200) mg/dl LDL Cholesterol, Calc mg/dl VLDL Cholesterol, Calc (0-30) mg/dl HDL Cholesterol mg/dl Cholesterol/HDL Ratio (0-5) 06/06/23 06/06/23 06/06/23 Range/Units 16:26 11:43 08:31 WBC (4.8-10.8) K/ul RBC (4.70-6.10) M/uL Hgb (14.0-18.0) g/dl Hct (42.0-52.0) % MCV (80.0-100.0) fL MCH (25.0-34.0) pg MCHC (32.0-36.0) g/dL RDW Std Deviation (36.4-46.3) fL RDW Coeff of Vargas (11.5-14.5) % Plt Count (130-400) K/uL MPV (9.4-12.4) fL PT (9.0-12.0) Seconds INR (0.9-1.1) Sodium (136-145) mmol/L Potassium (3.5-5.1) mmol/L Chloride (98-107) mmol/L Carbon Dioxide (21-32) mmol/L Anion Gap (3-11) BUN (6-23) mg/dl Creatinine (0.6-1.4) mg/dl Est Cr Clr Drug Dosing ml/min Est GFR ( Amer) ml/min Est GFR (Non-Af Amer) ml/min BUN/Creatinine Ratio (10-20) Glucose (70-99(Fasting)) mg/dl POC Glucose 191 H 225 H 158 H (70-99) mg/dl Estimat Average Glucose mg/dl Hemoglobin A1c (4.5-5.6) % Calcium (8.6-10.3) mg/dl Magnesium (1.7-2.4) mg/dl Iron (35-175) mcg/dl TIBC (250-450) mcg/dl Unsaturated IBC (155-355) mcg/dl Transferrin % Sat (20-50) % Ferritin (8-388) ng/ml Total Bilirubin (0.2-1.0) mg/dl AST (13-39) U/L ALT (7-52) U/L Alkaline Phosphatase (34-104) U/L C-Reactive Protein (0-0.5) mg/dl Total Protein (6.0-8.3) gm/dl Albumin (3.4-5.0) gm/dl Globulin (2.5-4.0) gm/dl Albumin/Globulin Ratio (0.9-2) Triglycerides (0-150) mg/dl Cholesterol (0-200) mg/dl LDL Cholesterol, Calc mg/dl VLDL Cholesterol, Calc (0-30) mg/dl HDL Cholesterol mg/dl Cholesterol/HDL Ratio (0-5) 06/06/23 06/06/23 Range/Units 05:49 05:49 WBC (4.8-10.8) K/ul RBC (4.70-6.10) M/uL Hgb (14.0-18.0) g/dl Hct (42.0-52.0) % MCV (80.0-100.0) fL MCH (25.0-34.0) pg MCHC (32.0-36.0) g/dL RDW Std Deviation (36.4-46.3) fL RDW Coeff of Vargas (11.5-14.5) % Plt Count (130-400) K/uL MPV (9.4-12.4) fL PT (9.0-12.0) Seconds INR (0.9-1.1) Sodium (136-145) mmol/L Potassium (3.5-5.1) mmol/L Chloride (98-107) mmol/L Carbon Dioxide (21-32) mmol/L Anion Gap (3-11) BUN (6-23) mg/dl Creatinine (0.6-1.4) mg/dl Est Cr Clr Drug Dosing ml/min Est GFR ( Amer) ml/min Est GFR (Non-Af Amer) ml/min BUN/Creatinine Ratio (10-20) Glucose (70-99(Fasting)) mg/dl POC Glucose (70-99) mg/dl Estimat Average Glucose 220 mg/dl Hemoglobin A1c 9.3 H (4.5-5.6) % Calcium (8.6-10.3) mg/dl Magnesium 2.0 (1.7-2.4) mg/dl Iron (35-175) mcg/dl TIBC (250-450) mcg/dl Unsaturated IBC (155-355) mcg/dl Transferrin % Sat (20-50) % Ferritin (8-388) ng/ml Total Bilirubin (0.2-1.0) mg/dl AST (13-39) U/L ALT (7-52) U/L Alkaline Phosphatase (34-104) U/L C-Reactive Protein (0-0.5) mg/dl Total Protein (6.0-8.3) gm/dl Albumin (3.4-5.0) gm/dl Globulin (2.5-4.0) gm/dl Albumin/Globulin Ratio (0.9-2) Triglycerides (0-150) mg/dl Cholesterol (0-200) mg/dl LDL Cholesterol, Calc mg/dl VLDL Cholesterol, Calc (0-30) mg/dl HDL Cholesterol mg/dl Cholesterol/HDL Ratio (0-5) Diagnostic Findings Duplex Scan Lower Extremity Artery 06/06/23 08:07 LEFT LOWER EXTREMITY ARTERIAL DOPPLER ULTRASOUND CLINICAL HISTORY: Non-healing ulcer. COMPARISON STUDY: Bilateral large extremity arterial Doppler ultrasound April 02, 2017. TECHNIQUE: Left ankle to brachial index was obtained. Grayscale, color and duplex Doppler sonography of the arterial system of the left lower extremity was performed. FINDINGS: Left ankle to brachial index measured 0.55 when using dorsalis pedis and 0.33 when using the posterior tibial artery. There is triphasic flow within the left common femoral artery. There is extensive plaque within the left lower extremity. There is an elevated peak systolic velocity of 280 cm/s within the proximal left superficial femoral artery. There is monophasic flow within the mid to distal left superficial femoral artery. There is monophasic flow within the left popliteal, anterior tibial and dorsalis pedis arteries. There is suspected occlusion with distal reconstitution of the left posterior tibial artery. This was shown on prior ultrasound. There is suspected occlusion of the distal left peroneal artery. IMPRESSION: 1. Extensive atherosclerotic plaque within the left lower extremity. Moderately diminished left ankle to brachial index of 0.55. 2. Findings suggestive of a hemodynamically significant stenosis within the proximal left superficial femoral artery. 3. Monophasic flow throughout the remainder of the left lower extremity with suspected occlusion of the proximal left posterior tibial artery with distal reconstitution and occlusion of the distal left peroneal artery. ACT 112: Negative or not required by law. Electronically signed by: Dmitry Harper M.D. 06/06/2023 1:15 PM PG Care Time/CCT Total # of Minutes Spent Total Time Spent with Patient: Total time spent is greater than 50% in coordination of care (as documented) at patient's floor/unit and/or counseling patient: Coding Level of Care Code 54985 SUB INP/OBS CARE 50MIN Diagnoses Foot osteomyelitis, left M86.9 PAD (peripheral artery disease) I73.9 CAD (coronary artery disease) I25.10 Associated angina: without angina [place] vs. transplanted heart: [place] heart Uncontrolled type 1 diabetes mellitus with diabetic neuropathy, with long-term current use of insulin E10.40; E10.65 Type 2 diabetes mellitus with diabetic neuropathy E11.40 MEGAN (acute kidney injury) N17.9 S/P TAVR (transcatheter aortic valve replacement) Z95.2 Carotid artery stenosis I65.29 Chronic systolic congestive heart failure I50.22 Paroxysmal atrial fibrillation I48.0 Hypertension I10 Hypertension type: essential hypertension Dyslipidemia E78.5 Anemia D64.9 (3) CAD (coronary artery disease) Associated angina: without angina [place] vs. transplanted heart: [place] heart (11) Hypertension Hypertension type: essential hypertension Qualified Code(s): I10 - Essential (primary) hypertension
[2023-06-07] MEDS: BUMETANIDE 1 MG TAB PO SCH ×2 (08:42→17:36)
[2023-06-07] MEDS: carvediloL 12.5 MG TAB PO SCH ×2 (08:42→20:19)
[2023-06-07] MEDS: AMIODARONE 200 MG TAB PO SCH (08:43)
[2023-06-07] MEDS: ROSUVASTATIN CALCIUM 5 MG TAB PO SCH (08:44)
[2023-06-07] MEDS: PIPERACILLIN/TAZOBACTAM 4.5 GM in DEXTROSE 5% 100 ML IV SCH ×2 (08:58→17:21)
[2023-06-07] MEDS: HEPARIN SOD 5,000 UNIT/0.5 ML VIAL SQ SCH ×2 (09:05→20:21)
[2023-06-07] MEDS: ASPIRIN 81 MG ECTAB PO SCH (09:06)
--- NOTE | 2023-06-07 12:49 | Communication Note ---
Date of Service: June 07, 2023 This patient is undergoing foot surgery tomorrow. We will hold off arteriography and plan on doing it Sunday.
--- NOTE | 2023-06-07 13:13 | Cardiology Consultation ---
Date of Consultation June 07, 2023 Assessment & Plan (1) Paroxysmal atrial fibrillation: Asymptomatic recurrences during this hospitalization. Favor increased effort at maintaining sinus rhythm to avoid variable heart rate/hemodynamics and decrease thromboembolic risk. Would increase amiodarone to 200 mg twice daily, but would not make this change until tomorrow, since increasing amiodarone well further delay decline in INR (amiodarone competes with warfarin and would raise his INR). Discontinue carvedilol tomorrow (when amiodarone increased), since amiodarone increase to control rhythm will result in further negative chronotropic effect. (2) Bradycardia: As above, asymptomatic. Discontinue carvedilol temporarily (as of tomorrow). Increase amiodarone. (3) S/P TAVR (transcatheter aortic valve replacement): Functioning well on auscultation and on recent echo (February 2023). (4) CAD (coronary artery disease): Medically managed, no evidence of ongoing myocardial ischemia. Continue aspirin perioperatively. Continue rosuvastatin. Rhythm management will further help to optimize hemodynamics. (5) Heart failure with mid-range ejection fraction (HFmEF): Volume status currently appears favorable. Continue her usual dose of diuretic (bumetanide 1 mg twice daily), holding the morning of surgery. Plan Okay to proceed to surgery when INR allows. We will continue to follow from a cardiac standpoint. History of Present Illness Reason for Consultation: pre-op clearance, paroxysmal afib, HR to 30s sinus Requesting Physician: Jesse Wallace MD Attending Physician: Jesse Wallace MD History of Present Illness 67-year-old man with poorly controlled diabetes mellitus, CAD (multivessel, medically managed), peripheral vascular disease (status post right BKA amputation), TAVR 2018, moderate ischemic cardiomyopathy (EF 35-40% February 2023), chronic heart failure with midrange EF, carotid artery stenosis, and paroxysmal atrial fibrillation (warfarin/amiodarone) who was admitted 06/05/2023 for left foot osteomyelitis for which surgical debridement is planned tomorrow. He has had paroxysmal atrial fibrillation intermittently during his stay, with some episodes of relative bradycardia occurring during conversion from atrial fibrillation to sinus rhythm. Telemetry shows sinus rhythm at normal heart rates since yesterday evening around midnight. He denies any lightheadedness, presyncope, syncope, tachypalpitations, or other symptoms attributable to tachydysrhythmia or bradycardia. He denies any chest pain or, dyspnea during his hospital stay. At the time my evaluation this morning, he had no somatic complaints Allergies Allergy/AdvReac Type Severity Reaction Status Date / Time ketoconazole [From Nizoral] AdvReac Unknown see comment Verified 02/07/23 11:52 Home Medications Medication Instructions Recorded Confirmed Type insulin syringe-needle U-100 0.5 #400 ea 01/15/20 03/28/23 Rx mL 29 gauge x 1/2" (BD Insulin Syringe) insulin detemir U-100 100 unit/mL 28 unit (0.28 mL) subcut QPM #1 box 07/14/22 03/28/23 Rx (3 mL) subcutaneous pen (Levemir FlexTouch U-100 Insulin) aspirin 81 mg chewable tablet 81 mg PO QAM 07/20/22 03/28/23 History OneTouch Verio test strips (blood #300 ea 08/31/22 03/28/23 Rx sugar diagnostic) nitroglycerin 0.4 mg sublingual 0.4 mg sublingual UD PRN Chest 08/31/22 03/28/23 Rx tablet Pain #25 tabs amiodarone 200 mg tablet 200 mg PO QAM 01/11/23 03/28/23 History bumetanide 1 mg tablet 1 mg PO BID #180 tabs 01/12/23 03/28/23 Rx acetaminophen 325 mg tablet 650 mg PO Q4H PRN #0 tabs 02/15/23 03/28/23 Rx carvedilol 12.5 mg tablet 12.5 mg PO BID #60 tabs 02/15/23 03/28/23 Rx rosuvastatin 5 mg tablet 5 mg PO DAILY 04/04/23 04/04/23 History warfarin 5 mg tablet See Rx Instructions PO DAILY 04/18/23 History insulin aspart U-100 100 unit/mL See Rx Instructions .Route 05/25/23 Rx (3 mL) subcutaneous pen (Novolog .COMPLEX #30 mL FlexPen U-100 Insulin aspart) Patient History Medical History (Updated 06/07/23 @ 13:25 by Seferino Rivera MD) Aortic valve disease s/p TAVR (2019) CAD (coronary artery disease) follows with Dr. Elliott Carotid artery stenosis Under surveillance by vascular (Dr. Guerrero) Cerebrovascular duplex with 60-69% LICA stenosis (stable from 2019 study per report) Dyslipidemia History of atrial fibrillation History of chronic kidney disease Hypertension Ischemic cardiomyopathy MRSA (methicillin resistant Staphylococcus aureus) left fifth toe- current Myocardial Infarction 2014 Obesity (BMI 30.0-34.9) Osteomyelitis Hx PAD (peripheral artery disease) Paroxysmal atrial fibrillation Proliferative diabetic retinopathy Sleep apnea "Not bad enough for device" per pt Type 1 diabetes mellitus Ulcer of toe of left foot Surgical History H/O gastric bypass History of adenoidectomy History of amputation of lesser toe of right foot History of amputation of toe History of cardiac cath 2017 [place] History of cataract surgery bilat History of tonsillectomy History of tooth extraction S/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 angioplasty (CARPENTER MOLD) CARPENTER MOLD of anterior tibial artery April 2017 S/P TAVR (transcatheter aortic valve replacement) [facility] [place] > Oct 2019 Status post below knee amputation of right lower extremity 2019 Status post transmetatarsal amputation of right foot Family History Sister Myocardial infarction Denies family history of Ovarian cancer Prostate cancer Breast cancer Lung cancer Colorectal cancer Stroke Social History Smoking Status: Never smoker Second Hand Exposure: No; Do You Dip or Chew Tobacco: No; Hx Alcohol Use: No Hx Substance Use: No Preferred Language: Kyr[place]z Communication Ability: Effective Visual Impairment: Limited Hearing Ability: Use of Hearing Aid Community Service Coordinator Required: No Beliefs That Will Affect Care: None and Spiritual marital status: Current Living Situation: Alone current occupational status: disabled How many Children do You have: 0 Feels Safe at Home: Yes Childhood Exposure to Second-Hand Smoke: No Diet: regular caffeine: Yes Dental Care, Regularly: No Physical Activity Frequency: 1-2 Times per Week Seatbelt Use: never Sunscreen Use: Yes Assistive Devices: Cane, Walker and Wheelchair Physical Exam Physical Exam: No distress. BP normotensive. Pulse 57 bpm and regular. Skin: no ecchymoses or generalized lesions. HEENT: unremarkable. Neck: JVP at the clavicle at 90 degrees, no carotid bruits. Lungs: clear. Cardiac: regular rhythm, normal S1-2, no murmur. Abdomen: benign. Extremities: Right BKA, left foot bandage, toes erythematous with delayed capillary refill (3-4 seconds), no edema. Neurologic: normal affect and conversation, nonfocal. Results & Data Vital Signs (Past 12 Hours) Vital Signs Temp Pulse Pulse Resp BP Pulse Ox O2 Del Method 06/07/23 11:57 97.9 F 57 L 16 130/49 L 97 Room Air 06/07/23 08:58 63 06/07/23 08:00 98.1 F 61 16 118/46 L 96 06/07/23 03:00 97.7 F 60 16 141/79 H 96 Room Air Laboratory Results INR 2.3 today. Hemoglobin 9.9. Sodium 135, chloride 101, potassium 3.9, BUN 23, creatinine 1.13. Diagnostic Findings ECG on admission showed sinus bradycardia 55 bpm with old inferior infarct and poor R wave progression, limb lead reversal noted. Compared with prior study from February 2023, atrial fibrillation was no longer present. ECG yesterday showed probable wandering atrial pacemaker, otherwise unchanged. ECG today showed sinus rhythm, also without other change. Echocardiogram from March 2023 showed EF 35 to 40% with multiple wall motion abnormalities, appropriately functioning bioprosthetic aortic valve, mild to moderate mitral regurgitation. PG Care Time/CCT Total # of Minutes Spent Total Time Spent with Patient: Total time spent is greater than 50% in coordination of care (as documented) at patient's floor/unit and/or counseling patient: Coding Level of Care Code 58674 INT INP/OBS CARE 3/75MIN Diagnoses Paroxysmal atrial fibrillation I48.0 Bradycardia R00.1 S/P TAVR (transcatheter aortic valve replacement) Z95.2 CAD (coronary artery disease) I25.10 [place] vs. transplanted heart: [place] heart Associated angina: without angina Heart failure with mid-range ejection fraction (HFmEF) I50.22 (4) CAD (coronary artery disease) [place] vs. transplanted heart: [place] heart Associated angina: without angina
--- NOTE | 2023-06-07 13:28 | Pharmacy Report ---
Pharmacy Glycemic Short Note 2 - Date of Service June 07, 2023 - Glycemic Short BSG Results (Last 24 hours): 06/06/23 06/06/23 06/06/23 16:26 20:07 21:44 Glucose POC Glucose 191 H 277 H 214 H 06/07/23 06/07/23 06/07/23 05:37 07:50 11:37 Glucose 173 H POC Glucose 234 H 326 H* 06/07/23 11:38 Glucose POC Glucose 346 H* OUTPATIENT ANTIDIABETIC REGIMEN: * Levemir 28 units SQ HS * NovoLog, carb ratio 1:4 - uses ~60units/day * HbA1c: 9.3% (06/06/23) ASSESSMENT: 06/07 * Pt remains hyperglycemic today. * Lantus dose will be increased this evening, as fasting BSG markedly elevated this morning. * Suspect that pt may be NPO after midnight tonight for procedure. Given persistent hyperglycemia, expect that increased dose of Lantus should still be appropriate. * Pre-lunch BSG was elevated today, despite aggressive carb coverage. Will further adjust Novolog parameters tomorrow if BSGs do not begin to improve. 06/06 * 67 year old male Type 1 DM, last seen by endocrine in November, admitted with left foot osteomyelitis, on IV zosyn, NPO at this time. * Hyperglycemic last night on admission, given 10 units IV Regular insulin, 25 units of Lantus, and NovoLog Q4H SQ. * Started on CF/CR as used last admission with success, will continue at this time, euglycemic, change to Q6H checks. * Continue basal insulin. PLAN FOR INPATIENT GLYCEMIC CONTROL: * Basal insulin * Lantus 35 units SQ HS * Bolus insulin * NovoLog per scale ACHS Q6hrs while NPO * Goal Range: Low 110 mg/dL - High 140 mg/dL * Correction Factor: 20 mg/dL/unit * Nutritional / Prandial insulin per carb ratio of 1 unit per 2.5 grams CHO consumed
[2023-06-07] MEDS: DAPTOmycin 600 MG in SYRINGE 0 ML IV SCH (17:56)
[2023-06-07] MEDS ORDERED: LANTUS PER UNIT CHARGE SQ SCH (21:00)
--- NOTE | 2023-06-07 22:28 | Orthopedic Progress Note ---
Date of Service June 07, 2023 Assessment & Plan (1) Foot osteomyelitis, left: Plan: Patient seen, evaluated, and treated. Dry, sterile, dressing change. Reviewed x-ray and MRI images and findings. Discussed plan of care with Patient. Patient will undergo removal of non-viable bone (4th metatarsal) possible TMA Left foot tentative OR time 06/08/23 4pm Admission and Anticipated Discharge Date Admission Date: June 05, 2023 Subjective Patient seen, evaluated, and treated. Patient has no immediate complaints and resting comfortably. Review of Systems Review of Systems: All systems reviewed & are unremarkable except as noted in Subjective Physical Exam Constitutional: cooperative and comfortable Eyes: normal visual ramos by confrontation Neck: normal visual inspection Respiratory: normal respiratory effort Cardiovascular: Rate/Rhythm: regular rate and regular rhythm Musculoskeletal: Extremities: + amputation noted (RLE BKA) Skin: + ulcer (Left lateral foot full thickness ulcer.) Neurologic: moves all extremities (Absent epicritic sensation) Psychiatric: Orientation: alert and oriented x 3 Results & Data Vital Signs (Past 12 Hours) Vital Signs Temp Pulse Pulse Resp BP Pulse Ox O2 Del Method 06/07/23 19:00 36.5 C 62 16 156/74 H 97 Room Air 06/07/23 17:23 55 L 06/07/23 15:50 36.6 C 56 L 18 152/76 H 97 Room Air 06/07/23 11:57 36.6 C 57 L 16 130/49 L 97 Room Air
[2023-06-08] MEDS: ACETAMINOPHEN 1,000 MG/100 ML VIAL IV PRN ×2 (00:08→17:59)
[2023-06-08] MEDS: PIPERACILLIN/TAZOBACTAM 4.5 GM in DEXTROSE 5% 100 ML IV SCH ×4 (00:24→23:28)
[2023-06-08] MEDS: INSULIN ASPART PER UNIT CHARGE SC SCH ×5 (06:11→23:40)
[2023-06-08 07:04] LABS: INR 1.7 (0.9-1.1); Prothrombin Time 17.9 Seconds (9.0-12.0)
[2023-06-08 07:24] LABS: Albumin Level 3.1 gm/dl (3.4-5.0); Anion Gap 7 (3-11); Bilirubin,Total 0.4 mg/dl (0.2-1.0); Calcium 8.6 mg/dl (8.6-10.3); Carbon Dioxide 25 mmol/L (21-32); Chloride 102 mmol/L (98-107); Magnesium 2.2 mg/dl (1.7-2.4); Sodium 134 mmol/L (136-145)
[2023-06-08 07:30] LABS: Alanine Aminotransferase < 3 U/L (7-52); Albumin Globulin Ratio 0.8 (0.9-2); Alkaline Phosphatase 84 U/L (34-104); Aspartate Aminotransferase 12 U/L (13-39); BUN Creatinine Ratio 23.2 (10-20); Blood Urea Nitrogen 29 mg/dl (6-23); Creatinine Clr Calc Pharmacy 74.8 ml/min; Est GFR (African American) 68.6 ml/min; Est GFR (Non-African American) 59.2 ml/min; Globulin 3.8 gm/dl (2.5-4.0); Glucose 202 mg/dl (70-99(Fasting)); Total Protein 6.9 gm/dl (6.0-8.3)
[2023-06-08] MEDS: HEPARIN SOD 5,000 UNIT/0.5 ML VIAL SQ SCH ×2 (07:52→21:04)
[2023-06-08] MEDS: ASPIRIN 81 MG ECTAB PO SCH (08:15)
[2023-06-08] MEDS: AMIODARONE 200 MG TAB PO SCH ×2 (08:15→17:59)
[2023-06-08] MEDS: carvediloL 12.5 MG TAB PO SCH (08:15)
[2023-06-08] MEDS ORDERED: SODIUM CHLORIDE 0.9% 1000ML 1,000 ML IV SCH (08:45)
--- NOTE | 2023-06-08 09:10 | Hospitalist Progress Note ---
Date of Service June 08, 2023 Assessment & Plan (1) Foot osteomyelitis, left: Plan: Previous osteomyelitis in the left foot s/p debridement and 5th MT and 4th MT head amputation done on 02/09/[address] Guerrero. No prior artial disease/intervention required Increased pain/redness/drainage x 3-4 days at home reported. CRP/ESR elevation Prior blood cx + Enterococcus faecalis, past wound cultures positive for MRSA. Xray w/ possible osto L base 4th proximal phalange MRI w/ focal edema and enhancement of an approximately 0.7 x 1.6 cm area of the lateral aspect of the proximal fourth metatarsal deep to the wound suspicious for osteomyelitis. Focal edema and enhancement running obliquely across the distal third metatarsal consistent with acute or nonhealed fracture. Previous amputation of the fifth ray as well as the first digit proximal to the interphalangeal joint and focal resection of the distal fourth metatarsal head. CX on admit growing Proteus mirabilis, pansensitive on preliminary Blood cultures pending, NGTD at present, afebrile. WBC wnl Continues on Dapto/Zosyn given hx DM -- monitor OR cx for any issues Podiatry consulted, Dr Mcbride. Vascular consulted, Dr Guerrero NPO presently for OR with Dr Mcbride IVF ordered while NPO INR 1.7 -- discussed w/ podiatry and will order Vit K 5mg x 1 now prior to surgery Holding further Heparin SQ at present For amputation 5th digit and resection 4th ray today Also, US Duplex w/ hemodynamically significant stenosis within proximal L superficial femoral artery. Susp occluision of L proximal L posterior tibial artery with distal reconstitution and occlusion distal L peroneal artery Planning for angio on Sunday w/ Dr Guerrero Monitor CBC/CMP/INR in AM (2) PAD (peripheral artery disease): Plan: US Duplex obtained by vascular yesterday to ensure no arterial disease/other causes for not healing IMPRESSION: 1. Extensive atherosclerotic plaque within the left lower extremity. Moderately diminished left ankle to brachial index of 0.55. 2. Findings suggestive of a hemodynamically significant stenosis within the proximal left superficial femoral artery. 3. Monophasic flow throughout the remainder of the left lower extremity with suspected occlusion of the proximal left posterior tibial artery with distal reconstitution and occlusion of the distal left peroneal artery. Messaged Dr Mcbride/vascular -- vascular planning for Angio on Eduardo as amputation more urgent, planned for today Lipid panel obtained, plan to increase crestor to 10mg daily once off Dapto NPO sunday night for intervention w/ Dr Guerrero (3) CAD (coronary artery disease): Plan: follows w/ [facility] S/P TAVR (transcatheter aortic valve replacement): Patient on warfarin for history of AVR and paroxysmal A-fib. Holding coumadin, on heparin SQ BID, monitoring INR (would need to hold heparin at least 6 hrs prior to surgical intervention) continues on amiodarone 200mg daily INR 1.7 -- Vit K ordered for this AM, repeat INR prior to surgery ordered for 1500 Chronic systolic congestive heart failure: Chronic, stable Last echo done on 02/12/2023 showed a EF of 35 to 40%. Patient is euvolemic on physical exam and has no signs or symptoms of acute CHF exacerbation. Monitor weights/I&O Bumex 1mg BID continued (held AM 06/06 for lower BPs, no significant volume overload at present). Not on entresto or MAMIE-I due to symptomatic hypotension in the past Holding bumex for this morning Discontinued carvediolol per Dr Rivera, increased amio to BID given his afib SGLT2 inhibitor not indicated due to DM type 1 Monitor volume status, appears stable at present, slightly dry(bumex on hold) Paroxysmal atrial fibrillation: Continue Coreg 12.5 mg twice daily, amiodarone 200 mg every morning, and aspirin 81 mg every morning. Uses nitroglycerin 0.4 mg as needed for chest pain. He has not used in the past 3 to 4 weeks. Keep K/mag replete monitoring on telemetry Coumadin on hold as above, INR in AM. Vit K as above Amiodarone increase to 200mg BID and continue for today (not done to delay INR decrease day prior) Hyperlipidemia: Crestor 5 mg daily -- lipid panel checked given PAD, can increase to 10mg daily but placed on hold while on Dapto to prevent rhabdo as discussed with the patient (4) Uncontrolled type 1 diabetes mellitus with diabetic neuropathy, with long- term current use of insulin: Plan: (5) Uncontrolled type 1 diabetes mellitus with diabetic neuropathy, with long- term current use of insulin: Patient is a type I diabetic uncontrolled last seen by endocrine on 11/2022, BSG elevation on admit A1c 9.3 from prior 9.8 in January Home regimen on hold, pharmacy consulted BSG elevation -- appreciate pharmacy assistance BSGs improved from yesterday but still elevated Rec to get best control to promote good wound healing (5) Type 2 diabetes mellitus with diabetic neuropathy: (6) MEGAN (acute kidney injury): Plan: Cr elevation on admission, meds renal doses/parameters for BP Improved on repeat Held AM bumex 06/07 as BPs borderline, carvedilol w/ hold parameters Cr stable 1.25 and holding bumex this morning, IVF NS @ 80cc/hr x 1 L ordered while NPO Adjust meds renally/avoid nephrotoxic agents as able Monitor BMP in AM (7) S/P TAVR (transcatheter aortic valve replacement): Plan: noted hx, coumadin on hold as above, on Heparin SQ BID -- holding for surgery resume following when ok w/ podiatry (8) Carotid artery stenosis: Plan: continues on aspirin daily through perioperative period (9) Chronic systolic congestive heart failure: Plan: as above, volume stable on exam slightly dry today. holding further diuretic to prevent hypotension (10) Paroxysmal atrial fibrillation: Plan: monitoring on tele -- keep K/mag replete (11) Hypertension: Plan: BPs stable (12) Dyslipidemia: Plan: lipid panel checked given PAD and on crestor 5mg Cholesterol level 131, LDL 67. Plan to increase to 10mg daily once off Dapto (13) Anemia: Plan: Iron studies checked - iron low at 20, TIBC low, unsat acceptable. Trans % sat lLOW at 8%. Ferritin only 37.8. Can consider IV venofer. No active bleeding on exam. Hgb improved on repeat to 9.9 and will monitor Hgb 9.7 from 9.9, no active bleeding. Now that blood cultures NGTD can consider venofer Plan continued inpatient stay, NPO for surgery Vit K for elevated INR Admission and Anticipated Discharge Date Admission Date: June 05, 2023 Supervising Physician Co-Signing Physician Notes The patient was not seen by me. The chart was reviewed. Case discussed with YAMEL Castro. Agree with assessment and plan Subjective Eval this morning, doing well. No reports of pain/need for medication. OR not until this afternoon. Patient resting in bed at time, anxious to get this over with. Discussed medication changes with patient regarding amiodarone and discontinuation of the carvedilol. No fever/chills, chest pain, shortness of breath, abdominal pain nausea or vomiting. Only want is a cheese steak, in good spirits and laughing about this request. Discussed will order diet as soon as done w/ surgery. IVF ordered in meantime to prevent significant dehydration, AM bumex placed on hold. Questions/concerns addressed at this time. Physical Exam Physical Exam: General: WD male resting in bed, NAD HEENT: head normocephalic, atraumatic, mmm, trachea midline Resp: diminished in the bases, no w/c/r, 98% on RA CV: irregularly irregular, rates in 60-90s, flipping in/out of afib on monitor, no significant m/r/g, abnormal pulses as below GI: +BS, soft/NT MSK: Left foot warm (decreased), tender (decreased) erythematous, wrapped with bandage. Lacks sensation to the distal left lower extremity past mid tibia. Ri ght BKA Skin: dressing to LEFT foot w/ lateral aspect w/ wound approximately 5-6cm in length, eschar, drainage present. nontender to palpation Neuro: alert, oriented, no focal neurologic deficit appreciated Psych: AOx3, cooperative with exam Cardiovascular: Vessels: + abnormal peripheral pulses Extremities: + edema (L foot) Musculoskeletal: Extremities: + amputation noted (RLE BKA) Skin: + wound, + erythema and + eschar Results & Data Results & Data Vital Signs (Past 12 Hours) Vital Signs Temp Pulse Pulse Resp BP Pulse Ox O2 Del Method 06/08/23 08:11 36.5 C 61 16 122/71 98 Room Air 06/08/23 03:12 36.6 C 64 18 122/83 94 Room Air 06/08/23 00:53 58 L 06/07/23 23:00 36.9 C 50 L 16 120/80 95 Room Air Laboratory Results 06/08/23 06/08/23 06/08/23 Range/Units 05:58 05:58 05:58 WBC Pending RBC Pending Hgb Pending Hct Pending MCV Pending MCH Pending MCHC Pending Plt Count Pending PT 17.9 H (9.0-12.0) Seconds INR 1.7 H (0.9-1.1) Sodium 134 L (136-145) mmol/L Potassium 4.0 (3.5-5.1) mmol/L Chloride 102 (98-107) mmol/L Carbon Dioxide 25 (21-32) mmol/L Anion Gap 7 (3-11) BUN 29 H (6-23) mg/dl Creatinine 1.25 (0.6-1.4) mg/dl Est Cr Clr Drug Dosing 74.8 ml/min Est GFR ( Amer) 68.6 ml/min Est GFR (Non-Af Amer) 59.2 ml/min BUN/Creatinine Ratio 23.2 H (10-20) Glucose 202 H (70-99(Fasting)) mg/dl POC Glucose (70-99) mg/dl Calcium 8.6 (8.6-10.3) mg/dl Magnesium 2.2 (1.7-2.4) mg/dl Total Bilirubin 0.4 (0.2-1.0) mg/dl AST 12 L (13-39) U/L ALT < 3 L (7-52) U/L Alkaline Phosphatase 84 (34-104) U/L C-Reactive Protein 8.50 H (0-0.5) mg/dl Total Protein 6.9 (6.0-8.3) gm/dl Albumin 3.1 L (3.4-5.0) gm/dl Globulin 3.8 (2.5-4.0) gm/dl Albumin/Globulin Ratio 0.8 L (0.9-2) 06/08/23 06/07/23 06/07/23 Range/Units 05:55 23:42 20:02 WBC RBC Hgb Hct MCV MCH MCHC Plt Count PT (9.0-12.0) Seconds INR (0.9-1.1) Sodium (136-145) mmol/L Potassium (3.5-5.1) mmol/L Chloride (98-107) mmol/L Carbon Dioxide (21-32) mmol/L Anion Gap (3-11) BUN (6-23) mg/dl Creatinine (0.6-1.4) mg/dl Est Cr Clr Drug Dosing ml/min Est GFR ( Amer) ml/min Est GFR (Non-Af Amer) ml/min BUN/Creatinine Ratio (10-20) Glucose (70-99(Fasting)) mg/dl POC Glucose 209 H 186 H 388 H* (70-99) mg/dl Calcium (8.6-10.3) mg/dl Magnesium (1.7-2.4) mg/dl Total Bilirubin (0.2-1.0) mg/dl AST (13-39) U/L ALT (7-52) U/L Alkaline Phosphatase (34-104) U/L C-Reactive Protein (0-0.5) mg/dl Total Protein (6.0-8.3) gm/dl Albumin (3.4-5.0) gm/dl Globulin (2.5-4.0) gm/dl Albumin/Globulin Ratio (0.9-2) 06/07/23 06/07/23 06/07/23 Range/Units 20:01 16:52 14:19 WBC RBC Hgb Hct MCV MCH MCHC Plt Count PT (9.0-12.0) Seconds INR (0.9-1.1) Sodium (136-145) mmol/L Potassium (3.5-5.1) mmol/L Chloride (98-107) mmol/L Carbon Dioxide (21-32) mmol/L Anion Gap (3-11) BUN (6-23) mg/dl Creatinine (0.6-1.4) mg/dl Est Cr Clr Drug Dosing ml/min Est GFR ( Amer) ml/min Est GFR (Non-Af Amer) ml/min BUN/Creatinine Ratio (10-20) Glucose (70-99(Fasting)) mg/dl POC Glucose 341 H* 190 H 198 H (70-99) mg/dl Calcium (8.6-10.3) mg/dl Magnesium (1.7-2.4) mg/dl Total Bilirubin (0.2-1.0) mg/dl AST (13-39) U/L ALT (7-52) U/L Alkaline Phosphatase (34-104) U/L C-Reactive Protein (0-0.5) mg/dl Total Protein (6.0-8.3) gm/dl Albumin (3.4-5.0) gm/dl Globulin (2.5-4.0) gm/dl Albumin/Globulin Ratio (0.9-2) 06/07/23 06/07/23 Range/Units 11:38 11:37 WBC RBC Hgb Hct MCV MCH MCHC Plt Count PT (9.0-12.0) Seconds INR (0.9-1.1) Sodium (136-145) mmol/L Potassium (3.5-5.1) mmol/L Chloride (98-107) mmol/L Carbon Dioxide (21-32) mmol/L Anion Gap (3-11) BUN (6-23) mg/dl Creatinine (0.6-1.4) mg/dl Est Cr Clr Drug Dosing ml/min Est GFR ( Amer) ml/min Est GFR (Non-Af Amer) ml/min BUN/Creatinine Ratio (10-20) Glucose (70-99(Fasting)) mg/dl POC Glucose 346 H* 326 H* (70-99) mg/dl Calcium (8.6-10.3) mg/dl Magnesium (1.7-2.4) mg/dl Total Bilirubin (0.2-1.0) mg/dl AST (13-39) U/L ALT (7-52) U/L Alkaline Phosphatase (34-104) U/L C-Reactive Protein (0-0.5) mg/dl Total Protein (6.0-8.3) gm/dl Albumin (3.4-5.0) gm/dl Globulin (2.5-4.0) gm/dl Albumin/Globulin Ratio (0.9-2) PG Care Time/CCT Total # of Minutes Spent Total Time Spent with Patient: Total time spent is greater than 50% in coordination of care (as documented) at patient's floor/unit and/or counseling patient: Coding Level of Care Code 28280 SUB INP/OBS CARE 3/50MIN Diagnoses Foot osteomyelitis, left M86.9 PAD (peripheral artery disease) I73.9 CAD (coronary artery disease) I25.10 Associated angina: without angina [place] vs. transplanted heart: [place] heart Uncontrolled type 1 diabetes mellitus with diabetic neuropathy, with long-term current use of insulin E10.40; E10.65 Type 2 diabetes mellitus with diabetic neuropathy E11.40 MEGAN (acute kidney injury) N17.9 S/P TAVR (transcatheter aortic valve replacement) Z95.2 Carotid artery stenosis I65.29 Chronic systolic congestive heart failure I50.22 Paroxysmal atrial fibrillation I48.0 Hypertension I10 Hypertension type: essential hypertension Dyslipidemia E78.5 Anemia D64.9 (3) CAD (coronary artery disease) Associated angina: without angina [place] vs. transplanted heart: [place] heart (11) Hypertension Hypertension type: essential hypertension Qualified Code(s): I10 - Essential (primary) hypertension
[2023-06-08 09:18] LABS: Hematocrit (blood only) 30.4 % (42.0-52.0); Hemoglobin 9.7 g/dl (14.0-18.0); Mean Corpuscular Hemoglobin 25.7 pg (25.0-34.0); Mean Corpuscular Hgb Conc 31.9 g/dL (32.0-36.0); Mean Corpuscular Volume 80.4 fL (80.0-100.0); Mean Platelet Volume 11.2 fL (9.4-12.4); Platelet Count 264 K/uL (130-400); RDW Coefficient of Variation 17.7 % (11.5-14.5); RDW Standard Deviation 52.1 fL (36.4-46.3); Red Blood Count 3.78 M/uL (4.70-6.10); White Blood Count 8.95 K/ul (4.8-10.8)
[2023-06-08] MEDS ORDERED: PHYTONADIONE 5 MG in DEXTROSE 5% 50 ML IV ONE (10:00)
--- NOTE | 2023-06-08 11:34 | Cardiology Progress Note ---
Date of Service June 08, 2023 Assessment & Plan (1) Paroxysmal atrial fibrillation: Plan: Asymptomatic recurrences during this hospitalization, including as of this morning. Amiodarone increased to 200 mg twice daily and carvedilol discontinued to allow for better rhythm control while avoiding excess bradycardia or hypotension. If he develops tachycardic response to atrial fibrillation perioperatively, could use low-dose metoprolol tartrate (2.5 mg) IV PRN every 1-2 hours to maintain heart rate less than 120 bpm. Resume warfarin anticoagulation postoperatively. (2) Bradycardia: Plan: As above, asymptomatic. (3) S/P TAVR (transcatheter aortic valve replacement): Plan: Functioning well on auscultation and on recent echo (February 2023). (4) CAD (coronary artery disease): Plan: Medically managed, no evidence of ongoing myocardial ischemia. Continue aspirin perioperatively. Continue rosuvastatin. Rhythm management will further help to optimize hemodynamics. (5) Heart failure with mid-range ejection fraction (HFmEF): Plan: Volume status currently appears favorable. Continue usual dose of diuretic (bumetanide 1 mg twice daily), holding the morning of surgery. Plan Will check on patient postoperatively (either later today or Dr. Martínez will check in the morning), medication recommendations will be based on rhythm and hemodynamics postoperatively. Admission and Anticipated Discharge Date Admission Date: June 05, 2023 Subjective No complaints. Denies chest pain, dyspnea, subjective palpitations, or lightheadedness. Rhythm was sinus in the 50-60 bpm range but earlier today converted to atrial fibrillation with controlled ventricular response of 90-100 bpm. Physical Exam Physical Exam: No distress. BP normotensive. Pulse 90 bpm and irregular. Skin: no ecchymoses or generalized lesions. HEENT: unremarkable. Neck: JVP at the clavicle at 90 degrees, no carotid bruits. Lungs: clear. Cardiac: irregular rhythm, normal S1-2, no murmur. Abdomen: benign. Extremities: Right BKA, left foot bandaged, toes erythematous with delayed capillary refill (3-4 seconds), no edema. Neurologic: normal affect and conversation, nonfocal. Results & Data Vital Signs (Past 12 Hours) Vital Signs Temp Pulse Pulse Resp BP Pulse Ox O2 Del Method 06/08/23 08:11 97.7 F 61 16 122/71 98 Room Air 06/08/23 03:12 97.9 F 64 18 122/83 94 Room Air 06/08/23 00:53 58 L Laboratory Results Sodium 134, potassium 4.0, BUN 29, creatinine 1.25. Hemoglobin 9.7. INR 1.7. PG Care Time/CCT Total # of Minutes Spent Total Time Spent with Patient: Total time spent is greater than 50% in coordination of care (as documented) at patient's floor/unit and/or counseling patient: Coding Level of Care Code 70858 SUB INP/OBS CARE 2/35MIN Diagnoses Paroxysmal atrial fibrillation I48.0 Bradycardia R00.1 S/P TAVR (transcatheter aortic valve replacement) Z95.2 CAD (coronary artery disease) I25.10 [place] vs. transplanted heart: [place] heart Associated angina: without angina Heart failure with mid-range ejection fraction (HFmEF) I50.22 (4) CAD (coronary artery disease) [place] vs. transplanted heart: [place] heart Associated angina: without angina
[2023-06-08] MEDS ORDERED: MIDAZOLAM HCL 1 MG/ML 2ML VIAL ONE (14:59)
[2023-06-08] MEDS ORDERED: LIDOCAINE 2% 2 ML VIAL/AMP(20MG/ML) INFIL ONE (14:59)
[2023-06-08] MEDS ORDERED: fentaNYL citrate PF 100 MCG/2 ML VIAL ONE (14:59)
[2023-06-08] MEDS ORDERED: PROPOFOL IV EMULSION 10 MG/ML 20 ML VIAL IV ONE ×2 (14:59→16:14)
[2023-06-08] MEDS ORDERED: BUPIVACAINE 0.5 % 5 MG/1 ML MPF 30ML VIAL ONE (15:05)
[2023-06-08] MEDS ORDERED: BUPIVACAINE/EPINEPHRINE 0.5% MPF 1:200,000 30 ML VIAL ONE (15:05)
--- NOTE | 2023-06-08 15:55 | History & Physical Bridge Note ---
Date of Service June 08, 2023 History & Physical Bridge Note I have examined the patient, reviewed the History & Physical and in the interval since the performance of the History & Physical I have noted the following changes of clinical significance: no changes noted
[2023-06-08] MEDS ORDERED: ePHEDrine sulfate 50 MG/ML AMP IV PRN (15:56)
[2023-06-08] MEDS ORDERED: ATROPINE SULFATE 0.1 MG/ML 10ML SYR IV PRN (15:56)
[2023-06-08] MEDS ORDERED: fentaNYL citrate PF 100 MCG/2 ML VIAL IV PRN (15:56)
[2023-06-08] MEDS ORDERED: ONDANSETRON INJ 2 MG/ML 2 ML VIAL IV PRN (15:56)
--- NOTE | 2023-06-08 15:56 | Anesthesiology Consultation ---
Date of Service June 08, 2023 Assessment & Plan Chart Review Chart Review: Acceptable Risk for Surgery and Patient NOT seen in Pre Admission Testing Consults Requested none ASA ASA4 Proposed Anesthesia Anesthesia Type: MAC Risk / Benefits Reviewed With: PT / POA / Parent / Guardian, Accepts Plan and Informed Consent Obtained History Surgery Operation Date: 06/08/23 07:00 Proposed Procedures p Left Fourth Metatarsal Amputation - Lambert Mcbride DPM, MS Operation Date: 06/11/23 08:00 Proposed Procedures p Left Lower Extremity Angiogram with Intervention - Sherif Guerrero MD Height/Weight Height: 6 ft 3 in Weight: 103.7 kg Allergies Allergy/AdvReac Type Severity Reaction Status Date / Time ketoconazole [From Nizoral] AdvReac Unknown see comment Verified 06/07/23 15:47 Medications Home Medications Medication Instructions Recorded Confirmed Last Taken insulin syringe-needle U-100 0.5 #400 ea 01/15/20 03/28/23 Unknown mL 29 gauge x 1/2" (BD Insulin Syringe) insulin detemir U-100 100 unit/mL 28 unit (0.28 mL) subcut QPM #1 box 07/14/22 06/07/23 02/06/23 (3 mL) subcutaneous pen (Levemir FlexTouch U-100 Insulin) aspirin 81 mg chewable tablet 81 mg PO QAM 07/20/22 06/07/23 02/06/23 OneTouch Verio test strips (blood #300 ea 08/31/22 03/28/23 Unknown sugar diagnostic) nitroglycerin 0.4 mg sublingual 0.4 mg sublingual UD PRN Chest 08/31/22 06/07/23 02/06/23 tablet Pain #25 tabs amiodarone 200 mg tablet 200 mg PO QAM 01/11/23 06/07/23 02/06/23 bumetanide 1 mg tablet 1 mg PO BID #180 tabs 01/12/23 06/07/23 02/06/23 acetaminophen 325 mg tablet 650 mg PO Q4H PRN #0 tabs 02/15/23 06/07/23 Unknown carvedilol 12.5 mg tablet 12.5 mg PO BID #60 tabs 02/15/23 06/07/23 Unknown rosuvastatin 5 mg tablet 5 mg PO DAILY 04/04/23 06/07/23 Unknown warfarin 5 mg tablet 5 mg PO 2XWK 04/18/23 06/07/23 Unknown insulin aspart U-100 100 unit/mL See Rx Instructions .Route 05/25/23 06/07/23 Unknown (3 mL) subcutaneous pen (Novolog .COMPLEX #30 mL FlexPen U-100 Insulin aspart) warfarin 2.5 mg tablet 2.5 mg PO [id number] 06/07/23 06/07/23 Unknown Active Medications Generic Name Dose Route Start Last Admin Trade Name Freq PRN Reason Stop Dose Admin Amiodarone HCl 200 mg 06/08/23 09:00 06/08/23 08:15 Amiodarone 200 Mg Tab PO 07/08/23 08:59 200 mg BIDM PHUONG Administration Aspirin 81 mg 06/06/23 09:00 06/08/23 08:15 Aspirin 81 Mg Ectab PO 07/06/23 08:59 81 mg QAM PHUONG Administration Bumetanide 1 mg 06/05/23 22:35 06/07/23 17:36 Bumetanide 1 Mg Tab PO 07/05/23 22:34 1 mg BID17 PHUONG Administration Heparin Sodium (Porcine) 5,000 units 06/05/23 22:35 06/08/23 07:52 Heparin Sod 5,000 Unit/0.5 Ml Vial SQ 07/05/23 22:34 Not Given Q12 PHUONG Piperacillin Sod/Tazobactam 120 mls @ 30 mls/hr 06/06/23 00:30 06/08/23 13:01 Sod 4.5 gm/ Dextrose IV 06/13/23 00:29 Infused Q8H PHUONG Infusion Protocol Acetaminophen 1,000 mg in 100 mls @ 400 mls/hr 06/06/23 04:30 06/08/23 00:24 Ofirmev IV 06/09/23 04:29 Infused Q8H PRN Infusion Pain Sodium Chloride 1,000 mls @ 80 mls/hr 06/08/23 08:45 06/08/23 10:50 Nss 1000ml IV 06/08/23 21:14 80 mls/hr .[id number] PHUONG Infusion Insulin Aspart 0 units 06/06/23 11:30 06/08/23 11:55 Insulin Aspart Per Unit Charge SC 07/05/23 22:59 6 units ACHS PHUONG Administration Rosuvastatin Calcium 5 mg 06/06/23 09:00 06/07/23 08:44 Rosuvastatin Calcium 5 Mg Tab PO 07/06/23 08:59 5 mg DAILY PHUONG Administration NPO Date Last Intake of Fluids: 06/08/23 Time Last Intake of Fluids: 12:55 Last Intake of Fluids Comment: sip of water Date Last Intake of Solids: 06/08/23 Time Last Intake of Solids: 08:00 Last Intake of Solids Comment: lalo muffin Past Medical History Medical History (Updated 06/07/23 @ 13:25 by Seferino Rivera MD) Aortic valve disease s/p TAVR (2019) CAD (coronary artery disease) follows with Dr. Elliott Carotid artery stenosis Under surveillance by vascular (Dr. Guerrero) Cerebrovascular duplex with 60-69% LICA stenosis (stable from 2019 study per report) Dyslipidemia History of atrial fibrillation History of chronic kidney disease Hypertension Ischemic cardiomyopathy MRSA (methicillin resistant Staphylococcus aureus) left fifth toe- current Myocardial Infarction 2014 Obesity (BMI 30.0-34.9) Osteomyelitis Hx PAD (peripheral artery disease) Paroxysmal atrial fibrillation Proliferative diabetic retinopathy Sleep apnea "Not bad enough for device" per pt Type 1 diabetes mellitus Ulcer of toe of left foot Exercise / Class Metabolic Activity II 4-5 Yardwork/Stairs/Walk up hill Past Family History Family History Sister Myocardial infarction Denies family history of Ovarian cancer Prostate cancer Breast cancer Lung cancer Colorectal cancer Stroke Past Surgical History Surgical History H/O gastric bypass History of adenoidectomy History of amputation of lesser toe of right foot History of amputation of toe History of cardiac cath 2017 [place] History of cataract surgery bilat History of tonsillectomy History of tooth extraction S/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 angioplasty (LINEN KEEPER) LINEN KEEPER of anterior tibial artery April 2017 S/P TAVR (transcatheter aortic valve replacement) [facility] [place] > Oct 2019 Status post below knee amputation of right lower extremity 2019 Status post transmetatarsal amputation of right foot Past Anesthesia History No Hx of Anesthesia Complications and No Family Hx of Anesthesia Complications History of PONV No Hx of PONV and No Hx of Motion Sickness Social History Smoking Status: Never smoker tobacco type: cigarettes Do You Dip or Chew Tobacco: No Hx Alcohol Use: No Alcohol type: beer alcohol intake frequency: holidays/special occasions only Hx Substance Use: No substance use type: does not use Physical Exam Vital Signs Last Vital Signs Temp 37.4 C 06/08/23 15:38 Pulse 85 06/08/23 15:38 Resp 18 06/08/23 15:38 BP 155/76 H 06/08/23 15:38 Pulse Ox 98 06/08/23 15:38 O2 Del Method Room Air 06/08/23 15:38 ENMT Mouth: no dentition abnormality Thyromental Distance: > or= 3.5 Finger Breadths Mallampati Class: II Neck normal visual inspection Respiratory normal respiratory effort Auscultation: lungs clear to auscultation bilaterally Cardiovascular Rate/Rhythm: regular rate and regular rhythm Extremities: + edema (trace lower extremity pitting edema) Musculoskeletal Extremities: + amputation noted Psychiatric Orientation: alert Testing Laboratory Results 06/08/23 05:58 06/08/23 05:58 PT 17.9 Seconds (9.0-12.0) H 06/08/23 05:58 INR 1.7 (0.9-1.1) H 06/08/23 05:58 APTT 46.9 Seconds (21.0-31.0) H* 06/05/23 17:15 Hemoglobin A1c 9.3 % (4.5-5.6) H 06/06/23 05:49 06/05/23 17:14 Aerobic Blood Culture - Preliminary Blood No growth in Aerobic bottle after 48 hours. Anaerobic Blood Culture - Preliminary No growth in Anaerobic bottle after 48 hours. 06/05/23 17:20 Aerobic Blood Culture - Preliminary Blood No growth in Aerobic bottle after 48 hours. Anaerobic Blood Culture - Preliminary No growth in Anaerobic bottle after 48 hours. 06/05/23 18:01 Gram Stain - Final Foot,Left Wound Culture - Final Proteus mirabilis 06/08/23 06/08/23 11:35 05:55 POC Glucose 247 H 209 H
[2023-06-08 16:07] LABS: INR 1.4 (0.9-1.1); Prothrombin Time 14.6 Seconds (9.0-12.0)
[2023-06-08] MEDS ORDERED: KETAMINE 50 MG/5 ML SYRINGE ONE (16:07)
[2023-06-08] MEDS ORDERED: VANCOMYCIN HCL 1000MG/20ML VIAL ONE (16:31)
[2023-06-08] MEDS ORDERED: PHENYLEPHRINE HCL 10 MG/ML VIAL ONE (16:56)
--- NOTE | 2023-06-08 17:25 | Post Operative Brief Note ---
Immediate Post Op Note v1 Date of Surgery June 08, 2023 Pre & Post Diagnosis Operation Date: 06/11/23 08:00 <No data on this case meets the specified criteria> I identified the patient and participated in the time-out.: Yes Procedure Operation Date: 06/11/23 08:00 <No data on this case meets the specified criteria> Surgeon Lambert Mcbride, MELANIE, MS Assistant Associate Professor None Estimated Blood Loss 250 Findings Consistent with Post-Op Diagnosis consistent with pre operative diagnosis Specimens left fourth metatarsal - Pathology] left fourth metatarsal - Microbiology
--- NOTE | 2023-06-08 18:02 | Anesthesiology Progress Note ---
Date of Service June 08, 2023 Anesthesia Post Procedure Vital Signs Vital Signs: Temp Pulse Pulse Pulse Resp BP Pulse Ox 06/08/23 17:56 36.5 C 76 20 99/59 L 97 06/08/23 17:53 36.5 C 90 20 96/38 L 97 06/08/23 17:40 36.7 C 88 14 113/59 L 94 06/08/23 17:30 80 14 123/80 95 06/08/23 17:21 36 C L 93 H 17 99/51 L 95 06/08/23 16:18 89 06/08/23 15:38 37.4 C 85 18 155/76 H 98 06/08/23 11:56 36.6 C 100 H 18 115/72 96 06/08/23 08:11 36.5 C 61 16 122/71 98 06/08/23 03:12 36.6 C 64 18 122/83 94 06/08/23 00:53 58 L 06/07/23 23:00 36.9 C 50 L 16 120/80 95 06/07/23 19:00 36.5 C 62 16 156/74 H 97 O2 Del Method 06/08/23 17:56 Room Air 06/08/23 17:53 Room Air 06/08/23 17:40 Room Air 06/08/23 17:30 Room Air 06/08/23 17:21 Room Air 06/08/23 16:18 06/08/23 15:38 Room Air 06/08/23 11:56 Room Air 06/08/23 08:11 Room Air 06/08/23 03:12 Room Air 06/08/23 00:53 06/07/23 23:00 Room Air 06/07/23 19:00 Room Air Transfer of Care Handoff Completed per policy Notes Mental Status: alert / awake / arousable Patient Amnestic to Procedure: Yes Nausea / Vomiting: adequately controlled Pain: adequately controlled Airway Patency, RR, SpO2: stable & adequate BP & HR: stable & adequate Hydration State: stable & adequate Anesthetic Complications: no major complications apparent
[2023-06-08] MEDS ORDERED: HYDROmorphone INJ 0.5 MG/0.5 ML SYR IV STA (20:38)
[2023-06-08] MEDS ORDERED: LANTUS PER UNIT CHARGE SQ SCH (21:00)
[2023-06-09] MEDS: ACETAMINOPHEN 1,000 MG/100 ML VIAL IV PRN (00:15)
[2023-06-09] MEDS ORDERED: HYDROmorphone INJ 0.5 MG/0.5 ML SYR IV ONE (01:13)
[2023-06-09] MEDS: INSULIN ASPART PER UNIT CHARGE SC SCH ×5 (04:24→20:53)
[2023-06-09 06:21] LABS: Hemoglobin 8.8 g/dl (14.0-18.0); Mean Corpuscular Hemoglobin 25.4 pg (25.0-34.0); Mean Corpuscular Hgb Conc 32.6 g/dL (32.0-36.0); Mean Platelet Volume 11.1 fL (9.4-12.4); Platelet Count 280 K/uL (130-400); RDW Coefficient of Variation 17.4 % (11.5-14.5); Red Blood Count 3.46 M/uL (4.70-6.10); White Blood Count 8.46 K/ul (4.8-10.8)
[2023-06-09 06:42] LABS: INR 1.2 (0.9-1.1); Prothrombin Time 12.8 Seconds (9.0-12.0)
--- NOTE | 2023-06-09 07:56 | Operative Report ---
Post Operative Report Pre & Post Diagnosis Operation Date: 06/11/23 08:00 <No data on this case meets the specified criteria> I identified the patient and participated in the time-out.: Yes Procedure Operation Date: 06/11/23 08:00 <No data on this case meets the specified criteria> Surgeon Lambert Mcbride, DPM, MS Bakery Worker None Estimated Blood Loss 250 Findings Consistent with Post-Op Diagnosis Necrotic bone and soft tissue Specimens 1.) left fourth metatarsal bone - Pathology 2.) left fourth metatarsal bone - Microbiology Description of Procedure History of present illness: Patient is a 67-year-old male who is seen for attempted limb salvage, OR debridement of left foot diabetic ulcer with osteomyelitis, necrotic bone. Procedure in detail was discussed as well as postoperative care. All questions were answered. All potential risks, benefits, complications, alternatives, rehab, potential for incomplete relief of symptoms, need for further surgery, DVT, PE, , persistent pain, swelling, scarring, weakness, neurovascular, wound complications and potential for amputations were discussed with patient. Unwanted outcomes such as, but not limited to were reviewed including under correction, overcorrection, return of deformity, infection. All questions were answered. Patient has decided to proceed with procedure as indicated. Preoperative diagnosis: Left foot diabetic wound, left fourth metatarsal osteomyelitis, necrotic bone and soft tissue Postoperative diagnosis: Same Procedure in detail: 1.) Incision and drainage 2.) Excision of necrotic bone and soft tissue 3.) Fourth metatarsal excision Surgeon: Dr. Mcbride Bakery Worker: none Anesthesia: Local monitored anesthesia care Hemostasis: none Estimated blood loss: 15ml Specimens: 1.) Bone fourth metatarsal Left Pathology 2.) Bone fourth metatarsal Left Microbiology Procedure in detail: Under mild sedation the patient was brought in the operating room placed on the operating table in supine position. Following sedation the foot and ankle were prepped scrubbed and draped in the usual aseptic manner. Attention was then directed to Left lateral foot diabetic non healing wound. The wound measures roughly 6 cm x 3 cm x 5 cm and traffics proximal up the peroneal tendons. There was some fibrotic tissue formation as well as granulation tissue formation to the wound itself. Utilizing a sharp, sterile, #15 blade the non viable wound bed was excised to the level of bone and passed off from the field. The adjacent necrotic devitalized soft tissue was excised. All bleeders were ligated and cauterized as necessary. The proximal wound was noted to traffic within peroneal tendon sheaths. A proximal wound incision was created with a sharp, sterile, #15 blade exposing the peroneal tendons. Devitalized tendon was removed to the level of the distal ankle. At this time 1 Liter of lactate ringer was used to irrigate the wound under low pressure flow. There was some softening of the cuboid bone noted along the plantar lateral margin of the fourth and previous fifth metatarsal. This was resected utilizing a rongeur for debridement. The fourth metatarsal was noted to be soft and necrotic. Utilizing an oscillating bone saw the fourth metatarsal base was resected to the level of the mid diaphysis. This bone was placed on the back table labeled and sent to both pathology and microbiology. Normal saline was utilized to copiously irrigate the wound. Stimulan beads containing Vancomycin and Gentamycin powder. The wound was left open and dressed with sterile compressive dressing consisting of adaptic, 4 x 4's, Kerlix, ABD, Rajesh. The Patient tolerated procedure and anesthesia well he was transferred to recovery room vital signs stable. Following a period of postoperative monitoring the patient will be discharged back to floor on the following written and postoperative oral instructions. Keep dressing clean dry and intact, avoid ambulation, elevate left ankle and foot contact Dr. Mcbride for all postoperative care if any problems arise. I attest to the content of the Intraoperative Record and any orders documented therein. Any exceptions are noted below.
--- NOTE | 2023-06-09 07:57 | Hospitalist Progress Note ---
Date of Service June 09, 2023 Assessment & Plan (1) Foot osteomyelitis, left: Plan: Previous osteomyelitis in the left foot s/p debridement and 5th MT and 4th MT head amputation done on 02/09/[address] Guerrero. No prior artial disease/intervention required Increased pain/redness/drainage x 3-4 days at home reported. CRP/ESR elevation Prior blood cx + Enterococcus faecalis, past wound cultures positive for MRSA. Xray concerning for osteo L base 4th phalange MRI w/ focal edema/enhancement lateal aspect 4th metatarsal supicious for osteo and running obliquiely across distal third metatarsal c/w acute or nonhealed fracture CX on admit growing Proteus mirabilis, pansensitive on preliminary Blood cultures pending, NGTD at present, afebrile. WBC wnl POD#1 s/p Left foot surgical debridement and removal of non-viable tissue on 06/[address] Mcbride. EBL reported 250cc, did discuss w/ Dr Mcbride decent bleeding/unable to place wound vac post-op but order for application of wound vac placed. Pathology pending Hgb drop 9.7 --> 8.8, acute blood loss w/ bleeding from surgery but did also receive IVF while NPO pre-op x 1L by me, additional 400cc perioperative, so suspect some dilutional aspect. Iron panel low prior, Venofer x 1 today and monitor Daily dressing changes per podiatry Diet ordered Continue Heparin SQ BID given TAVR/afib hx and anticipated surgery w/ Dr Guerrero on sunday for angio given US Duplex w/ hemodynamically significant stenosis within proximal L superficial femoral artery. Susp occlusion of L proximal L posterior tibial artery with distal reconstitution and occlusion distal L peroneal artery. Coumadin currently on hold Consulted ID for Sunday for determination course abx/duration at discharge pending cx from OR Monitor labs in AM Regarding his afib, paroxysmal in nature --> much improvement and maintaining NSR since increased amio 200mg BID and discontinued carvedilol and will continued such. Appreciate cards input/assistance (2) PAD (peripheral artery disease): Plan: US Duplex obtained by vascular yesterday to ensure no arterial disease/other causes for not healing IMPRESSION: 1. Extensive atherosclerotic plaque within the left lower extremity. Moderately diminished left ankle to brachial index of 0.55. 2. Findings suggestive of a hemodynamically significant stenosis within the proximal left superficial femoral artery. 3. Monophasic flow throughout the remainder of the left lower extremity with suspected occlusion of the proximal left posterior tibial artery with distal reconstitution and occlusion of the distal left peroneal artery. Messaged Dr Mcbride/vascular -- vascular planning for Angio on Sunday as amputation more urgent, planned for today Lipid panel obtained, plan to increase crestor to 10mg daily once off Dapto NPO sunday night for intervention w/ Dr Guerrero (3) CAD (coronary artery disease): Plan: follows w/ [facility] S/P TAVR (transcatheter aortic valve replacement)/Paroxysmal atrial fibrillation: Patient on warfarin for history of AVR and paroxysmal A-fib. Holding coumadin, on heparin SQ BID s/p Vit K prior to procedure, continues on Heparin SQ BID as above Increased amiodarone to 200mg BID starting 06/08 and will continue Maintaining NSR at present, carvedilol DISCONTINUED Monitoring on telemetry Keep K/Mag replete Chronic systolic congestive heart failure: Chronic, stable Last echo done on 02/12/2023 showed a EF of 35 to 40%. Bumex held AM prior to surgery to prevent hypotension and placed on gentle IVF while NPO Bumex resumed for this morning No further carvediolol per cards, HRs when in sinus had been low. Well controlled now as above Not on entresto or MAMIE-I due to symptomatic hypotension in the past, ?ability to add now that carvedilol discontinued in f/u with cards Volume status acceptable at present Hyperlipidemia: Crestor 5 mg daily -- lipid panel checked given PAD, can increase to 10mg daily but placed on hold while on Dapto to prevent rhabdo as discussed with the patient (4) Uncontrolled type 1 diabetes mellitus with diabetic neuropathy, with long- term current use of insulin: Plan: (5) Uncontrolled type 1 diabetes mellitus with diabetic neuropathy, with long- term current use of insulin: Patient is a type I diabetic uncontrolled last seen by endocrine on 11/2022, BSG elevation on admit A1c 9.3 from prior 9.8 in January Home regimen on hold, pharmacy consulted and managing while inpatient BSGs 219 last check -- likely req little better control. Asked RN to contact pharmacy for adjustments this afternoon (5) MEGAN (acute kidney injury): Plan: Cr elevation on admission, meds renal doses/parameters for BP Resolved on repeat however slightly dry AM 06/08 pre-op/bumex held and IVF provided BUN/Cr great on repeat and back to normal Bumex resumed this morning Monitor BMP in AM (6) S/P TAVR (transcatheter aortic valve replacement): Plan: noted hx, coumadin on hold as above, on Heparin SQ BID which was held AM of surgery continue Heparin SQ BID given paroxsymal afib and angio planned for Sunday (7) Carotid artery stenosis: Plan: continues on aspirin (8) Chronic systolic congestive heart failure: Plan: as above, volume stable on exam slightly dry 06/08, bumex held/IVF as above and improved/stable and resumed (9) Paroxysmal atrial fibrillation: Plan: monitoring on tele -- keep K/mag replete (10) Hypertension: Plan: BPs stable (11) Dyslipidemia: Plan: lipid panel checked given PAD and on crestor 5mg Cholesterol level 131, LDL 67. Plan to increase to 10mg daily once off Dapto (12) Anemia: Plan: Iron studies checked - iron low at 20, TIBC low, unsat acceptable. Trans % sat lLOW at 8%. Ferritin only 37.8. Hgb stable but dropped a little, reported bleeding w/ procedure --> venofer IV x 1 ordered for today given blood cultures NGTD x 48 hours Monitor for any bleeding CBC in AM Plan continued inpatient stay angio planned for on Sunday w/ Dr Guerrero, NPO midnight at midnight Sunday Admission and Anticipated Discharge Date Admission Date: June 05, 2023 Supervising Physician Co-Signing Physician Notes The patient was not seen by me. The chart was reviewed. Case discussed with YAMEL Flanagan. Agree with assessment and plan Subjective Eval this morning, doing well. Some decent amount of pain following surgery. Prior relief with norco in prior surgeries. Morphine effective but making goofy. BM day prior but not today. No fever/chills, chest pain or shortness of breath. Anticipating intervention with Dr Guerrero on Sunday. Questions/concerns addressed at this time. Physical Exam Physical Exam: General: WD male resting in bed, NAD HEENT: head normocephalic, atraumatic, mmm, trachea midline Resp: diminished in the bases, no w/c/r, 98% on RA CV: irregularly irregular, rates in 60-90s, flipping in/out of afib on monitor, no significant m/r/g, abnormal pulses as below GI: +BS, soft/NT MSK/Skin: LEFT FOOT dressing c/d/i, some tenderness, no active drainage, dressing just removed by podiatry, did not remove again as just changed Chronic R BKA, no issues. Neuro: alert, oriented, no focal neurologic deficit appreciated Psych: AOx3, cooperative with exam Cardiovascular: Vessels: + abnormal peripheral pulses Extremities: + edema (L foot, decreased) Musculoskeletal: Extremities: + amputation noted (RLE BKA) Results & Data Results & Data Vital Signs (Past 12 Hours) Vital Signs Temp Pulse Pulse Resp BP Pulse Ox O2 Del Method 06/09/23 07:16 53 L 06/09/23 03:14 36.6 C 52 L 18 128/70 99 Room Air 06/08/23 23:51 79 06/08/23 23:00 36.6 C 87 18 114/53 L 99 Room Air Laboratory Results 06/09/23 06/09/23 06/09/23 Range/Units 11:20 10:23 08:20 WBC (4.8-10.8) K/ul RBC (4.70-6.10) M/uL Hgb (14.0-18.0) g/dl Hct (42.0-52.0) % MCV (80.0-100.0) fL MCH (25.0-34.0) pg MCHC (32.0-36.0) g/dL RDW Std Deviation (36.4-46.3) fL RDW Coeff of Vargas (11.5-14.5) % Plt Count (130-400) K/uL MPV (9.4-12.4) fL PT (9.0-12.0) Seconds INR (0.9-1.1) Sodium 132 L Potassium 4.2 Chloride 101 Carbon Dioxide 27 Anion Gap 4 BUN 19 Creatinine 1.00 Est Cr Clr Drug Dosing 94.4 Est GFR ( Amer) 89.9 Est GFR (Non-Af Amer) 77.5 BUN/Creatinine Ratio 19.0 Glucose 237 H POC Glucose 219 H 101 H (70-99) mg/dl Calcium 8.3 L Magnesium 2.0 06/09/23 06/09/23 06/09/23 Range/Units 08:01 07:59 05:43 WBC (4.8-10.8) K/ul RBC (4.70-6.10) M/uL Hgb (14.0-18.0) g/dl Hct (42.0-52.0) % MCV (80.0-100.0) fL MCH (25.0-34.0) pg MCHC (32.0-36.0) g/dL RDW Std Deviation (36.4-46.3) fL RDW Coeff of Vargas (11.5-14.5) % Plt Count (130-400) K/uL MPV (9.4-12.4) fL PT (9.0-12.0) Seconds INR (0.9-1.1) Sodium Cancelled Potassium Cancelled Chloride Cancelled Carbon Dioxide Cancelled Anion Gap Cancelled BUN Cancelled Creatinine Cancelled Est Cr Clr Drug Dosing Cancelled Est GFR ( Amer) Cancelled Est GFR (Non-Af Amer) Cancelled BUN/Creatinine Ratio Cancelled Glucose Cancelled POC Glucose 51 L* 55 L* (70-99) mg/dl Calcium Cancelled Magnesium Cancelled 06/09/23 06/09/23 06/09/23 Range/Units 05:43 05:43 04:22 WBC 8.46 (4.8-10.8) K/ul RBC 3.46 L (4.70-6.10) M/uL Hgb 8.8 L (14.0-18.0) g/dl Hct 27.0 L (42.0-52.0) % MCV 78.0 L (80.0-100.0) fL MCH 25.4 (25.0-34.0) pg MCHC 32.6 (32.0-36.0) g/dL RDW Std Deviation 50.0 H (36.4-46.3) fL RDW Coeff of Vargas 17.4 H (11.5-14.5) % Plt Count 280 (130-400) K/uL MPV 11.1 (9.4-12.4) fL PT 12.8 H (9.0-12.0) Seconds INR 1.2 H (0.9-1.1) Sodium Potassium Chloride Carbon Dioxide Anion Gap BUN Creatinine Est Cr Clr Drug Dosing Est GFR ( Amer) Est GFR (Non-Af Amer) BUN/Creatinine Ratio Glucose POC Glucose 85 (70-99) mg/dl Calcium Magnesium 06/08/23 06/08/23 06/08/23 Range/Units 23:35 20:51 20:50 WBC (4.8-10.8) K/ul RBC (4.70-6.10) M/uL Hgb (14.0-18.0) g/dl Hct (42.0-52.0) % MCV (80.0-100.0) fL MCH (25.0-34.0) pg MCHC (32.0-36.0) g/dL RDW Std Deviation (36.4-46.3) fL RDW Coeff of Vargas (11.5-14.5) % Plt Count (130-400) K/uL MPV (9.4-12.4) fL PT (9.0-12.0) Seconds INR (0.9-1.1) Sodium Potassium Chloride Carbon Dioxide Anion Gap BUN Creatinine Est Cr Clr Drug Dosing Est GFR ( Amer) Est GFR (Non-Af Amer) BUN/Creatinine Ratio Glucose POC Glucose 251 H 359 H* 403 H* (70-99) mg/dl Calcium Magnesium 06/08/23 06/08/23 Range/Units 17:25 15:13 WBC (4.8-10.8) K/ul RBC (4.70-6.10) M/uL Hgb (14.0-18.0) g/dl Hct (42.0-52.0) % MCV (80.0-100.0) fL MCH (25.0-34.0) pg MCHC (32.0-36.0) g/dL RDW Std Deviation (36.4-46.3) fL RDW Coeff of Vargas (11.5-14.5) % Plt Count (130-400) K/uL MPV (9.4-12.4) fL PT 14.6 H (9.0-12.0) Seconds INR 1.4 H (0.9-1.1) Sodium Potassium Chloride Carbon Dioxide Anion Gap BUN Creatinine Est Cr Clr Drug Dosing Est GFR ( Amer) Est GFR (Non-Af Amer) BUN/Creatinine Ratio Glucose POC Glucose 196 H (70-99) mg/dl Calcium Magnesium PG Care Time/CCT Total # of Minutes Spent Total Time Spent with Patient: Total time spent is greater than 50% in coordination of care (as documented) at patient's floor/unit and/or counseling patient: Coding Level of Care Code 65729 SUB INP/OBS CARE 3/50MIN Diagnoses Foot osteomyelitis, left M86.9 PAD (peripheral artery disease) I73.9 CAD (coronary artery disease) I25.10 Associated angina: without angina [place] vs. transplanted heart: [place] heart Uncontrolled type 1 diabetes mellitus with diabetic neuropathy, with long-term current use of insulin E10.40; E10.65 MEGAN (acute kidney injury) N17.9 S/P TAVR (transcatheter aortic valve replacement) Z95.2 Carotid artery stenosis I65.29 Chronic systolic congestive heart failure I50.22 Paroxysmal atrial fibrillation I48.0 Hypertension I10 Hypertension type: essential hypertension Dyslipidemia E78.5 Anemia D64.9 (3) CAD (coronary artery disease) Associated angina: without angina [place] vs. transplanted heart: [place] heart (10) Hypertension Hypertension type: essential hypertension Qualified Code(s): I10 - Essential (primary) hypertension
[2023-06-09] MEDS: ASPIRIN 81 MG ECTAB PO SCH (08:38)
[2023-06-09] MEDS: AMIODARONE 200 MG TAB PO SCH ×2 (08:38→16:33)
[2023-06-09] MEDS: ROSUVASTATIN CALCIUM 5 MG TAB PO SCH (08:38)
[2023-06-09] MEDS: BUMETANIDE 1 MG TAB PO SCH ×2 (08:38→16:33)
[2023-06-09] MEDS: PIPERACILLIN/TAZOBACTAM 4.5 GM in DEXTROSE 5% 100 ML IV SCH ×2 (08:48→16:33)
--- NOTE | 2023-06-09 09:19 | Orthopedic Progress Note ---
Date of Service June 09, 2023 Assessment & Plan (1) Foot osteomyelitis, left: Plan: Patient seen, evaluated, and treated. Patient is status post Left foot surgical debridement and removal of non-viable tissue Day#1 DOS 06/08/23. Dry, sterile, dressing change. Order for Application of wound vac placed. Will continue to follow while in house. Admission and Anticipated Discharge Date Admission Date: June 05, 2023 Subjective Patient seen at bedside resting comfortable. Patient is status post Left foot surgical debridement and removal of non-viable tissue. Day#1 DOS 06/08/23. Review of Systems Review of Systems: All systems reviewed & are unremarkable except as noted in Subjective Physical Exam Constitutional: cooperative and comfortable Eyes: normal visual ramos by confrontation Neck: normal visual inspection Respiratory: normal respiratory effort Cardiovascular: Rate/Rhythm: regular rate and regular rhythm Musculoskeletal: Extremities: + amputation noted (RLE BKA) Skin: + ulcer (Left lateral foot full thickness ulcer.) Neurologic: moves all extremities (Absent epicritic sensation) Psychiatric: Orientation: alert and oriented x 3 Results & Data Vital Signs (Past 12 Hours) Vital Signs Temp Pulse Pulse Resp BP Pulse Ox O2 Del Method 06/09/23 08:18 36.5 C 55 L 17 154/83 H 100 Room Air 06/09/23 07:16 53 L 06/09/23 03:14 36.6 C 52 L 18 128/70 99 Room Air 06/08/23 23:51 79 06/08/23 23:00 36.6 C 87 18 114/53 L 99 Room Air
[2023-06-09] MEDS ORDERED: IRON SUCROSE 300 MG in SODIUM CHLORIDE 0.9% 250 ML IV ONE (10:00)
[2023-06-09] MEDS: HYDROCODONE/ACETAMOPHEN 5/325MG TAB PO PRN ×3 (10:35→21:48)
[2023-06-09] MEDS: DOCUSATE SODIUM/SENNA 50/8.6MG TAB PO SCH (10:36)
[2023-06-09] MEDS: HEPARIN SOD 5,000 UNIT/0.5 ML VIAL SQ SCH ×2 (11:02→20:53)
[2023-06-09 11:24] LABS: Calcium 8.3 mg/dl (8.6-10.3); Creatinine Clr Calc Pharmacy 94.4 ml/min; Est GFR (African American) 89.9 ml/min; Est GFR (Non-African American) 77.5 ml/min; Potassium 4.2 mmol/L (3.5-5.1)
--- NOTE | 2023-06-09 13:51 | Pharmacy Report ---
Pharmacy Glycemic Short Note 2 - Date of Service June 09, 2023 - Glycemic Short BSG Results (Last 24 hours): 06/08/23 06/08/23 06/08/23 17:25 20:50 20:51 Glucose POC Glucose 196 H 403 H* 359 H* 06/08/23 06/09/23 06/09/23 23:35 04:22 05:43 Glucose Cancelled POC Glucose 251 H 85 06/09/23 06/09/23 06/09/23 07:59 08:01 08:20 Glucose POC Glucose 55 L* 51 L* 101 H 06/09/23 06/09/23 10:23 11:20 Glucose 237 H POC Glucose 219 H OUTPATIENT ANTIDIABETIC REGIMEN: * Levemir 28 units SQ HS * NovoLog, carb ratio 1:4 - uses ~60units/day * HbA1c: 9.3% (06/06/23) ASSESSMENT: 06/09/23: * POD #1 s/p Left fourth metatarsal amputation * BSGs elevated yesterday, ranging 209-359 mg/dL * Patient received increased basal dose again last evening * Fasting BSG of 55 mg/dL this morning - likely related to too much basal, but may also be related to additional Novolog from overnight check * Will change basal back to home dose today 06/07 * Pt remains hyperglycemic today. * Lantus dose will be increased this evening, as fasting BSG markedly elevated this morning. * Suspect that pt may be NPO after midnight tonight for procedure. Given persistent hyperglycemia, expect that increased dose of Lantus should still be appropriate. * Pre-lunch BSG was elevated today, despite aggressive carb coverage. Will further adjust Novolog parameters tomorrow if BSGs do not begin to improve. 06/06 * 67 year old male Type 1 DM, last seen by endocrine in November, admitted with left foot osteomyelitis, on IV zosyn, NPO at this time. * Hyperglycemic last night on admission, given 10 units IV Regular insulin, 25 units of Lantus, and NovoLog Q4H SQ. * Started on CF/CR as used last admission with success, will continue at this time, euglycemic, change to Q6H checks. * Continue basal insulin. PLAN FOR INPATIENT GLYCEMIC CONTROL: * Basal insulin * Lantus 28 units SQ HS * Bolus insulin * NovoLog per scale ACHS Q6hrs while NPO * Goal Range: Low 110 mg/dL - High 140 mg/dL * Correction Factor: 20 mg/dL/unit * Nutritional / Prandial insulin per carb ratio of 1 unit per 2.5 grams CHO consumed
[2023-06-09] MEDS: LANTUS PER UNIT CHARGE SQ SCH (20:53)
[2023-06-09] MEDS: CARBOHYDRATES FOR HYPOGLYCEMIA PO PRN ×2 (23:36→23:52)
[2023-06-10] MEDS: PIPERACILLIN/TAZOBACTAM 4.5 GM in DEXTROSE 5% 100 ML IV SCH ×3 (00:08→17:26)
[2023-06-10 05:56] LABS: Hematocrit (blood only) 24.9 % (42.0-52.0); Hemoglobin 7.9 g/dl (14.0-18.0); Mean Corpuscular Hemoglobin 25.3 pg (25.0-34.0); Mean Corpuscular Hgb Conc 31.7 g/dL (32.0-36.0); Mean Corpuscular Volume 79.8 fL (80.0-100.0); Mean Platelet Volume 11.3 fL (9.4-12.4); Platelet Count 243 K/uL (130-400); RDW Coefficient of Variation 17.4 % (11.5-14.5); RDW Standard Deviation 50.8 fL (36.4-46.3); Red Blood Count 3.12 M/uL (4.70-6.10); White Blood Count 10.19 K/ul (4.8-10.8)
[2023-06-10 06:11] LABS: BUN Creatinine Ratio 20.9 (10-20); Calcium 8.2 mg/dl (8.6-10.3); Creatinine Clr Calc Pharmacy 82.5 ml/min; Est GFR (African American) 75.9 ml/min; Est GFR (Non-African American) 65.5 ml/min; Magnesium 2.1 mg/dl (1.7-2.4); Potassium 3.9 mmol/L (3.5-5.1)
[2023-06-10 06:18] LABS: INR 1.1 (0.9-1.1); Prothrombin Time 11.9 Seconds (9.0-12.0)
[2023-06-10] MEDS: HEPARIN SOD 5,000 UNIT/0.5 ML VIAL SQ SCH ×2 (08:19→20:54)
[2023-06-10] MEDS: DOCUSATE SODIUM/SENNA 50/8.6MG TAB PO SCH (08:20)
[2023-06-10] MEDS: BUMETANIDE 1 MG TAB PO SCH ×2 (08:20→17:26)
[2023-06-10] MEDS: ROSUVASTATIN CALCIUM 5 MG TAB PO SCH (08:20)
[2023-06-10] MEDS: ASPIRIN 81 MG ECTAB PO SCH (08:20)
[2023-06-10] MEDS: AMIODARONE 200 MG TAB PO SCH ×2 (08:20→17:26)
[2023-06-10] MEDS: INSULIN ASPART PER UNIT CHARGE SC SCH ×4 (08:21→20:47)
--- NOTE | 2023-06-10 08:41 | Hospitalist Progress Note ---
Date of Service June 10, 2023 Assessment & Plan (1) Foot osteomyelitis, left: Plan: Previous osteomyelitis in the left foot s/p debridement and 5th MT and 4th MT head amputation done on 02/09/[address] Guerrero. No prior artial disease/intervention required Increased pain/redness/drainage x 3-4 days at home reported. CRP/ESR elevation Prior blood cx + Enterococcus faecalis, past wound cultures positive for MRSA. Xray concerning for osteo L base 4th phalange MRI w/ focal edema/enhancement lateal aspect 4th metatarsal supicious for osteo and running obliquely across distal third metatarsal c/w acute or nonhealed fracture CX on admit growing Proteus mirabilis, pansensitive on preliminary Podiatry consulted POD#2 s/p Left foot surgical debridement and removal of non-viable tissue on 06/[address] Mcbride. EBL reported 250cc, did discuss w/ Dr Mcbride decent bleeding/unable to place wound vac post-op but order for application of wound vac placed. Pathology pending Hgb drop 9.7 --> 8.8 --> 7.9 acute blood loss w/ bleeding from surgery but did also receive IVF while NPO pre-op x 1L by me, additional 400cc perioperative, so suspect some dilutional aspect. . Iron panel low, Venofer x 2. Did discuss if any further drop likely will give 1u PRBC for tomorrow. No CP/SOB/hypoxia. Dressing changes per podiatry, daily WBC borderline at 10k, no fevers, but prompted review of medications and Dapto had fallen off eMar due to being ordered 48hr empiric antibiotic --> resumed for today. Statin placed on hold ID consulted for tomorrow Heparin SQ BID given hx afib/TAVR while coumadin on hold NPO at midnight for angio w/ Dr Guerrero for US Duplex w/ hemodynamically significant stenosis within proximal L superficial femoral artery. Susp occlusion of L proximal L posterior tibial artery with distal reconstitution and occlusion distal L peroneal artery (2) PAD (peripheral artery disease): Plan: US Duplex obtained by vascular to ensure no arterial disease/other causes for not healing IMPRESSION: 1. Extensive atherosclerotic plaque within the left lower extremity. Moderately diminished left ankle to brachial index of 0.55. 2. Findings suggestive of a hemodynamically significant stenosis within the proximal left superficial femoral artery. 3. Monophasic flow throughout the remainder of the left lower extremity with suspected occlusion of the proximal left posterior tibial artery with distal reconstitution and occlusion of the distal left peroneal artery. Lipid panel obtained, plan to increase crestor to 10mg daily once off Dapto NPO at midnight for intervention with Dr Guerrero tomorrow (3) CAD (coronary artery disease): Plan: follows w/ [facility] S/P TAVR (transcatheter aortic valve replacement)/Paroxysmal atrial fibrillation: Patient on warfarin for history of AVR and paroxysmal A-fib. Holding coumadin, on heparin SQ BID as above. Did get Vit K prior to amputation for INR >1.5 Continue increased amiodarone to 200mg BID Carvedilol prior d/c given when sinus is elena -- IV lopressor ordered if needed for HR >120s Keeping mag/K replete Continue telemetry monitoring Chronic systolic congestive heart failure: Chronic, stable Last echo done on 02/12/2023 showed a EF of 35 to 40%. Bumex resumed following surgery Carvedilol discontinued as above Not on MAMIE-I or entresto due to symptomatic hypotension in the past but ? if able to add now that BPs improved off carvedilol Volume status acceptable at present Hyperlipidemia: Crestor 5 mg daily -- lipid panel checked given PAD, can increase to 10mg daily but hold while on Dapto to prevent rhabdo as discussed with the patient (4) Uncontrolled type 1 diabetes mellitus with diabetic neuropathy, with long- term current use of insulin: Plan: (5) Uncontrolled type 1 diabetes mellitus with diabetic neuropathy, with long- term current use of insulin: Patient is a type I diabetic uncontrolled last seen by endocrine on 11/2022, BSG elevation on admit A1c 9.3 from prior 9.8 in January Home regimen on hold, pharmacy consulted and managing while inpatient Low prior 2 mornings but elevated in afternoon --> discussed with pharmacy and will loosen at night and tighten during the day and monitor to prevent hypoglycemia (5) MEGAN (acute kidney injury): Plan: Cr elevation on admission, meds renal doses/parameters for BP Resolved on repeat however slightly dry AM 06/08 pre-op/Bumex held and IVF provided BUN/Cr great on repeat and back to normal Bumex resumed this morning Monitor BMP in AM (6) S/P TAVR (transcatheter aortic valve replacement): Plan: Noted hx, coumadin on hold as above, on Heparin SQ BID which was held AM of surgery continue Heparin SQ BID given paroxysmal afib and angio planned for Sunday (7) Carotid artery stenosis: Plan: continues on aspirin (8) Chronic systolic congestive heart failure: Plan: as above, volume stable on exam slightly dry 06/08, bumex held/IVF as above and improved/stable and resumed Encouraged oral intake. Bumex continued but will hold for AM to prevent hypotension w/ anesthesia/angio (9) Paroxysmal atrial fibrillation: Plan: monitoring on tele -- keep K/mag replete had been better controlled. now still occ flipping in/out, asymptomatic IV lopressor 2.5mg ordered if needed for now (10) Hypertension: Plan: BPs stable (11) Dyslipidemia: Plan: lipid panel checked given PAD and on crestor 5mg Cholesterol level 131, LDL 67. Plan to increase to 10mg daily once off Dapto (12) Anemia: Plan: Iron studies checked - iron low at 20, TIBC low, unsat acceptable. Trans % sat lLOW at 8%. Ferritin only 37.8. Hgb stable but dropped a little, reported bleeding w/ procedure --> venofer IV x 1 ordered for today given blood cultures NGTD x 48 hours. Repeat Venofer ordered but no reported bleeding at present. Discussed possible PRBC tomorrow if any continued drop/bleeding/symptoms or <7.5 CBC in AM Plan continued inpatient stay angio planned w/ Dr Guerrero tomorrow NPO at midnight ID consulted for tomorrow Admission and Anticipated Discharge Date Admission Date: June 05, 2023 Supervising Physician Co-Signing Physician Notes The patient was not seen by me. The chart was reviewed. Case discussed with YAMEL Castro. Agree with assessment and plan Subjective Eval this morning, doing well. Couple of twinges of pain but then resolve, not needing much in the way of pain medications. No fever/chills, chest pain, shortness of breath, abdominal pain or nausea/vomiting. Discussed hgb - no CP/SOB, lightheadedness/dizziness. Discussed Venofer again for today but if hgb further dropped may need to consider giving unit of blood in AM. No palpitations reported. Was fib this morning for a little but then converted back around 607. Will continue amiodarone BID. Added Lopressor IV if rates >120. ID consulted for tomorrow. Questions/concerns addressed at this time. Physical Exam Physical Exam: General: WD male resting in bed, NAD HEENT: head normocephalic, atraumatic, mmm, trachea midline Resp: diminished in the bases, no w/c/r, 98% on RA CV: afib/NSR on monitor, rates in 50-100s, flipping in/out of afib on monitor, no significant m/r/g, abnormal pulses as below GI: +BS, soft/NT MSK/Skin: LEFT FOOT dressing c/d/i, some tenderness, no active drainage, no active drainage appreciated Chronic R BKA, no issues. Neuro: alert, oriented, no focal neurologic deficit appreciated Psych: AOx3, cooperative with exam Cardiovascular: Vessels: + abnormal peripheral pulses Extremities: + edema (L foot, decreased) Musculoskeletal: Extremities: + amputation noted (RLE BKA) Results & Data Results & Data Vital Signs (Past 12 Hours) Vital Signs Temp Pulse Pulse Pulse Resp BP BP 06/10/23 07:17 36.8 C 92 H 18 103/54 L 06/10/23 03:50 36.5 C 61 18 107/42 L 06/10/23 00:26 64 06/09/23 23:57 36.7 C 65 18 137/47 L Pulse Ox O2 Del Method 06/10/23 07:17 95 Room Air 06/10/23 03:50 95 Room Air 06/10/23 00:26 06/09/23 23:57 98 Room Air Laboratory Results 06/10/23 06/10/23 06/10/23 Range/Units 11:57 08:02 05:19 WBC (4.8-10.8) K/ul RBC (4.70-6.10) M/uL Hgb (14.0-18.0) g/dl Hct (42.0-52.0) % MCV (80.0-100.0) fL MCH (25.0-34.0) pg MCHC (32.0-36.0) g/dL RDW Std Deviation (36.4-46.3) fL RDW Coeff of Vargas (11.5-14.5) % Plt Count (130-400) K/uL MPV (9.4-12.4) fL PT (9.0-12.0) Seconds INR (0.9-1.1) Sodium 132 L (136-145) mmol/L Potassium 3.9 (3.5-5.1) mmol/L Chloride 101 (98-107) mmol/L Carbon Dioxide 26 (21-32) mmol/L Anion Gap 5 (3-11) BUN 24 H (6-23) mg/dl Creatinine 1.15 (0.6-1.4) mg/dl Est Cr Clr Drug Dosing 82.5 ml/min Est GFR ( Amer) 75.9 ml/min Est GFR (Non-Af Amer) 65.5 ml/min BUN/Creatinine Ratio 20.9 H (10-20) Glucose 165 H (70-99(Fasting)) mg/dl POC Glucose 226 H 186 H (70-99) mg/dl Calcium 8.2 L (8.6-10.3) mg/dl Magnesium 2.1 (1.7-2.4) mg/dl 06/10/23 06/10/23 06/10/23 Range/Units 05:19 05:19 02:16 WBC 10.19 (4.8-10.8) K/ul RBC 3.12 L (4.70-6.10) M/uL Hgb 7.9 L (14.0-18.0) g/dl Hct 24.9 L (42.0-52.0) % MCV 79.8 L (80.0-100.0) fL MCH 25.3 (25.0-34.0) pg MCHC 31.7 L (32.0-36.0) g/dL RDW Std Deviation 50.8 H (36.4-46.3) fL RDW Coeff of Vargas 17.4 H (11.5-14.5) % Plt Count 243 (130-400) K/uL MPV 11.3 (9.4-12.4) fL PT 11.9 (9.0-12.0) Seconds INR 1.1 (0.9-1.1) Sodium (136-145) mmol/L Potassium (3.5-5.1) mmol/L Chloride (98-107) mmol/L Carbon Dioxide (21-32) mmol/L Anion Gap (3-11) BUN (6-23) mg/dl Creatinine (0.6-1.4) mg/dl Est Cr Clr Drug Dosing ml/min Est GFR ( Amer) ml/min Est GFR (Non-Af Amer) ml/min BUN/Creatinine Ratio (10-20) Glucose (70-99(Fasting)) mg/dl POC Glucose 161 H (70-99) mg/dl Calcium (8.6-10.3) mg/dl Magnesium (1.7-2.4) mg/dl 06/10/23 06/09/23 06/09/23 Range/Units 00:03 23:48 23:37 WBC (4.8-10.8) K/ul RBC (4.70-6.10) M/uL Hgb (14.0-18.0) g/dl Hct (42.0-52.0) % MCV (80.0-100.0) fL MCH (25.0-34.0) pg MCHC (32.0-36.0) g/dL RDW Std Deviation (36.4-46.3) fL RDW Coeff of Vargas (11.5-14.5) % Plt Count (130-400) K/uL MPV (9.4-12.4) fL PT (9.0-12.0) Seconds INR (0.9-1.1) Sodium (136-145) mmol/L Potassium (3.5-5.1) mmol/L Chloride (98-107) mmol/L Carbon Dioxide (21-32) mmol/L Anion Gap (3-11) BUN (6-23) mg/dl Creatinine (0.6-1.4) mg/dl Est Cr Clr Drug Dosing ml/min Est GFR ( Amer) ml/min Est GFR (Non-Af Amer) ml/min BUN/Creatinine Ratio (10-20) Glucose (70-99(Fasting)) mg/dl POC Glucose 74 60 L* 40 L* (70-99) mg/dl Calcium (8.6-10.3) mg/dl Magnesium (1.7-2.4) mg/dl 06/09/23 06/09/23 06/09/23 Range/Units 23:33 20:43 16:25 WBC (4.8-10.8) K/ul RBC (4.70-6.10) M/uL Hgb (14.0-18.0) g/dl Hct (42.0-52.0) % MCV (80.0-100.0) fL MCH (25.0-34.0) pg MCHC (32.0-36.0) g/dL RDW Std Deviation (36.4-46.3) fL RDW Coeff of Vargas (11.5-14.5) % Plt Count (130-400) K/uL MPV (9.4-12.4) fL PT (9.0-12.0) Seconds INR (0.9-1.1) Sodium (136-145) mmol/L Potassium (3.5-5.1) mmol/L Chloride (98-107) mmol/L Carbon Dioxide (21-32) mmol/L Anion Gap (3-11) BUN (6-23) mg/dl Creatinine (0.6-1.4) mg/dl Est Cr Clr Drug Dosing ml/min Est GFR ( Amer) ml/min Est GFR (Non-Af Amer) ml/min BUN/Creatinine Ratio (10-20) Glucose (70-99(Fasting)) mg/dl POC Glucose 46 L* 233 H 240 H (70-99) mg/dl Calcium (8.6-10.3) mg/dl Magnesium (1.7-2.4) mg/dl PG Care Time/CCT Total # of Minutes Spent Total Time Spent with Patient: Total time spent is greater than 50% in coordination of care (as documented) at patient's floor/unit and/or counseling patient: Coding Level of Care Code 31830 SUB INP/OBS CARE 3/50MIN Diagnoses Foot osteomyelitis, left M86.9 PAD (peripheral artery disease) I73.9 CAD (coronary artery disease) I25.10 Associated angina: without angina [place] vs. transplanted heart: [place] heart Uncontrolled type 1 diabetes mellitus with diabetic neuropathy, with long-term current use of insulin E10.40; E10.65 MEGAN (acute kidney injury) N17.9 S/P TAVR (transcatheter aortic valve replacement) Z95.2 Carotid artery stenosis I65.29 Chronic systolic congestive heart failure I50.22 Paroxysmal atrial fibrillation I48.0 Hypertension I10 Hypertension type: essential hypertension Dyslipidemia E78.5 Anemia D64.9 (3) CAD (coronary artery disease) Associated angina: without angina [place] vs. transplanted heart: [place] heart (10) Hypertension Hypertension type: essential hypertension Qualified Code(s): I10 - Essential (primary) hypertension
[2023-06-10] MEDS ORDERED: POTASSIUM CHLORIDE CRTAB 20 MEQ TABCR PO STA (09:08)
[2023-06-10] MEDS ORDERED: METOPROLOL TARTRATE 1 MG/ML VIAL IV PRN (09:10)
[2023-06-10] MEDS: DAPTOmycin 600 MG in SYRINGE 0 ML IV SCH (09:48)
--- NOTE | 2023-06-10 10:21 | Pharmacy Report ---
Pharmacy Glycemic Short Note 2 - Date of Service June 10, 2023 - Glycemic Short BSG Results (Last 24 hours): 06/09/23 06/09/23 06/09/23 10:23 11:20 16:25 Glucose 237 H POC Glucose 219 H 240 H 06/09/23 06/09/23 06/09/23 20:43 23:33 23:37 Glucose POC Glucose 233 H 46 L* 40 L* 06/09/23 06/10/23 06/10/23 23:48 00:03 02:16 Glucose POC Glucose 60 L* 74 161 H 06/10/23 06/10/23 05:19 08:02 Glucose 165 H POC Glucose 186 H OUTPATIENT ANTIDIABETIC REGIMEN: * Levemir 28 units SQ HS * NovoLog, carb ratio 1:4 - uses ~60units/day * HbA1c: 9.3% (06/06/23) ASSESSMENT: 06/10/23: * POD #2 * Patient once again hyperglycemic during the day yesterday with episode of hypoglycemia overnight * Attempting to achieve better glycemic control, but BSGs remain labile today * Will continue with tightened day-time parameters, but will change HS parameters to contain loose correctional only * Continue home basal dose * If BSGs remain elevated at dinner/HS - tighten day-time Novolog further tomorrow 06/09/23: * POD #1 s/p Left fourth metatarsal amputation * BSGs elevated yesterday, ranging 209-359 mg/dL * Patient received increased basal dose again last evening * Fasting BSG of 55 mg/dL this morning - likely related to too much basal, but may also be related to additional Novolog from overnight check * Will change basal back to home dose today 06/07 * Pt remains hyperglycemic today. * Lantus dose will be increased this evening, as fasting BSG markedly elevated this morning. * Suspect that pt may be NPO after midnight tonight for procedure. Given persistent hyperglycemia, expect that increased dose of Lantus should still be appropriate. * Pre-lunch BSG was elevated today, despite aggressive carb coverage. Will further adjust Novolog parameters tomorrow if BSGs do not begin to improve. 06/06 * 67 year old male Type 1 DM, last seen by endocrine in November, admitted with left foot osteomyelitis, on IV zosyn, NPO at this time. * Hyperglycemic last night on admission, given 10 units IV Regular insulin, 25 units of Lantus, and NovoLog Q4H SQ. * Started on CF/CR as used last admission with success, will continue at this time, euglycemic, change to Q6H checks. * Continue basal insulin. PLAN FOR INPATIENT GLYCEMIC CONTROL: * Basal insulin * Lantus 28 units SQ HS * Bolus insulin * NovoLog per scale ACHS Q6hrs while NPO * Goal Range: Low 110 mg/dL - High 140 mg/dL w/ meals and 140-180 mg/dL at HS * Correction Factor: 15 mg/dL/unit w/ meals, 45 mg/dL/unit at HS * Nutritional / Prandial insulin per carb ratio of 1 unit per 2 grams CHO consumed w/ meals, no carb coverage at HS
[2023-06-10] MEDS: HYDROCODONE/ACETAMOPHEN 5/325MG TAB PO PRN ×2 (11:22→20:53)
[2023-06-10] MEDS ORDERED: IRON SUCROSE 300 MG in SODIUM CHLORIDE 0.9% 250 ML IV ONE (12:00)
[2023-06-10] MEDS: LANTUS PER UNIT CHARGE SQ SCH (20:53)
[2023-06-10] MEDS: CARBOHYDRATES FOR HYPOGLYCEMIA PO PRN ×2 (22:57→23:21)
[2023-06-11] MEDS: PIPERACILLIN/TAZOBACTAM 4.5 GM in DEXTROSE 5% 100 ML IV SCH ×4 (00:06→23:56)
[2023-06-11] MEDS: HYDROCODONE/ACETAMOPHEN 5/325MG TAB PO PRN ×2 (04:16→18:06)
[2023-06-11] MEDS ORDERED: SODIUM CHLORIDE 0.9% 500 ML IV SCH (05:00)
[2023-06-11 06:27] LABS: Hematocrit (blood only) 26.8 % (42.0-52.0); Hemoglobin 8.4 g/dl (14.0-18.0); Mean Corpuscular Hemoglobin 25.5 pg (25.0-34.0); Mean Corpuscular Hgb Conc 31.3 g/dL (32.0-36.0); Mean Corpuscular Volume 81.2 fL (80.0-100.0); Mean Platelet Volume 11.2 fL (9.4-12.4); Platelet Count 282 K/uL (130-400); RDW Coefficient of Variation 17.6 % (11.5-14.5); RDW Standard Deviation 52.2 fL (36.4-46.3); White Blood Count 8.67 K/ul (4.8-10.8)
[2023-06-11 06:43] LABS: Calcium 8.5 mg/dl (8.6-10.3); Creatinine Clr Calc Pharmacy 77.5 ml/min; Est GFR (Non-African American) 60.4 ml/min; Magnesium 2.1 mg/dl (1.7-2.4)
[2023-06-11 06:56] LABS: Prothrombin Time 11.4 Seconds (9.0-12.0)
--- NOTE | 2023-06-11 07:10 | Hospitalist Progress Note ---
Date of Service June 11, 2023 Assessment & Plan (1) Foot osteomyelitis, left: (2) Bradycardia: (3) Heart failure with mid-range ejection fraction (HFmEF): (4) Hyperlipidemia: (5) half-way (current) use of anticoagulants: Plan Agustín Rodriguez is a 67 year-old male with past medical history of Type 1 DM, s/p TAVR, CAD, PAD, paroxysmal a. fib. Foot osteomyelitis, left -Previous osteomyelitis in the left foot s/p debridement and 5th MT and 4th MT head amputation done on 02/09/[address] Guerrero. No prior artial disease/intervention required -Increased pain/redness/drainage x 3-4 days at home reported. CRP/ESR elevation. Prior blood cx + Enterococcus faecalis, past wound cultures positive for MRSA. -MRI w/ focal edema/enhancement lateral aspect 4th metatarsal suspicious for osteo and running obliquely across distal third metatarsal c/w acute or nonhealed fracture -Podiatry consulted -POD #3 L foot debridement and removal of non-viable tissue -Surgical culture pending. Prior culture on admit growing proteus mirabilis -ID consulted for antibiotic management -Continue dapto, pip-tazo for now while awaiting final cultures -Anticipate 6 weeks of IV abx treatment PAD (peripheral artery disease) US Duplex obtained by vascularto ensure no arterial disease/other causes for not healing IMPRESSION: 1. Extensive atherosclerotic plaque within the left lower extremity. Moderately diminished left ankle to brachial index of 0.55. 2. Findings suggestive of a hemodynamically significant stenosis within the proximal left superficial femoral artery. 3. Monophasic flow throughout the remainder of the left lower extremity with suspected occlusion of the proximal left posterior tibial artery with distal reconstitution and occlusion of the distal left peroneal artery. -Lipid panel obtained,plan to increase Crestor to 10mg daily once off Dapto. -NPO at midnight for angio w/ Dr Guerrero for US Duplex w/ hemodynamically significant stenosis within proximal L superficial femoral artery. Susp occlusion of L proximal L posterior tibial artery with distal reconstitution and occlusion distal L peroneal artery * Patient has been flipping in and out of sinus rhythm vs. a. fib/flutter, has a known history of a. fib. After discussion of indications and risks of planned procedure, would recommend patient proceeds with planned vascular angiogram tomorrow. Although his rate control could be tightened, his baseline HR appears 50s-60s so this could lead to bradycardia. Anemia -Iron studies checked - iron low at 20, TIBC low, unsat acceptable. Trans % sat lLOW at 8%. Ferritin only 37.8. -Hgb stable, received Venofer. No current indication for PRBCs -CBC in AM CAD (coronary artery disease) follows w/ [facility] S/P TAVR (transcatheter aortic valve replacement)/Paroxysmal atrial fibrillation: -Patient on warfarin for history of AVR and paroxysmal A-fib. -Holding coumadin, on heparin SQ BID as above. Received Vit K prior to amputation for INR >1.5 -Continue increased amiodarone to 200mg BID -Carvedilol prior d/c given when sinus is elena -- IV lopressor ordered if needed for HR >120s -Keeping mag/K replete -Continue telemetry monitoring Chronic systolic congestive heart failure -Chronic, stable -Last echo done on 02/12/2023 showed a EF of 35 to 40%. -Bumex resumed following surgery -Carvedilol discontinued as above -Not on MAMIE-I or entresto due to symptomatic hypotension in the past but ? if able to add now that BPs improved off carvedilol -Volume status acceptable at present Hyperlipidemia -Crestor 5 mg daily- lipid panel checked given PAD, can increase to 10mg daily but hold while on Dapto to prevent rhabdo as discussed with the patient Uncontrolled type 1 diabetes mellitus with diabetic neuropathy, with long-term current use of insulin: Patient is a type I diabetic uncontrolled last seen by endocrine on 11/2022, BSG elevation on admit A1c 9.3 from prior 9.8 in January Home regimen on hold, pharmacy consulted and managing while inpatient MEGAN (acute kidney injury) Cr elevation on admission, meds renal doses/parameters for BP Resolved on repeat however slightly dry AM 06/08 pre-op/Bumex held and IVF provided BUN/Cr improved on repeat and back to normal Bumex resumed this morning Monitor BMP daily S/P TAVR (transcatheter aortic valve replacement) Noted hx, coumadin on hold as above, on Heparin SQ BID which was held AM of surgery continue Heparin SQ BID given paroxysmal afib and angio planned for Sunday Carotid artery stenosis -Continues on aspirin Hypertension -BPs stable Admission and Anticipated Discharge Date Admission Date: June 05, 2023 Supervising Physician Co-Signing Physician Notes I personally examined the patient and verified all carmen points of history and exam, discussed case, and agree with decision making with Dr Kohli feeling okay. Does not feel his atrial flutter at all. Notes that he goes in and out from time to time. No chest pain no shortness of breath. Vitals noted, in general he is awake and alert pleasant no distress. HEENT normocephalic atraumatic mucous membranes moist. Left foot wrapped, no tracking erythema vascular insufficiency/uncontrolled diabetic related foot infectioncontinue broad antibiotics, appreciate ID input. Would benefit from revascularization if possibleas it relates to the risk/benefit is in regards to revascularization attempt and his atrial fluttergiven that he is asymptomatic, it is a chronic intermittent paroxysmal problemrisk/benefit definitely favors proceeding with the planned procedure. otherwise as above Subjective Patient seen and examined at bedside. No acute events overnight. Has been intermittently flipping between sinus rhythm and a. flutter so vascular surgery postponed surgery to 06/12. He states that pain was worse in the past 24 hours, does respond well to pain medications. Occasionally has sharp pain at left heel. Denies chest pain, shortness of breath, fever, body aches, chills, or constipation. Review of Systems Review of Systems: As per above Physical Exam Constitutional: WD/WN, vitals as above Eyes: Anicteric sclerae. ENMT: External ears and nose normal, moist mucous membranes. Respiratory: normal respiratory effort, lungs clear to auscultation Cardiovascular: Rate/Rhythm: + irregularly irregular No significant lower extremity edema. Gastrointestinal (Abdomen): normal bowel sounds, soft, nontender, no hepatosplenomegaly Musculoskeletal: Right BKA Skin: left foot bandaged Psychiatric: A+Ox3, euthymic affect Results & Data Results & Data Vital Signs (Past 12 Hours) Vital Signs Temp Pulse Pulse Resp BP Pulse Ox O2 Del Method 06/11/23 03:29 36.5 C 59 L 16 100/71 95 Room Air 06/10/23 23:48 60 06/10/23 23:22 36.6 C 64 18 142/64 H 98 Room Air 06/10/23 19:27 36.8 C 64 16 143/70 H 97 Room Air Resident Activity Tracking Resident Involvement: Resident Care Provided Care Provided: Adult [facility]
--- NOTE | 2023-06-11 08:05 | Communication Note ---
Date of Service: June 11, 2023 Received a call from pre op [email or web address] to report from floor that patient was in afib since early this am. Previous EKG during this admission was normal sinus rhythm. At this point will cancel angio today and reschedule for tomorrow. Will need clearance from either med or cards to proceed with angio tomorrow.
[2023-06-11] MEDS: INSULIN ASPART PER UNIT CHARGE SC SCH ×4 (08:15→20:34)
[2023-06-11] MEDS: DAPTOmycin 600 MG in SYRINGE 0 ML IV SCH (08:36)
[2023-06-11] MEDS: ASPIRIN 81 MG ECTAB PO SCH (08:42)
[2023-06-11] MEDS: HEPARIN SOD 5,000 UNIT/0.5 ML VIAL SQ SCH ×2 (08:43→20:35)
[2023-06-11] MEDS: DOCUSATE SODIUM/SENNA 50/8.6MG TAB PO SCH (08:43)
[2023-06-11] MEDS: AMIODARONE 200 MG TAB PO SCH ×2 (08:43→17:55)
--- NOTE | 2023-06-11 13:10 | Infectious Disease Consult ---
Date of Consultation June 11, 2023 Assessment & Plan (1) Foot osteomyelitis, left: (2) PAD (peripheral artery disease): Plan Micro: 06/08 L 4th metatarsal: low counts mixed probable skin microbiota. GS--no organisms 06/05 L foot swab: Proteus mirabilis (gustafson-S), plus low counts of probable skin eda. GS--no organisms 06/05 BCx x2: NG Abx: Dapto 06/05 - 06/07, 06/10 - present Pip-tazo 06/05 - present Vanc 06/08 Problems: #L 4th metatarsal osteomyelitis s/p L 4th metatarsal excision, and resection of necrotic cuboid bone #PAD 67 yo M with history of DM, TAVR (2019) on warfarin, CAD, CHF, afib, PAD, L foot osteomyelitis s/p L 5th metatarsal and 4th metatarsal head amputation ( 023, treated with dapto x 2 weeks) who presented on 06/05 for L foot infection after seeing Dr. Guerrero in clinic. Pt had a wound VAC that was removed ~3 weeks prior, after his recent L foot surgery. Pt reported that since 06/01, he has been having L foot pain with drainage, erythema, swelling. Denied fevers. On presentation, pt was afebrile without leukocytosis. ESR 123, CRP 7.95, procalcitonin 0.71. XR L foot showed findings suspicious for osteomyelitis involving base of 4th proximal phalanx, soft tissue swelling. MRI L foot showed focal edema and enhancement of lateral aspect of proximal 4th metatarsal deep to the wound suspicious for osteomyelitis. Pt was started on dapto, pip-tazo. A L foot superficial swab grew Proteus mirabilis. Vascular surgery and podiatry were consulted. LLE arterial doppler US showed extensive atherosclerotic plaque, stenosis within proximal L superficial femoral artery, suspected occlusion of proximal L posterior tibial artery with distal reconstitution and occlusion of distal L peroneal artery. On 06/08, podiatry took pt to OR. Noted softening of cuboid bone along plantar lateral margin of 4th and previous 5th metatarsal, which was resected. Fourth metatarsal was soft/necrotic, and was resected to level of mid diaphysis, and sent for path/micro. Wound was left open. Vascular planned to take pt for arteriography on 06/11, but pt was in afib, so rescheduled for 06/12. Per my discussion with Dr. Mcbride, there is concern for residual osteomyelitis. Spoke with micro lab--06/08 OR culture so far shows a Corynebacterium species and another gram positive bacilli--possibly diphtheroid, which could represent superficial contaminants, and one swarming colony which could represent Proteus. OR culture should be finalized by 06/13. Recommendations: -Follow-up 06/08 OR culture -Will need 6 weeks of IV antibiotics via PICC to treat for possible residual osteomyelitis (06/08 - 07/19) -Final antibiotic recs to come. Continue dapto, pip-tazo for now. Ordered baseline CK for tomorrow AM Will continue to follow. Please page [facility] Center with further questions. Consultation Information This patient recommendation is based on a telemedicine consult request which was completed asynchronously through chart review and information provided by the primary physician. The patient was not seen or examined today. The evaluation is consultative in nature and all patient care and treatment decisions can either be accepted or rejected by the patient's primary hospital-based treating physician using their own independent medical judgment for their patient. [employer] contact information: Please call [facility] . (Phone Number For Physician Use Only) Time Spent Reviewing Chart: 31+ minutes History of Present Illness Reason for Consultation: Osteomyelitis Requesting Physician: YAMEL Castro Attending Physician: Martinez Hernadez DO History of Present Illness 67 yo M with history of DM, TAVR (2019) on warfarin, CAD, CHF, afib, CKD, PAD, L foot osteomyelitis s/p L 5th metatarsal and 4th metatarsal head amputation (02/09/2023, treated with dapto x 2 weeks) who presented on 06/05 for L foot infection after seeing Dr. Guerrero in clinic. Pt had a wound VAC that was removed ~3 weeks prior, after his recent L foot surgery. Pt reported that since 06/01, he has been having L foot pain with drainage, erythema, swelling. Denied fevers. On presentation, pt was afebrile without leukocytosis. ESR 123, CRP 7.95, procalcitonin 0.71. XR L foot showed findings suspicious for osteomyelitis involving base of 4th proximal phalanx, soft tissue swelling. MRI L foot showed focal edema and enhancement of lateral aspect of proximal 4th metatarsal deep to the wound suspicious for osteomyelitis. Pt was started on dapto, pip-tazo. A L foot superficial swab grew Proteus mirabilis. Vascular surgery and podiatry were consulted. LLE arterial doppler US showed extensive atherosclerotic plaque, stenosis within proximal L superficial femoral artery, suspected occlusion of proximal L posterior tibial artery with distal reconstitution and occlusion of distal L peroneal artery. On 06/08, podiatry took pt to OR. Noted softening of cuboid bone along plantar lateral margin of 4th and previous 5th metatarsal, which was resected. Fourth metatarsal was soft/necrotic, and was resected to level of mid diaphysis, and sent for path/micro. Wound was left open. Vascular planned to take pt for arteriography on 06/11, but pt was in afib, so rescheduled for 06/12. Allergies Allergy/AdvReac Type Severity Reaction Status Date / Time ketoconazole [From Nizoral] AdvReac Unknown see comment Verified 06/07/23 15:47 Home Medications Medication Instructions Recorded Confirmed Type insulin syringe-needle U-100 0.5 #400 ea 01/15/20 03/28/23 Rx mL 29 gauge x 1/2" (BD Insulin Syringe) insulin detemir U-100 100 unit/mL 28 unit (0.28 mL) subcut QPM #1 box 07/14/22 06/07/23 Rx (3 mL) subcutaneous pen (Levemir FlexTouch U-100 Insulin) aspirin 81 mg chewable tablet 81 mg PO QAM 07/20/22 06/07/23 History OneTouch Verio test strips (blood #300 ea 08/31/22 03/28/23 Rx sugar diagnostic) nitroglycerin 0.4 mg sublingual 0.4 mg sublingual UD PRN Chest 08/31/22 06/07/23 Rx tablet Pain #25 tabs amiodarone 200 mg tablet 200 mg PO QAM 01/11/23 06/07/23 History bumetanide 1 mg tablet 1 mg PO BID #180 tabs 01/12/23 06/07/23 Rx acetaminophen 325 mg tablet 650 mg PO Q4H PRN #0 tabs 02/15/23 06/07/23 Rx carvedilol 12.5 mg tablet 12.5 mg PO BID #60 tabs 02/15/23 06/07/23 Rx rosuvastatin 5 mg tablet 5 mg PO DAILY 04/04/23 06/07/23 History warfarin 5 mg tablet 5 mg PO 2XWK 04/18/23 06/07/23 History insulin aspart U-100 100 unit/mL See Rx Instructions .Route 05/25/23 06/07/23 Rx (3 mL) subcutaneous pen (Novolog .COMPLEX #30 mL FlexPen U-100 Insulin aspart) warfarin 2.5 mg tablet 2.5 mg PO 5XWK 06/07/23 06/07/23 History Patient History Medical History (Updated 06/07/23 @ 13:25 by Seferino Rivera MD) Aortic valve disease s/p TAVR (2019) CAD (coronary artery disease) follows with Dr. Elliott Carotid artery stenosis Under surveillance by vascular (Dr. Guerrero) Cerebrovascular duplex with 60-69% LICA stenosis (stable from 2019 study per report) Dyslipidemia History of atrial fibrillation History of chronic kidney disease Hypertension Ischemic cardiomyopathy MRSA (methicillin resistant Staphylococcus aureus) left fifth toe- current Myocardial Infarction 2014 Obesity (BMI 30.0-34.9) Osteomyelitis Hx PAD (peripheral artery disease) Paroxysmal atrial fibrillation Proliferative diabetic retinopathy Sleep apnea "Not bad enough for device" per pt Type 1 diabetes mellitus Ulcer of toe of left foot Surgical History H/O gastric bypass History of adenoidectomy History of amputation of lesser toe of right foot History of amputation of toe History of cardiac cath 2017 [place] History of cataract surgery bilat History of tonsillectomy History of tooth extraction S/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 angioplasty ([employer]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 S/P TAVR (transcatheter aortic valve [place] [facility] [place] Status post below knee amputation of right lower extremity 2019 Status post transmetatarsal amputation of right foot Family History Sister Myocardial infarction Denies family history of Ovarian cancer Prostate cancer Breast cancer Lung cancer Colorectal cancer Stroke Social History Smoking Status: Never smoker Second Hand Exposure: No; Do You Dip or Chew Tobacco: No; Hx Alcohol Use: No Hx Substance Use: No Preferred Language: Lao Communication Ability: Effective Visual Impairment: Limited Hearing Ability: Use of Hearing Aid Chemistry Specialist Required: No Beliefs That Will Affect Care: None and Spiritual marital status: Current Living Situation: Alone current occupational status: disabled How many Children do You have: 0 Feels Safe at Home: Yes Childhood Exposure to Second-Hand Smoke: No Diet: regular caffeine: Yes Dental Care, Regularly: No Physical Activity Frequency: 1-2 Times per Week Seatbelt Use: never Sunscreen Use: Yes Assistive Devices: Cane, Walker and Wheelchair Review of System Pt was not seen Physical Exam Physical Exam: Pt was not seen Results & Data Vital Signs (Past 12 Hours) Vital Signs Temp Pulse Pulse Resp BP Pulse Ox O2 Del Method 06/11/23 10:54 36.6 C 97 H 19 131/79 97 Room Air 06/11/23 07:41 36.9 C 109 H 20 120/54 L 97 Room Air 06/11/23 03:29 36.5 C 59 L 16 100/71 95 Room Air Laboratory Results Short CBC 06/11/23 Range/Units 05:43 WBC 8.67 (4.8-10.8) K/ul Hgb 8.4 L (14.0-18.0) g/dl Hct 26.8 L (42.0-52.0) % Plt Count 282 (130-400) K/uL BMP 06/11/23 05:43 Sodium 134 L Potassium 4.0 Chloride 100 Carbon Dioxide 24 BUN 27 H Creatinine 1.23 Glucose 288 H Calcium 8.5 L Medications Administered Current Inpatient Medications Hydrocodone Bitart/Acetaminophen (Hydrocodone/Acetamophen 5/325mg Tab) 1 tab PO Q4H PRN PRN Reason: Pain Stop: 06/23/23 09:32 Last Admin: 06/11/23 04:16 Dose: 1 tab Amiodarone HCl (Amiodarone 200 Mg Tab) 200 mg PO BIDM [facility] Stop: 07/08/23 08:59 Last Admin: 06/11/23 08:43 Dose: 200 mg Aspirin (Aspirin 81 Mg Ectab) 81 mg PO QAM [facility] Stop: 07/06/23 08:59 Last Admin: 06/11/23 08:42 Dose: 81 mg Bumetanide (Bumetanide 1 Mg Tab) 1 mg PO BID17 [facility] Stop: 07/05/23 22:34 Last Admin: 06/10/23 17:26 Dose: 1 mg Dextrose (Dextrose 50% 50 Ml Syringe) 25 - 50 ml IV UD PRN; Protocol PRN Reason: Hypoglycemia Protocol Stop: 07/05/23 22:34 Glucagon (Glucagon For Inj 1 Mg Vial) 1 mg SQ UD PRN; Protocol PRN Reason: Hypoglycemia Protocol Stop: 07/05/23 22:34 Glucose (Glucose 10 Tab/Tube) 4 - 8 tab PO UD PRN; Protocol PRN Reason: Hypoglycemia Treatment Stop: 07/05/23 22:34 Glucose (Glucose 40% Gel 15 Gm Tube) 15 - 30 gm PO UD PRN; Protocol PRN Reason: Hypoglycemia Protocol Stop: 07/05/23 22:34 Heparin Sodium (Porcine) (Heparin Sod 5,000 Unit/0.5 Ml Vial) 5,000 units SQ Q12 [facility] Stop: 07/05/23 22:34 Last Admin: 06/11/23 08:43 Dose: 5,000 units Piperacillin Sod/Tazobactam (Sod 4.5 gm/ Dextrose) 120 mls @ 30 mls/hr IV Q8H PHUONG; Protocol Stop: 06/13/23 00:29 Last Infusion: 06/11/23 12:41 Dose: Infused Daptomycin 600 mg/ Syringe 12 mls @ 6 mls/min IV Q24H PHUONG; Protocol Stop: 07/22/23 08:59 Last Admin: 06/11/23 08:36 Dose: 6 mls/min Sodium Chloride (Nss) 500 mls @ 100 mls/hr IV .Q5H PHUONG Stop: 06/12/23 16:00 Insulin Aspart (Insulin Aspart Per Unit Charge) 0 units SC AC PHUONG Stop: 07/06/23 11:29 Last Admin: 06/11/23 12:24 Dose: 25 units Insulin Aspart (Insulin Aspart Per Unit Charge) 0 units SC HS PHUONG Stop: 07/10/23 20:59 Last Admin: 06/10/23 20:47 Dose: Not Given Insulin Glargine (Lantus Per Unit Charge) 28 units SQ HS PHUONG; Protocol Stop: 07/08/23 20:59 Last Admin: 06/10/23 20:53 Dose: 28 units Metoprolol Tartrate (Metoprolol Tartrate 1 Mg/Ml Vial) 2.5 mg IV Q2H PRN PRN Reason: Tachycardia Stop: 07/10/23 09:09 Miscellaneous (Carbohydrates For Hypoglycemia ) 15 - 30 gm PO UD PRN PRN Reason: Hypoglycemia Protocol Stop: 07/05/23 22:34 Last Admin: 06/10/23 23:21 Dose: 15 gm Miscellaneous Information (Pharmacy Glycemic Mgmt Consult) 1 each N/A UD PRN PRN Reason: Consult Stop: 07/05/23 22:34 Nitroglycerin (Nitroglycerin Sl 0.4 Mg/Tab Tab) 0.4 mg SL UD PRN PRN Reason: Chest Pain Stop: 07/05/23 22:34 Rosuvastatin Calcium (Rosuvastatin Calcium 5 Mg Tab) 5 mg PO DAILY [facility] Stop: 07/06/23 08:59 Last Admin: 06/10/23 08:20 Dose: 5 mg Senna/Docusate Sodium (Docusate Sodium/Senna 50/8.6mg Tab) 1 tab PO QAM [facility] Stop: 07/09/23 09:44 Last Admin: 06/11/23 08:43 Dose: 1 tab
--- NOTE | 2023-06-11 15:09 | Pharmacy Report ---
Pharmacy Glycemic Short Note 2 - Date of Service June 11, 2023 - Glycemic Short BSG Results (Last 24 hours): 06/10/23 06/10/23 06/10/23 17:05 20:22 22:53 Glucose POC Glucose 226 H 160 H 49 L* 06/10/23 06/10/23 06/11/23 23:19 23:43 05:43 Glucose 288 H POC Glucose 58 L* 76 06/11/23 06/11/23 06/11/23 07:24 07:28 11:53 Glucose POC Glucose 335 H* 311 H* 330 H* OUTPATIENT ANTIDIABETIC REGIMEN: * Levemir 28 units SQ HS * NovoLog, carb ratio 1:4 - uses ~60units/day * HbA1c: 9.3% (06/06/23) ASSESSMENT: 06/11/23 * Patient's BSGs yesterday were 021-251-924-160 mg/dL. Patient hypoglycemic overnight - 40 mg/dL. * He received 153 units of insulin (28 units of Lantus and 125 units of bolus). * This pharmacist went to speak with the patient. * He is comfortable with Lantus 28 units. He wishes to continue this. In terms of the fastings over the past two days (186 vs 311), patient stated that he ate the same snack both nights prior (PB+ crackers and turkey sandwich). The only difference was the night before his BSG was 186 mg/dL, he drank juice. * In terms of Novolog, patient is comfortable using carbohydrate ratio of 4. He stated that sometimes his blood sugars are high all day and no matter how much insulin he gives himself, they remain high. He would like his blood sugars to remain between 130-200 mg/dL. He is okay with using a CR of 3.5 if necessary. For HS check, patient only gives himself Novolog if BSG > 200 mg/dL. Will change our scale to reflect that. 06/10/23: * POD #2 * Patient once again hyperglycemic during the day yesterday with episode of hypoglycemia overnight * Attempting to achieve better glycemic control, but BSGs remain labile today * Will continue with tightened day-time parameters, but will change HS parameters to contain loose correctional only * Continue home basal dose * If BSGs remain elevated at dinner/HS - tighten day-time Novolog further tomorrow 06/09/23: * POD #1 s/p Left fourth metatarsal amputation * BSGs elevated yesterday, ranging 209-359 mg/dL * Patient received increased basal dose again last evening * Fasting BSG of 55 mg/dL this morning - likely related to too much basal, but may also be related to additional Novolog from overnight check * Will change basal back to home dose today 06/07 * Pt remains hyperglycemic today. * Lantus dose will be increased this evening, as fasting BSG markedly elevated this morning. * Suspect that pt may be NPO after midnight tonight for procedure. Given persistent hyperglycemia, expect that increased dose of Lantus should still be appropriate. * Pre-lunch BSG was elevated today, despite aggressive carb coverage. Will further adjust Novolog parameters tomorrow if BSGs do not begin to improve. 06/06 * 67 year old male Type 1 DM, last seen by endocrine in November, admitted with left foot osteomyelitis, on IV zosyn, NPO at this time. * Hyperglycemic last night on admission, given 10 units IV Regular insulin, 25 units of Lantus, and NovoLog Q4H SQ. * Started on CF/CR as used last admission with success, will continue at this time, euglycemic, change to Q6H checks. * Continue basal insulin. PLAN FOR INPATIENT GLYCEMIC CONTROL: * Basal insulin * Lantus 28 units SQ HS * Bolus insulin * NovoLog per scale ACHS Q6hrs while NPO * Goal Range: Low 110 mg/dL - High 140 mg/dL w/ meals and 190-210 mg/dL at HS * Correction Factor: 15 mg/dL/unit w/ meals, 45 mg/dL/unit at HS * Nutritional / Prandial insulin per carb ratio of 1 unit per 4 grams CHO consumed w/ meals, no carb coverage at HS
--- NOTE | 2023-06-11 19:10 | Billing Data ---
Date of Service June 11, 2023 Coding Level of Care Code 51703 SUB INP/OBS CARE MIN
--- NOTE | 2023-06-11 19:11 | Communication Note ---
Date of Service: June 11, 2023 communication for vascular surgery - medically acceptable to proceed with angiogram, appreciate your input, thanks!
[2023-06-11] MEDS: LANTUS PER UNIT CHARGE SQ SCH (20:35)
--- NOTE | 2023-06-11 22:08 | Orthopedic Progress Note ---
Date of Service June 11, 2023 Assessment & Plan (1) Foot osteomyelitis, left: Plan: Patient seen, evaluated, and treated. Patient is status post Left foot surgical debridement and removal of non-viable tissue Day#3 DOS 06/08/23. Sterile dressing change. Order for Application of wound vac placed. Awaiting placement. Will continue to follow while in house. Admission and Anticipated Discharge Date Admission Date: June 05, 2023 Subjective Patient seen and examined at bedside. Due to Atrial flutter vascular surgery postponed surgery to 06/12. He has no complaints. Review of Systems Review of Systems: All systems reviewed & are unremarkable except as noted in Subjective Physical Exam Constitutional: cooperative and comfortable Eyes: normal visual ramos by confrontation Neck: normal visual inspection Respiratory: normal respiratory effort Cardiovascular: Rate/Rhythm: regular rate and regular rhythm Musculoskeletal: Extremities: + amputation noted (RLE BKA) Skin: + ulcer (Left lateral foot full thickness ulcer.) Neurologic: moves all extremities (Absent epicritic sensation) Psychiatric: Orientation: alert and oriented x 3 Results & Data Vital Signs (Past 12 Hours) Vital Signs Temp Pulse Resp BP Pulse Ox O2 Del Method 06/11/23 19:00 37.4 C 65 17 110/62 97 Room Air 06/11/23 16:02 36.6 C 65 18 151/82 H 98 Room Air 06/11/23 10:54 36.6 C 97 H 19 131/79 97 Room Air
[2023-06-12] MEDS: HYDROCODONE/ACETAMOPHEN 5/325MG TAB PO PRN ×3 (01:27→21:38)
[2023-06-12] MEDS ORDERED: Nursing to Pharmacy Communication SCH ×3 (05:30→15:00)
[2023-06-12] MEDS: INSULIN ASPART PER UNIT CHARGE SC SCH ×5 (06:12→23:44)
[2023-06-12 06:37] LABS: Basophils # (auto) 0.06 K/uL (0-0.2); Basophils % (auto) 0.7 %; Eosinophils # (auto) 0.37 K/uL (0-0.50); Eosinophils % (auto) 4.1 %; Hematocrit (blood only) 25.5 % (42.0-52.0); Hemoglobin 7.8 g/dl (14.0-18.0); Immature Granulocytes # (auto) 0.09 K/uL (0.01-0.20); Lymphocytes # (auto) 1.84 K/uL (1.2-3.4); Lymphocytes % (auto) 20.4 %; Mean Corpuscular Hgb Conc 30.6 g/dL (32.0-36.0); Mean Corpuscular Volume 81.7 fL (80.0-100.0); Mean Platelet Volume 11.1 fL (9.4-12.4); Monocytes # (auto) 0.86 K/uL (0.11-0.59); Monocytes % (auto) 9.6 %; Neutrophils # (auto) 5.78 K/uL (1.40-6.50); Neutrophils % (auto) 64.2 %; Platelet Count 272 K/uL (130-400); RDW Coefficient of Variation 17.7 % (11.5-14.5); RDW Standard Deviation 52.3 fL (36.4-46.3); Red Blood Count 3.12 M/uL (4.70-6.10)
[2023-06-12 06:50] LABS: BUN Creatinine Ratio 24.6 (10-20); Calcium 8.4 mg/dl (8.6-10.3); Creatinine Clr Calc Pharmacy 78.1 ml/min; Est GFR (African American) 70.7 ml/min; Potassium 4.1 mmol/L (3.5-5.1)
--- NOTE | 2023-06-12 07:18 | Hospitalist Progress Note ---
Date of Service June 12, 2023 Assessment & Plan (1) Foot osteomyelitis, left: (2) Bradycardia: (3) Heart failure with mid-range ejection fraction (HFmEF): (4) Hyperlipidemia: (5) FDC (current) use of anticoagulants: Plan Agustín Rodriguez is a 67 year-old male with past medical history of Type 1 DM, s/p TAVR, CAD, PAD, paroxysmal a. fib. Foot osteomyelitis, left -Previous osteomyelitis in the left foot s/p debridement and 5th MT and 4th MT head amputation done on 02/09/[address] Guerrero. No prior artial disease/intervention required -Increased pain/redness/drainage x 3-4 days at home reported. CRP/ESR elevation. Prior blood cx + Enterococcus faecalis, past wound cultures positive for MRSA. -MRI w/ focal edema/enhancement lateral aspect 4th metatarsal suspicious for osteo and running obliquely across distal third metatarsal c/w acute or nonhealed fracture -Podiatry consulted -POD #4 L foot debridement and removal of non-viable tissue -Surgical culture pending. Prior culture on admit growing proteus mirabilis -ID consulted for antibiotic management -Continue Ceftriaxone, Dapto daily per ID -Anticipate 6 weeks of IV abx treatment PAD (peripheral artery disease) US Duplex obtained by vascularto ensure no arterial disease/other causes for not healing IMPRESSION: 1. Extensive atherosclerotic plaque within the left lower extremity. Moderately diminished left ankle to brachial index of 0.55. 2. Findings suggestive of a hemodynamically significant stenosis within the proximal left superficial femoral artery. 3. Monophasic flow throughout the remainder of the left lower extremity with suspected occlusion of the proximal left posterior tibial artery with distal reconstitution and occlusion of the distal left peroneal artery. -Lipid panel obtained,plan to increase Crestor to 10mg daily once off Dapto. -Angio completed with Dr. Guerrero today (06/12/23) Anemia -Iron studies checked - iron low at 20, TIBC low, unsat acceptable. Trans % sat lLOW at 8%. Ferritin only 37.8. -Hgb stable between 7.8-8.4 over the past few days, received Venofer. No current indication for transfusion of PRBCs/no signs of active bleed. -Trend CBC CAD (coronary artery disease) follows w/ [facility] S/P TAVR (transcatheter aortic valve replacement)/Paroxysmal atrial fibrillation: -Patient on warfarin for history of AVR and paroxysmal A-fib. -Holding coumadin, on heparin SQ BID as above. Received Vit K prior to amputation for INR >1.5 -Continue increased amiodarone to 200mg BID -Carvedilol prior d/c given when sinus is elena -- IV lopressor ordered if needed for HR >120s -Continue telemetry monitoring Chronic systolic congestive heart failure -Chronic, stable -Last echo done on 02/12/2023 showed a EF of 35 to 40%. -Bumex resumed following surgery -Carvedilol discontinued as above -Not on MAMIE-I or Entresto due to symptomatic hypotension in the past but ? if able to add now that BPs improved off carvedilol -Volume status acceptable at present Hyperlipidemia -Crestor 5 mg daily- lipid panel checked given PAD, can increase to 10mg daily but hold while on Dapto to prevent rhabdo as discussed with the patient Uncontrolled type 1 diabetes mellitus with diabetic neuropathy, with long-term current use of insulin: -Patient is a type I diabetic uncontrolled last seen by endocrine on 11/2022, BSG elevation on admit -A1c 9.3 on admission -Home regimen on hold, pharmacy consulted and managing while inpatient MEGAN (acute kidney injury) -Cr elevation on admission, meds renal doses/parameters for BP -Resolved on repeat however slightly dry AM 06/08 pre-op/Bumex held and IVF provided -BUN/Cr improved on repeat and back to normal, Bumex resumed -Monitor BMP daily S/P TAVR (transcatheter aortic valve replacement) -Noted hx, coumadin on hold as above, on Heparin SQ BID which was held AM of surgery -Continue Heparin SQ BID given paroxysmal afib and awaiting angio Carotid artery stenosis -Continues on aspirin Hypertension -BPs stable Admission and Anticipated Discharge Date Admission Date: June 05, 2023 Supervising Physician Co-Signing Physician Notes I personally examined the patient and verified all carmen points of history and exam, discussed case, and agree with decision making with Dr Kohli seen post angio. no new complaints. discussed DM control - he's been unable to get coverage for CGM, gets test strips enough for checks 3x/day - checks premeal. uses 15 units of insulin per meal. open to the idea that postprandial control could be lacking. open to checking postprandial glucoses and using that as a tool to try to better carb-match vitals noted nad heent nc at mmm breathing unlabored no accessory muscles foot no tracking erythema DM foot infection/osteomyelitis - no macrovascular disease amenable to intervention. continue IV abx, wound vac, supportive care, multidisciplinary f/u. uncontrolled DM - discussed carb matching/mealtime insulin titration. discussed postprandial monitoring as a means to learn to better match. he expressed understanding. resume SQ heparin tomorrow otherwise as above Subjective Patient seen and examined at bedside. No overnight events. Patient is concerned that his blood sugar remains elevated. Continues to have pain under his left heel. Denies fever/chills/SOB/chest pain. Review of Systems Review of Systems: As per above Physical Exam Constitutional: WD/WN, vitals as above Eyes: + anicteric sclerae ENMT: Ears: no external ear abnormality Nose: no external nose abnormality Moist mucous membranes Respiratory: normal respiratory effort, lungs clear to auscultation Cardiovascular: Rate/Rhythm: regular rate and regular rhythm Gastrointestinal (Abdomen): normal bowel sounds, soft, nontender, no hepatosplenomegaly Musculoskeletal: Right below the knee amputation, left foot bandaged Skin: no rashes, warm and dry Psychiatric: A+Ox3, euthymic affect Results & Data Results & Data Vital Signs (Past 12 Hours) Vital Signs Temp Pulse Resp BP Pulse Ox O2 Del Method 06/12/23 02:45 36.6 C 65 20 129/85 97 Room Air 06/11/23 22:57 36.9 C 65 17 121/66 97 Room Air Resident Activity Tracking Resident Involvement: Resident Care Provided Care Provided: Adult Hospital Medicine
[2023-06-12 07:22] LABS: RBC Morphology Unremarkable
[2023-06-12] MEDS: SODIUM CHLORIDE 0.9% 500 ML IV SCH ×2 (08:04→19:00)
[2023-06-12] MEDS: PIPERACILLIN/TAZOBACTAM 4.5 GM in DEXTROSE 5% 100 ML IV SCH (08:04)
[2023-06-12] MEDS ORDERED: INSULIN ASPART PER UNIT CHARGE SC SCH (08:45)
[2023-06-12] MEDS: AMIODARONE 200 MG TAB PO SCH ×2 (09:02→17:22)
[2023-06-12] MEDS: DOCUSATE SODIUM/SENNA 50/8.6MG TAB PO SCH (09:02)
[2023-06-12] MEDS: ASPIRIN 81 MG ECTAB PO SCH (09:03)
[2023-06-12] MEDS: DAPTOmycin 600 MG in SYRINGE 0 ML IV SCH (09:04)
[2023-06-12] MEDS ORDERED: fentaNYL citrate PF 100 MCG/2 ML VIAL ONE (10:29)
[2023-06-12] MEDS ORDERED: MIDAZOLAM HCL 1 MG/ML 2ML VIAL ONE (10:29)
[2023-06-12] MEDS ORDERED: HEPARIN SOD (PORCINE) 1000 UNIT/ML ONE (10:29)
[2023-06-12] MEDS ORDERED: LIDOCAINE 1% LOCAL 20 ML VIAL ONE (10:29)
--- NOTE | 2023-06-12 11:04 | History & Physical Bridge Note ---
Date of Service June 12, 2023 History & Physical Bridge Note Patient for a left lower extremity angio with possible intervention. I have discussed the risks options and benefits of the procedure with the patient. The patient understands the risks options and benefits and agrees to the procedure. I have examined the patient, reviewed the History & Physical and in the interval since the performance of the History & Physical I have noted the following changes of clinical significance: no changes noted
--- NOTE | 2023-06-12 11:05 | Pre Anesthesia Assessment ---
Date of Service June 12, 2023 Pre Sedation Assessment Vital Signs Temp Pulse Pulse Pulse Resp BP BP 06/12/23 09:50 36.5 C 98 H 20 114/66 06/12/23 07:38 36.5 C 105 H 19 122/69 06/12/23 07:44 91 H 06/12/23 02:45 36.6 C 65 20 129/85 06/11/23 22:57 36.9 C 65 17 121/66 06/11/23 19:00 37.4 C 65 17 110/62 06/11/23 16:02 36.6 C 65 18 151/82 H Pulse Ox O2 Del Method 06/12/23 09:50 96 Room Air 06/12/23 07:38 98 Room Air 06/12/23 07:44 06/12/23 02:45 97 Room Air 06/11/23 22:57 97 Room Air 06/11/23 19:00 97 Room Air 06/11/23 16:02 98 Room Air Cardiovascular RRR, no murmur, no edema Respiratory normal respiratory effort, lungs clear to auscultation Pre-Sedation Airway Assessment Smoking Status: Never smoker Hx Sleep Apnea: No Short, Thick Neck: No Thyromental Distance: > or= 3.5 Finger Breadths Oral Cavity: + WNL Mallampati Class: II ASA: ASA3 NPO Status Date of Last Intake of Fluids: 06/11/23 Time of Last Intake of Fluids: 21:00 Date of Last Intake of Solid Food: 06/11/23 Time of Last Intake of Solid Foods: 18:00 Procedure Planning Contraindications for Sedation: none Current Medications Reviewed: Yes Notes The planned sedation has been discussed with the patient. Informed Consent was obtained. I have identified the patient, determined the appropriateness of sedation and have assessed the patient immediately prior to the procedure. All medicine(s) and interventions are by my order.
[2023-06-12] MEDS ORDERED: VISIPAQUE IV PRN (11:53)
--- NOTE | 2023-06-12 12:01 | Operative Report ---
Post Operative Report Pre & Post Diagnosis Operation Date: 06/12/23 10:20 <No data on this case meets the specified criteria> I identified the patient and participated in the time-out.: Yes Procedure Operation Date: 06/12/23 10:20 <No data on this case meets the specified criteria> Surgeon Ashly Hodges MD Prototype Model Maker None Estimated Blood Loss 10 I attest to the content of the Intraoperative Record and any orders documented therein. Any exceptions are noted below.
--- NOTE | 2023-06-12 12:02 | Procedure Note ---
Angiogram Post Procedure Fluoroscopy Time (minutes): 1.2 Conscious Sedation Time (minutes): 30 Radiation (mGy): 34 Contrast: 30 Post Operative Report Pre & Post Diagnosis Operation Date: 06/12/23 10:20 Pre-Op Diagnosis: Left Foot Osteomyelitis Post-Op Diagnosis: Left Foot Osteomyelitis I identified the patient and participated in the time-out.: Yes Procedure Operation Date: 06/12/23 10:20 Actual Procedures p Left Lower Extremity Angiogram, Ultrasound Localization of Right Femoral Artery, Moderate Sedation [id number](Right) - Sherif Mccollum MD Surgeon Sherif Mccollum MD Winder Tender Ashly Hodges MD Estimated Blood Loss 10 Findings See Below Patent left iliac system, patent CAMP COORDINATOR, profunda, and SFA. Diseased SFA however no areas of significant flow limiting stenosis, patient popliteal with disease however non-flow limiting, patent peroneal as main runoff to foot wit h reconstitution or heavy ostial disease of AT. Specimens none Complications none Disposition Accompanied Patient To Recovery: Yes Disposition: Recovery Room Indications Left foot wound s/p 4th TMA Description of Procedure Patient was brought to the angio suite. Surgical time out was performed which identified the patient, procedure, and allergies. The patient was monitored with EKG and pulse oximetry. The patient was given 0.5 mg of versed and 50 mcg of fentanyl for sedation. The patient's bilateral groins were prepped and draped in standard sterile fashion. The ultrasound was prepped in sterile manner. Under ultrasound guidance the right CAMP COORDINATOR and bifurcation was identified. The CAMP COORDINATOR was accessed using an 18 gauze needle. A J wire was inserted and an 11 blade was used to make a skin noy over the needled. The needle was exchanged for a 5Fr sheath. The dilator and J wire were removed and the sheath was flushed. A glide wire was inserted into the aorta and a rim catheter was used to cross the bifurcation. The rim catheter was parked in the proximal common iliac artery. Diagnostic angiogram were performed of the left lower extremity which demonstrated patent but diseased vessels and peroneal was the main runoff to the foot. The catheter was withdrawn and then 5French sheath was removed. Manual pressure was used to obtain hemostasis. The patient left the angio suite in satisfactory condition and tolerated the procedure well. I, Dr. Mccollum was present and scrubbed for the entire procedure. I attest to the content of the Intraoperative Record and any orders documented therein. Any exceptions are noted below.
--- NOTE | 2023-06-12 12:06 | Post Operative Brief Note ---
Immediate Post Op Note v1 Date of Surgery June 12, 2023 Pre & Post Diagnosis Operation Date: 06/12/23 10:20 Pre-Op Diagnosis: Left Foot Osteomyelitis Post-Op Diagnosis: Left Foot Osteomyelitis I identified the patient and participated in the time-out.: Yes Procedure Operation Date: 06/12/23 10:20 Actual Procedures p Left Lower Extremity Angiogram, Ultrasound Localization of Right Femoral Artery, Moderate Sedation [id number](Right) - Sherif Guerrero MD Surgeon Sherif Guerrero MD Glass Forming Crew Member None Estimated Blood Loss 10 Findings Consistent with Post-Op Diagnosis Anesthesia Type RN Sedation Complications none Disposition Accompanied Patient To Recovery: No Disposition: Recovery Room
--- NOTE | 2023-06-12 12:26 | Infectious Disease Progress Nt ---
Date of Service June 12, 2023 Assessment & Plan (1) Foot osteomyelitis, left: (2) PAD (peripheral artery disease): Plan Micro: 06/08 L 4th metatarsal: low counts mixed probable skin microbiota. GS--no organisms 06/05 L foot swab: Proteus mirabilis (gustafson-S), plus low counts of probable skin eda. GS--no organisms 06/05 BCx x2: NG Abx: Dapto 06/05 - 06/07, 06/10 - present Pip-tazo 06/05 - present Vanc 06/08 Problems: #L 4th metatarsal osteomyelitis s/p L 4th metatarsal excision, and resection of necrotic cuboid bone #PAD 67 yo M with history of DM, TAVR (2019) on warfarin, CAD, CHF, afib, PAD, L foot osteomyelitis s/p L 5th metatarsal and 4th metatarsal head amputation (02/10/20 23, treated with dapto x 2 weeks) who was admitted on 06/05 for L 4th metatarsal osteomyelitis. Pt had a wound VAC that was removed ~3 weeks prior, after his recent L foot surgery. Pt reported that since 06/01, he has been having L foot pain with drainage, erythema, swelling. Denied fevers. On presentation, pt was afebrile without leukocytosis. ESR 123, CRP 7.95, procalcitonin 0.71. XR L foot showed findings suspicious for osteomyelitis involving base of 4th proximal phalanx, soft tissue swelling. MRI L foot showed focal edema and enhancement of lateral aspect of proximal 4th metatarsal deep to the wound suspicious for osteomyelitis. Pt was started on dapto, pip-tazo. A L foot superficial swab grew Proteus mirabilis. Vascular surgery and podiatry were consulted. LLE arterial doppler US showed extensive atherosclerotic plaque, stenosis within proximal L superficial femoral artery, suspected occlusion of proximal L posterior tibial artery with distal reconstitution and occlusion of distal L peroneal artery. On 06/08, podiatry took pt to OR. Noted softening of cuboid bone along plantar lateral margin of 4th and previous 5th metatarsal, which was resected. Fourth metatarsal was soft/necrotic, and was resected to level of mid diaphysis, and sent for path/micro. Wound was left open with plan for wound vac. Vascular took pt for LLE diagnostic angiogram on 06/12, which showed diseased but patent vessels. Per my discussion with Dr. Mcbride, there is concern for residual osteomyelitis. Spoke with micro lab on 06/11--the 06/08 OR culture so far shows a Corynebacterium species and another gram positive bacilli--possibly diphtheroid, which could represent superficial contaminants, and one swarming colony which could represent Proteus. OR culture should be finalized by 06/13. Recommendations: -Follow-up 06/08 OR culture -Continue daptomycin. Baseline CK 35 on 06/12/23. -Discontinued pip-tazo. Started ceftriaxone 2 g IV daily -Will need 6 weeks of IV antibiotics via PICC to treat for possible residual osteomyelitis (06/08 - 07/19). Likely dapto to cover gram positives, plus ceftriaxone to cover Proteus, if no further culture updates. Will continue to follow. Please page [facility] with further questions. Admission and Anticipated Discharge Date Admission Date: June 05, 2023 Subjective This patient recommendation is based on a telemedicine consult request which was completed asynchronously through chart review and information provided by the primary physician. The patient was not seen or examined today. The evaluation is consultative in nature and all patient care and treatment decisions can either be accepted or rejected by the patient's primary hospital-based treating physician using their own independent medical judgment for their patient. Time Spent Reviewing Chart: 21 - 30 minutes Underwent diagnostic angiogram of LLE--patent but diseased vessels Review of System Pt was not seen Physical Exam Physical Exam: Pt was not seen Results & Data Vital Signs (Past 12 Hours) Vital Signs Temp Pulse Pulse Pulse Resp BP BP 06/12/23 12:12 106 H 16 141/81 H 06/12/23 12:05 107 H 16 131/78 06/12/23 12:00 107 H 16 135/79 06/12/23 11:55 112 H 16 135/86 06/12/23 11:50 107 H 16 137/73 06/12/23 11:45 107 H 16 136/69 06/12/23 11:40 97 H 18 125/74 06/12/23 11:35 100 H 18 142/80 H 06/12/23 09:50 36.5 C 98 H 20 114/66 06/12/23 07:38 36.5 C 105 H 19 122/69 06/12/23 07:44 91 H 06/12/23 02:45 36.6 C 65 20 129/85 Pulse Ox O2 Del Method O2 Flow Rate 06/12/23 12:12 97 Room Air 06/12/23 12:05 97 Oxymask 4 06/12/23 12:00 97 Oxymask 4 06/12/23 11:55 99 Oxymask 4 06/12/23 11:50 99 Oxymask 4 06/12/23 11:45 99 Oxymask 4 06/12/23 11:40 99 Oxymask 4 06/12/23 11:35 99 Oxymask 4 06/12/23 09:50 96 Room Air 06/12/23 07:38 98 Room Air 06/12/23 07:44 06/12/23 02:45 97 Room Air Laboratory Results Short CBC 06/12/23 Range/Units 05:50 WBC 9.00 (4.8-10.8) K/ul Hgb 7.8 L (14.0-18.0) g/dl Hct 25.5 L (42.0-52.0) % Plt Count 272 (130-400) K/uL BMP 06/12/23 05:50 Sodium 131 L Potassium 4.1 Chloride 99 Carbon Dioxide 24 BUN 30 H Creatinine 1.22 Glucose 315 H* Calcium 8.4 L Cardiac Enzymes 06/12/23 Range/Units 05:50 Total Creatine Kinase 35 (30-223) U/L Medications Administered Current Inpatient Medications Hydrocodone Bitart/Acetaminophen (Hydrocodone/Acetamophen 5/325mg Tab) 1 tab PO Q4H PRN PRN Reason: Pain Stop: 06/23/23 09:32 Last Admin: 06/12/23 06:20 Dose: 1 tab Amiodarone HCl (Amiodarone 200 Mg Tab) 200 mg PO BIDM [facility] Stop: 07/08/23 08:59 Last Admin: 06/12/23 09:02 Dose: 200 mg Aspirin (Aspirin 81 Mg Ectab) 81 mg PO QAM [facility] Stop: 07/06/23 08:59 Last Admin: 06/12/23 09:03 Dose: 81 mg Bumetanide (Bumetanide 1 Mg Tab) 1 mg PO BID17 [facility] Stop: 07/05/23 22:34 Last Admin: 06/10/23 17:26 Dose: 1 mg Dextrose (Dextrose 50% 50 Ml Syringe) 25 - 50 ml IV UD PRN; Protocol PRN Reason: Hypoglycemia Protocol Stop: 07/05/23 22:34 Glucagon (Glucagon For Inj 1 Mg Vial) 1 mg SQ UD PRN; Protocol PRN Reason: Hypoglycemia Protocol Stop: 07/05/23 22:34 Glucose (Glucose 10 Tab/Tube) 4 - 8 tab PO UD PRN; Protocol PRN Reason: Hypoglycemia Treatment Stop: 07/05/23 22:34 Glucose (Glucose 40% Gel 15 Gm Tube) 15 - 30 gm PO UD PRN; Protocol PRN Reason: Hypoglycemia Protocol Stop: 07/05/23 22:34 Heparin Sodium (Porcine) (Heparin Sod 5,000 Unit/0.5 Ml Vial) 5,000 units SQ Q12 [facility] Stop: 07/05/23 22:34 Last Admin: 06/11/23 20:35 Dose: 5,000 units Piperacillin Sod/Tazobactam (Sod 4.5 gm/ Dextrose) 120 mls @ 30 mls/hr IV Q8H [facility]; Protocol Stop: 06/13/23 00:29 Last Infusion: 06/12/23 12:08 Dose: Infused Daptomycin 600 mg/ Syringe 12 mls @ 6 mls/min IV Q24H [facility]; Protocol Stop: 07/22/23 08:59 Last Admin: 06/12/23 09:04 Dose: 6 mls/min Sodium Chloride (Nss) 500 mls @ 100 mls/hr IV .Q5H [facility] Stop: 06/12/23 16:00 Last Admin: 06/12/23 08:04 Dose: 100 mls/hr Insulin Aspart (Insulin Aspart Per Unit Charge) 0 units SC HS [facility] Stop: 07/10/23 20:59 Last Admin: 06/11/23 20:34 Dose: 7 units Insulin Aspart (Insulin Aspart Per Unit Charge) 0 units SC Q6 [facility] Stop: 07/12/23 06:14 Last Admin: 06/12/23 06:12 Dose: 12 units Insulin Glargine (Lantus Per Unit Charge) 28 units SQ [facility]; Protocol Stop: 07/08/23 20:59 Last Admin: 06/11/23 20:35 Dose: 28 units Iodixanol (Visipaque) 30 ml IV UD PRN PRN Reason: Interaction Checking Stop: 06/16/23 11:52 Last Admin: 06/12/23 11:54 Dose: 30 ml Metoprolol Tartrate (Metoprolol Tartrate 1 Mg/Ml Vial) 2.5 mg IV Q2H PRN PRN Reason: Tachycardia Stop: 07/10/23 09:09 Miscellaneous (Carbohydrates For Hypoglycemia ) 15 - 30 gm PO UD PRN PRN Reason: Hypoglycemia Protocol Stop: 07/05/23 22:34 Last Admin: 06/10/23 23:21 Dose: 15 gm Miscellaneous Information (Pharmacy Glycemic Mgmt Consult) 1 each N/A UD PRN PRN Reason: Consult Stop: 07/05/23 22:34 Nitroglycerin (Nitroglycerin Sl 0.4 Mg/Tab Tab) 0.4 mg SL UD PRN PRN Reason: Chest Pain Stop: 07/05/23 22:34 Rosuvastatin Calcium (Rosuvastatin Calcium 5 Mg Tab) 5 mg PO DAILY [facility] Stop: 07/06/23 08:59 Last Admin: 06/10/23 08:20 Dose: 5 mg Senna/Docusate Sodium (Docusate Sodium/Senna 50/8.6mg Tab) 1 tab PO QAM [facility] Stop: 07/09/23 09:44 Last Admin: 06/12/23 09:02 Dose: 1 tab
--- NOTE | 2023-06-12 14:59 | Pharmacy Report ---
Pharmacy Glycemic Short Note 2 - Date of Service June 12, 2023 - Glycemic Short BSG Results (Last 24 hours): 06/11/23 06/11/23 06/11/23 16:49 19:56 19:57 Glucose POC Glucose 242 H 358 H* 368 H* 06/11/23 06/12/23 06/12/23 23:49 05:50 05:51 Glucose 315 H* POC Glucose 296 H 307 H* 06/12/23 06/12/23 06/12/23 08:33 09:45 12:26 Glucose POC Glucose 258 H 248 H 221 H OUTPATIENT ANTIDIABETIC REGIMEN: * Levemir 28 units SQ HS * NovoLog, carb ratio 1:4 - uses ~60units/day * HbA1c: 9.3% (06/06/23) ASSESSMENT: 06/12/23: * BSGs yesterday were [phone] mg/dl. Fasting BSG = 315 mg/dl today. * Basal insulin increased slightly to 30 units today at HS. * Patient was NPO this morning for L extremity angiogram. Post procedure, he is not able to eat since he cannot sit up per nurse. * Novolog correction was given twice this morning since his BSG was above 300 mg/dl initially then re-check after 2 hrs was 258 mg/dl (looser correction was used and 4 units given at 08:45AM). * Pre-lunch BSG trended down to 221 mg/dl. Will continue to with same correction but carb ratio tightened slightly. * Patient seems to trend low around 23:00 to midnight. Most likely this is caused by the high amounts of bolus insulin gets with lunch and dinner. Dinner carb ratio may need to be loosened further. Re-assess tomorrow. 06/11/23 * Patient's BSGs yesterday were [phone] mg/dL. Patient hypoglycemic overnight - 40 mg/dL. * He received 153 units of insulin (28 units of Lantus and 125 units of bolus). * This pharmacist went to speak with the patient. * He is comfortable with Lantus 28 units. He wishes to continue this. In terms of the fastings over the past two days (186 vs 311), patient stated that he ate the same snack both nights prior (PB+ crackers and turkey sandwich). The only difference was the night before his BSG was 186 mg/dL, he drank juice. * In terms of Novolog, patient is comfortable using carbohydrate ratio of 4. He stated that sometimes his blood sugars are high all day and no matter how much insulin he gives himself, they remain high. He would like his blood sugars to remain between 130-200 mg/dL. He is okay with using a CR of 3.5 if necessary. For HS check, patient only gives himself Novolog if BSG > 200 mg/dL. Will change our scale to reflect that. 06/10/23: * POD #2 * Patient once again hyperglycemic during the day yesterday with episode of hypoglycemia overnight * Attempting to achieve better glycemic control, but BSGs remain labile today * Will continue with tightened day-time parameters, but will change HS parameters to contain loose correctional only * Continue home basal dose * If BSGs remain elevated at dinner/HS - tighten day-time Novolog further tomorrow 06/09/23: * POD #1 s/p Left fourth metatarsal amputation * BSGs elevated yesterday, ranging 209-359 mg/dL * Patient received increased basal dose again last evening * Fasting BSG of 55 mg/dL this morning - likely related to too much basal, but may also be related to additional Novolog from overnight check * Will change basal back to home dose today 06/07 * Pt remains hyperglycemic today. * Lantus dose will be increased this evening, as fasting BSG markedly elevated this morning. * Suspect that pt may be NPO after midnight tonight for procedure. Given persistent hyperglycemia, expect that increased dose of Lantus should still be appropriate. * Pre-lunch BSG was elevated today, despite aggressive carb coverage. Will further adjust Novolog parameters tomorrow if BSGs do not begin to improve. 06/06 * 67 year old male Type 1 DM, last seen by endocrine in November, admitted with left foot osteomyelitis, on IV zosyn, NPO at this time. * Hyperglycemic last night on admission, given 10 units IV Regular insulin, 25 units of Lantus, and NovoLog Q4H SQ. * Started on CF/CR as used last admission with success, will continue at this time, euglycemic, change to Q6H checks. * Continue basal insulin. PLAN FOR INPATIENT GLYCEMIC CONTROL: * Basal insulin * Lantus 30 units SQ HS * Bolus insulin * NovoLog per scale ACHS Q6hrs while NPO. Added 00 and 04 checks * Goal Range: Low 110 mg/dL - High 140 mg/dL w/ meals and 150-180 mg/dL at HS * Correction Factor: 15 mg/dL/unit w/ meals, 45 mg/dL/unit at HS * Nutritional / Prandial insulin per carb ratio of 1 unit per 3.5 grams CHO consumed w/ meals; 1 units per 15 gm at HS
[2023-06-12] MEDS: cefTRIAXone SODIUM 2,000 MG in DEXTROSE 5% 50 ML IV SCH (15:44)
--- NOTE | 2023-06-12 18:32 | Billing Data ---
Date of Service June 12, 2023 Coding Level of Care Code 37981 SUB INP/OBS CARE MIN
[2023-06-12] MEDS: LANTUS PER UNIT CHARGE SQ SCH (20:36)
[2023-06-13] MEDS: INSULIN ASPART PER UNIT CHARGE SC SCH ×7 (03:48→21:04)
[2023-06-13] MEDS: HYDROCODONE/ACETAMOPHEN 5/325MG TAB PO PRN ×2 (03:51→15:11)
--- NOTE | 2023-06-13 07:36 | Hospitalist Progress Note ---
Date of Service June 13, 2023 Assessment & Plan (1) Foot osteomyelitis, left: (2) Bradycardia: (3) Heart failure with mid-range ejection fraction (HFmEF): (4) Hyperlipidemia: (5) group home (current) use of anticoagulants: Plan Agustín Rodriguez is a 67 year-old male with past medical history of Type 1 DM, s/p TAVR, CAD, PAD, paroxysmal a. fib. Foot osteomyelitis, left -Previous osteomyelitis in the left foot s/p debridement and 5th MT and 4th MT head amputation done on 02/09/[address] Guerrero. No prior artial disease/intervention required -Increased pain/redness/drainage x 3-4 days at home reported. CRP/ESR elevation. Prior blood cx + Enterococcus faecalis, past wound cultures positive for MRSA. -MRI w/ focal edema/enhancement lateral aspect 4th metatarsal suspicious for osteo and running obliquely across distal third metatarsal c/w acute or nonhealed fracture -Podiatry consulted -POD #5 L foot debridement and removal of non-viable tissue -Surgical culture with no further growth. Prior culture on admit growing proteus mirabilis -ID consulted for antibiotic management -Continue Ceftriaxone, Vanco (switched from dapto due to concern with cost/[facility]) -Anticipate 6 weeks of IV abx treatment PAD (peripheral artery disease) US Duplex obtained by vascularto ensure no arterial disease/other causes for not healing IMPRESSION: 1. Extensive atherosclerotic plaque within the left lower extremity. Moderately diminished left ankle to brachial index of 0.55. 2. Findings suggestive of a hemodynamically significant stenosis within the proximal left superficial femoral artery. 3. Monophasic flow throughout the remainder of the left lower extremity with suspected occlusion of the proximal left posterior tibial artery with distal reconstitution and occlusion of the distal left peroneal artery. -Lipid panel obtained,plan to increase Crestor to 10mg daily -Angio completed with Dr. Guerrero, no acute interventions completed. Anemia -Iron studies checked - iron low at 20, TIBC low, unsat acceptable. Trans % sat lLOW at 8%. Ferritin only 37.8. -Hgb stable between 7.7-8.4 over the past few days, received Venofer. No current indication for transfusion of PRBCs/no signs of active bleed. -Trend CBC CAD (coronary artery disease) follows w/ [facility] S/P TAVR (transcatheter aortic valve replacement)/Paroxysmal atrial fibrillation: -Patient on warfarin for history of AVR and paroxysmal A-fib. -Holding coumadin, on heparin SQ BID as above. Received Vit K prior to amputation for INR >1.5 -Continue increased amiodarone to 200mg BID -Carvedilol prior d/c given when sinus is elena -- IV lopressor ordered if needed for HR >120s Chronic systolic congestive heart failure -Chronic, stable -Last echo done on 02/12/2023 showed a EF of 35 to 40%. -Bumex resumed following surgery -Carvedilol discontinued as above -Not on MAMIE-I or Entresto due to symptomatic hypotension in the past but ? if able to add now that BPs improved off carvedilol -Volume status acceptable at present Hyperlipidemia -Crestor 5 mg daily- lipid panel checked given PAD, can increase to 10mg daily Uncontrolled type 1 diabetes mellitus with diabetic neuropathy, with long-term current use of insulin: -Patient is a type I diabetic uncontrolled last seen by endocrine on 11/2022, BSG elevation on admit -A1c 9.3 on admission -Home regimen on hold, pharmacy consulted and managing while inpatient MEGAN (acute kidney injury) -Cr elevation on admission, meds renal doses/parameters for BP -Resolved on repeat however slightly dry AM 06/08 pre-op/Bumex held and IVF provided -BUN/Cr improved on repeat and back to normal -Monitor BMP daily S/P TAVR (transcatheter aortic valve replacement) -Noted hx, coumadin on hold as above -Lovenox 40 restarted, will consider restarting coumadin Carotid artery stenosis -Continues on aspirin Hypertension -BPs stable Admission and Anticipated Discharge Date Admission Date: June 05, 2023 Supervising Physician Co-Signing Physician Notes I personally examined the patient and verified all carmen points of history and exam, discussed case, and agree with decision making with Dr Kohli no new complaints. ID input appreciated. vitals noted nad heent nc at mmm breathing unlabored no accessory muscles foot no tracking erythema DM foot infection/osteomyelitis - no macrovascular disease amenable to intervention. continue IV abx (change to vanco since dapto may preclude ability to get to SNF), wound vac, supportive care, multidisciplinary f/u. uncontrolled DM - again discussed carb matching/mealtime insulin titration. discussed postprandial monitoring as a means to learn to better match. he expressed understanding. DVT proph - lovenox otherwise as above Subjective Patient seen and examined at bedside. No acute events overnight. Blood sugars under somewhat better control this morning. Patient has no acute concerns at this time. Review of Systems Review of Systems: As per above Physical Exam Constitutional: WD/WN, vitals as above Eyes: + anicteric sclerae ENMT: Ears: no external ear abnormality Nose: no external nose abnormality Respiratory: normal respiratory efforts Cardiovascular: Rate/Rhythm: regular rate and regular rhythm Musculoskeletal: R below the knee amputation, left foot bandaged with wound vac in place Skin: no rashes, warm and dry Psychiatric: A+Ox3, euthymic affect Results & Data Results & Data Vital Signs (Past 12 Hours) Vital Signs Temp Pulse Resp BP BP Pulse Ox O2 Del Method 06/13/23 03:48 36.9 C 59 L 18 144/78 H 94 Room Air 06/12/23 23:30 36.9 C 62 18 134/66 98 Room Air 06/12/23 19:46 36.9 C 67 16 150/74 H 96 Room Air Resident Activity Tracking Resident Involvement: Resident Care Provided Care Provided: Adult Hospital Medicine
[2023-06-13 07:56] LABS: Basophils # (auto) 0.06 K/uL (0-0.2); Basophils % (auto) 0.7 %; Eosinophils # (auto) 0.51 K/uL (0-0.50); Eosinophils % (auto) 5.5 %; Hematocrit (blood only) 24.6 % (42.0-52.0); Hemoglobin 7.7 g/dl (14.0-18.0); Immature Granulocytes # (auto) 0.05 K/uL (0.01-0.20); Immature Granulocytes % (auto) 0.5 %; Lymphocytes # (auto) 1.78 K/uL (1.2-3.4); Lymphocytes % (auto) 19.3 %; Mean Corpuscular Hemoglobin 25.2 pg (25.0-34.0); Mean Corpuscular Hgb Conc 31.3 g/dL (32.0-36.0); Mean Corpuscular Volume 80.7 fL (80.0-100.0); Mean Platelet Volume 10.4 fL (9.4-12.4); Monocytes # (auto) 0.93 K/uL (0.11-0.59); Monocytes % (auto) 10.1 %; Neutrophils # (auto) 5.88 K/uL (1.40-6.50); Neutrophils % (auto) 63.9 %; Platelet Count 298 K/uL (130-400); RDW Coefficient of Variation 18.6 % (11.5-14.5); RDW Standard Deviation 52.2 fL (36.4-46.3); Red Blood Count 3.05 M/uL (4.70-6.10); White Blood Count 9.21 K/ul (4.8-10.8)
[2023-06-13 08:15] LABS: BUN Creatinine Ratio 24.7 (10-20); Calcium 8.7 mg/dl (8.6-10.3); Creatinine Clr Calc Pharmacy 96.9 ml/min; Est GFR (African American) 93.2 ml/min; Est GFR (Non-African American) 80.5 ml/min; Potassium 3.9 mmol/L (3.5-5.1)
[2023-06-13] MEDS: ASPIRIN 81 MG ECTAB PO SCH (08:18)
[2023-06-13] MEDS: DOCUSATE SODIUM/SENNA 50/8.6MG TAB PO SCH (08:18)
[2023-06-13] MEDS: AMIODARONE 200 MG TAB PO SCH ×2 (08:18→17:18)
[2023-06-13] MEDS: DAPTOmycin 600 MG in SYRINGE 0 ML IV SCH (08:21)
[2023-06-13 08:23] LABS: Polychromasia 1+
--- NOTE | 2023-06-13 09:37 | Infectious Disease Progress Nt ---
Date of Service June 13, 2023 Assessment & Plan (1) Foot osteomyelitis, left: (2) PAD (peripheral artery disease): Plan Micro: 06/08 L 4th metatarsal: low counts mixed probable skin microbiota. GS--no organisms 06/05 L foot swab: Proteus mirabilis (gustafson-S), plus low counts of probable skin eda. GS--no organisms 06/05 BCx x2: NG Abx: Dapto 06/05 - 06/07, 06/10 - present Ceftriaxone 2g 06/12 - present Pip-tazo 06/05 - 06/12 Vanc 06/08 Problems: #L 4th metatarsal osteomyelitis s/p L 4th metatarsal excision, and resection of necrotic cuboid bone #PAD 67 yo M with history of DM, TAVR (2019) on warfarin, CAD, CHF, afib, PAD, L foot osteomyelitis s/p L 5th metatarsal and 4th metatarsal head amputation (02/09/2023, treated with dapto x 2 weeks) who was admitted on 06/05 for L 4th metatarsal osteomyelitis. Pt had a wound VAC that was removed ~3 weeks prior, after his recent L foot surgery. Pt reported that since 06/01, he has been having L foot pain with drainage, erythema, swelling. Denied fevers. On presentation, pt was afebrile without leukocytosis. ESR 123, CRP 7.95, procalcitonin 0.71. XR L foot showed findings suspicious for osteomyelitis involving base of 4th proximal phalanx, soft tissue swelling. MRI L foot showed focal edema and enhancement of lateral aspect of proximal 4th metatarsal deep to the wound suspicious for osteomyelitis. Pt was started on dapto, pip-tazo. A L foot superficial swab grew Proteus mirabilis. Vascular surgery and podiatry were consulted. LLE arterial doppler US showed extensive atherosclerotic plaque, stenosis within proximal L superficial femoral artery, suspected occlusion of proximal L posterior tibial artery with distal reconstitution and occlusion of distal L peroneal artery. On 06/08, podiatry took pt to OR. Noted softening of cuboid bone along plantar lateral margin of 4th and previous 5th metatarsal, which was resected. Fourth metatarsal was soft/necrotic, and was resected to level of mid diaphysis, and sent for path/micro. Wound was left open with plan for wound vac. Vascular took pt for LLE diagnostic angiogram on 06/12, which showed diseased but patent vessels. Per my discussion with Dr. Mcbride, there is concern for residual osteomyelitis. Spoke with micro lab on 06/11--the 06/08 OR culture was showing a Corynebacterium species and another gram positive bacilli--possibly diphtheroid, which could represent superficial contaminants, and one swarming colony which could represent Proteus. OR culture finalized on 06/13 as "low counts mixed probable skin microbiota, no further identification or sensitivities to follow". Recommendations: -Stopped daptomycin, and started vancomycin (since daptomycin was a barrier to discharge to a facility). -To treat residual osteomyelitis, would plan for vancomycin (dosed for osteomyelitis) and ceftriaxone 2 g IV daily to complete a 6 week course through 07/19/23 via PICC. (For ease of dosing, could consider daptomycin 600 mg IV daily instead of vancomycin for once daily dosing that does not require drug level monitoring.) -Check weekly CBC with diff, CMP, vanc level to monitor for toxicity and adjust vanc dosing as needed. (Or check weekly CK if pt is on daptomycin. Baseline CK of 35 on 06/12/23) Discussed with primary team. Will sign off. Please page [facility] with further questions. Admission and Anticipated Discharge Date Admission Date: June 05, 2023 Subjective This patient recommendation is based on a telemedicine consult request which was completed asynchronously through chart review and information provided by the primary physician. The patient was not seen or examined today. The evaluation is consultative in nature and all patient care and treatment decisions can either be accepted or rejected by the patient's primary hospital-based treating physician using their own independent medical judgment for their patient. Time Spent Reviewing Chart: 21 - 30 minutes Seen by wound care No acute events Review of System pt not seen Physical Exam Physical Exam: Patient not seen Results & Data Vital Signs (Past 12 Hours) Vital Signs Temp Pulse Resp BP BP Pulse Ox O2 Del Method 06/13/23 08:03 37.1 C 57 L 18 151/54 H 96 Room Air 06/13/23 03:48 36.9 C 59 L 18 144/78 H 94 Room Air 06/12/23 23:30 36.9 C 62 18 134/66 98 Room Air Laboratory Results Short CBC 06/13/23 Range/Units 07:27 WBC 9.21 (4.8-10.8) K/ul Hgb 7.7 L (14.0-18.0) g/dl Hct 24.6 L (42.0-52.0) % Plt Count 298 (130-400) K/uL [facility] 06/13/23 07:27 Sodium 133 L Potassium 3.9 Chloride 100 Carbon Dioxide 27 BUN 24 H Creatinine 0.97 Glucose 153 H Calcium 8.7 Medications Administered Current Inpatient Medications Hydrocodone Bitart/Acetaminophen (Hydrocodone/Acetamophen 5/325mg Tab) 1 tab PO Q4H PRN PRN Reason: Pain Stop: 06/23/23 09:32 Last Admin: 06/13/23 03:51 Dose: 1 tab Amiodarone HCl (Amiodarone 200 Mg Tab) 200 mg PO BIDM [facility] Stop: 07/08/23 08:59 Last Admin: 06/13/23 08:18 Dose: 200 mg Aspirin (Aspirin 81 Mg Ectab) 81 mg PO QAM [facility] Stop: 07/06/23 08:59 Last Admin: 06/13/23 08:18 Dose: 81 mg Bumetanide (Bumetanide 1 Mg Tab) 1 mg PO [id number] [facility] Stop: 07/05/23 22:34 Last Admin: 06/10/23 17:26 Dose: 1 mg Dextrose (Dextrose 50% 50 Ml Syringe) 25 - 50 ml IV UD PRN; Protocol PRN Reason: Hypoglycemia Protocol Stop: 07/05/23 22:34 Glucagon (Glucagon For Inj 1 Mg Vial) 1 mg SQ UD PRN; Protocol PRN Reason: Hypoglycemia Protocol Stop: 07/05/23 22:34 Glucose (Glucose 10 Tab/Tube) 4 - 8 tab PO UD PRN; Protocol PRN Reason: Hypoglycemia Treatment Stop: 07/05/23 22:34 Glucose (Glucose 40% Gel 15 Gm Tube) 15 - 30 gm PO UD PRN; Protocol PRN Reason: Hypoglycemia Protocol Stop: 07/05/23 22:34 Heparin Sodium (Porcine) (Heparin Sod 5,000 Unit/0.5 Ml Vial) 5,000 units SQ Q12 [facility] Stop: 07/05/23 22:34 Last Admin: 06/11/23 20:35 Dose: 5,000 units Daptomycin 600 mg/ Syringe 12 mls @ 6 mls/min IV Q24H PHUONG; Protocol Stop: 07/22/23 08:59 Last Admin: 06/13/23 08:21 Dose: 6 mls/min Ceftriaxone Sodium 2,000 mg/ (Dextrose) 70 mls @ 100 mls/hr IV Q24H [facility]; Protocol Stop: 07/24/23 12:29 Last Infusion: 06/12/23 17:02 Dose: Infused Insulin Aspart (Insulin Aspart Per Unit Charge) 0 units SC HS [facility] Stop: 07/10/23 20:59 Last Admin: 06/12/23 20:36 Dose: 5 units Insulin Aspart (Insulin Aspart Per Unit Charge) 0 units SC AC [facility] Stop: 07/12/23 16:29 Last Admin: 06/13/23 08:26 Dose: 13 units Insulin Glargine (Lantus Per Unit Charge) 30 units SQ HS [facility]; Protocol Stop: 07/12/23 20:59 Last Admin: 06/12/23 20:36 Dose: 30 units Metoprolol Tartrate (Metoprolol Tartrate 1 Mg/Ml Vial) 2.5 mg IV Q2H PRN PRN Reason: Tachycardia Stop: 07/10/23 09:09 Miscellaneous (Carbohydrates For Hypoglycemia ) 15 - 30 gm PO UD PRN PRN Reason: Hypoglycemia Protocol Stop: 07/05/23 22:34 Last Admin: 06/10/23 23:21 Dose: 15 gm Miscellaneous Information (Pharmacy Glycemic Mgmt Consult) 1 each N/A UD PRN PRN Reason: Consult Stop: 07/05/23 22:34 Nitroglycerin (Nitroglycerin Sl 0.4 Mg/Tab Tab) 0.4 mg SL UD PRN PRN Reason: Chest Pain Stop: 07/05/23 22:34 Rosuvastatin Calcium (Rosuvastatin Calcium 5 Mg Tab) 5 mg PO DAILY [facility] Stop: 07/06/23 08:59 Last Admin: 06/10/23 08:20 Dose: 5 mg Senna/Docusate Sodium (Docusate Sodium/Senna 50/8.6mg Tab) 1 tab PO QAM [facility] Stop: 07/09/23 09:44 Last Admin: 06/13/23 08:18 Dose: 1 tab
[2023-06-13] MEDS ORDERED: VANCOMYCIN CONSULT ACTIVE PRN (14:05)
[2023-06-13] MEDS ORDERED: VANCOMYCIN HCL 2,000 MG in SODIUM CHLORIDE 0.9% 500 ML IV ONE ×2 (14:15→15:00)
--- NOTE | 2023-06-13 14:38 | Pharmacy Report ---
Pharmacy Vanc AUC Short Note - Date of Service June 13, 2023 - Assessment & Plan Assessment * 67 year old M receiving VANCOMYCIN + CEFTRIAXONE for treatment of L foot osteomyelitis. * Pertinent microbiologic data includes: 06/05 BLCXs negative, 06/05 L foot cx = proteus mirabilis (gustafson-sensitive), 06/08 probable mixed skin eda * ID has been consulted * Had been receiving daptomycin however converting to vancomycin as this was a barrier to discharge. Planned 6wks IV abx per ID. * Day # 1 vancomycin (had received daptomycin 06/10-06/13) of antimicrobial therapy. Patient received Zosyn 06/06-06/12, Rocephin started 06/12 and continues. Plan Vancomycin * AUC/ELIZ is the preferred PK/PD target for vancomycin * AUC guided dosing is effective and associated with decreased risk of nephrotoxicity compared to traditional trough targets * Loading dose: 2000mg x 1 (~19mg/kg) * Maint dose: 1000mg IV Q 12 hours is predicted to achieve target AUC/ELIZ of 400-600 mg/L.hr and may be associated with a 11 % risk of nephrotoxicity * Level ordered for: 06/15/23 AM Pharmacy will continue to follow and will adjust dose/frequency as necessary. Thank you.
[2023-06-13] MEDS: cefTRIAXone SODIUM 2,000 MG in DEXTROSE 5% 50 ML IV SCH (15:11)
[2023-06-13] MEDS ORDERED: ENOXAPARIN INJ 40 MG/0.4 ML SYR SQ ONE (19:00)
--- NOTE | 2023-06-13 19:30 | Billing Data ---
Date of Service June 13, 2023 Coding Level of Care Code 87466 SUB INP/OBS CARE
[2023-06-13] MEDS: LANTUS PER UNIT CHARGE SQ SCH (21:03)
[2023-06-13] MEDS ORDERED: VANCOMYCIN HCL 1,000 MG in SODIUM CHLORIDE 0.9% 250 ML IV SCH (23:00)
[2023-06-14] MEDS: HYDROCODONE/ACETAMOPHEN 5/325MG TAB PO PRN (01:07)
[2023-06-14 06:05] LABS: Basophils # (auto) 0.08 K/uL (0-0.2); Eosinophils # (auto) 0.45 K/uL (0-0.50); Eosinophils % (auto) 5.7 %; Hematocrit (blood only) 25.9 % (42.0-52.0); Hemoglobin 8.1 g/dl (14.0-18.0); Immature Granulocytes # (auto) 0.04 K/uL (0.01-0.20); Immature Granulocytes % (auto) 0.5 %; Lymphocytes # (auto) 1.21 K/uL (1.2-3.4); Lymphocytes % (auto) 15.3 %; Mean Corpuscular Hemoglobin 25.8 pg (25.0-34.0); Mean Corpuscular Hgb Conc 31.3 g/dL (32.0-36.0); Mean Corpuscular Volume 82.5 fL (80.0-100.0); Mean Platelet Volume 10.4 fL (9.4-12.4); Monocytes # (auto) 0.89 K/uL (0.11-0.59); Monocytes % (auto) 11.3 %; Neutrophils # (auto) 5.23 K/uL (1.40-6.50); Neutrophils % (auto) 66.2 %; Platelet Count 287 K/uL (130-400); RDW Coefficient of Variation 18.9 % (11.5-14.5); RDW Standard Deviation 53.5 fL (36.4-46.3); Red Blood Count 3.14 M/uL (4.70-6.10)
[2023-06-14 06:23] LABS: BUN Creatinine Ratio 21.9 (10-20); Calcium 8.5 mg/dl (8.6-10.3); Creatinine Clr Calc Pharmacy 100.6 ml/min; Est GFR (African American) 94.4 ml/min; Est GFR (Non-African American) 81.5 ml/min; Potassium 3.9 mmol/L (3.5-5.1)
--- NOTE | 2023-06-14 06:57 | Hospitalist Progress Note ---
Date of Service June 14, 2023 Assessment & Plan (1) Foot osteomyelitis, left: (2) Bradycardia: (3) Heart failure with mid-range ejection fraction (HFmEF): (4) Hyperlipidemia: (5) intermediate (current) use of anticoagulants: Plan Agustín Rodriguez is a 67 year-old male with past medical history of Type 1 DM, s/p TAVR, CAD, PAD, paroxysmal a. fib. Foot osteomyelitis, left -Previous osteomyelitis in the left foot s/p debridement and 5th MT and 4th MT head amputation done on 02/09/[address] Guerrero. No prior artial disease/intervention required -Increased pain/redness/drainage x 3-4 days at home reported. CRP/ESR elevation. Prior blood cx + Enterococcus faecalis, past wound cultures positive for MRSA. -MRI w/ focal edema/enhancement lateral aspect 4th metatarsal suspicious for osteo and running obliquely across distal third metatarsal c/w acute or nonhealed fracture -Podiatry consulted -POD #6 L foot debridement and removal of non-viable tissue -Surgical culture with no further growth. Prior culture on admit growing proteus mirabilis -ID consulted for antibiotic management -Continue Ceftriaxone, Vanco (switched from dapto due to concern with cost/[facility]) -Anticipate 6 weeks of IV abx treatment * [facility] available to accept tomorrow if Vanc is at steady state * Order placed for PICC line placement PAD (peripheral artery disease) US Duplex obtained by vascularto ensure no arterial disease/other causes for not healing IMPRESSION: 1. Extensive atherosclerotic plaque within the left lower extremity. Moderately diminished left ankle to brachial index of 0.55. 2. Findings suggestive of a hemodynamically significant stenosis within the proximal left superficial femoral artery. 3. Monophasic flow throughout the remainder of the left lower extremity with suspected occlusion of the proximal left posterior tibial artery with distal reconstitution and occlusion of the distal left peroneal artery. -Lipid panel obtained,plan to increase Crestor to 10mg daily -Angio completed with Dr. Guerrero, no acute interventions completed. Anemia -Iron studies checked - iron low at 20, TIBC low, unsat acceptable. Trans % sat lLOW at 8%. Ferritin only 37.8. -Hgb stable between 7.7-8.4 over the past few days, received Venofer. No current indication for transfusion of PRBCs/no signs of active bleed. -Trend CBC CAD (coronary artery disease) follows w/ [facility] S/P TAVR (transcatheter aortic valve replacement)/Paroxysmal atrial fibrillation: -Patient on warfarin for history of AVR and paroxysmal A-fib. -Holding coumadin, on heparin SQ BID as above. Received Vit K prior to amputation for INR >1.5 -Continue increased amiodarone to 200mg BID -Carvedilol prior d/c given when sinus is elena -- IV lopressor ordered if needed for HR >120s -Had 3 second pause on tele this morning while patient asleep -HR seems to vary between 50s-90s during the day, would avoid additional Lopressor right now -Consider outpatient event monitor to assess for additional episodes Chronic systolic congestive heart failure -Chronic, stable -Last echo done on 02/12/2023 showed a EF of 35 to 40%. -Bumex resumed following surgery -Carvedilol discontinued as above -Not on MAMIE-I or Entresto due to symptomatic hypotension in the past but ? if able to add now that BPs improved off carvedilol -Volume status acceptable at present Hyperlipidemia -Crestor 5 mg daily- lipid panel checked given PAD, can increase to 10mg daily Uncontrolled type 1 diabetes mellitus with diabetic neuropathy, with long-term current use of insulin: -Patient is a type I diabetic uncontrolled last seen by endocrine on 11/2022, BSG elevation on admit -A1c 9.3 on admission -Home regimen on hold, pharmacy consulted and managing while inpatient MEGAN (acute kidney injury) -Cr elevation on admission, meds renal doses/parameters for BP -Resolved on repeat however slightly dry AM 06/08 pre-op/Bumex held and IVF provided -BUN/Cr improved on repeat and back to normal -Monitor BMP daily S/P TAVR (transcatheter aortic valve replacement) -Noted hx, coumadin on hold as above -Lovenox 40 restarted, will consider restarting coumadin Carotid artery stenosis -Continues on aspirin Hypertension -BPs stable Admission and Anticipated Discharge Date Admission Date: June 05, 2023 Supervising Physician Co-Signing Physician Notes I personally examined the patient and verified all carmen points of history and exam, discussed case, and agree with decision making with Dr Kohli no new complaints. pharmacy dosing of vanco appreciated. otherwise pending placement vitals noted nad heent nc at mmm breathing unlabored no accessory muscles foot no tracking erythema DM foot infection/osteomyelitis - no macrovascular disease amenable to intervention. continue IV abx (changed to vanco since dapto may preclude ability to get to SNF), wound vac, supportive care, multidisciplinary f/u. uncontrolled DM - multiple times discussed carb matching/mealtime insulin titration. discussed postprandial monitoring as a means to learn to better match. he expressed understanding. DVT proph - lovenox otherwise as above Subjective Patient seen and examined at bedside. He denies any foot pain this morning. States he has not had a bowel movement in a few days. Patient denies chest pain, shortness of breath. Per nursing, patient had a 3 second pause on telemetry this morning while sleeping, heart rate had dipped down to 30s in the same time frame. Review of Systems Review of Systems: As per above Physical Exam Constitutional: WD/WN, vitals as above Eyes: + anicteric sclerae ENMT: Ears: no external ear abnormality Nose: no external nose abnormality Respiratory: normal respiratory effort, lungs clear to auscultation Cardiovascular: Rate/Rhythm: + irregularly irregular Gastrointestinal (Abdomen): normal bowel sounds, soft, nontender, no hepatosplenomegaly Musculoskeletal: left lower extremity bandaged with wound vac Psychiatric: A+Ox3, euthymic affect Results & Data Results & Data Vital Signs (Past 12 Hours) Vital Signs Temp Pulse Pulse Resp BP Pulse Ox O2 Del Method 06/14/23 03:35 36.7 C 56 L 16 118/69 97 Room Air 06/14/23 00:00 55 L 06/13/23 23:16 37.0 C 57 L 16 138/75 96 Room Air 06/13/23 20:25 36.7 C 65 16 137/76 99 Room Air Resident Activity Tracking Resident Involvement: Resident Care Provided Care Provided: Adult Hospital Medicine
--- NOTE | 2023-06-14 08:53 | Pharmacy Report ---
Pharmacy Glycemic Short Note 2 - Date of Service June 14, 2023 - Glycemic Short BSG Results (Last 24 hours): 06/13/23 06/13/23 06/13/23 11:10 12:14 16:03 Glucose POC Glucose 226 H 219 H 230 H 06/13/23 06/14/23 06/14/23 20:30 03:38 05:33 Glucose 123 H POC Glucose 234 H 112 H 06/14/23 06/14/23 05:41 07:23 Glucose POC Glucose 127 H 138 H OUTPATIENT ANTIDIABETIC REGIMEN: * Levemir 28 units SQ HS * NovoLog, carb ratio 1:4 - uses ~60units/day * HbA1c: 9.3% (06/06/23) ASSESSMENT: 06/14/23 * BSGs today yesterday were [phone] mg/dL. Patient received 88 units of insulin - 30 units of basal and 58 units of bolus. * Fasting today is 138 mg/dL. Patient dipped below 130 mg/dL overnight. * Reduce basal insulin to 29 units. * Can continue Novolog for now. Consider tightened CR if patient trends upwards. 06/12/23: * BSGs yesterday were [phone] mg/dl. Fasting BSG = 315 mg/dl today. * Basal insulin increased slightly to 30 units today at HS. * Patient was NPO this morning for L extremity angiogram. Post procedure, he is not able to eat since he cannot sit up per nurse. * Novolog correction was given twice this morning since his BSG was above 300 mg/dl initially then re-check after 2 hrs was 258 mg/dl (looser correction was used and 4 units given at 08:45AM). * Pre-lunch BSG trended down to 221 mg/dl. Will continue to with same correction but carb ratio tightened slightly. * Patient seems to trend low around 23:00 to midnight. Most likely this is caused by the high amounts of bolus insulin gets with lunch and dinner. Dinner carb ratio may need to be loosened further. Re-assess tomorrow. 06/11/23 * Patient's BSGs yesterday were [phone] mg/dL. Patient hypoglycemic overnight - 40 mg/dL. * He received 153 units of insulin (28 units of Lantus and 125 units of bolus). * This pharmacist went to speak with the patient. * He is comfortable with Lantus 28 units. He wishes to continue this. In terms of the fastings over the past two days (186 vs 311), patient stated that he ate the same snack both nights prior (PB+ crackers and turkey sandwich). The only difference was the night before his BSG was 186 mg/dL, he drank juice. * In terms of Novolog, patient is comfortable using carbohydrate ratio of 4. He stated that sometimes his blood sugars are high all day and no matter how much insulin he gives himself, they remain high. He would like his blood sugars to remain between 130-200 mg/dL. He is okay with using a CR of 3.5 if necessary. For HS check, patient only gives himself Novolog if BSG > 200 mg/dL. Will change our scale to reflect that. 06/10/23: * POD #2 * Patient once again hyperglycemic during the day yesterday with episode of hypoglycemia overnight * Attempting to achieve better glycemic control, but BSGs remain labile today * Will continue with tightened day-time parameters, but will change HS parameters to contain loose correctional only * Continue home basal dose * If BSGs remain elevated at dinner/HS - tighten day-time Novolog further tomorrow 06/09/23: * POD #1 s/p Left fourth metatarsal amputation * BSGs elevated yesterday, ranging 209-359 mg/dL * Patient received increased basal dose again last evening * Fasting BSG of 55 mg/dL this morning - likely related to too much basal, but may also be related to additional Novolog from overnight check * Will change basal back to home dose today 06/07 * Pt remains hyperglycemic today. * Lantus dose will be increased this evening, as fasting BSG markedly elevated this morning. * Suspect that pt may be NPO after midnight tonight for procedure. Given persistent hyperglycemia, expect that increased dose of Lantus should still be appropriate. * Pre-lunch BSG was elevated today, despite aggressive carb coverage. Will furt her adjust Novolog parameters tomorrow if BSGs do not begin to improve. 06/06 * 67 year old male Type 1 DM, last seen by endocrine in November, admitted with left foot osteomyelitis, on IV zosyn, NPO at this time. * Hyperglycemic last night on admission, given 10 units IV Regular insulin, 25 units of Lantus, and NovoLog Q4H SQ. * Started on CF/CR as used last admission with success, will continue at this time, euglycemic, change to Q6H checks. * Continue basal insulin. PLAN FOR INPATIENT GLYCEMIC CONTROL: * Basal insulin * Lantus 29 units SQ HS * Bolus insulin * NovoLog per scale ACHS Q6hrs while NPO. Added 00 and 04 checks * Goal Range: Low 110 mg/dL - High 140 mg/dL w/ meals and 150-180 mg/dL at HS * Correction Factor: 15 mg/dL/unit w/ meals, 45 mg/dL/unit at HS * Nutritional / Prandial insulin per carb ratio of 1 unit per 3.5 grams CHO consumed w/ meals; 1 units per-- gm at HS
[2023-06-14] MEDS: AMIODARONE 200 MG TAB PO SCH ×2 (09:15→18:35)
[2023-06-14] MEDS: ASPIRIN 81 MG ECTAB PO SCH (09:15)
[2023-06-14] MEDS: DOCUSATE SODIUM/SENNA 50/8.6MG TAB PO SCH (09:16)
[2023-06-14] MEDS: INSULIN ASPART PER UNIT CHARGE SC SCH ×4 (09:18→20:24)
[2023-06-14] MEDS: VANCOMYCIN HCL 1,250 MG in SODIUM CHLORIDE 0.9% 250 ML IV SCH ×2 (09:29→22:01)
[2023-06-14] MEDS: POLYETHYLENE (MIRALAX) 17 GM PACK PO SCH (13:11)
[2023-06-14] MEDS: cefTRIAXone SODIUM 2,000 MG in DEXTROSE 5% 50 ML IV SCH (15:37)
--- NOTE | 2023-06-14 18:40 | Billing Data ---
Date of Service June 14, 2023 Coding Level of Care Code 55441 SUB INP/OBS CARE
[2023-06-14] MEDS ORDERED: ENOXAPARIN INJ 40 MG/0.4 ML SYR SQ SCH (19:00)
[2023-06-14] MEDS ORDERED: LANTUS PER UNIT CHARGE SQ SCH (21:00)
[2023-06-15 06:38] LABS: Basophils # (auto) 0.06 K/uL (0-0.2); Basophils % (auto) 0.9 %; Eosinophils # (auto) 0.47 K/uL (0-0.50); Eosinophils % (auto) 6.7 %; Hematocrit (blood only) 24.6 % (42.0-52.0); Hemoglobin 7.7 g/dl (14.0-18.0); Immature Granulocytes # (auto) 0.04 K/uL (0.01-0.20); Immature Granulocytes % (auto) 0.6 %; Lymphocytes # (auto) 1.54 K/uL (1.2-3.4); Lymphocytes % (auto) 21.8 %; Mean Corpuscular Hemoglobin 25.8 pg (25.0-34.0); Mean Corpuscular Hgb Conc 31.3 g/dL (32.0-36.0); Mean Corpuscular Volume 82.6 fL (80.0-100.0); Mean Platelet Volume 10.4 fL (9.4-12.4); Monocytes # (auto) 0.67 K/uL (0.11-0.59); Monocytes % (auto) 9.5 %; Neutrophils # (auto) 4.27 K/uL (1.40-6.50); Neutrophils % (auto) 60.5 %; Platelet Count 310 K/uL (130-400); RDW Standard Deviation 53.6 fL (36.4-46.3); Red Blood Count 2.98 M/uL (4.70-6.10); White Blood Count 7.05 K/ul (4.8-10.8)
[2023-06-15 07:00] LABS: BUN Creatinine Ratio 21.3 (10-20); Calcium 8.4 mg/dl (8.6-10.3); Est GFR (African American) 96.8 ml/min; Est GFR (Non-African American) 83.6 ml/min
[2023-06-15 07:28] LABS: Polychromasia 1+
[2023-06-15 08:00] VITALS: O2SAT 98
[2023-06-15] MEDS: ASPIRIN 81 MG ECTAB PO SCH (08:17)
[2023-06-15] MEDS: AMIODARONE 200 MG TAB PO SCH (08:17)
[2023-06-15] MEDS: DOCUSATE SODIUM/SENNA 50/8.6MG TAB PO SCH (08:18)
[2023-06-15] MEDS: POLYETHYLENE (MIRALAX) 17 GM PACK PO SCH (08:18)
[2023-06-15] MEDS: INSULIN ASPART PER UNIT CHARGE SC SCH ×2 (08:21→12:26)
--- NOTE | 2023-06-15 08:21 | Pharmacy Report ---
Pharmacy PK ABX Note - Date of Service June 15, 2023 - Assessment and Plan Assessment 67 year old M receiving vancomycin and Rocephin for treatment of osteomyelitis. Pertinent microbiologic data includes: L foot culture growing Proteus mirabilis gustafson sensitive. Day # of antimicrobial therapy. Patient's random level of 14 @ 0602 indicates that current vancomycin dose may not be sufficient. Plan to increase dose. Plan Vancomycin * INCREASE Maintenance dose: 1500 mg IV every 12 hours * Regimen is predicted to achieve target AUC/ELIZ of 400-600 mg/L.hr * Trough level ordered for: 06/17/23 Pharmacy will continue to follow and will adjust dose/frequency as necessary. Thank you. Pharmacy has transitioned to AUC monitoring for vancomycin. AUC/ELIZ is the preferred PK/PD target and is associated with decreased risk of nephrotoxicity compared to traditional trough targets.
[2023-06-15] MEDS ORDERED: VANCOMYCIN HCL 1,500 MG in SODIUM CHLORIDE 0.9% 500 ML IV SCH (09:00)
[2023-06-15] MEDS ORDERED: WARFARIN SOD 5 MG TAB PO ONE (10:35)
--- NOTE | 2023-06-15 11:37 | Discharge Summary ---
Date of Service June 15, 2023 Admission HPI Per Admitting Provider Patient is a 67-year-old male with past medical history of diabetes, CAD, TAVR (on warfarin), congestive heart failure with reduced ejection fraction, PAD, hypertension, R BKA, who presents to the hospital for infection of his left foot today after seeing Dr. Guerrero in clinic today. Patient had a left foot fifth transmetatarsal amputation done on 01/[address] Guerrero. Patient previously had a wound VAC that was removed approximately 3 weeks ago. Patient states that since Sunday he has been having some pain in his left foot with drainage, redness, swelling, and discharge. He denies any nausea, vomiting, or fevers. In the ED: Afebrile, no leukocytosis, elevated ESR, CRP, and Pro-Armen. Glucose of 429. Patient states that he ate [employer] before coming to the ED and did not take his normal insulin. X-ray of the left foot showed possible osteomyelitis at the base of the fourth metatarsal. Blood cultures collected and patient was started on Dapto and Zosyn. Admission Exam Per Admitting Provider Constitutional: well-appearing, no acute distress HEENT: NCAT, no conjunctival injection CV: regular rhythm, no murmur appreciated, extremities well-perfused, no LE edema Resp: CTABL, no wheezes/rales/rhonchi appreciated, no increased work of breathing GI: soft, nondistended, nontender, BS normoactive MSK: Left foot warm, tender, erythematous, wrapped with bandage. Lacks sensation to the distal left lower extremity past mid tibia. Right BKA Skin: warm, dry, no rash appreciated Neuro: alert, oriented, no focal neurologic deficit appreciated Principal Diagnosis Left foot Osteomyelitis Discharge Exam Constitutional WD/WN, vitals as above Eyes + anicteric sclerae ENMT Ears: no external ear abnormality Nose: no external nose abnormality Respiratory normal respiratory effort, lungs clear to auscultation Cardiovascular Rate/Rhythm: + irregularly irregular Gastrointestinal (Abdomen) normal bowel sounds, soft, nontender, no hepatosplenomegaly Musculoskeletal Left ankle bandaged, wound vac in place. Right below the knee amputation. Skin no rashes, warm and dry No erythema/streaking above bandaged wound. Psychiatric A+Ox3, euthymic affect Discharge Data Allergies Allergy/AdvReac Type Severity Reaction Status Date / Time ketoconazole [From Nizoral] AdvReac Unknown see comment Verified 06/12/23 09:50 Consultations 06/05/23 19:13 ED Decision to Admit Stat 06/05/23 20:29 Consult Podiatry Stat 06/06/23 09:01 Consult Vascular Surgery Routine 06/06/23 13:31 Consult Cardiology Routine 06/09/23 13:42 Consult Infectious Diseases Routine Procedures Performed Operation Date: 06/12/23 10:20 Actual Procedures p Left Lower Extremity Angiogram, Ultrasound Localization of Right Femoral Artery, Moderate Sedation [id number](Right) - Sherif Guerrero MD Ordered Studies 06/05/23 20:04 MRI Foot [MR foot LT wo/w con] Stat 06/06/23 08:07 US arterial duplex LE LT Routine 06/12/23 07:08 EV angio LE LT Routine US EV guide vascular access Routine Foot X-Ray 06/05/23 17:14 XR foot LT min 3V routine HISTORY: 67 years-old Male infection chronic left foot pain with reported soft tissue infection COMPARISON: 12/11/2022 TECHNIQUE: 3 views of the left foot FINDINGS: Interval postoperative changes of partial resection of the first digit at the level of the mid diaphyseal proximal phalanx. Status post resection of the distal fourth metatarsal and the entire fifth digit. Chronic cortical thickening of the second and third metatarsals demineralized appearance of the bones with severe degeneration of the midfoot and hindfoot. Pes planus with mid foot collapse and chronic remodeling/disorganization. 2 soft tissue swelling. Probable bone fragments noted within the lateral forefoot. Mild bony irregularity noted within the base of the fourth proximal phalanx IMPRESSION: 1. Findings suspicious for osteomyelitis involving the base of the fourth proximal phalanx. 2. Soft tissue swelling with postoperative and chronic findings as above. ACT 112: Negative or not required by law. The above report was generated using voice recognition software. It may contain grammatical, syntax or spelling errors. Electronically signed by: Gabino Singh M.D. 06/05/2023 6:16 PM Foot MRI 06/05/23 20:04 Exam(s): MRI LEFT FOOT W/WO Contrast IV Amt: 11.5cc Gadavist EXAM: MR Left Lower Extremity Without and With Intravenous Contrast, Foot CLINICAL HISTORY: Reason for exam: Left foot osteomyelitis?. TECHNIQUE: Multiplanar magnetic resonance images of the left foot without and with intravenous contrast. CONTRAST: Patient received 11.5cc Gadavist of IV contrast COMPARISON: Plane films of the left foot from June 05, 2023 FINDINGS: Bones/joints: Focal edema and enhancement running obliquely across the distal third metatarsal consistent with acute or nonhealed fracture. Previous amputation of the fifth ray as well as the first digit proximal to the interphalangeal joint and focal resection of the distal fourth metatarsal head. Soft tissues: There is focal edema and enhancement of an approximately 0.7 x 1.6 cm area of the lateral aspect of the proximal fourth metatarsal deep to the wound suspicious for osteomyelitis. Other findings: The hindfoot is not included on the study. IMPRESSION: 1. There is focal edema and enhancement of an approximately 0.7 x 1.6 cm area of the lateral aspect of the proximal fourth metatarsal deep to the wound suspicious for osteomyelitis. 2. Focal edema and enhancement running obliquely across the distal third metatarsal consistent with acute or nonhealed fracture. 3. Previous amputation of the fifth ray as well as the first digit proximal to the interphalangeal joint and focal resection of the distal fourth metatarsal head. Electronically signed by: Ethan Paulino MD 06/05/23 22:26 PM Duplex Scan Lower Extremity Artery 06/06/23 08:07 LEFT LOWER EXTREMITY ARTERIAL DOPPLER ULTRASOUND CLINICAL HISTORY: Non-healing ulcer. COMPARISON STUDY: Bilateral large extremity arterial Doppler ultrasound April 02, 2017. TECHNIQUE: Left ankle to brachial index was obtained. Grayscale, color and duplex Doppler sonography of the arterial system of the left lower extremity was performed. FINDINGS: Left ankle to brachial index measured 0.55 when using dorsalis pedis and 0.33 when using the posterior tibial artery. There is triphasic flow within the left common femoral artery. There is extensive plaque within the left lower extremity. There is an elevated peak systolic velocity of 280 cm/s within the proximal left superficial femoral artery. There is monophasic flow within the mid to distal left superficial femoral artery. There is monophasic flow within the left popliteal, anterior tibial and dorsalis pedis arteries. There is suspected occlusion with distal reconstitution of the left posterior tibial artery. This was shown on prior ultrasound. There is suspected occlusion of the distal left peroneal artery. IMPRESSION: 1. Extensive atherosclerotic plaque within the left lower extremity. Moderately diminished left ankle to brachial index of 0.55. 2. Findings suggestive of a hemodynamically significant stenosis within the proximal left superficial femoral artery. 3. Monophasic flow throughout the remainder of the left lower extremity with suspected occlusion of the proximal left posterior tibial artery with distal reconstitution and occlusion of the distal left peroneal artery. ACT 112: Negative or not required by law. Electronically signed by: Dmitry Harper M.D. 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 * Patient was discharged to [facility] for 6 weeks of IV antibiotics for osteomyelitis of the left foot Foot osteomyelitis, left -Previous osteomyelitis in the left foot s/p debridement and 5th MT and 4th MT head amputation done on 02/09/[address] Guerrero. No prior artial disease/intervention required -Increased pain/redness/drainage x 3-4 days at home reported. CRP/ESR elevation. Prior blood cx + Enterococcus faecalis, past wound cultures positive for MRSA. -MRI w/ focal edema/enhancement lateral aspect 4th metatarsal suspicious for osteo and running obliquely across distal third metatarsal c/w acute or nonhealed fracture -Podiatry consulted -POD #7 L foot debridement and removal of non-viable tissue -Surgical culture with no further growth. Prior culture on admit growing proteus mirabilis -ID consulted for antibiotic management -Continue Ceftriaxone (2g IV daily), Vanco to complete a 6 week course through 07/19/23 via PICC. -Today/day of discharge increased Vancomycin to 1500mg IV q12h (received Vanc, Ceftriaxone this morning) -Regimen is predicted to achieve target AUC/ELIZ of 400-600 mg/L.hr. Pharmacy recommending repeat trough level on 06/17/23 -Check weekly CBC with diff, CMP, vanc level to monitor for toxicity and adjust vanc dosing as needed PAD (peripheral artery disease) -US Duplex obtained by vascularto ensure no arterial disease/other causes for not healing IMPRESSION: 1. Extensive atherosclerotic plaque within the left lower extremity. Moderately diminished left ankle to brachial index of 0.55. 2. Findings suggestive of a hemodynamically significant stenosis within the proximal left superficial femoral artery. 3. Monophasic flow throughout the remainder of the left lower extremity with suspected occlusion of the proximal left posterior tibial artery with distal reconstitution and occlusion of the distal left peroneal artery. -Lipid panel obtained,increase Crestor to 10mg daily. -Angiogram completed with Dr. Guerrero, no acute interventions completed. Anemia -Iron studies checked - iron low at 20, TIBC low, unsat acceptable. Trans % sat lLOW at 8%. Ferritin only 37.8. -Hgb stable between 7.7-8.4 in the past week, received Venofer x1. No indication for transfusion of PRBCs/no signs of active bleed. S/P TAVR (transcatheter aortic valve replacement)/Paroxysmal atrial fibrillation: -Patient on warfarin for history of AVR and paroxysmal A-fib.(Warfarin 2.5mg 5 days per week, 5mg 2 days per week) -Warfarin held prior to surgery, later started Lovenox postop -Warfarin 5mg given on day of discharge, would consider resuming home dosing with repeat INR on 06/17/23 -Continue increased amiodarone at 200mg BID -Had 3 second pause on tele on 06/14/23 while patient asleep. HR seems to vary between 50s-90s during the day, would avoid additional Lopressor currently. -Consider outpatient event monitor to assess for additional episodes Chronic systolic congestive heart failure -Chronic, stable. Last echo done on 02/12/2023 showed a EF of 35 to 40%. -Bumex resumed following surgery -Carvedilol discontinued as above. Not on MAMIE-I or Entresto due to symptomatic hypotension in the past. Hyperlipidemia -Lipid panel checked given PAD, increased statin to Crestor 10mg daily Uncontrolled type 1 diabetes mellitus with diabetic neuropathy, with long-term current use of insulin: -Patient is a type I diabetic uncontrolled last seen by endocrine on 11/2022, BSG elevation on admit -A1c 9.3 on admission -Outpatient regimen: Levemir 28 units SQ HS. NovoLog, carb ratio 1:4 - uses ~60units/day. -During admission: Most recent glycemic control- 29 units of basal and 58 units of bolus. -Goal Range: Low 110 mg/dL - High 140 mg/dL w/ meals and 150-180 mg/dL at HS -Correction Factor: 15 mg/dL/unit w/ meals, 45 mg/dL/unit at HS -Nutritional / Prandial insulin per carb ratio of 1 unit per 3.5 grams CHO consumed w/ meals MEGAN (acute kidney injury) -Cr elevation on admission, Bumex initially held -Cr 0.94 on day of discharge -Ok to resume home Bumex Carotid artery stenosis -Continue home aspirin Hypertension -BPs stable Total Time Total Time Spent Total Time Spent (In Minutes): .<30 Discharge Plan Discharge Items Patient Disposition: Transfer Long Term Fac Reason For Visit: LEFT FOOT OSTEOMYELITIS Discharge Diagnosis: Left Foot Osteomyelitis Activity: Per Instructions section Non-emergency contact: Primary Care Provider Call non-emergency contact if: you have any medication questions and your symptoms worsen Follow-up/Referrals: Suze Addison MD [Primary Care Provider] - (Hospital discharge follow up appointment within a week after discharge from [facility]) Diet: Carb Consistent or DM2 Addtl Attending Provider Instructions: Foot osteomyelitis, left -Previous osteomyelitis in the left foot s/p debridement and 5th MT and 4th MT head amputation done on 02/09/[address] Guerrero. No prior artial disease/intervention required -Increased pain/redness/drainage x 3-4 days at home reported. CRP/ESR elevation. Prior blood cx + Enterococcus faecalis, past wound cultures positive for MRSA. -MRI w/ focal edema/enhancement lateral aspect 4th metatarsal suspicious for osteo and running obliquely across distal third metatarsal c/w acute or nonhealed fracture -Podiatry consulted -POD #7 L foot debridement and removal of non-viable tissue -Surgical culture with no further growth. Prior culture on admit growing proteus mirabilis -ID consulted for antibiotic management -Continue Ceftriaxone (2g IV daily), Vanco to complete a 6 week course through 07/19/23 via PICC. -Today increased Vancomycin to 1500mg IV q12h (received Vanc, Ceftriaxone this morning) -Regimen is predicted to achieve target AUC/ELIZ of 400-600 mg/L.hr. Pharmacy recommending repeat trough level on 06/17/23 -Check weekly CBC with diff, CMP, vanc level to monitor for toxicity and adjust vanc dosing as needed PAD (peripheral artery disease) -US Duplex obtained by vascularto ensure no arterial disease/other causes for not healing IMPRESSION: 1. Extensive atherosclerotic plaque within the left lower extremity. Moderately diminished left ankle to brachial index of 0.55. 2. Findings suggestive of a hemodynamically significant stenosis within the proximal left superficial femoral artery. 3. Monophasic flow throughout the remainder of the left lower extremity with suspected occlusion of the proximal left posterior tibial artery with distal reconstitution and occlusion of the distal left peroneal artery. -Lipid panel obtained,increase Crestor to 10mg daily. -Angiogram completed with Dr. Guerrero, no acute interventions completed. Anemia -Iron studies checked - iron low at 20, TIBC low, unsat acceptable. Trans % sat lLOW at 8%. Ferritin only 37.8. -Hgb stable between 7.7-8.4 in the past week, received Venofer x1. No indication for transfusion of PRBCs/no signs of active bleed. S/P TAVR (transcatheter aortic valve replacement)/Paroxysmal atrial fibrillation: -Patient on warfarin for history of AVR and paroxysmal A-fib.(Warfarin 2.5mg 5 days per week, 5mg 2 days per week) -Warfarin held prior to surgery, later started Lovenox postop -Warfarin 5mg given on day of discharge, would consider resuming home dosing with repeat INR on 06/17/23 -Continue increased amiodarone at 200mg BID -Had 3 second pause on tele on 06/14/23 while patient asleep. HR seems to vary between 50s-90s during the day, would avoid additional Lopressor currently. -Consider outpatient event monitor to assess for additional episodes Chronic systolic congestive heart failure -Chronic, stable. Last echo done on 02/12/2023 showed a EF of 35 to 40%. -Bumex resumed following surgery -Carvedilol discontinued as above. Not on MAMIE-I or Entresto due to symptomatic hypotension in the past. Hyperlipidemia -Lipid panel checked given PAD, increased statin to Crestor 10mg daily Uncontrolled type 1 diabetes mellitus with diabetic neuropathy, with long-term current use of insulin: -Patient is a type I diabetic uncontrolled last seen by endocrine on 11/2022, BSG elevation on admit -A1c 9.3 on admission -Outpatient regimen: Levemir 28 units SQ HS. NovoLog, carb ratio 1:4 - uses ~60units/day. -During admission: Most recent glycemic control- 29 units of basal and 58 units of bolus. -Goal Range: Low 110 mg/dL - High 140 mg/dL w/ meals and 150-180 mg/dL at HS -Correction Factor: 15 mg/dL/unit w/ meals, 45 mg/dL/unit at HS -Nutritional / Prandial insulin per carb ratio of 1 unit per 3.5 grams CHO consumed w/ meals MEGAN (acute kidney injury) -Cr elevation on admission, Bumex initially held -Cr 0.94 on day of discharge -Ok to resume home Bumex Carotid artery stenosis -Continue home aspirin Hypertension -BPs stable Pending Studies at Discharge: No Stand-Alone Forms: My [facility] Skilled Items Patient informed of condition?: Yes DNR: No Discharge Level of Care: Skilled Communicable Disease: No Discharge Prognosis: Stable Lines: PICC Urinary Catheter: No Medications and DC Order Prescriptions: New polyethylene glycol 3350 [Miralax] 17 gram Powder In Packet 17 g PO DAILY Qty: 0 0RF amiodarone 200 mg Tablet 200 mg PO BIDM Qty: 0 0RF sennosides-docusate sodium [Senokot-S] 8.6-50 mg Tablet 1 tab PO QAM Qty: 0 0RF rosuvastatin 10 mg Tablet 10 mg PO QAM Qty: 0 0RF Continued aspirin 81 mg tablet,chewable 81 mg PO QAM warfarin 5 mg tablet 5 mg PO 2XWK Rx Instructions: Sun/ (DME) insulin syringe-needle U-100 [BD Insulin Syringe] 0.5 mL 29 gauge x 1/2" syringe See Rx Instructions .ROUTE .MEDSUPPLY Qty: 400 3RF Rx Instructions: use 4 x daily Levemir FlexTouch U100 Insulin 100 unit/mL (3 mL) insulin pen 28 unit subcut QPM Qty: 1 5RF (DME) OneTouch Verio test strips Strip See Dose Instructions .ROUTE .MEDSUPPLY Qty: 300 3RF Dose Instruction: As directed Rx Instructions: Test 3 times daily nitroglycerin 0.4 mg tablet, sublingual 0.4 mg Sublingual UD PRN (Reason: Chest Pain) Qty: 25 3RF Rx Instructions: NEEDED FOR CHEST PAIN: ONE TABLET UNDER THE TONGUE EVERY 5 MINUTES UP TO 3 DOSES bumetanide 1 mg tablet 1 mg PO BID Qty: 180 3RF insulin aspart U-100 [Novolog FlexPen U-100 Insulin] 100 unit/mL (3 mL) insulin pen See Rx Instructions .ROUTE .COMPLEX Qty: 30 5RF Rx Instructions: TAKES TIDM--SLIDING SCALE. Injecting 1 unit per 4 carbs up to 60 units a day; acetaminophen 325 mg Tablet 650 mg PO Q4H PRNQty: 0 0RF warfarin 2.5 mg Tablet 2.5 mg PO 5XWK Rx Instructions: Sun//Sun/Sun/Sat Discontinued rosuvastatin 5 mg tablet 5 mg PO DAILY amiodarone 200 mg tablet 200 mg PO QAM carvedilol 12.5 mg Tablet 12.5 mg PO BID Qty: 60 0RF Discharge Orders: Discharge Order (Routine); Ordered 06/15/23 Ordered By: Heaven Da Silva/Other Patient Handouts: Managing Type 1 Diabetes, [facility] for Diabetes Admission Data Admit Date/Time: 06/05/23 20:29 Attending Provider: Martinez Hernadez Admit Provider: Octaviano Pastor Primary Care Provider: Suze Addison Other Providers: [facility] ; [facility] ; Eder Fortune ; Lambert Mcbride ; Sherif Guerrero ; Cliff Durbin ; Alda Bone ; Bryn Stroud ; Nel Strauss ; Britt Weber ; Charley Sullivan ; Cecily Ludwig ; Rita Chicas ; Maddi Bonner ; Mary Cool Other Interventions: Discharge Summary Assessment (RN) Last Done: 06/15/23 12:43 Supervising Physician Co-Signing Physician Notes I personally examined the patient and verified all carmen points of history and exam, discussed case, and agree with decision making with Dr Kohli for SNF today. no new complaints vitals noted nad heent nc at mmm breathing unlabored no accessory muscles foot no tracking erythema DM foot infection/osteomyelitis - no macrovascular disease amenable to intervention. continue IV abx (vanco, rocephin), wound vac, supportive care, multidisciplinary f/u. uncontrolled DM - multiple times discussed carb matching/mealtime insulin titration. discussed postprandial monitoring as a means to learn to better match. he expressed understanding. DVT proph - lovenox otherwise as above
[2023-06-15] MEDS: cefTRIAXone SODIUM 2,000 MG in DEXTROSE 5% 50 ML IV SCH (11:44)
[2023-06-15 12:04] VITALS: TEMP 98.2
[2023-06-15 12:47] VITALS: BP 118/69; PULSE 91
--- NOTE | 2023-06-15 18:10 | Billing Data ---
Date of Service June 15, 2023 Coding Level of Care Code 70145 IN/OBS DISCH 30 MIN/LESS
[2023-06-16] MEDS ORDERED: ROSUVASTATIN CALCIUM 10 MG TAB PO SCH (09:00)
[2023-06-17] MEDS ORDERED: VANCOMYCIN LEVEL ONE (08:30)
== END 2023-06-15 13:45 | DRG 617 ==
LOC: ED 17:03 → SUATTDRO 20:29 → 4W 20:29

== ENCOUNTER 2025-06-29 10:44 | Inpatient (IN) ==
--- NOTE | 2025-06-29 11:28 | History & Physical Bridge Note ---
Date of Service June 29, 2025 History & Physical Bridge Note I have examined the patient, reviewed the History & Physical and in the interval since the performance of the History & Physical I have noted the following changes of clinical significance: no changes noted. I reviewed the indications, procedure, risks and alternatives with the patient, and answered all questions. Patient understands and agrees to the procedure. Consent obtained. I also reviewed the risks and use of sedation, patient understands and consent obtained.
--- NOTE | 2025-06-29 11:29 | Pre Anesthesia Assessment ---
Date of Service June 29, 2025 Pre Sedation Assessment Vital Signs Pulse Resp BP Pulse Ox O2 Del Method 06/29/25 10:57 100 H 18 135/96 97 Room Air Cardiovascular + irregularly irregular Respiratory normal respiratory effort, lungs clear to auscultation Pre-Sedation Airway Assessment Smoking Status: Never smoker Hx Sleep Apnea: Yes Short, Thick Neck: No Thyromental Distance: > or= 3.5 Finger Breadths Oral Cavity: + WNL Mallampati Class: III ASA: ASA3 NPO Status Date of Last Intake of Fluids: 06/28/25 Time of Last Intake of Fluids: 21:00 Date of Last Intake of Solid Food: 06/28/25 Time of Last Intake of Solid Foods: 21:00 Procedure Planning Contraindications for Sedation: none Current Medications Reviewed: Yes Notes The planned sedation has been discussed with the patient. Informed Consent was obtained. I have identified the patient, determined the appropriateness of sedation and have assessed the patient immediately prior to the procedure. All medicine(s) and interventions are by my order.
[2025-06-29] MEDS: ceFAZolin 330 MG/ML 1 GM VIAL ONE (12:30)
[2025-06-29] MEDS: MIDAZOLAM HCL 5 MG/ML 1 ML VIAL ONE (12:32)
--- NOTE | 2025-06-29 12:43 | Electrophysiology Report ---
Date of Service June 29, 2025 Electrophysiology Procedure Electrophysiology Procedure Report Preoperative diagnosis: Severe left ventricular dysfunction, permanent atrial fibrillation Postoperative diagnosis: Same Procedure: Single-chamber ICD implantation Surgeon: Ortiz Raines MD Estimated blood loss: 20 cc Complications: None Disposition: Cardiology recovery Procedure details: After obtaining informed consent for the procedure, the patient was brought to the laboratory and prepped and draped in the standard sterile manner. The left prepectoral region was anesthetized with 1% lidocaine local anesthetic and left axillary venipuncture was performed by percutaneous te chnique and a guidewire placed through the left subclavian vein into the superior vena cava. The area was further infiltrated with 1% lidocaine local anesthetic and a 7 cm incision was made parallel to the left clavicle and 2 cm below it and carried down to the anterior pectoralis fascia. An ICD pocket was formed by blunt dissection anterior to the pectoralis fascia and a vancomycin soaked sponge was placed in the pocket. A 10.5 Nepali [employer] lead introducer was placed over the guidewire into the left subclavian vein, the dilator and guidewire were removed and a bipolar dual coil active fixation steroid tipped ventricular ICD lead was advanced through the introducer into the superior vena cava. A guidewire was placed through the introducer and the introducer was stripped from the lead and guidewire. Using a curved stylette the ventricular lead was advanced through the right ventricular outflow tract into the pulmonary artery and then using a straight stylette was positioned in the right ventricular apex. The screw was extended fixing the lead in position. Pacing and sensing thresholds were evaluated in bipolar configuration and are recorded on the implant data sheet. Once the lead was in position it was attached to the anterior pectoralis fascia using 2 sutures of 2-0 silk around the lead collar. The vancomycin soaked sponge was removed from the pocket, hemostasis was obtained, the ICD was attached to the lead and placed in the pocket with the lead coiled beneath it. The incision was closed with a running double subcutaneous closure of 3-0 Vicryl absorbable suture, followed by running subcuticular skin closure of 4-0 Vicryl absorbable suture. Bacitracin ointment was placed on the incision and a dressing applied. [facility] [place] Electrophysiology codes Indication for Procedure (1) Cardiomyopathy: ICD Procedure 1: ICD: 46381 Insert single or dual ICD system
[2025-06-29] MEDS ORDERED: ACETAMINOPHEN 325 MG TAB PO PRN (12:45)
[2025-06-29] MEDS ORDERED: ACETAMINOPHEN W/CODEINE #3 1 TAB PO PRN (12:45)
--- NOTE | 2025-06-29 12:45 | Post Anesthesia Assessment ---
Date of Service June 29, 2025 Post Sedation Assessment Vital Signs Pulse Resp BP Pulse Ox O2 Del Method 06/29/25 10:57 100 H 18 135/96 97 Room Air Recovery Score Activity: Moves 4 extremities Respiration: Deep Breath/Cough Circulation: +/-20% PreAnes Value Consciousness: Fully Awake Oxygen Saturation: > 92% On Room Air Discharge Sedation Level of Care: Fast Track Phase II Post Sedation Plan On clinical assessment, the patient appears to have tolerated the sedation without complications. Patient is recovering as anticipated. Patient will continue to be monitored by nursing and may be discharged when sedation discharge criteria are met per below protocol. Upon Completions of procedure up to 15 minutes continue every 5 minute vital signs and the P.A.R. score; then discharge to a Phase I or Fast Track to Phase II per the following guidelines: * Discharge Patient to appropriate Phase II area if PAR is 8 or greater or return to pre- procedure baseline. The post - procedure orders will be as directed. * If PAR score is less than 8 or not return to pre-procedure baseline then patient will follow Phase I monitoring till PAR is reached for Phase II. The Phase I may be done in procedure room or may call to secure a Phase I area. * If naloxone or flumazenil are used for reversal, hold in Phase I for continued monitoring from when last reversal dose was given for a minimum of 60 minutes or longer pending the nurse and/or physician discretion of patient condition before discharge to Phase II. Please call the Sedation Physician to re-evaluate and complete post-note for discharge to Phase II area. Do NOT discharge from procedure sedation or Phase 1 until post- sedation evaluation note is complete by procedure /sedation MD Sedation Discharge Instructions to be given to the patient at discharge to home.
[2025-06-29] MEDS ORDERED: HYDROCODONE/ACETAMOPHEN 5/325MG TAB PO PRN (13:01)
[2025-06-29] MEDS ORDERED: NITROGLYCERIN SL 0.4 MG/TAB TAB SL PRN (13:01)
[2025-06-29] MEDS ORDERED: DEXTROSE 50% 50 ML SYRINGE IV PRN ×2 (13:25→13:30)
[2025-06-29] MEDS ORDERED: GLUCOSE 40% GEL 15 GM TUBE PO PRN ×2 (13:25→13:30)
[2025-06-29] MEDS ORDERED: CARBOHYDRATES FOR HYPOGLYCEMIA PO PRN ×2 (13:25→13:30)
[2025-06-29] MEDS ORDERED: GLUCOSE 10 TAB/TUBE PO PRN ×2 (13:25→13:30)
[2025-06-29] MEDS ORDERED: GLUCAGON FOR INJ 1 MG VIAL SQ PRN ×2 (13:25→13:30)
[2025-06-29] MEDS ORDERED: INSULIN ASPART PER UNIT CHARGE SC SCH (13:45)
[2025-06-29] MEDS: INSULIN ASPART PER UNIT CHARGE SC SCH (14:13)
[2025-06-29] MEDS: LANTUS PER UNIT CHARGE SC SCH (23:22)
--- NOTE | 2025-06-30 07:37 | XRay Report ---
EXAM: XR chest 2V PA/lateral CLINICAL HISTORY: Evaluate for pneumothorax. TECHNIQUE: X-ray images of the chest were obtained in posteroanterior (PA) and lateral projections. COMPARISON: No prior studies available for comparison. FINDINGS: Pulmonary Parenchyma: Lungs are clear bilaterally. No evidence of consolidation, collapse, or focal opacities. No pulmonary nodules identified. No evidence of pleural effusion or pleural thickening. Cardiac pacemaker noted. Heart and Mediastinum: Heart size and shape are normal. No mediastinal widening or masses. No hilar or mediastinal lymphadenopathy. Bony Thorax: Bony thorax appears intact without fractures or deformities. Soft Tissues: Soft tissues overlying the chest wall are unremarkable. IMPRESSION: Normal chest X-ray. No acute cardiopulmonary abnormalities identified. Electronically signed by Santana Forbes 06-30-2025 07:37 AM
[2025-06-30 08:08] VITALS: BP 113/73; RESP 20; TEMP 97.5; O2SAT 100
[2025-06-30] MEDS: ASPIRIN 81 MG CHEW PO SCH (08:48)
[2025-06-30] MEDS: SPIRONOLACTONE 25 MG TAB PO SCH (08:48)
[2025-06-30] MEDS: BUMETANIDE 1 MG TAB PO SCH (08:48)
--- NOTE | 2025-06-30 10:39 | Cardiology Progress Note ---
Date of Service June 30, 2025 Assessment & Plan (1) Status post placement of cardiac pacemaker: (2) Atrial fibrillation, permanent: (3) correction (current) use of anticoagulants: Plan 1. Postop day #1: He is doing well postop, the site looks good and he feels well. The chest x-ray shows good lead position. Electrical characteristics through the device are excellent. 2. Atrial fibrillation: He remains in atrial fibrillation and his heart rate is a bit fast, he is on good doses of carvedilol although with the surgery perhaps his heart rate is not as well-controlled today as it would have been as an outpatient. The pacemaker/ICD will monitor his heart rate so we can adjust his medications as an outpatient if needed. 3. Anticoagulation: He has been on warfarin, I discussed the use of Eliquis and he is agreeable although cost may be an issue. I will give him some samples and a 30-day prescription and we will try to switch him over to Eliquis. I will have him start Eliquis tonight. Admission and Anticipated Discharge Date Admission Date: June 29, 2025 Subjective He is feeling very well this morning, no significant incisional discomfort, no chest discomfort and no shortness of breath. Physical Exam Physical Exam: The incision is clean and dry, no significant bleeding, dressing changed. No ecchymosis or swelling. Cardiac rhythm is irregular with no rub. Lungs are clear Results & Data Vital Signs (Past 12 Hours) Vital Signs Temp Pulse Pulse Resp BP Pulse Ox O2 Del Method 06/30/25 09:14 83 06/30/25 08:07 36.4 C L 89 20 113/73 100 Room Air 06/30/25 03:31 36.6 C 78 16 131/77 98 Room Air 06/29/25 23:20 36.4 C L 98 H 18 130/77 97 Room Air Diagnostic Findings Telemetry: Atrial fibrillation, rate averaging around 80-90, appropriate ICD in admission Postop ECG: Atrial fibrillation in a controlled heart rate, ICD appropriately inhibited Chest x-ray: Good lead position, no pneumothorax ICD evaluation: Excellent pacing and sensing characteristics PG Care Time/CCT Total # of Minutes Spent Total Time Spent with Patient: Total time spent is greater than 50% in coordination of care (as documented) at patient's floor/unit and/or counseling patient: Coding Level of Care Code 11824 Post Operative Follow-Up Diagnoses Status post placement of cardiac pacemaker Z95.0 Atrial fibrillation, 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
[2025-06-30 11:30] VITALS: PULSE 89
--- NOTE | 2025-07-03 13:57 | Electrocardiogram Report ---
Test Reason : Blood Pressure : */* mmHG Vent. 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
== END 2025-06-30 11:51 | disposition home or self-care (01) | DRG 277 ==
LOC: EP 10:44 → 4W 11:42
PROC: EPB.ICD (2025-06-29 12:00)